=== PATIENT | male | born 1955 | race Caucasian/White ===

== ENCOUNTER → 2023-11-23 15:43 | Outpatient (REF) | payer BC, SELFPAY | LOC: RAD 15:43 | PROVIDERS: ATTENDING PHYSICIAN Nurse Practitioner Family | DX: M79.89 Other specified soft tissue disorders (principal) | CPT/HCPCS: 93971 ==

== ENCOUNTER → 2024-02-14 07:07 | Outpatient (REF) | payer BC, SELFPAY ==
[2024-02-14 07:49] LABS: % Basophils 0.7 % (0-2); % Immature Granulocytes 0.4 % (0-0.5); % Lymphocytes 14.4 % (20.5-51.1); % Monocytes 9.2 % (1.7-9.3); % Neutrophils 73.3 % (42.2-75.2); Absolute Basophils 0.1 10^3/uL (0-0.2); Absolute Eosinophils 0.2 10^3/uL (0-0.7); Absolute Lymphocytes 1.2 10^3/uL (1.2-3.4); Absolute Monocytes 0.7 10^3/uL (0.1-0.6); Absolute Neutrophils 5.9 10^3/uL (1.4-6.5); Hematocrit 52.8 % (39.0-52.0); Hemoglobin 17.3 g/dL (13.0-18.0); Mean Corp Hgb Conc. 32.8 g/dL (33.0-37.0); Mean Corpuscular Hgb 31.5 pg (27.0-31.0); Mean Platelet Volume 10.5 fL (7.4-10.4); Nucleated Red Blood Cells % 0 % (-); Platelet Count 187 10^3/uL (130-400); Red Cell Dist. Width 12.7 % (11.5-14.5); White Blood Cell Count 8.1 10^3/uL (4.8-10.8)
[2024-02-14 08:23] LABS: ALT (SGPT) 31 U/L (0-50); AST (SGOT) 32 U/L (17-59); Albumin 4.8 g/dl (3.5-5.0); Alkaline Phosphatase 69 U/L (38-126); Blood Urea Nitrogen 23 mg/dl (9-20); Calcium 9.9 mg/dl (8.4-10.2); Carbon Dioxide 25 mmol/L (22-30); Chloride 103 mmol/L (98-107); Glucose 106 mg/dl (70-99); HDL Cholesterol 46 mg/dl; LDL Cholesterol, Calculated 60 mg/dl; Potassium 4.1 mmol/L (3.5-5.1); Sodium 139 mmol/L (135-145); Total Bilirubin 0.9 mg/dl (0.2-1.3); Total Cholesterol 151 mg/dl (50-199); Total Protein 7.2 g/dl (6.3-8.2); Triglyceride 226 mg/dl (10-149); Very Low Density Lipoprotein 45 mg/dl (0-30); eGFR > 60.00
[2024-02-14 11:05] LABS: Glycohemoglobin (HgbA1c) 6.8 % (4.0-5.6)
[2024-02-14 15:28] LABS: Protein/creatinine Ratio 0.2; Urine Protein 12 mg/dl
[2024-02-14 15:34] LABS: Microalbumin, Random Urine 5.2 mg/dl (0.6-1.7); Microalbumin/creatinine Ratio 70.6 mg/g
== END ==
LOC: REG 07:07
PROVIDERS: ATTENDING PHYSICIAN Physician Assistant; FAMILY PHYSICIAN Family Medicine
DX: E11.9 Type 2 diabetes mellitus without complications (principal); R80.9 Proteinuria, unspecified
CPT/HCPCS: 36415; 80053; 80061; 82043; 82570; 83036; 84156; 85025

== ENCOUNTER 2024-03-02 04:29 | Emergency (ER) | payer BC, SELFPAY ==
[2024-03-02 04:31] VITALS: BP 143/80
[2024-03-02 05:00] VITALS: BP 127/81
[2024-03-02 05:04] VITALS: BMI 27.1
--- NOTE | 2024-03-02 05:08 | EDRN ---
Pt thinks he has kidney stones and noticed he has blood in his urine because he straight caths himself. Pt has pain LLQ that started around midnight, non radiating. No n/v, fever/chills/cough, cp, sob. Pt says this feels like usual kidney stone
which he has not had in about 10 years. Pt took meloxicam and 2 tylenol at him for pain. Pain improved from triage to ED room.
[2024-03-02 05:26] LABS: % Basophils 0.7 % (0-2); % Eosinophils 2.3 % (0-6); % Immature Granulocytes 0.3 % (0-0.5); % Monocytes 9.4 % (1.7-9.3); % Neutrophils 79.3 % (42.2-75.2); Absolute Basophils 0.1 10^3/uL (0-0.2); Absolute Eosinophils 0.3 10^3/uL (0-0.7); Absolute Monocytes 1.2 10^3/uL (0.1-0.6); Absolute Neutrophils 9.8 10^3/uL (1.4-6.5); Hematocrit 46.9 % (39.0-52.0); Hemoglobin 15.4 g/dL (13.0-18.0); Mean Corp Hgb Conc. 32.8 g/dL (33.0-37.0); Mean Corpuscular Hgb 31.5 pg (27.0-31.0); Mean Corpuscular Volume 95.9 fL (80.0-94.0); Mean Platelet Volume 10.8 fL (7.4-10.4); Nucleated Red Blood Cells % 0 % (-); Platelet Count 178 10^3/uL (130-400); Red Blood Cell Count 4.89 10^6/uL (4.70-6.10); Red Cell Dist. Width 12.8 % (11.5-14.5); White Blood Cell Count 12.4 10^3/uL (4.8-10.8)
[2024-03-02 05:45] LABS: ALT (SGPT) 26 U/L (0-50); AST (SGOT) 24 U/L (17-59); Albumin 4.1 g/dl (3.5-5.0); Alkaline Phosphatase 74 U/L (38-126); Blood Urea Nitrogen 29 mg/dl (9-20); Calcium 9.4 mg/dl (8.4-10.2); Carbon Dioxide 23 mmol/L (22-30); Chloride 103 mmol/L (98-107); Estimated Creatinine Clearance 84 ml/min; Glucose 158 mg/dl (70-99); Lipase 90 U/L (23-300); Sodium 137 mmol/L (135-145); Total Bilirubin 0.8 mg/dl (0.2-1.3); Total Protein 6.3 g/dl (6.3-8.2); eGFR > 60.00
[2024-03-02 06:00] VITALS: BP 111/83
[2024-03-02] MEDS: NSS 500 IV (06:19)
[2024-03-02 06:29] LABS: Urine Albumin Trace (Neg - Trace); Urine Bilirubin Negative (Negative); Urine Character Very Cloudy (Clear); Urine Color Yellow; Urine Glucose 3+ (Negative); Urine Ketone 1+ (Negative); Urine Leukocyte 2+ (Negative); Urine Nitrite Negative (Negative); Urine Occult Blood 4+ (Negative); Urine Urobilinogen Negative (Neg - 1+)
[2024-03-02 06:36] LABS: Urine White Cell >100 /HPF (0-5)
[2024-03-02 06:37] LABS: Urine Yeast Few (Negative)
--- NOTE | 2024-03-02 07:25 | ED.GENMED ---
History of Present Illness
General
Chief Complaint: Urinary Symptoms
Source: patient and spouse
Exam Limitations: none
Time Seen by Provider: 03/02/24 06:03
Nursing documentation reviewed up to this point in time: agreed with
Travel History
Have you had any contact with someone who has COVID-19?: No
Do you have any symptoms of coronavirus? Fever > 100 degrees, chills, cough, shortness of breath, sore throat, loss of taste or smell, muscle aches, or headache?: No
History of Present Illness
History of Present Illness:
Patient with history of kidney stones, presents to ED secondary to sudden onset of left lower abdominal pain, which woke the patient from sleep, similar to what he has experienced in the past secondary to kidney stones. Last kidney stone episode
was approxi-10 years ago. Denies fever or chills. Denies nausea or vomiting. Denies trauma. Patient states that he self caths twice daily, after receiving Botox injection by his urologist. Denies previous history of UTI. Patient has taken
Tylenol and meloxicam prior to arrival, and states that he currently has no pain.
Past History
Past History
ED Past Medical History: None
ED Past Surgical History: None
Social History
Tobacco: Non-smoker
Review of Systems
Review of Systems
Allergies reviewed?: Yes
All Other Systems: ROS reviewed and negative except as documented in HPI and ROS
Constitutional: Reports no symptoms
ABD/GI: Reports abdominal pain; Denies nausea or vomiting
: Reports flank pain; Denies dysuria or difficulty voiding
Musculoskeletal: Reports no symptoms
Skin: Reports no symptoms
Neurological: Reports no symptoms
Phy Exam
Physical Exam
Physical Exam:
Physical Exam
General: no apparent distress, not acutely ill.
Neck: supple. no meningeal signs.
Heart: s1/s2 regular rate and rhythm, no murmur. equal radial pulses.
Lungs: no acute respiratory distress. clear bilaterally
Abdomen: normal bowel sounds. not tender.
Neuro: alert and oriented. no focal neurological deficits
Skin: no rash
Psychiatric: well kept. interactive and cooperative
Extremities: no edema. no calf tenderness.
Course
Orders/Labs/Results
Orders:
Orders
03/02/24 05:11
IV Insert/Care/Rem.- Treatment PRN
03/02/24 05:17
Complete Blood Count/With Diff Urgent
Comprehensive Metabolic Panel Urgent
Lipase Urgent
03/02/24 06:15
0.9% Sodium Chloride 500 ml [Nss] 500 ml IV BOLUS
03/02/24 06:16
CT Abd/pel Without Iv Or Oral Urgent
Comment:
Reason For Exam: left flank pain
03/02/24 06:20
Urinalysis Reflex To Culture Urgent
Date Specimen was Collected: 03/02/24
Time Specimen was Collected: 06:19
Urine Microscopic Reflex Cult Urgent
Urine Culture Urgent
ISA Source: U
Specimen Description:
Date Specimen was Collected: 03/02/24
Time Specimen was Collected: 06:19
Abnormal Lab Results
03/02/24 03/02/24
05:17 06:20
WBC 12.4 H 10^3/uL
(4.8-10.8)
MCV 95.9 H fL
(80.0-94.0)
MCH 31.5 H pg
(27.0-31.0)
MCHC 32.8 L g/dL
(33.0-37.0)
MPV 10.8 H fL
(7.4-10.4)
Absolute Neuts (auto) 9.8 H 10^3/uL
(1.4-6.5)
Absolute Lymphs (auto) 1.0 L 10^3/uL
(1.2-3.4)
Absolute Monos (auto) 1.2 H 10^3/uL
(0.1-0.6)
Neutrophils % 79.3 H %
(42.2-75.2)
Lymphocytes % 8.0 L %
(20.5-51.1)
Monocytes % 9.4 H %
(1.7-9.3)
BUN 29 H mg/dl
(9-20)
Glucose 158 H mg/dl
(70-99)
Urine Ketones 1+ A
(Negative)
Ur Occult Blood Reflex 4+ A
(Negative)
Leukocyte Esterase Rfl 2+ A
(Negative)
Urine WBC (Reflex) >100 A /HPF
(0-5)
Urine Yeast Few A
(Negative)
Urine Glucose 3+ A
(Negative)
03/02/24 05:17
03/02/24 05:17
Vital Signs
Initial and Last Documented VS:
Initial Vital Signs
Temp Pulse Resp BP Pulse Ox
98.1 F 67 14 143/80 95
03/02/24 04:31 03/02/24 04:31 03/02/24 04:31 03/02/24 04:31 03/02/24 04:31
Last Documented Vital Signs
Temp Pulse Resp BP Pulse Ox
98.1 F 73 16 124/76 97
03/02/24 04:31 03/02/24 07:58 03/02/24 07:58 03/02/24 07:58 03/02/24 07:58
MDM/Problems Addressed
MDM/Problems Addressed:
Patient remains pain-free during observation ED and remains hemodynamically stable. CT report reviewed and discussed with patient, consistent with likely recently passed kidney stone, as patient has no pain currently. However, there is 14 mm large
kidney stone in renal pelvis, which will be discussed with his urology as an outpatient.
WBC noted on urinalysis as well as leuk esterase. However, there is no bacteria involved. As such, antibiotics will be withheld, pending urine culture result.
*Critical Care Note
Total Time (30-74mins, 75-104mins- exclusive of procedures): Not Applicable
ED Attending Note
-
Portions of this chart may have been created with voice recognition software.� Occasional wrong word or��sound alike� substitutions may have occurred due to the inherent limitations of voice recognition software.
Discharge Plan
Departure
Patient Disposition: Home (Routine Discharge)
Date of Disposition: 03/02/24
Time of Disposition: 07:25
Patient with high blood pressure during this ER visit?: Yes
Condition: Good
Discharge Problem:
Kidney stone
Instructions: Kidney Stone, Adult ED
Prescriptions:
No Action
multivitamin 1 EACH tablet
1 tab PO QPM
atorvastatin 80 mg Tablet
80 mg PO DAILY
propranolol 80 mg Capsule,Extended Release 24 Hr
80 mg PO DAILY
zolpidem [Ambien] 5 mg Tablet
5 mg PO HSPRN PRN (Reason: sleep)
aspirin 81 mg Tablet,Chewable
81 mg PO DAILY
metformin 500 MG tablet
500 mg PO BID Qty: 60 0RF
venlafaxine 150 mg Capsule,Extended Release 24hr
150 mg PO DAILY Qty: 30 0RF
tamsulosin [Flomax] 0.4 mg Capsule
0.4 mg PO DAILY Qty: 30 0RF
finasteride 5 MG tablet
5 mg PO QPM Qty: 30 0RF
glipizide 5 mg Tablet
5 mg PO DAILY Qty: 30 0RF
dapagliflozin propanediol 10 mg Tablet
10 mg PO DAILY Qty: 30 0RF
Referrals:
Marie Mejia DO [Active] -
Shaun Almonte DO [Family Provider] -
Activity Restrictions/Additional Instructions:
As discussed, please follow-up with your urologist for further evaluation and treatment. In ED, CT scan revealed likely already passed kidney stone. Please return to ED with worsening symptoms, fever/recurrent pain/inability to urinate.
Interventions
Interventions:
*Risk Screen - Suicide Last Done: 03/02/24 04:31
*General Assessment Last Done: 03/02/24 04:31
*Neglect/Abuse Screening Last Done: 03/02/24 04:31
ED- Fall Risk Assessment Last Done: 03/02/24 08:15
*ED COVID-19 Vaccine History Last Done: 03/02/24 04:50
*Nursing Disposition Last Done: 03/02/24 08:15
ED-Male Genitourinary Assessment Last Done: 03/02/24 05:22
Discharge Date and Time
Discharge Date/Time: 03/02/24 08:15
Print Language: THAI
[2024-03-02 07:58] VITALS: BP 124/76
== END 2024-03-02 08:15 | disposition home or self-care (01) ==
LOC: EMR 04:29
PROVIDERS: Emergency Medicine; EMERGENCY PHYSICIAN Emergency Medicine; FAMILY PHYSICIAN Family Medicine
DX: N20.0 Calculus of kidney (principal); Z87.442 Personal history of urinary calculi
CPT/HCPCS: 99284; 74176; 80053; 81003; 81015; 83690; 85025; 87086

== ENCOUNTER 2024-04-23 06:23 | Day surgery (SDC) | payer BC, SELFPAY ==
[2024-04-11 14:04] VITALS: BMI 27.2
[2024-04-11 14:36] LABS: INR 1.09; PT 14.1 Sec (11.4-14.6)
[2024-04-11 14:37] LABS: APTT 27.8 Sec (23.4-35.0)
--- NOTE | 2024-04-12 12:12 | PTCARENOTE ---
Patients 04/[address] Ar[address]o [address] Castellanos request, no additional interventions required- office ([facility]) notified of same
[2024-04-23] VITALS (11 sets, daily range): BP systolic 139–180; BP diastolic 80–107; BMI 27.2
[2024-04-23 11:55] LABS: Glucose - Point of Care 119 mg/dl (70-99)
[2024-04-23] MEDS: Pyridium 200 MG PO (12:29)
[2024-04-23] MEDS: NORMOSOL-R 1000 IV (12:29)
[2024-04-23 13:50] LABS: Glucose - Point of Care 111 mg/dl (70-99)
[2024-04-23 15:42] LABS: Glucose - Point of Care 102 mg/dl (70-99)
== END 2024-04-23 17:30 | disposition home or self-care (01) ==
LOC: SDS 06:23
PROVIDERS: ATTENDING PHYSICIAN Specialist; FAMILY PHYSICIAN Nurse Practitioner Adult Health
DX: N20.0 Calculus of kidney (principal); N31.9 Neuromuscular dysfunction of bladder, unspecified; N30.20 Other chronic cystitis without hematuria
CPT/HCPCS: 52356; 36415; 74018; 76000; 82365; 82962; 85610; 85730; 93005; A4300; C1894; C2617

== ENCOUNTER 2024-04-24 18:27 | Inpatient (IN) | payer BC, SELFPAY ==
[2024-04-24] VITALS (8 sets, daily range): BP systolic 114–165; BP diastolic 68–98; BMI 27.4; BMI 26.6
--- NOTE | 2024-04-24 14:44 | ED.CVA ---
History of Present Illness
General
Chief Complaint: CVA/TIA Symptoms
Source: patient and spouse
Time Seen by Provider: 04/24/24 14:27
Onset of Stroke Symptoms
Onset of symptoms known: No
Time pt last seen normal is known: Yes
Date last time pt seen normal: 04/23/24
Time last time pt seen normal: 21:00
History of Present Illness
History of Present Illness:
68-year-old male brought to the emergency room for evaluation of confusion, acting strangely. Patient was in his usual state of health yesterday morning when he went to the hospital to have a procedure for kidney stones. The procedure went well.
He was discharged and seem to be at his baseline. When he got home the patient began drinking fluids to 'rehydrate'. Patient's noted he was drinking quite a lot of fluid particularly water. This morning she noted he was having trouble having
a normal conversation. He was having some word finding problems but also seems somewhat off balance or ataxic. This morning the patient has consumed 4 to 516 ounce bottles of water as well as milk and ice tea. She believes he consumed a similar
amount at least if not more last night.
Past History
Past History
ED Past Medical History: None
ED Past Surgical History: None
Social History
Tobacco: Non-smoker
Phy Exam
Physical Exam
Physical Exam:
General: Awake, Alert, Oriented X3. No acute distress.
Vitals: unremarkable
Head: Atraumatic
Eyes: Pupils equal, EOMI
Throat: Airway intact, no exudates
Neck: Trachea midline
Lungs: Clear and equal b/l
Heart: Regular rate, no murmurs
Abd: Soft, Nontender, No pulsatile mass
Neuro: Cranial nerves intact, muscle strength 5 out of 5 bilaterally, sensation intact
Skin: Warm, dry, no rash
Extremities: pulses equal b/l, no edema
Course
Orders/Labs/Results
Orders:
Orders
04/24/24 15:19
Basic Metabolic Panel Urgent
Complete Blood Count/With Diff Urgent
04/24/24 15:21
Acetaminophen [Tylenol] 650 mg PO NOW STA
04/24/24 15:22
CR Chest - 2 Views Urgent
Comment:
Reason For Exam: fever
04/24/24 16:04
CT Head W/o Iv Contrast Urgent
Comment:
Reason For Exam: acute confusion
04/24/24 16:16
Osmolality, Random Urine Urgent
Date Specimen was Collected: 04/24/24
Time Specimen was Collected: 16:15
Urinalysis Reflex To Culture Urgent
Date Specimen was Collected: 04/24/24
Time Specimen was Collected: 16:15
Urine Microscopic Reflex Cult Urgent
Urine Sodium Urgent
Date Specimen was Collected: 04/24/24
Time Specimen was Collected: 16:15
Urine Culture Urgent
ISA Source: U
Specimen Description:
Date Specimen was Collected: 04/24/24
Time Specimen was Collected: 16:15
04/24/24 16:52
CefTRIAXone [Rocephin] 1,000 mg IV NOW STA
04/24/24 17:08
Sterile Water [Sterile Water For Injection] 10 ml .ROUTE .[facility]
04/24/24 17:10
Gentamicin Sulfate [Gentamicin] 435 mg 0.9% Sodium Chloride [Nss] 50 ml IV NOW
04/24/24 17:18
COVID-19 Antigen Urgent
Source: Nasal Swab
Blood Culture Urgent
ISA Source: Blood/Venous
Specimen Description:
04/24/24 17:27
UROLOGY CONSULT Routine
Consulting Provider: Patricio Castellanos
Was physician already notified: Yes
Comment: recent ureteral stent
04/24/24 18:00
Bladder Scan As Directed
Follow Bladder Retention/Intermittent Cath Algorithm?: Yes
PRN if no void in __ hours: 6
Frequency: Per Retention Algorithm
If Bladder Scan Result >: 400
then:: Straight cath
Straight Cath As Directed
Frequency: Per Retention Algorithm
Additional Instructions: straight cath as needed per acute urinary retention algorithm for 24 hrs
Additional Instructions: for bladder scan greater than 400 mL
04/24/24 18:06
Admit/Transfer Patient As Directed
Co-Sign Provider:
Level of Care: Inpatient admission
Assign to:: Medical/Surgical
Physician / Group: Leonardo
Diagnosis: sepsis due to UTI
Reason for Hospitalization: sepsis due to UTI
Expected length of stay greater than two midnights?: Yes
ELOS- Estimated Length of Stay in days: 4
I certify the patient meets the requirements for IP care: Yes
04/24/24 18:09
Code Status As Directed
Resuscitation Status: Full Code
04/24/24 20:00
METFORMIN HCl [Glucophage] 500 mg PO BID
04/24/24 22:00
Atorvastatin [Lipitor] 80 mg PO HS
Tamsulosin [Flomax] 0.4 mg PO HS
Venlafaxine Extended Release [Effexor Xr] 150 mg PO HS
04/25/24 08:00
Aspirin Chewable [Low Strength Aspirin] 81 mg PO DAILY
Dapagliflozin [Farxiga] 10 mg PO DAILY
GlipiZIDE [Glucotrol] 5 mg PO DAILY
Propranolol Extended Release [Inderal LA] 80 mg PO DAILY
04/25/24 18:00
Finasteride [Proscar] 5 mg PO QPM
Abnormal Lab Results
04/24/24 04/24/24
15:19 16:16
WBC 18.0 H 10^3/uL
(4.8-10.8)
MCV 94.5 H fL
(80.0-94.0)
MCH 31.2 H pg
(27.0-31.0)
Abs Immat Gran (auto) 0.1 H 10^3/uL
(0-0.05)
Absolute Neuts (auto) 15.5 H 10^3/uL
(1.4-6.5)
Absolute Lymphs (auto) 0.7 L 10^3/uL
(1.2-3.4)
Absolute Monos (auto) 1.6 H 10^3/uL
(0.1-0.6)
Immature Gran % 0.6 H %
(0-0.5)
Neutrophils % 86.2 H %
(42.2-75.2)
Lymphocytes % 3.8 L %
(20.5-51.1)
Glucose 169 H mg/dl
(70-99)
Urine Ketones Trace A
(Negative)
Ur Occult Blood Reflex 4+ A
(Negative)
Leukocyte Esterase Rfl 2+ A
(Negative)
Urine RBC 90-100 A /HPF
(0-2)
Urine WBC (Reflex) 70-80 A /HPF
(0-5)
Urine Bacteria (Reflex) Few A
(Negative)
Urine Glucose 3+ A
(Negative)
Urine Albumin (Reflex) 2+ A
(Neg - Trace)
04/24/24 15:19
04/24/24 15:19
Vital Signs
Initial and Last Documented VS:
Initial Vital Signs
Temp Pulse Resp BP Pulse Ox
99.4 F 123 20 165/98 99
04/24/24 14:16 04/24/24 14:16 04/24/24 14:16 04/24/24 14:16 04/24/24 14:16
Last Documented Vital Signs
Temp Pulse Resp BP Pulse Ox
99.0 F 99 30 142/68 94
04/24/24 18:30 04/24/24 18:30 04/24/24 18:30 04/24/24 18:00 04/24/24 18:15
MDM/Problems Addressed
Differential Diagnosis Includes:
Hyponatremia, urinary tract infection, pneumonia, postop atelectasis
MDM/Problems Addressed:
Patient presents more confused and with difficulty speaking. He was ultimately found to be febrile here. I suspect part of the issue is that he has recrudescence of his some of his stroke symptoms with the fever. Despite his significant water
intake he is not hyponatremic. Discussed presentation with Dr. Castellanos who performed his procedure yesterday. He of course recommends coverage for urosepsis. No other source of infection is identified. Urinalysis does show significant number of
red blood cells and white blood cells however with the stent in place hard to know if this reflects true infection or just an inflammatory reaction to the stent.
*Radiology
Radiology exam reviewed: radiology read reviewed
*Pulse Oximetry
Patient hypoxic: no
*Critical Care Note
Total Time (30-74mins, 75-104mins- exclusive of procedures): Not Applicable
Patient Management
Social determinants of health affecting care: Living situation
ED Attending Note
-
Portions of this chart may have been created with voice recognition software.� Occasional wrong word or��sound alike� substitutions may have occurred due to the inherent limitations of voice recognition software.
Discharge Plan
Departure
Patient Disposition: Admit
Date of Disposition: 04/24/24
Time of Disposition: 17:16
Admit to: Med/Surg
Presentation/result/management discussed w/ accepting MD/DO: Hospitalist
Condition: Fair
Discharge Problem:
Altered mental status, Fever
Interventions
Interventions:
*Risk Screen - Suicide Last Done: 04/24/24 15:23
*General Assessment Last Done: 04/24/24 15:23
*Neglect/Abuse Screening Last Done: 04/24/24 15:23
ED- Fall Risk Assessment Last Done: 04/24/24 15:23
ED- Pulmonary Assessment Last Done: 04/24/24 15:23
ED- Neurological Assessment Last Done: 04/24/24 15:23
ED- Cardiac Assessment Last Done: 04/24/24 15:23
ED Swallowing Screen Last Done: 04/24/24 15:27
[2024-04-24] MEDS: TYLENOL 650 MG PO (15:29)
[2024-04-24 15:30] LABS: % Basophils 0.4 % (0-2); % Eosinophils 0.3 % (0-6); % Immature Granulocytes 0.6 % (0-0.5); % Lymphocytes 3.8 % (20.5-51.1); % Monocytes 8.7 % (1.7-9.3); % Neutrophils 86.2 % (42.2-75.2); Absolute Basophils 0.1 10^3/uL (0-0.2); Absolute Eosinophils 0.1 10^3/uL (0-0.7); Absolute Immature Granulocytes 0.1 10^3/uL (0-0.05); Absolute Lymphocytes 0.7 10^3/uL (1.2-3.4); Absolute Monocytes 1.6 10^3/uL (0.1-0.6); Absolute Neutrophils 15.5 10^3/uL (1.4-6.5); Hematocrit 44.8 % (39.0-52.0); Hemoglobin 14.8 g/dL (13.0-18.0); Mean Corpuscular Hgb 31.2 pg (27.0-31.0); Mean Corpuscular Volume 94.5 fL (80.0-94.0); Mean Platelet Volume 9.8 fL (7.4-10.4); Nucleated Red Blood Cells % 0 % (-); Platelet Count 242 10^3/uL (130-400); Red Blood Cell Count 4.74 10^6/uL (4.70-6.10); Red Cell Dist. Width 12.6 % (11.5-14.5)
[2024-04-24 16:02] LABS: Blood Urea Nitrogen 20 mg/dl (9-20); Calcium 9.2 mg/dl (8.4-10.2); Carbon Dioxide 27 mmol/L (22-30); Chloride 99 mmol/L (98-107); Glucose 169 mg/dl (70-99); Potassium 4.3 mmol/L (3.5-5.1); Sodium 137 mmol/L (135-145); eGFR > 60.00
[2024-04-24 16:33] LABS: Urine Albumin 2+ (Neg - Trace); Urine Bilirubin Negative (Negative); Urine Character Slightly Cloudy (Clear); Urine Color Yellow; Urine Glucose 3+ (Negative); Urine Ketone Trace (Negative); Urine Leukocyte 2+ (Negative); Urine Nitrite Negative (Negative); Urine Occult Blood 4+ (Negative); Urine Urobilinogen Negative (Neg - 1+)
[2024-04-24 16:45] LABS: Osmolality Urine 350 mOsm/kg (300-900)
[2024-04-24 16:52] LABS: Urine Squamous Cell 0-2 /LPF (Few)
[2024-04-24 16:53] LABS: Urine Red Blood Cell 90-100 /HPF (0-2); Urine White Cell 70-80 /HPF (0-5)
[2024-04-24 16:54] LABS: Urine Bacteria Few (Negative); Urine Sodium 35 mmol/L (30-90)
[2024-04-24] MEDS: ROCEPHIN 1000 MG IV (17:16)
--- NOTE | 2024-04-24 17:27 | HPS.HSE ---
Family Physician
-
Family Physician: Shaun Almonte
Chief Complaint
-
confusion
History of Present Illness
68 y/o M with PMHx:
CVA s/p tPA 11/22/22, L ICA stent placement 11/25/22
DM2
Essential HTN
HLD
Diverticulosis
OA
Renal calculi
Anxiety
JANA
Hemorrhoids
Fatty liver disease
BPH with urinary frequency
Plantar fasciitis
Scoliosis
Restless legs
Insomnia
Chronic low back pain
who presents with confusion. Yesterday the patient underwent left ureteroscopic laser lithotripsy with stone extraction with placement of left double-J ureteral stent (4.7-Nepalese 26 cm). He was in his usual state of health prior to the procedure
and immediately afterwards. Upon arriving home the patient felt the need to rehydrate and was drinking large amounts of fluids. This morning he was having difficulty with usual conversation and was noted to have word finding difficulties.
Patient's reports that he has not been himself for the past few weeks. He has been straight catheterizing at home and reports pain with self-catheterization. Currently denies chest pain, shortness of breath, nausea, vomiting, diarrhea,
abdominal pain, headache, neck stiffness.
Medical History
Past Medical History
Past Medical History: Reports Other (as per HPI)
Past Surgical History: Reports Other (as per HPI)
Social History
Unable to obtain full social history at this time due to: Dementia
Tobacco: Non-smoker
Alcohol: None
Family History
Family History: Not pertinent
Allergies / Home Medications
Allergies reflects when Allergies were last updated in [facility].
Home Medications with original date entered in [facility]
Allergy/Medication List:
Allergies
Allergy/AdvReac Type Severity Reaction Status Date / Time
No Known Drug Allergies Allergy Unknown Verified 04/24/24 14:21
Home Medications
aspirin 81 mg chewable tablet 81 mg PO DAILY 11/28/22
zolpidem 5 mg tablet (Ambien) 5 mg PO HSPRN PRN sleep 11/28/22
finasteride 5 mg tablet 5 mg PO QPM #30 tabs 12/07/22
glipizide 5 mg tablet 5 mg PO DAILY #30 tabs 12/07/22
metformin 500 mg tablet 500 mg PO BID #60 tabs 12/07/22
atorvastatin 80 mg tablet 80 mg PO HS 03/02/24
propranolol 80 mg capsule,24 hr,extended release 80 mg PO DAILY 03/02/24
dapagliflozin propanediol 10 mg tablet (Farxiga) 10 mg PO DAILY 04/17/24
tamsulosin 0.4 mg capsule (Flomax) 0.4 mg PO HS 04/17/24
venlafaxine 150 mg capsule,extended release 24 hr 150 mg PO HS 04/17/24
Review of Systems
-
History Source: Patient
A 12 point ROS was completed and negative except as noted: Yes
Physical Exam
Vital Signs
Vital Signs
Temp Pulse Resp BP Pulse Ox
99.8 F 98 21 121/77 93
04/24/24 16:00 04/24/24 16:54 04/24/24 16:54 04/24/24 16:54 04/24/24 16:54
Physical Exam
General: Other (.)
Laboratory Results
-
04/24/24 15:19
04/24/24 15:19
Impression/Plan
-
Gen: NAD, Awake and alert, NCAT
Eyes: EOMI, PERRLA, no scleral icterus.
Neck: supple.
CV: RRR, +S1/S2, no m/r/g.
Resp: CTAB, no rales, wheezes, or rhonchi.
Abd: +BS, soft, NT, ND
Skin: No rashes.
Neuro: CN 2-12 intact, non-focal.
Psych: Normal mood and affect.
CT brain: No acute intracranial abnormality noted. Mild atrophy. New. Small old left frontal lobe infarct. Stable.
CXR: No acute disease of the chest considering the limited inspiration.
Sepsis:
-with acute metabolic encephalopathy
-likely due to UTI due to 04/23/24 Left ureteroscopic laser lithotripsy with stone extraction with placement of left double-J ureteral stent (4.7-Nepalese 26 cm) and U/A findings
-Gent/Rocephin given in ER
-cont with Rocephin
-follow UCx/BCxs
-IVFs
-trend fever/leukocytosis
BPH with urinary frequency:
-Has been straight catheterizing at home
-Bladder scans with urinary retention protocol
Other problems:
CVA s/p tPA 11/22/22, L ICA stent placement 11/25/22: cont ASA/statin
DM2: cont Metformin/Farxiga/Glipizide
Essential HTN: Cont Propranolol
HLD: cont statin
Diverticulosis
OA
Renal calculi
Anxiety
JANA
Hemorrhoids
Fatty liver disease
Plantar fasciitis
Scoliosis
Restless legs
Insomnia
Chronic low back pain
FULL/Lovenox
[2024-04-24] MEDS: GENTAMICIN 60.875 MG IV (17:37)
[2024-04-24 17:53] LABS: COVID-19 Antigen Negative (Negative)
--- NOTE | 2024-04-24 19:24 | W.PN.URO.CBU ---
Today's Communication / Plan
-
Continue IV antibiotics
IV fluids
Await blood and urine culture results
Assessment / Plan
-
Probable urosepsis 24 hours after left ureteroscopic stone surgery
Diagnosis
-
Date of Service: April 24, 2024
-
Patient Diagnosis:
Probable urosepsis 1 day s/p left ureteroscopic laser lithotripsy with stone extraction and stent placement
Longstanding overactive bladder
Subjective
-
Fatigued
Feels poorly with chills/rigors
Objective
-
Vital Signs
Temp Pulse Resp BP Pulse Ox
99.0 F 89 22 133/78 94
04/24/24 18:30 04/24/24 19:00 04/24/24 19:00 04/24/24 19:00 04/24/24 18:15
Laboratory Results
04/24/24 15:19
04/24/24 15:19
Review of Systems
-
Constitutional: Fatigue
Respiratory: No Symptoms
Cardiac: No Symptoms
Abdomen/GI: No Symptoms
: Frequency and Urgency
Physical Exam
-
General - chills/rigors, alert and oriented
Abdomen - soft, non-tender
Genitalia - normal
Counseling
-
Continue medical interventions
No intervention indicated at this time
Will follow
[2024-04-24] MEDS: TYLENOL/FEVERALL 650 MG RECTAL (19:42)
[2024-04-24] MEDS: GLUCOPHAGE 500 MG PO (20:29)
[2024-04-24] MEDS: NSS 1000 IV (20:29)
--- NOTE | 2024-04-24 20:36 | PTCARENOTE ---
Patient admitted from ED. Patient AAO x2, disoriented to time, bed alarm is on. Patient on RA, in no acute distress. Patient oriented to room and call wiseman is within reach.
[2024-04-24 20:55] LABS: Lactic Acid 1.3 mmol/L (0.7-2.0)
[2024-04-24 21:18] LABS: Glucose - Point of Care 156 mg/dl (70-99)
[2024-04-24] MEDS: LIPITOR 80 MG PO (21:30)
[2024-04-24] MEDS: FLOMAX 0.4 MG PO (21:30)
[2024-04-24] MEDS: EFFEXOR XR 150 MG PO (22:15)
[2024-04-25] MEDS: NSS 1000 IV ×2 (06:10→17:27)
[2024-04-25 08:24] LABS: Hematocrit 42.6 % (39.0-52.0); Mean Corp Hgb Conc. 32.9 g/dL (33.0-37.0); Mean Corpuscular Hgb 31.3 pg (27.0-31.0); Mean Corpuscular Volume 95.1 fL (80.0-94.0); Mean Platelet Volume 10.2 fL (7.4-10.4); Platelet Count 223 10^3/uL (130-400); Red Blood Cell Count 4.48 10^6/uL (4.70-6.10); Red Cell Dist. Width 12.8 % (11.5-14.5); White Blood Cell Count 21.5 10^3/uL (4.8-10.8)
[2024-04-25] MEDS: LOW STRENGTH ASPIRIN 81 MG PO (08:48)
[2024-04-25] MEDS: GLUCOTROL 5 MG PO (08:48)
[2024-04-25] MEDS: FARXIGA 10 MG PO (08:48)
[2024-04-25] MEDS: GLUCOPHAGE 500 MG PO ×2 (08:48→16:18)
[2024-04-25 08:56] LABS: Glucose - Point of Care 137 mg/dl (70-99)
[2024-04-25] MEDS: NOVOLOG FLEXPEN-MODERATE RESISTANCE SC ×2 (09:00→13:15)
[2024-04-25] MEDS: TYLENOL 650 MG PO ×2 (09:03→16:17)
[2024-04-25 10:00] VITALS: BP 122/75
[2024-04-25] MEDS: INDERAL LA 80 MG PO (10:16)
[2024-04-25 10:50] LABS: Glycohemoglobin (HgbA1c) 6.7 % (4.0-5.6)
--- NOTE | 2024-04-25 11:09 | W.PN.HOSP.TC ---
Today's Communication/Plan
-
see bold
Assessment / Plan
Assessment / Plan
Gen: NAD, Awake and alert, NCAT
Eyes: EOMI, PERRLA, no scleral icterus.
Neck: supple.
CV: remains RRR, +S1/S2, no m/r/g.
Resp: remains CTAB, no rales, wheezes, or rhonchi.
Abd: +BS, soft, NT, ND
Skin: No rashes.
Neuro: remains CN 2-12 intact, non-focal.
Psych: Normal mood and affect.
CT brain: No acute intracranial abnormality noted. Mild atrophy. New. Small old left frontal lobe infarct. Stable.
CXR: No acute disease of the chest considering the limited inspiration.
Sepsis:
-with acute metabolic encephalopathy
-likely due to UTI due to 04/23/24 Left ureteroscopic laser lithotripsy with stone extraction with placement of left double-J ureteral stent (4.7-Amharic 26 cm) and U/A findings
-Gent/Rocephin given in ER
-cont with Rocephin
-follow UCx/BCxs
-cont IVFs
-trend fever/leukocytosis
BPH with urinary frequency:
-Has been straight catheterizing at home
-[place] placed for acute urinary retention
Other problems:
CVA s/p tPA 11/22/22, L ICA stent placement 11/25/22: cont ASA/statin
DM2: cont Metformin/Farxiga/Glipizide
Essential HTN: Cont Propranolol
HLD: cont statin
Diverticulosis
OA
Renal calculi
Anxiety
JANA
Hemorrhoids
Fatty liver disease
Plantar fasciitis
Scoliosis
Restless legs
Insomnia
Chronic low back pain
FULL/Lovenox
Anticipated Discharge: > 48 hours
Subjective/Interval History
-
Date of Service: April 25, 2024
No new complaints.
Objective Data
-
Labs:
Laboratory Results
04/25/24
07:55
WBC 21.5 H
Hgb 14.0
Hct 42.6
Plt Count 223
Vital Signs:
Vital Signs
Temp Pulse Resp BP Pulse Ox
99.2 F 109 22 122/75 93
04/25/24 10:00 04/25/24 10:16 04/25/24 10:00 04/25/24 10:16 04/25/24 10:00
I&O
04/24/24 04/25/24 04/26/24
06:59 06:59 06:59
Intake Total 1860 / 1860 600 / 600
Output Total 800 / 800
Balance 1060 / 1060 600 / 600
--- NOTE | 2024-04-25 12:39 | W.PN.URO.CBU ---
Today's Communication / Plan
-
Continue IV fluids and antibiotics
Cultures pending
Assessment / Plan
-
Probable urosepsis 24 hours after left ureteroscopic stone surgery 04/23/24
Diagnosis
-
Date of Service: April 25, 2024
-
Patient Diagnosis:
Probable urosepsis s/p left ureteroscopic laser lithotripsy with stone extraction and stent placement 04/23/24
Longstanding overactive bladder
Subjective
-
Fatigued
No further chills
Objective
-
Vital Signs
Temp Pulse Resp BP Pulse Ox
99.2 F 109 22 122/75 93
04/25/24 10:00 04/25/24 10:16 04/25/24 10:00 04/25/24 10:16 04/25/24 10:00
Intake and Output
04/24/24 04/25/24 04/26/24
06:59 06:59 06:59
Intake Total 1860 / 1860 600 / 600
Output Total 800 / 800
Balance 1060 / 1060 600 / 600
Intake:
Oral fluids 960 / 960 600 / 600
IV fluids (Total) 900 / 900
Output:
Urine, Voided 800 / 800
Other:
How many times incontinent 1
SATURATED amount urine
Laboratory Results
04/25/24 07:55
04/24/24 15:19
Review of Systems
-
Constitutional: Fever and Fatigue
Respiratory: No Symptoms
Cardiac: No Symptoms
Abdomen/GI: No Symptoms
: Frequency
Physical Exam
-
General - ill-appearing
Abdomen - soft, non-tender
Genitalia - normal with ricky urine draining from condom catheter
Skin - warm & dry with no rash
[2024-04-25 13:04] LABS: Glucose - Point of Care 131 mg/dl (70-99)
--- NOTE | 2024-04-25 14:47 | CON.ID ---
Consultation
-
Date/Time Consultation Requested: 04/24/20241955
Date/Time Consultation Performed: 1400
Requesting Provider: Dr. Patterson
Performing Provider: Dr. Yanez
Reason for Consultation: Leukocytosis
Chief Complaint / Past History
History of Present Illness
Timmy East is a 68-year-old man being evaluated at request of Dr. Patterson in regards to suspected clinical sepsis. History is obtained from chart review, along with patient interview. Additional history was obtained from the patient's daughter who
was at the bedside and via telephone.
The patient has a history of nephrolithiasis and underwent laser lithotripsy on 04/[address] Castellanos. At that time stents were placed. The patient was discharged that day to home in stable condition. He reportedly did well overnight, but the next
day in the morning he seemed to have increasing confusion, with some word finding and inability and reported balance issues. Because of these symptoms he was brought back to the hospital for further evaluation. Workup in the ER revealed a
significant leukocytosis, and the patient was placed on empiric antibiotics (Rocephin/gentamicin) and admitted to the [facility]. Cultures have been obtained, but are negative to date. Infectious Diseases asked to comment upon further antimicrobial
management.
Further history from the patient's indicates that he has had some overall price changer the past 2 to 4 weeks with some speech issues, although she could not pinpoint exactly what they were. He additionally has been dealing with episodes of
incontinence during the same. He has been self cathing for the past month, and his reports that she has had concerns over his aseptic technique.
At present, the patient denies any specific pain. He notes ongoing generalized tremors, which the and daughter report have been worse today. He denies any abdominal pain or flank pain. A Moise catheter is in place with bloody urine.
Past History
Additional Past Medical History:
CVA s/p tPA 11/22/22, L ICA stent placement 11/25/22
DM type II
HTN
Dyslipidemia
Diverticulosis
Osteoarthritis
Nephrolithiasis
Anxiety
JANA
BPH
Plantar fasciitis
Scoliosis
Restless leg syndrome
Insomnia
Chronic low back pain
Additional Past Surgical History:
(L) ICA stent (11/25/22)
Laser lithotripsy
Allergy History:
shellfish derived Allergy (Verified 04/24/24 19:59)
Unknown
Medications Reviewed: Yes
Current Antibiotics:
Ceftriaxone
Social History
Tobacco: Non-Smoker
Alcohol: Occasional
Drug: None
Personal:
Living: With Family
Employment: Employed
Family History
Family History: Not Pertinent
Review of Systems
Vital Signs
Temp Pulse Resp BP Pulse Ox
99.2 F 109 22 122/75 93
04/25/24 10:00 04/25/24 10:16 04/25/24 10:00 04/25/24 10:16 04/25/24 10:00
Physical Exam
Physical Exam
Constitutional: No Acute Distress, Well Developed, Comfortable, Acutely Ill and Non-toxic
Head: Normocephalic
Eyes: Pupils Equal, Pupils Round, No Conjunctival Hemorrhage and Sclera Anicteric
Oral: No Thrush and No Ulcers
Cardiovascular: Regular Rate and S1/S2; Negative S3/S4 or Murmur
Pulmonary: Clear; Negative Wheezes, Rales or Rhonchi
Gastrointestinal: Soft, Non Tender, Non Distended, Normal Bowel Sounds, No Rebound and No Guarding
Genito-Urinary: Moise and Hematuria; Negative CVA Tenderness
Extremities: Negative Edema, Cyanosis or Erythema
Skin: Warm and Dry; Negative Rash or Jaundice
Neurological: Awake, Alert and Tremors
Psychological: Calm
.
Lab / Diagnostic Study Results
04/25/24 07:55
04/24/24 15:19
Abs Immat Gran (auto) 0.1 10^3/uL (0-0.05) H 04/24/24 15:19
Absolute Neuts (auto) 15.5 10^3/uL (1.4-6.5) H 04/24/24 15:19
Absolute Lymphs (auto) 0.7 10^3/uL (1.2-3.4) L 04/24/24 15:19
Absolute Monos (auto) 1.6 10^3/uL (0.1-0.6) H 04/24/24 15:19
Absolute Basos (auto) 0.1 10^3/uL (0-0.2) 04/24/24 15:19
Immature Gran % 0.6 % (0-0.5) H 04/24/24 15:19
Neutrophils % 86.2 % (42.2-75.2) H 04/24/24 15:19
Lymphocytes % 3.8 % (20.5-51.1) L 04/24/24 15:19
Monocytes % 8.7 % (1.7-9.3) 04/24/24 15:19
Eosinophils % 0.3 % (0-6) 04/24/24 15:19
Basophils % 0.4 % (0-2) 04/24/24 15:19
Lactic Acid Cancelled 04/24/24 23:56
Ur Squamous Epith Cells 0-2 /LPF (Few) 04/24/24 16:16
Microbiology Results
Micro:
04/24/24 16:16 Urine Culture - Final
Urine NO GROWTH
04/24/24 17:18 Blood Culture - Pending
Blood/Venous
Imaging:
03/02/2024 CT abdomen/pelvis without contrast: A 2 mm calcification is present within the posterior central bladder lumen. An ovoid calculus within the posterior aspect of the left renal pelvis is noted. A 6 mm nephrolith in the lower pole of the
left kidney is noted.
04/24/2024 CXR (2 view): Lungs are clear but with limited inspiration. No pleural effusion or pneumothorax seen. Please see full dictation for additional detail. Film personally viewed.
04/24/2024 CT head without contrast: No acute intracranial abnormality noted. Please see full dictation for additional detail.
Assessment / Plan
Leukocytosis
Nephrolithiasis s/p laser lithotripsy (04/23/2024)
Suspected clinical sepsis
CVA s/p tPA 11/22/22, L ICA stent placement 11/25/22
DM type II
HTN
Dyslipidemia
Diverticulosis
Osteoarthritis
Nephrolithiasis
Anxiety
JANA
BPH
Plantar fasciitis
Scoliosis
Restless leg syndrome
Insomnia
Chronic low back pain
Recommendations:
Etiology of marked leukocytosis not immediately clear, may be secondary to recent surgery, or concomitant infection.
Continue empiric antibiotics, but will broaden ceftriaxone to cefepime 2 g IV every [address] of the abdomen and pelvis to assess for any pathology.
Follow white count and temperature curve.
Monitor pending cultures. Repeat blood cultures for temperature greater than 101 degrees Fahrenheit.
Care Review
Plan reviewed with: Physician (Hospitalist, Urology)
[2024-04-25 15:04] VITALS: BMI 26.6
[2024-04-25 16:15] VITALS: BP 124/70
[2024-04-25] MEDS: STERILE WATER FOR INJECTION 10 ML IV (16:18)
[2024-04-25] MEDS: MAXIPIME 2000 MG IV (16:18)
--- NOTE | 2024-04-25 16:38 | PTCARENOTE ---
Patient with WBC count this morning of 21.5. Patient has had tremulous arms most of day. Temperature spike of 102.8 this afternoon. Tylenol given; ice packs provided. CT of abdomen and pelvis completed and awaiting results. ID consult competed.
Placed condom cath on patient as he has urgency and frequency and is grossly incontinent. Urine is brown in color with maroon blood noted/clear. Denies complaints of pain. IVF maintained at 100 mls/hour. Patient bladder scanned for post void
residual of 139 mls. Denies pain.
[2024-04-25 17:17] LABS: Glucose - Point of Care 165 mg/dl (70-99)
[2024-04-25] MEDS: NOVOLOG FLEXPEN-MODERATE RESISTANCE 1 UNITS SC (17:26)
[2024-04-25] MEDS: LOVENOX 40 MG SC (17:28)
[2024-04-25] MEDS: PROSCAR 5 MG PO (17:49)
[2024-04-25] MEDS: FLOMAX 0.4 MG PO (21:06)
[2024-04-25] MEDS: EFFEXOR XR 150 MG PO (21:06)
[2024-04-25] MEDS: LIPITOR 80 MG PO (21:06)
[2024-04-25 21:36] LABS: Glucose - Point of Care 180 mg/dl (70-99)
[2024-04-26 00:02] VITALS: BP 141/84
[2024-04-26] MEDS: STERILE WATER FOR INJECTION 10 ML IV ×2 (04:04→17:17)
[2024-04-26] MEDS: MAXIPIME 2000 MG IV ×2 (04:04→17:17)
[2024-04-26] MEDS: NSS 1000 IV ×2 (05:07→13:08)
[2024-04-26 07:48] VITALS: BP 127/73
[2024-04-26 08:00] LABS: Hemoglobin 12.6 g/dL (13.0-18.0); Mean Corp Hgb Conc. 32.3 g/dL (33.0-37.0); Mean Corpuscular Hgb 31.1 pg (27.0-31.0); Mean Corpuscular Volume 96.3 fL (80.0-94.0); Mean Platelet Volume 10.2 fL (7.4-10.4); Platelet Count 217 10^3/uL (130-400); Red Blood Cell Count 4.05 10^6/uL (4.70-6.10); Red Cell Dist. Width 12.9 % (11.5-14.5); White Blood Cell Count 17.8 10^3/uL (4.8-10.8)
[2024-04-26 08:26] LABS: Glucose - Point of Care 117 mg/dl (70-99)
[2024-04-26] MEDS: NOVOLOG FLEXPEN-MODERATE RESISTANCE SC ×3 (08:38→16:33)
--- NOTE | 2024-04-26 09:09 | W.PN.URO.CBU ---
Today's Communication / Plan
-
Continue current care
Cultures are unrevealing to date
Assessment / Plan
-
Probable urosepsis 24 hours after left ureteroscopic stone surgery 04/23/24
Blood cultures are unrevealing
Diagnosis
-
Date of Service: April 26, 2024
-
Patient Diagnosis:
Probable urosepsis s/p left ureteroscopic laser lithotripsy with stone extraction and stent placement 04/23/24
Longstanding overactive bladder
---
CT scan yesterday confirmed good stent position and inflammatory chaanges to the left kidney and bladder
Subjective
-
Feeling better today
No flank or abdominal pain
Objective
-
Vital Signs
Temp Pulse Resp BP Pulse Ox
99.0 F 82 18 141/84 97
04/26/24 00:02 04/26/24 00:02 04/26/24 00:02 04/26/24 00:02 04/26/24 00:02
Intake and Output
04/25/24 04/26/24 04/27/24
06:59 06:59 06:59
Intake Total 1860 / 1860 3820 / 3820
Output Total 800 / 800 850 / 850
Balance 1060 / 1060 2970 / 2970
Intake:
Oral fluids 960 / 960 1920 / 1920
IV fluids (Total) 900 / 900 1900 / 1900
Output:
Urine, Voided 800 / 800 850 / 850
Other:
How many times incontinent 2
SATURATED amount urine
Laboratory Results
04/26/24 07:12
04/24/24 15:19
Review of Systems
-
Constitutional: Fatigue
Respiratory: No Symptoms
Cardiac: No Symptoms
Abdomen/GI: No Symptoms
: Frequency and Incontinence
Physical Exam
-
General - well developed, well nourished, no acute distress
Abdomen - soft, non-tender
Genitalia - normal
[2024-04-26] MEDS: INDERAL LA 80 MG PO (09:28)
[2024-04-26] MEDS: LOW STRENGTH ASPIRIN 81 MG PO (09:29)
[2024-04-26] MEDS: FARXIGA 10 MG PO (09:29)
[2024-04-26] MEDS: GLUCOTROL 5 MG PO (09:29)
[2024-04-26] MEDS: GLUCOPHAGE 500 MG PO ×2 (09:29→17:17)
--- NOTE | 2024-04-26 11:11 | PN.CDI ---
CDI
- -
CDI:
Physician Documentation Request
Admit Date: 04/24/24 18:27
Dear Doctor Jasmin,
Please review the following and provide your response in the progress notes.
Clinical Indicators:
PN, 04/26
#Probable urosepsis 24 hours after left ureteroscopic stone surgery 04/23/24
#...Blood cultures are unrevealing
#Probable urosepsis s/p left ureteroscopic laser lithotripsy with stone extraction
#...and stent placement 04/23/24
#CT scan yesterday confirmed good stent position and
#...inflammatory chaanges to the left kidney and bladder
Based on the above and your clinical assessment, please clarify the following:
Sepsis is a complication of the surgery
Sepsis is unexpected but is NOT a complication of the surgery
Sepsis is an expected occurrence and is not a complication of surgery
Other(please specify)
Use of terms such as suspected, likely, concern for, or probable (associated with a specific diagnosis that is being evaluated, monitored, or treated as if it exists) are acceptable and can be coded in the inpatient setting, when documented at the
time of discharge.
Thank you,
Bel Horne RN BSN CCDS
CDI Specialist
please contact via tiger text
Please use your independent medical judgment in providing your response.
--- NOTE | 2024-04-26 11:47 | CM ---
Patient seen with spouse, initial assessment completed. Patient resides in a multiple story home, three steps to enter. Patient denies the use of DME. Report VN 15-20 years ago, [facility] last year after a stroke. Patient confirms PCP Shaun
Gage, pharmacy [facility] in [place]. Patient confirms prescription coverage, denies food, housing/utility, transportation insecurities. CM will continue to follow for all discharge planning needs.
Plan; home no needs anticipated.
--- NOTE | 2024-04-26 12:34 | W.PN.HOSP.TC ---
Today's Communication/Plan
-
see bold
Assessment / Plan
Assessment / Plan
Gen: NAD, Awake and alert, NCAT
Eyes: EOMI, PERRLA, no scleral icterus.
Neck: supple.
CV: Continues to remain RRR, +S1/S2, no m/r/g.
Resp: Continues to CTAB, no rales, wheezes, or rhonchi.
Abd: +BS, soft, NT, ND
Skin: No rashes.
Neuro: Continues to remain CN 2-12 intact, non-focal.
Psych: Normal mood and affect.
CT brain: No acute intracranial abnormality noted. Mild atrophy. New. Small old left frontal lobe infarct. Stable.
CXR: No acute disease of the chest considering the limited inspiration.
Sepsis:
-with acute metabolic encephalopathy
-initially was thought to be due to UTI due to 04/23/24 Left ureteroscopic laser lithotripsy with stone extraction with placement of left double-J ureteral stent (4.7-Filipino 26 cm) and U/A findings. UCx NEG. Question whether false NEG?
-Gent/Rocephin given in ER
-cont with Cefepime
-cont IVFs (decrease rate to 60cc/hr)
-Febrile yesterday evening
-Leukocytosis is improving
BPH with urinary frequency:
-Has been straight catheterizing at home
-washington placed for acute urinary retention
Other problems:
CVA s/p tPA 11/22/22, L ICA stent placement 11/25/22: cont ASA/statin
DM2: cont Metformin/Farxiga/Glipizide
Essential HTN: Cont Propranolol
HLD: cont statin
Diverticulosis
OA
Renal calculi
Anxiety
JANA
Hemorrhoids
Fatty liver disease
Plantar fasciitis
Scoliosis
Restless legs
Insomnia
Chronic low back pain
FULL/Lovenox
Anticipated Discharge: > 48 hours
Subjective/Interval History
-
Date of Service: April 26, 2024
No new complaints.
Objective Data
-
Labs:
Laboratory Results
04/26/24
07:12
WBC 17.8 H
Hgb 12.6 L
Hct 39.0
Plt Count 217
Vital Signs:
Vital Signs
Temp Pulse Resp BP Pulse Ox
98.2 F 70 20 127/73 98
04/26/24 07:48 04/26/24 09:28 04/26/24 07:48 04/26/24 09:28 04/26/24 09:15
I&O
04/25/24 04/26/24 04/27/24
06:59 06:59 06:59
Intake Total 1860 / 1860 3820 / 3820
Output Total 800 / 800 850 / 850
Balance 1060 / 1060 2970 / 2970
[2024-04-26 12:48] LABS: Glucose - Point of Care 94 mg/dl (70-99)
--- NOTE | 2024-04-26 13:37 | W.PN.ID1 ---
Date of Service
Date of Service: April 26, 2024
Today's Communication
Continue antibiotics.
Assessment / Plan
Leukocytosis
Nephrolithiasis s/p laser lithotripsy (04/23/2024)
Suspected clinical sepsis
Suspected complicated UTI following laser lithotripsy
CVA s/p tPA 11/22/22, L ICA stent placement 11/25/22
DM type II
HTN
Dyslipidemia
Diverticulosis
Osteoarthritis
Nephrolithiasis
Anxiety
JANA
BPH
Plantar fasciitis
Scoliosis
Restless leg syndrome
Insomnia
Chronic low back pain
Recommendations:
Continue cefepime 2 g IV every [address] of the abdomen reviewed and suggestive of left proximal collecting system infection.
Follow white count and temperature curve.
Monitor pending cultures. Repeat blood cultures for temperature greater than 101 degrees Fahrenheit.
Further antibiotic recommendations as additional data is returned.
����������������������������������������������������������
Chief Complaint
-: Fever, Leukocytosis and Clinical Sepsis
Subjective / Review of Systems
Patient seen and examined. Overall and feels improved today. No fevers or chills.
Vital Signs / Physical Exam
Vital Signs
Vital Signs
Temp Pulse Resp BP Pulse Ox
98.2 F 70 20 127/73 98
04/26/24 07:48 04/26/24 09:28 04/26/24 07:48 04/26/24 09:28 04/26/24 09:15
Physical Exam
Constitutional: No Acute Distress, Comfortable and Non-toxic
Eyes: Sclera Anicteric
Pulmonary: Non Labored
Gastrointestinal: Non Distended
Genito-Urinary: Moise and Clear Urine
Extremities: Negative Edema, Cyanosis or Erythema
Neurological: Negative Tremors
Psychological: Calm
Objective Data
Lab Data
Lab Results
04/26/24 07:12
04/24/24 15:19
Lactic Acid Cancelled 04/24/24 23:56
Most recent labs reviewed.
Micro Results:
04/24/24 17:18 Blood Culture - Preliminary
Blood/Venous No Growth in 24 hours- Final report to follow
04/24/24 16:16 Urine Culture - Final
Urine NO GROWTH
Imaging:
03/02/2024 CT abdomen/pelvis without contrast: A 2 mm calcification is present within the posterior central bladder lumen. An ovoid calculus within the posterior aspect of the left renal pelvis is noted. A 6 mm nephrolith in the lower pole of the
left kidney is noted.
04/24/2024 CXR (2 view): Lungs are clear but with limited inspiration. No pleural effusion or pneumothorax seen. Please see full dictation for additional detail. Film personally viewed.
04/24/2024 CT head without contrast: No acute intracranial abnormality noted. Please see full dictation for additional detail.
Care Review
Plan reviewed with: Physician (Hospitalist)
[2024-04-26 15:51] VITALS: BP 142/80
[2024-04-26 16:29] LABS: Glucose - Point of Care 103 mg/dl (70-99)
[2024-04-26] MEDS: LOVENOX 40 MG SC (17:17)
[2024-04-26] MEDS: PROSCAR 5 MG PO (17:18)
[2024-04-26] MEDS: FLOMAX 0.4 MG PO (20:33)
[2024-04-26] MEDS: LIPITOR 80 MG PO (20:33)
[2024-04-26] MEDS: EFFEXOR XR 150 MG PO (20:34)
[2024-04-26] MEDS: TYLENOL 650 MG PO (20:36)
[2024-04-26 21:33] LABS: Glucose - Point of Care 134 mg/dl (70-99)
[2024-04-26] MEDS: SENOKOT 8.6 MG PO (22:37)
[2024-04-26 23:19] VITALS: BP 120/69
[2024-04-27] MEDS: NSS 1000 IV (05:15)
[2024-04-27] MEDS: MAXIPIME 2000 MG IV ×2 (05:20→17:41)
[2024-04-27] MEDS: STERILE WATER FOR INJECTION 10 ML IV ×2 (05:20→17:42)
--- NOTE | 2024-04-27 06:13 | W.PN.URO.CBU ---
Today's Communication / Plan
-
no new input
Assessment / Plan
-
Probable urosepsis 24 hours after left ureteroscopic stone surgery 04/23/24
Blood cultures are unrevealing
Diagnosis
-
Date of Service: April 27, 2024
-
Patient Diagnosis:
Probable urosepsis s/p left ureteroscopic laser lithotripsy with stone extraction and stent placement 04/23/24
Longstanding overactive bladder
---
CT scan confirmed good stent position and inflammatory chaanges to the left kidney and bladder
Objective
-
Vital Signs
Temp Pulse Resp BP Pulse Ox
97.4 F 66 16 120/69 97
04/26/24 23:19 04/26/24 23:19 04/26/24 23:19 04/26/24 23:19 04/26/24 23:19
Intake and Output
04/25/24 04/26/24 04/27/24
06:59 06:59 06:59
Intake Total 1860 / 1860 3820 / 3820
Output Total 800 / 800 850 / 850
Balance 1060 / 1060 2970 / 2970
Intake:
Oral fluids 960 / 960 1920 / 1920
IV fluids (Total) 900 / 900 1900 / 1900
Output:
Urine, Voided 800 / 800 850 / 850
Other:
How many times incontinent 2
SATURATED amount urine
Laboratory Results
04/24/24 15:19
Physical Exam
-
General - well developed, well nourished, no acute distress
Chest - clear bilaterally
Abdomen - soft, non-tender, positive bowel sounds, no CVAT, no incisional pain or distention
Genitalia - normal
Rectal - normal
Skin - warm & dry with no rash
Neuro - AOx3, no motor deficits
Extremities - no clubbing, no cyanosis, no edema
Incision - clean, dry
Dressing - clean, dry, intact
[2024-04-27 07:48] VITALS: BP 138/79
[2024-04-27 08:09] LABS: Glucose - Point of Care 124 mg/dl (70-99)
[2024-04-27 08:20] LABS: Hematocrit 35.3 % (39.0-52.0); Mean Corpuscular Hgb 31.7 pg (27.0-31.0); Mean Corpuscular Volume 93.1 fL (80.0-94.0); Mean Platelet Volume 10.5 fL (7.4-10.4); Platelet Count 197 10^3/uL (130-400); Red Blood Cell Count 3.79 10^6/uL (4.70-6.10); Red Cell Dist. Width 12.8 % (11.5-14.5); White Blood Cell Count 11.1 10^3/uL (4.8-10.8)
[2024-04-27] MEDS: NOVOLOG FLEXPEN-MODERATE RESISTANCE SC ×3 (08:26→17:26)
[2024-04-27] MEDS: LOW STRENGTH ASPIRIN 81 MG PO (09:35)
[2024-04-27] MEDS: INDERAL LA 80 MG PO (09:35)
[2024-04-27] MEDS: GLUCOTROL 5 MG PO (09:36)
[2024-04-27] MEDS: GLUCOPHAGE 500 MG PO ×2 (09:36→17:42)
[2024-04-27] MEDS: FARXIGA 10 MG PO (09:36)
--- NOTE | 2024-04-27 10:07 | W.PN.HOSP.TC ---
Today's Communication/Plan
-
see bold
Assessment / Plan
Assessment / Plan
Gen: remains NAD, Awake and alert, NCAT
Eyes: EOMI, PERRLA, no scleral icterus.
Neck: supple.
CV: Continues to remain RRR, +S1/S2, no m/r/g.
Resp: Continues to CTAB, no rales, wheezes, or rhonchi.
Abd: +BS, soft, NT, ND
Skin: No rashes.
Neuro: Continues to remain CN 2-12 intact, non-focal.
Psych: Normal mood and affect.
04/24/24 17:18 Blood/Venous Blood Culture - Preliminary
No Growth in 48 hours- Final report to follow
04/24/24 16:16 Urine Urine Culture - Final
NO GROWTH
CT brain: No acute intracranial abnormality noted. Mild atrophy. New. Small old left frontal lobe infarct. Stable.
CXR: No acute disease of the chest considering the limited inspiration.
Sepsis:
-with acute metabolic encephalopathy
-initially was thought to be due to UTI due to 04/23/24 Left ureteroscopic laser lithotripsy with stone extraction with placement of left double-J ureteral stent (4.7-Nepali 26 cm) and U/A findings. UCx NEG. Question whether false NEG?
-Gent/Rocephin given in ER
-cont with Cefepime
-cont IVFs (decrease rate to 60cc/hr)
-Fever now resolved
-Leukocytosis has significantly improved
BPH with urinary frequency:
-Has been straight catheterizing at home
-washington placed for acute urinary retention
-start Flomax
-now with hematuria (acute blood loss anemia due to hematuria). Stop Lovenox, switch to SCDs. Trend Hb.
-urology following ([employer] message sent to Dr. Alvares at [id number] regarding hematuria)
Confusion:
-As per the patient's this appears to occur in the evening
-Could be sundowning or hospital-acquired delirium.
-Will initiate workup with an MRI of the brain
Other problems:
CVA s/p tPA 11/22/22, L ICA stent placement 11/25/22: cont ASA/statin
DM2: cont Metformin/Farxiga/Glipizide
Essential HTN: Cont Propranolol
HLD: cont statin
Diverticulosis
OA
Renal calculi
Anxiety
JANA
Hemorrhoids
Fatty liver disease
Plantar fasciitis
Scoliosis
Restless legs
Insomnia
Chronic low back pain
Pt's updated at bedside.
FULL/SCDs
Total time spent on today's encounter was 50 minutes which included time spent in counseling the patient/family regarding diagnosis and treatment plan as listed above, goals of care, and symptom management. Case was discussed with nursing staff,
specialists, and care coordinators/case management. All labs and imaging personally reviewed by me. Remainder the time spent in detailed review of previous records, lab data, imaging, and other medical provider documentation.
Anticipated Discharge: > 48 hours
Subjective/Interval History
-
Date of Service: April 27, 2024
No new complaints.
Objective Data
-
Labs:
Laboratory Results
04/27/24
07:20
WBC 11.1 H
Hgb 12.0 L
Hct 35.3 L
Plt Count 197
Vital Signs:
Vital Signs
Temp Pulse Resp BP Pulse Ox
97.8 F 70 18 138/79 97
04/27/24 07:48 04/27/24 07:48 04/27/24 07:48 04/27/24 07:48 04/27/24 07:48
I&O
04/26/24 04/27/24 04/28/24
06:59 06:59 06:59
Intake Total 3820 / 3820
Output Total 850 / 850 1700 / 1700
Balance 2970 / 2970 -1700 / -1700
[2024-04-27] MEDS: FLOMAX 0.4 MG PO ×2 (11:24→20:46)
[2024-04-27 12:12] LABS: Glucose - Point of Care 141 mg/dl (70-99)
--- NOTE | 2024-04-27 13:15 | W.PN.ID1 ---
Date of Service
Date of Service: April 27, 2024
Today's Communication
Continue cefepime for now.
Assessment / Plan
Leukocytosis - improving
Nephrolithiasis s/p laser lithotripsy (04/23/2024)
Suspected clinical sepsis
Suspected complicated UTI following laser lithotripsy
CVA s/p tPA 11/22/22, L ICA stent placement 11/25/22
DM type II
HTN
Dyslipidemia
Diverticulosis
Osteoarthritis
Nephrolithiasis
Anxiety
JANA
BPH
Plantar fasciitis
Scoliosis
Restless leg syndrome
Insomnia
Chronic low back pain
Recommendations:
Ucx negative.
Continue cefepime 2 g IV every [address] of the abdomen reviewed and suggestive of left proximal collecting system infection.
Follow white count and temperature curve.
Updated his over the phone.
����������������������������������������������������������
Chief Complaint
-: Fever, Leukocytosis and Clinical Sepsis
Subjective / Review of Systems
He reports urine was dark and red this am.
Vital Signs / Physical Exam
Vital Signs
Vital Signs
Temp Pulse Resp BP Pulse Ox
97.8 F 70 18 138/79 97
04/27/24 07:48 04/27/24 07:48 04/27/24 07:48 04/27/24 07:48 04/27/24 07:48
Physical Exam
Constitutional: No Acute Distress and Comfortable
Genito-Urinary: [place] (bag without urine; tech just emptied washing[place] bag); Negative CVA Tenderness
Extremities: Negative Edema
Neurological: AO x 3
Objective Data
Lab Data
Lab Results
04/27/24 07:20
04/24/24 15:19
Lactic Acid Cancelled 04/24/24 23:56
Most recent labs reviewed.
Micro Results:
04/24/24 17:18 Blood Culture - Preliminary
Blood/Venous No Growth in 48 hours- Final report to follow
04/24/24 16:16 Urine Culture - Final
Urine NO GROWTH
Imaging:
03/02/2024 CT abdomen/pelvis without contrast: A 2 mm calcification is present within the posterior central bladder lumen. An ovoid calculus within the posterior aspect of the left renal pelvis is noted. A 6 mm nephrolith in the lower pole of the
left kidney is noted.
04/24/2024 CXR (2 view): Lungs are clear but with limited inspiration. No pleural effusion or pneumothorax seen. Please see full dictation for additional detail. Film personally viewed.
04/24/2024 CT head without contrast: No acute intracranial abnormality noted. Please see full dictation for additional detail.
[2024-04-27 15:10] VITALS: BP 129/75
[2024-04-27 17:22] LABS: Glucose - Point of Care 144 mg/dl (70-99)
[2024-04-27] MEDS: PROSCAR 5 MG PO (17:42)
[2024-04-27] MEDS: SENOKOT 8.6 MG PO (20:46)
[2024-04-27] MEDS: LIPITOR 80 MG PO (20:46)
[2024-04-27] MEDS: EFFEXOR XR 150 MG PO (20:46)
[2024-04-27 21:15] LABS: Glucose - Point of Care 135 mg/dl (70-99)
[2024-04-27 23:12] VITALS: BP 141/74
[2024-04-28] MEDS: MAXIPIME 2000 MG IV ×2 (05:28→15:19)
[2024-04-28] MEDS: STERILE WATER FOR INJECTION 10 ML IV ×2 (05:28→15:19)
--- NOTE | 2024-04-28 05:55 | W.PN.URO.CBU ---
Today's Communication / Plan
-
d/c Moise
Assessment / Plan
-
Probable urosepsis 24 hours after left ureteroscopic stone surgery 04/23/24
Blood cultures are unrevealing
improved hematuria
Diagnosis
-
Date of Service: April 28, 2024
-
Patient Diagnosis:
Probable urosepsis s/p left ureteroscopic laser lithotripsy with stone extraction and stent placement 04/23/24
Longstanding overactive bladder
---
CT scan confirmed good stent position and inflammatory changes to the left kidney and bladder
Subjective
-
comfortable
Objective
-
Vital Signs
Temp Pulse Resp BP Pulse Ox
99.0 F 73 20 141/74 97
04/27/24 23:12 04/27/24 23:12 04/27/24 23:12 04/27/24 23:12 04/27/24 23:12
Intake and Output
04/26/24 04/27/24 04/28/24
06:59 06:59 06:59
Intake Total 3820 / 3820 900 / 900
Output Total 850 / 850 1700 / 1700 2625 / 2625
Balance 2970 / 2970 -1700 / -1700 -1725 / -1725
Intake:
Oral fluids 1920 / 1920 900 / 900
IV fluids (Total) 1900 / 1900
Output:
Urine, Voided 850 / 850 1700 / 1700 2625 / 2625
Other:
How many times incontinent 2
SATURATED amount urine
Laboratory Results
04/24/24 15:19
Physical Exam
-
General - no acute distress
: urine via Moise is peach-colored today
[2024-04-28 07:25] VITALS: BP 148/76
[2024-04-28 08:01] LABS: Hematocrit 37.6 % (39.0-52.0); Hemoglobin 12.5 g/dL (13.0-18.0); Mean Corp Hgb Conc. 33.2 g/dL (33.0-37.0); Mean Corpuscular Hgb 31.1 pg (27.0-31.0); Mean Corpuscular Volume 93.5 fL (80.0-94.0); Mean Platelet Volume 10.6 fL (7.4-10.4); Platelet Count 228 10^3/uL (130-400); Red Blood Cell Count 4.02 10^6/uL (4.70-6.10); Red Cell Dist. Width 12.7 % (11.5-14.5); White Blood Cell Count 9.1 10^3/uL (4.8-10.8)
[2024-04-28 08:17] LABS: Glucose - Point of Care 135 mg/dl (70-99)
[2024-04-28] MEDS: INDERAL LA 80 MG PO (08:51)
[2024-04-28] MEDS: LOW STRENGTH ASPIRIN 81 MG PO (08:51)
[2024-04-28] MEDS: GLUCOPHAGE 500 MG PO ×2 (08:51→16:59)
[2024-04-28] MEDS: FARXIGA 10 MG PO (08:51)
[2024-04-28] MEDS: NOVOLOG FLEXPEN-MODERATE RESISTANCE SC ×3 (08:51→16:58)
[2024-04-28] MEDS: GLUCOTROL 5 MG PO (08:52)
[2024-04-28] MEDS: FLOMAX 0.4 MG PO ×2 (08:52→21:36)
--- NOTE | 2024-04-28 11:06 | W.PN.HOSP.TC ---
Today's Communication/Plan
-
see bold
Assessment / Plan
Assessment / Plan
Gen: continues to remain NAD, Awake and alert, NCAT
Eyes: EOMI, PERRLA, no scleral icterus.
Neck: supple.
CV: RRR, +S1/S2, no m/r/g.
Resp: CTAB, no rales, wheezes, or rhonchi.
Abd: +BS, soft, NT, ND
Skin: No rashes.
Neuro: CN 2-12 intact, non-focal.
Psych: Normal mood and affect.
04/24/24 17:18 Blood/Venous Blood Culture - Preliminary
No Growth in 48 hours- Final report to follow
04/24/24 16:16 Urine Urine Culture - Final
NO GROWTH
CT brain: No acute intracranial abnormality noted. Mild atrophy. New. Small old left frontal lobe infarct. Stable.
CXR: No acute disease of the chest considering the limited inspiration.
Sepsis:
-with acute metabolic encephalopathy
-initially was thought to be due to UTI due to 04/23/24 Left ureteroscopic laser lithotripsy with stone extraction with placement of left double-J ureteral stent (4.7-Turkmen 26 cm) and U/A findings. UCx NEG. Question whether false NEG?
-Gent/Rocephin given in ER
-cont with Cefepime
-stop IVFs
-Fever and leukocytosis have resolved
BPH with urinary frequency:
-Has been straight catheterizing at home
-washington placed for acute urinary retention
-cont Flomax/Proscar
-hematuria (acute blood loss anemia due to hematuria) improving, Hb stable
-urology following
Confusion:
-As per the patient's this appears to occur in the evening
-Could be sundowning or hospital-acquired delirium.
-Will initiate workup with an MRI of the brain
Other problems:
CVA s/p tPA 11/22/22, L ICA stent placement 11/25/22: cont ASA/statin
DM2: cont Metformin/Farxiga/Glipizide
Essential HTN: Cont Propranolol
HLD: cont statin
Diverticulosis
OA
Renal calculi
Anxiety
JANA
Hemorrhoids
Fatty liver disease
Plantar fasciitis
Scoliosis
Restless legs
Insomnia
Chronic low back pain
Pt's updated at bedside.
FULL/SCDs
Anticipated Discharge: Within 24 hours
Subjective/Interval History
-
Date of Service: April 28, 2024
No new complaints.
Objective Data
-
Labs:
Laboratory Results
04/28/24
07:06
WBC 9.1
Hgb 12.5 L
Hct 37.6 L
Plt Count 228
Vital Signs:
Vital Signs
Temp Pulse Resp BP Pulse Ox
97.2 F 68 16 148/76 94
04/28/24 07:25 04/28/24 07:25 04/28/24 07:25 04/28/24 07:25 04/28/24 07:25
I&O
04/27/24 04/28/24 04/29/24
06:59 06:59 06:59
Intake Total 1380 / 1380 180 / 180
Output Total 1700 / 1700 4425 / 4425 975 / 975
Balance -1700 / -1700 -3045 / -3045 -795 / -795
[2024-04-28 12:08] LABS: Glucose - Point of Care 134 mg/dl (70-99)
--- NOTE | 2024-04-28 13:26 | W.PN.ID1 ---
Date of Service
Date of Service: April 28, 2024
Today's Communication
Anticipate transition to po abx tomorrow.
Assessment / Plan
Leukocytosis - resolved
Nephrolithiasis s/p laser lithotripsy (04/23/2024)
Suspected clinical sepsis
Suspected complicated UTI following laser lithotripsy
CVA s/p tPA 11/22/22, L ICA stent placement 11/25/22
DM type II
HTN
Dyslipidemia
Diverticulosis
Osteoarthritis
Nephrolithiasis
Anxiety
JANA
BPH
Plantar fasciitis
Scoliosis
Restless leg syndrome
Insomnia
Chronic low back pain
Recommendations:
CT of the abdomen reviewed and suggestive of left proximal collecting system infection.
Ucx negative.
Continue cefepime 2 g IV every 12 hours for now.
Anticipate transition to po abx tomorrow.
MRI brain result pending.
����������������������������������������������������������
Chief Complaint
-: Fever, Leukocytosis and Clinical Sepsis
Subjective / Review of Systems
Feels well. Will like to go home soon. Moise removed.
Vital Signs / Physical Exam
Vital Signs
Vital Signs
Temp Pulse Resp BP Pulse Ox
97.2 F 68 16 148/76 99
04/28/24 07:25 04/28/24 07:25 04/28/24 07:25 04/28/24 07:25 04/28/24 08:50
Physical Exam
Constitutional: No Acute Distress and Comfortable
Pulmonary: Clear
Gastrointestinal: Soft, Non Tender and Non Distended
Genito-Urinary: Negative CVA Tenderness
Objective Data
Lab Data
Lab Results
04/28/24 07:06
04/24/24 15:19
Lactic Acid Cancelled 04/24/24 23:56
Most recent labs reviewed.
Micro Results:
04/24/24 17:18 Blood Culture - Preliminary
Blood/Venous No Growth in 72 hours- Final report to follow
04/24/24 16:16 Urine Culture - Final
Urine NO GROWTH
Imaging:
03/02/2024 CT abdomen/pelvis without contrast: A 2 mm calcification is present within the posterior central bladder lumen. An ovoid calculus within the posterior aspect of the left renal pelvis is noted. A 6 mm nephrolith in the lower pole of the
left kidney is noted.
04/24/2024 CXR (2 view): Lungs are clear but with limited inspiration. No pleural effusion or pneumothorax seen. Please see full dictation for additional detail. Film personally viewed.
04/24/2024 CT head without contrast: No acute intracranial abnormality noted. Please see full dictation for additional detail.
[2024-04-28 14:36] VITALS: BP 136/76; PULSE 69; O2SAT 98
[2024-04-28 15:10] VITALS: BP 139/78
[2024-04-28 16:52] LABS: Glucose - Point of Care 129 mg/dl (70-99)
[2024-04-28] MEDS: PROSCAR 5 MG PO (16:59)
[2024-04-28 21:09] LABS: Glucose - Point of Care 211 mg/dl (70-99)
[2024-04-28] MEDS: EFFEXOR XR 150 MG PO (21:35)
[2024-04-28] MEDS: LIPITOR 80 MG PO (21:36)
[2024-04-28] MEDS: SENOKOT PO (21:37)
[2024-04-28 23:37] VITALS: BP 132/77
[2024-04-29] MEDS: STERILE WATER FOR INJECTION 10 ML IV ×2 (04:13→15:52)
[2024-04-29] MEDS: MAXIPIME 2000 MG IV ×2 (04:13→15:52)
[2024-04-29 07:50] VITALS: BP 121/69
[2024-04-29 07:58] LABS: Glucose - Point of Care 126 mg/dl (70-99)
[2024-04-29] MEDS: NOVOLOG FLEXPEN-MODERATE RESISTANCE SC ×2 (08:13→12:12)
[2024-04-29] MEDS: GLUCOPHAGE 500 MG PO (08:14)
[2024-04-29] MEDS: FARXIGA 10 MG PO (08:14)
[2024-04-29] MEDS: LOW STRENGTH ASPIRIN 81 MG PO (08:14)
[2024-04-29] MEDS: GLUCOTROL 5 MG PO (08:14)
[2024-04-29] MEDS: INDERAL LA 80 MG PO (08:14)
[2024-04-29] MEDS: FLOMAX 0.4 MG PO (08:14)
[2024-04-29 08:37] LABS: Hematocrit 37.3 % (39.0-52.0); Hemoglobin 12.4 g/dL (13.0-18.0); Mean Corp Hgb Conc. 33.2 g/dL (33.0-37.0); Mean Corpuscular Hgb 30.5 pg (27.0-31.0); Mean Corpuscular Volume 91.9 fL (80.0-94.0); Mean Platelet Volume 10.1 fL (7.4-10.4); Platelet Count 236 10^3/uL (130-400); Red Blood Cell Count 4.06 10^6/uL (4.70-6.10); Red Cell Dist. Width 12.8 % (11.5-14.5); White Blood Cell Count 9.7 10^3/uL (4.8-10.8)
[2024-04-29 09:22] VITALS: BP 128/70; PULSE 67; O2SAT 99
[2024-04-29 09:22] LABS: Blood Urea Nitrogen 19 mg/dl (9-20); Calcium 8.8 mg/dl (8.4-10.2); Carbon Dioxide 25 mmol/L (22-30); Chloride 106 mmol/L (98-107); Estimated Creatinine Clearance 79 ml/min; Glucose 125 mg/dl (70-99); Potassium 3.7 mmol/L (3.5-5.1); Sodium 139 mmol/L (135-145); eGFR > 60.00
--- NOTE | 2024-04-29 09:50 | W.PN.HOSP.TC ---
Addendum entered and electronically signed by Mervin Patterson MD 04/29/24 11:58:
Total time spent on d/c = 34 min. This included today's physical exam, progress note, review of laboratory and diagnostic data, preparation of discharge documents and prescriptions, and discussions about the pt's hospital course and discharge plan
with the patient and other medical esthetician involved in the patient's care.
Original Note:
Today's Communication/Plan
-
see bold
Assessment / Plan
Assessment / Plan
Gen: NAD, Awake and alert, NCAT
Eyes: EOMI, PERRLA, no scleral icterus.
Neck: supple.
CV: Remains RRR, +S1/S2, no m/r/g.
Resp: Remains CTAB, no rales, wheezes, or rhonchi.
Abd: +BS, soft, NT, ND
Skin: No rashes.
Neuro: Remains CN 2-12 intact, non-focal.
Psych: Normal mood and affect.
04/24/24 17:18 Blood/Venous Blood Culture - Preliminary
No Growth in 4 days- Final report to follow
04/24/24 16:16 Urine Urine Culture - Final
NO GROWTH
CT brain: No acute intracranial abnormality noted. Mild atrophy. New. Small old left frontal lobe infarct. Stable.
CXR: No acute disease of the chest considering the limited inspiration.
Sepsis:
-with acute metabolic encephalopathy
-initially was thought to be due to UTI due to 04/23/24 Left ureteroscopic laser lithotripsy with stone extraction with placement of left double-J ureteral stent (4.7-Syri[place] 26 cm) and U/A findings. UCx NEG. Question whether false NEG?
-Gent/Rocephin given in ER
-s/p IVFs
-cont with Cefepime
-Fever and leukocytosis have resolved
BPH with urinary frequency:
-Has been straight catheterizing at home
-washington placed for acute urinary retention, now removed and currently with condom catheter
-cont Flomax/Proscar
-hematuria (acute blood loss anemia due to hematuria) improved, Hb stable
-urology following
Confusion:
-As per the patient's this appears to occur in the evening
-Could be sundowning or hospital-acquired delirium.
-MRI brain: No acute intracranial abnormality noted.
Other problems:
CVA s/p tPA 11/22/22, L ICA stent placement 11/25/22: cont ASA/statin
DM2: cont Metformin/Farxiga/Glipizide
Essential HTN: Cont Propranolol
HLD: cont statin
Diverticulosis
OA
Renal calculi
Anxiety
JANA
Hemorrhoids
Fatty liver disease
Plantar fasciitis
Scoliosis
Restless legs
Insomnia
Chronic low back pain
Pt's updated at bedside.
FULL/SCDs
Medically cleared for discharge as long as patient can be converted to oral antibiotics today.
Anticipated Discharge: Today
Subjective/Interval History
-
Date of Service: April 29, 2024
No new complaints.
Objective Data
-
Labs:
Laboratory Results
04/29/24
08:10
WBC 9.7
Hgb 12.4 L
Hct 37.3 L
Plt Count 236
Sodium 139
Potassium 3.7
Chloride 106
Carbon Dioxide 25
BUN 19
Creatinine 0.9
Glucose 125 H
Calcium 8.8
Vital Signs:
Vital Signs
Temp Pulse Resp BP Pulse Ox
97.4 F 66 19 121/69 96
04/29/24 07:50 04/29/24 07:50 04/29/24 07:50 04/29/24 07:50 04/29/24 07:50
I&O
04/28/24 04/29/24 04/30/24
06:59 06:59 06:59
Intake Total 1380 / 1380 180 / 180
Output Total 4425 / 4425 1175 / 1175
Balance -3045 / -3045 -995 / -995
--- NOTE | 2024-04-29 11:48 | W.PN.ID1 ---
Date of Service
Date of Service: April 29, 2024
Today's Communication
Transition to cefdinir
Assessment / Plan
Leukocytosis - resolved
Nephrolithiasis s/p laser lithotripsy (04/23/2024)
Suspected clinical sepsis
Suspected complicated UTI following laser lithotripsy
CVA s/p tPA 11/22/22, L ICA stent placement 11/25/22
DM type II
HTN
Dyslipidemia
Diverticulosis
Osteoarthritis
Nephrolithiasis
Anxiety
JANA
BPH
Plantar fasciitis
Scoliosis
Restless leg syndrome
Insomnia
Chronic low back pain
Recommendations:
CT of the abdomen reviewed and suggestive of left proximal collecting system infection.
Ucx negative.
Transition to oral cefdinir 300 mg BID for an additional 9 days (Tx of suspected pylo)
MRI brain with no acute intracranial abnormality noted.
����������������������������������������������������������
Chief Complaint
-: Fever, Leukocytosis and Clinical Sepsis
Subjective / Review of Systems
Review of Systems: No Fever, No Chills and No Dysuria
Vital Signs / Physical Exam
Vital Signs
Vital Signs
Temp Pulse Resp BP Pulse Ox
97.4 F 66 19 121/69 99
04/29/24 07:50 04/29/24 07:50 04/29/24 07:50 04/29/24 07:50 04/29/24 08:15
Physical Exam
Constitutional: No Acute Distress, Comfortable and Non-toxic
Eyes: Sclera Anicteric
Pulmonary: Clear and Non Labored
Gastrointestinal: Soft, Non Tender and Non Distended
Genito-Urinary: Negative CVA Tenderness
Neurological: Awake and Alert
Psychological: Calm
Objective Data
Lab Data
Lab Results
04/29/24 08:10
04/29/24 08:10
Estimated Creat Clear 79 ml/min 04/29/24 08:10
Lactic Acid Cancelled 04/24/24 23:56
Most recent labs reviewed.
Micro Results:
04/24/24 17:18 Blood Culture - Preliminary
Blood/Venous No Growth in 4 days- Final report to follow
04/24/24 16:16 Urine Culture - Final
Urine NO GROWTH
Care Review
Plan reviewed with: Physician (Hospitalist)
[2024-04-29 12:07] LABS: Glucose - Point of Care 132 mg/dl (70-99)
--- NOTE | 2024-04-29 12:35 | CM ---
supply chain manager reviewed patient's chart and met with patient and patient is for discharge to home today, no needs. Per patient his spouse is coming in to transport patient to home. Patient has declined the need for visiting nurses at discharge.
Plan; Home no needs.
--- NOTE | 2024-04-29 13:42 | W.DCSUMMARY ---
Discharge Summary
Discharge Data
Date of Admission: 04/24/24
Date of Discharge: 04/29/24
-
Pending Results: No
Hospital Course
Primary diagnoses:
Sepsis due to complicated urinary tract infection s/p left laser lithotripsy with stone extraction and placement of double-J ureteral stent on 04/23/24
Acute metabolic encephalopathy
Secondary diagnoses:
Acute blood loss anemia due to hematuria
Cerebrovascular accident s/p tPA 11/22/22, L ICA stent placement 11/25/22
Type 2 diabetes mellitus
Essential hypertension
Hyperlipidemia
Diverticulosis
Osteoarthritis
Renal calculi
Anxiety
Obstructive sleep
Hemorrhoids
Fatty liver disease
Plantar fasciitis
Scoliosis
Restless legs
Insomnia
Chronic low back pain
Consultants:
Infectious disease
Urology
Imaging:
CT brain: No acute intracranial abnormality noted. Mild atrophy. New. Small old left frontal lobe infarct. Stable.
CXR: No acute disease of the chest considering the limited inspiration.
68-year-old male presented with a chief complaint of confusion as outlined in the H&P done on admission. Hospital course per problem list:
Sepsis: Patient had acute metabolic encephalopathy on admission. Despite his cultures being negative the patient was clearly septic due to UTI due to 04/23/24 Left ureteroscopic laser lithotripsy with stone extraction with placement of left double-J
ureteral stent (4.7-Bengali 26 cm). Patient was given gentamicin and Rocephin in the ER. He was hydrated with IV fluids. He was then transitioned to cefepime. His fever and leukocytosis resolved. At the time of discharge she will have 9 further
days of cefdinir as per infectious disease.
BPH with urinary frequency: The patient had been straight catheterizing at home. A Moise was placed for acute urinary retention and was then removed. Flomax and Proscar were continued. Patient was followed by urology. His hematuria improved.
Confusion:As per the patient's this was occurring in the evening. This could have been sundowning or hospital-acquired delirium. The patient had an MRI of the brain showing no acute intracranial abnormality.
Discharge Plan
-
Patient Disposition: Home (Routine Discharge)
Discharge Diagnosis/Procedures: Sepsis and acute metabolic encephalopathy likely due to urinary tract infection
Condition: Good
Diet: Diabetic, Carb Controlled
Activity: With assistance
Driving Restrictions: No driving
Blood Work: BMP and CBC in 1 week, prescription from PCP
Referrals:
Shaun Almonte DO [Family Provider] - in less than 1 week
Patricio Castellanos MD [Active] -
Prescriptions:
New
cefdinir 300 mg capsule
300 mg PO BID Qty: 19 0RF
Continued
atorvastatin 80 mg Tablet
80 mg PO HS
propranolol 80 mg Capsule,Extended Release 24 Hr
80 mg PO DAILY
dapagliflozin propanediol [Farxiga] 10 mg Tablet
10 mg PO DAILY
venlafaxine 150 mg capsule,extended release 24hr
150 mg PO HS
tamsulosin [Flomax] 0.4 mg capsule
0.4 mg PO HS
aspirin 81 mg Tablet,Chewable
81 mg PO DAILY
Rx Instructions:
on hold until 04/30/2024
metformin 500 MG tablet
500 mg PO BID Qty: 60 0RF
finasteride 5 MG tablet
5 mg PO QPM Qty: 30 0RF
glipizide 5 mg Tablet
5 mg PO DAILY Qty: 30 0RF
Discontinued
zolpidem [Ambien] 5 mg Tablet
5 mg PO HSPRN PRN (Reason: sleep)
Discharge Date and Time
Print Language: HEBREW
[2024-04-29 14:55] VITALS: BP 126/67
== END 2024-04-29 16:45 | disposition home or self-care (01) | DRG 862 ==
LOC: 4 WEST ACU 18:27
PROVIDERS: ADMITTING PHYSICIAN Internal Medicine; CONSULT PHYSICIAN Specialist; CONSULT PHYSICIAN Student in an Organized Health Care Education/Training Program; EMERGENCY PHYSICIAN Emergency Medicine; FAMILY PHYSICIAN Family Medicine
DX: T81.44XA Sepsis following a procedure, initial encounter (principal); A41.9 Sepsis, unspecified organism; G93.41 Metabolic encephalopathy; N39.0 Urinary tract infection, site not specified; D62 Acute posthemorrhagic anemia; Y83.8 Other surgical procedures as the cause of abnormal reaction of the patient, or of later complication, without mention of misadventure at the time of the procedure; R31.9 Hematuria, unspecified; E11.9 Type 2 diabetes mellitus without complications; I10 Essential (primary) hypertension; E78.5 Hyperlipidemia, unspecified; G47.33 Obstructive sleep apnea (adult) (pediatric); D72.829 Elevated white blood cell count, unspecified; Z86.73 Personal history of transient ischemic attack (TIA), and cerebral infarction without residual deficits
CPT/HCPCS: 51701; 70450; 70551; 71046; 74177; 80048; 81003; 81015; 82962; 83036; 83605; 83935; 84300; 85025; 85027; 87040; 87086; 87811; 96365; 96375; 97116; 97162; 97166; 99285; Q9967

== ENCOUNTER 2024-05-05 22:41 | Inpatient (IN) | payer BC, MEDICARE, SELFPAY ==
[2024-05-05] VITALS (8 sets, daily range): BP systolic 110–126; BP diastolic 67–75; BMI 24.9
[2024-05-05 18:04] LABS: Glucose - Point of Care 145 mg/dl (70-99)
[2024-05-05 18:29] LABS: % Basophils 0.5 % (0-2); % Eosinophils 0.3 % (0-6); % Immature Granulocytes 0.5 % (0-0.5); % Lymphocytes 3.8 % (20.5-51.1); % Monocytes 9.2 % (1.7-9.3); % Neutrophils 85.7 % (42.2-75.2); Absolute Basophils 0.1 10^3/uL (0-0.2); Absolute Eosinophils 0.1 10^3/uL (0-0.7); Absolute Immature Granulocytes 0.1 10^3/uL (0-0.05); Absolute Lymphocytes 0.8 10^3/uL (1.2-3.4); Absolute Monocytes 1.9 10^3/uL (0.1-0.6); Absolute Neutrophils 17.6 10^3/uL (1.4-6.5); Hematocrit 39.8 % (39.0-52.0); Hemoglobin 13.6 g/dL (13.0-18.0); Mean Corp Hgb Conc. 34.2 g/dL (33.0-37.0); Mean Corpuscular Hgb 30.6 pg (27.0-31.0); Mean Corpuscular Volume 89.6 fL (80.0-94.0); Mean Platelet Volume 10.1 fL (7.4-10.4); Nucleated Red Blood Cells % 0 % (-); Platelet Count 337 10^3/uL (130-400); Red Blood Cell Count 4.44 10^6/uL (4.70-6.10); White Blood Cell Count 20.5 10^3/uL (4.8-10.8)
--- NOTE | 2024-05-05 18:32 | ED.GENMED ---
History of Present Illness
General
Chief Complaint: Weakness
Source: patient, records and spouse
Exam Limitations: none
Time Seen by Provider: 05/05/24 18:11
Nursing documentation reviewed up to this point in time: agreed with
History of Present Illness
History of Present Illness:
68-year-old male with a past medical history as documented who presents to the emergency department with his for evaluation of increasing weakness and confusion. Patient was notably recently admitted to this hospital 04/24/2024 until 04/29/2024;
discharged home. He was admitted for complicated UTI status post lithotripsy and ureteral stent placement on 04/23/2024�he had metabolic encephalopathy and sepsis at the time and was treated with IV antibiotics and transitioned to cefdinir which he
is still taking. Presents today with progressive weakness over the past few days�his says that today it was at the point where he could not stand up from his recliner without significant assistance and was barely able to walk a few steps to
the kitchen before having to sit down again. She also has noted increased confusion over the past few days as well although she notes that this is an acute on chronic issue with general cognitive decline over the past few months. also notes
increasing tremor�she has essential tremor at baseline but she says it is markedly increased recently. On review of systems patient denies headache or neck pain although his notes that he took Tylenol for headache over the past few days. He
denies any chest pain or shortness of breath and denies any coughing. He denies any abdominal pain or flank pain, denies back pain. He is chronically incontinent of urine and occasionally will self catheterize�has not noticed any hematuria or dark
urine and has not had dysuria. He denies any vomiting or diarrhea. Denies any other specific complaints on review of systems.
Past History
Past History
ED Past Medical History: None
ED Past Surgical History: None
Social History
Tobacco: Non-smoker
Review of Systems
Review of Systems
All Other Systems: ROS reviewed and negative except as documented in HPI and ROS
Constitutional: Reports fatigue; Denies fever
EENT: Denies sore throat
Respiratory: Denies cough or trouble breathing
Cardiac: Denies chest pain
ABD/GI: Denies abdominal pain, nausea, vomiting or diarrhea
: Denies dysuria, frequency, flank pain or bleeding
Musculoskeletal: Denies neck pain or back pain
Neurological: Reports weakness (Generalized); Denies dizzy or headache
Phy Exam
Physical Exam
Physical Exam:
General: Awake, alert; no acute distress
Head: Normocephalic, atraumatic
Eyes: Conjunctiva normal, EOMI, pupils equal round reactive to light bilaterally, sclera anicteric
Throat: Airway intact, handling secretions
Neck: Trachea midline, supple without meningismus, full range of motion cervical spine
Lungs: Clear to auscultation bilaterally, no wheezing, rales, rhonchi
Heart: Regular rate and rhythm, no murmurs, gallops, or rubs
Abd: Soft, non distended, mildly tender left upper quadrant with no peritoneal signs or masses appreciated
Back: No CVA tenderness
Neuro: Cranial nerves intact, speech fluid, no gross motor or sensory deficits; somewhat poor short-term recall
Skin: Question of jaundice in triage note but does not appear jaundiced on my assessment
Extremities: No edema in extremities, equal pulses in all extremities
Scores
Heart Failure Risk
Heart Failure Risk Score: Not Applicable
Heart Score for Chest Pain Patients
STEMI patient?: Not applicable
Withdrawal Assessment of Alcohol
Withdrawal Assessment Completed?: Not applicable
Course
Orders/Labs/Results
Orders:
Orders
05/05/24 18:13
Electrocardiogram (*1) Urgent
Reason for Study: Fatigue / Weakness
EKG- Treatment ONCE
05/05/24 18:19
Complete Blood Count/With Diff Urgent
Comprehensive Metabolic Panel Urgent
Direct Bilirubin Urgent
Lipase Urgent
Magnesium Urgent
Phos [Phosphorus] Urgent
05/05/24 18:30
CT Head W/o Iv Contrast Urgent
Comment:
Reason For Exam: increasing confusion
05/05/24 18:31
CT Abd/pelvis W Iv Cont Urgent
Comment:
Reason For Exam: confusion, rigors, recent urosepsis and ureteral s
05/05/24 18:35
COVID-19 Antigen Urgent
Source: Nasal Swab
05/05/24 19:08
0.9% Sodium Chloride 500 ml [Nss] 500 ml IV BOLUS
05/05/24 19:23
Lactate Level [Lactic Acid] Urgent
Urinalysis Reflex To Culture Urgent
Date Specimen was Collected: 05/05/24
Time Specimen was Collected: 18:17
Urine Microscopic Reflex Cult Urgent
Blood Culture Routine
ISA Source: Blood/Venous
Specimen Description:
Blood Culture Urgent
ISA Source: Blood/Venous
Specimen Description:
Urine Culture Urgent
ISA Source: U
Specimen Description:
Date Specimen was Collected: 05/05/24
Time Specimen was Collected: 18:17
05/05/24 19:38
CR Chest Portable - 1 View Urgent
Comment:
Reason For Exam: weakness
Reason Study Needs to be Portable: Unable to Transport
05/05/24 20:52
Piperacillin/Tazo 3.375 Gram [Zosyn] 3.375 gram in 50 ml IV NOW
Vancomycin [Vancocin] 1,500 mg 0.9% Sodium Chloride [Nss] 20 ml 0.9% Sodium Chloride 250 ml [Nss] 250 ml IV NOW
05/05/24 21:15
0.9% Sodium Chloride 1000 ml [Nss] 1,000 ml IV 125 mls/hr
Abnormal Lab Results
05/05/24 05/05/24 05/05/24
18:00 18:19 19:23
WBC 20.5 H 10^3/uL
(4.8-10.8)
RBC 4.44 L 10^6/uL
(4.70-6.10)
Abs Immat Gran (auto) 0.1 H 10^3/uL
(0-0.05)
Absolute Neuts (auto) 17.6 H 10^3/uL
(1.4-6.5)
Absolute Lymphs (auto) 0.8 L 10^3/uL
(1.2-3.4)
Absolute Monos (auto) 1.9 H 10^3/uL
(0.1-0.6)
Neutrophils % 85.7 H %
(42.2-75.2)
Lymphocytes % 3.8 L %
(20.5-51.1)
BUN 35 H mg/dl
(9-20)
Creatinine 1.4 H mg/dL
(0.7-1.3)
Glucose 154 H mg/dl
(70-99)
Ur Occult Blood Reflex 4+ A
(Negative)
Leukocyte Esterase Rfl 2+ A
(Negative)
Urine WBC (Reflex) 26-30 A /HPF
(0-5)
Urine Bacteria (Reflex) Few A
(Negative)
Urine Glucose 3+ A
(Negative)
POC Glucose 145 H mg/dl
(70-99)
05/05/24 18:19
05/05/24 18:19
Vital Signs
Initial and Last Documented VS:
Initial Vital Signs
Temp Pulse Resp BP Pulse Ox
36.7 C 87 16 121/75 98
05/05/24 17:54 05/05/24 17:54 05/05/24 17:54 05/05/24 17:54 05/05/24 17:54
Last Documented Vital Signs
Temp Pulse Resp BP Pulse Ox
36.7 C 73 19 119/68 90
05/05/24 17:54 05/05/24 20:00 05/05/24 20:00 05/05/24 19:00 05/05/24 19:45
MDM/Problems Addressed
Differential Diagnosis Includes:
Infection including UTI or pneumonia, polypharmacy, delirium, hemorrhage or stroke, deconditioning
MDM/Problems Addressed:
68-year-old male with recent admission for urosepsis and current ureteral stent still in place presents to the emergency room with his for increasing weakness, tremulousness and confusion over the past few days. Vital signs are normal. Exam
as above. Will place an IV send labs including CBC and a CMP lipase. Will check urinalysis. Will check chest x-ray and EKG. Will send for CT head as well as a CT abdomen pelvis. Provide some fluids. Monitor closely reassess after the above.
Labs reviewed: CBC shows a leukocytosis to 20.5; he did have some mild tachypnea as well added on lactate and blood cultures. CMP shows mild MONICA with a creatinine of 1.4. LFTs normal. His urinalysis is positive for infection. Chest x-ray shows
no acute disease. Awaiting results of imaging.
CT head negative for any acute pathology. CT abdomen pelvis shows findings concerning for ascending UTI and pyelonephritis. Will broaden antibiotics with vancomycin and Zosyn, culture sent off. Will admit for continued management. Case discussed
with hospitalist for admission.
Chronic conditions affecting care:
BPH
*Radiology
Radiology exam reviewed: radiology read reviewed
*Pulse Oximetry
Patient hypoxic: no
*EKG
Interpreted by ED Provider?: Yes
Comparison EKG: no changes
Heart Rate: 83
Rate: normal
Rhythm: sinus
[place]: normal axis
Interval: normal interval
QRS Pattern: right bundle branch block
Ischemia: no ischemia
*Critical Care Note
Total Time (30-74mins, 75-104mins- exclusive of procedures): Not Applicable
Data Reviewed
Review of Other/Old Records Reveals: Labs, Records, Radiology Studies, Operative Reports and Discharge Summary
Source: patient, records and spouse
Patient Management
Discussion with other providers: Hospitalist (Discussed with hospitalist)
Escalation/DeEscalation of care consider admission/obs:
Admission indicated
ED Attending Note
-
Portions of this chart may have been created with voice recognition software.� Occasional wrong word or��sound alike� substitutions may have occurred due to the inherent limitations of voice recognition software.
Discharge Plan
Departure
Patient Disposition: Admit
Date of Disposition: 05/05/24
Time of Disposition: 21:09
Admit to doctor: Maryjaney
Presentation/result/management discussed w/ accepting MD/DO: Hospitalist
Discharge Problem:
Acute UTI, Sepsis
Prescriptions:
No Action
atorvastatin 80 mg Tablet
80 mg PO HS
propranolol 80 mg Capsule,Extended Release 24 Hr
80 mg PO DAILY
dapagliflozin propanediol [Farxiga] 10 mg Tablet
10 mg PO DAILY
venlafaxine 150 mg capsule,extended release 24hr
150 mg PO HS
tamsulosin [Flomax] 0.4 mg capsule
0.4 mg PO HS
aspirin 81 mg Tablet,Chewable
81 mg PO HS
Rx Instructions:
on hold until 04/30/2024
metformin 500 MG tablet
500 mg PO BID Qty: 60 0RF
finasteride 5 MG tablet
5 mg PO QPM Qty: 30 0RF
glipizide 5 mg Tablet
5 mg PO DAILY Qty: 30 0RF
Referrals:
Shaun Almonte DO [Family Provider] -
Interventions
Interventions:
*Risk Screen - Suicide Last Done: 05/05/24 18:27
*General Assessment Last Done: 05/05/24 18:27
*Neglect/Abuse Screening Last Done: 05/05/24 18:27
ED- Fall Risk Assessment Last Done: 05/05/24 18:27
ED- Cardiac Assessment Last Done: 05/05/24 18:27
ED- Neurological Assessment Last Done: 05/05/24 18:27
ED- Pulmonary Assessment Last Done: 05/05/24 18:27
Discharge Date and Time
Print Language: CENTRAL AFRICAN
[2024-05-05 18:55] LABS: ALT (SGPT) 31 U/L (0-50); AST (SGOT) 22 U/L (17-59); Albumin 3.8 g/dl (3.5-5.0); Alkaline Phosphatase 94 U/L (38-126); Blood Urea Nitrogen 35 mg/dl (9-20); Carbon Dioxide 26 mmol/L (22-30); Chloride 100 mmol/L (98-107); Direct Bilirubin 0.3 mg/dl (0.0-0.4); Estimated Creatinine Clearance 54 ml/min; Glucose 154 mg/dl (70-99); Lipase 155 U/L (23-300); Magnesium 2.1 mg/dl (1.6-2.3); Phosphorus 3.4 mg/dl (2.5-4.5); Potassium 4.2 mmol/L (3.5-5.1); Sodium 136 mmol/L (135-145); Total Protein 6.5 g/dl (6.3-8.2); eGFR 54.07
[2024-05-05 18:55] LABS: COVID-19 Antigen Negative (Negative)
[2024-05-05] MEDS: NSS 500 IV (19:27)
[2024-05-05 19:36] LABS: Urine Albumin Trace (Neg - Trace); Urine Bilirubin Negative (Negative); Urine Character Slightly Cloudy (Clear); Urine Color Yellow; Urine Glucose 3+ (Negative); Urine Ketone Negative (Negative); Urine Leukocyte 2+ (Negative); Urine Nitrite Negative (Negative); Urine Occult Blood 4+ (Negative); Urine Specific Gravity 1.005 (<1.030); Urine Urobilinogen Negative (Neg - 1+)
[2024-05-05 19:45] LABS: Urine Bacteria Few (Negative); Urine Red Blood Cell 0-2 /HPF (0-2); Urine Squamous Cell 0-2 /LPF (Few); Urine White Cell 26-30 /HPF (0-5)
[2024-05-05] MEDS: ZOSYN 50 IV (20:59)
[2024-05-05] MEDS: VANCOCIN 300 ML IV (22:09)
[2024-05-05] MEDS: VANCOCIN 300 MG IV (22:09)
--- NOTE | 2024-05-05 22:25 | HPS.HSE ---
Family Physician
-
Family Physician: Shaun Almonte
Chief Complaint
-
weakness and confusion.
History of Present Illness
68M HX chr urinary incontinence, occasionally will self catheterize , HX benign essentila tremor seeen at ER for evaluation of increasing weakness and confusion. Recent admission as of 04/24/2024 until 04/29/2024 ed for complicated UTI status post
lithotripsy and ureteral stent placement on 04/23/2024 complicated with AMS due to metabolic encephalopathy
He was then treated with IV ABx followed by cefdinir which he still on it.
Progressive weakness over the past few day with increasing tremor�she has essential tremor at baseline
- Per he could not stand up from the recliner without significant assistance
- barely able to walk a few steps to the kitchen before having to sit down again.
- associated confusion
ROS
no hematuria
no abdominal pain or flank pain, denies back nolan
Medical History
Past Medical History
Past Medical History: Reports Other
Additional Past Medical History:
blood loss anemia due to hematuria
Cerebrovascular accident s/p tPA 11/22/22, L ICA stent placement 11/25/22
Type 2 diabetes mellitus
Essential hypertension
Hyperlipidemia
Diverticulosis
Osteoarthritis
Renal calculi
Anxiety
Obstructive sleep
Hemorrhoids
Fatty liver disease
Plantar fasciitis
Scoliosis
Restless legs
Insomnia
Chronic low back pain
Past Surgical History: Reports Urological (lithotripsy and ureteral stent placement on 04/23/2024 ) and Other (L ICA stent placement 11/25/22)
Social History
Tobacco: Non-smoker
Alcohol: None
Family History
Family History: Not pertinent
Allergies / Home Medications
Allergies reflects when Allergies were last updated in [facility].
Home Medications with original date entered in [facility]
Allergy/Medication List:
Allergies
Allergy/AdvReac Type Severity Reaction Status Date / Time
shellfish derived Allergy Unknown Verified 05/05/24 17:58
Home Medications
aspirin 81 mg chewable tablet 81 mg PO HS 11/28/22
finasteride 5 mg tablet 5 mg PO QPM #30 tabs 12/07/22
glipizide 5 mg tablet 5 mg PO DAILY #30 tabs 12/07/22
metformin 500 mg tablet 500 mg PO BID #60 tabs 12/07/22
atorvastatin 80 mg tablet 80 mg PO HS 03/02/24
propranolol 80 mg capsule,24 hr,extended release 80 mg PO DAILY 03/02/24
dapagliflozin propanediol 10 mg tablet (Farxiga) 10 mg PO DAILY 04/17/24
tamsulosin 0.4 mg capsule (Flomax) 0.4 mg PO HS 04/17/24
venlafaxine 150 mg capsule,extended release 24 hr 150 mg PO HS 04/17/24
Review of Systems
-
History Source: Patient
A 12 point ROS was completed and negative except as noted: Yes
Constitutional: Denies Fever
EENT: Reports No Symptoms
Respiratory: Reports No Symptoms
Cardiac: Reports No Symptoms
Abdomen/GI: Reports No Symptoms
: Reports No Symptoms
Musculoskeletal: Reports No Symptoms
Skin: Reports No Symptoms
Neurological: Reports Weakness
Endocrine: Reports No Symptoms
Hematologic/Lymphatic: Reports No Symptoms
Psych: Reports Other (AMS )
Physical Exam
Vital Signs
Vital Signs
Temp Pulse Resp BP Pulse Ox
98.1 F 73 19 119/68 90
05/05/24 17:54 05/05/24 20:00 05/05/24 20:00 05/05/24 19:00 05/05/24 19:45
Physical Exam
General: Well Developed, Well Nourished, No Apparent Distress and Conversant (seems confused)
HEENT: NormoCephalic, Anicteric and Moist mucous membranes
Respiratory: Clear; No Wheezes, Rales or Rhonchi
Cardiac: S1/S2 and Regular Rhythm
Breast: Deferred by me
GI: Soft, Non Tender, Non Distended and Normal Bowel Sounds
Genito-urinary: No costovertebral tender
Musculoskeletal: No Edema
Skin: Warm and Dry
Psych: Confused
Laboratory Results
-
05/05/24 18:19
05/05/24 18:19
Laboratory Results
Lactic Acid 1.0 mmol/L (0.7-2.0) 05/05/24 19:23
Total Bilirubin 1.0 mg/dl (0.2-1.3) 05/05/24 18:19
AST 22 U/L (17-59) 05/05/24 18:19
ALT 31 U/L (0-50) 05/05/24 18:19
Alkaline Phosphatase 94 U/L (38-126) 05/05/24 18:19
Lipase 155 U/L (23-300) 05/05/24 18:19
Data Reviewed
-
CT Scan: Report Reviewed by me
Medical Tests (Nuc Med, Echo, EKG etc): Report Reviewed by me
Lab Data: Labs Reviewed by me
Old Records: Reviewed
Impression/Plan
-
Reviewed VS: Afebrile RR 20- 25 POx mid 90s on RA BP 120/68
Data
WCC 20.5
BUN 35
Cr 1.4 - baseline 0.9
eGFR 54 - baseline > 60
nl LFts
UA: WCC 26- 30
NEG Covid
CXR: No acute cardiopulmonary process
05/05/24 CT Abd/pelvis W Iv Cont
- most compatible with cystitis and an ascending left urinary tract infection/ureteritis and probable pyelonephritis.
- Stable position of the left ureteral stent.
- Stable minor prominence of the left renal collecting system without overt hydronephrosis.
- Cluster of left lower pole renal calculi.
HCT: No acute intracranial abnormality.
Prior Micro data
04/24/24 17:18 BCX: No Growth in 4 days-
04/24/24 16:16 UCx; NO GROWTH
Last hospitalist admission: 04/24/24 - 04/29/24 PDX:
- Sepsis due to complicated UTI s/p left laser lithotripsy with stone extraction + placement of double-J ureteral stent on 04/23/24
- Acute metabolic encephalopathy
ASSESSMENT & PLAN
Complicated UTI with left proximal collecting system infection probable pyelonephritis
Occult sepsis ( RR >20, WCC > 10) Afebrile . Stable VSS
04/23/24 : Lt ureteroscopic laser lithotripsy with stone extraction with placement of left double-J ureteral stent (4.7-Greenlandic 26 cm)
- No prior POS UCx except yeat
- Stable position of the left ureteral stent
- No overt hydronephrosis
- IV LR
- Held Farxiga
- Switch to IV CFP 2gm q12h in place of Vanco and Zosyn & FIRST LEVELER Cefdinir
- ID consult
AMS due to acute TME
- Observe MS with above Rx
MONICA due to complicated UTI and sepsis
- Held Metformin and Farxiga
- LR IVF
- Trend Cr
HX BPH with urinary frequency:
- Has been straight catheterizing at home
- HX chr urine incontinence
- cont Flomax/Proscar
DM2:
- Held Metformin
- held Farxiga due to increased risks of UTI and yeast infection
- cont Glipizide
- add ISS low
Other problems:
CVA s/p tPA 11/22/22, L ICA stent placement 11/25/22: cont ASA/statin
Essential HTN: Cont Propranolol
HLD: cont statin
Diverticulosis
OA
Renal calculi
Anxiety
JANA
Hemorrhoids
Fatty liver disease
Plantar fasciitis
Scoliosis
Restless legs
Insomnia
Chronic low back pain
DVT Px: SCD
Code: Full code
IP TLM
[2024-05-05] MEDS: LR 1000 IV (23:55)
[2024-05-05] MEDS: MAXIPIME 2000 MG IV (23:57)
[2024-05-05] MEDS: STERILE WATER FOR INJECTION 10 ML IV (23:57)
[2024-05-06] VITALS (7 sets, daily range): BP systolic 107–141; BP diastolic 64–75; BMI 24.4
--- NOTE | 2024-05-06 00:02 | PTCARENOTE ---
admitted to room 422- sinus 60's afebrile bp wnl ax3- 25 condom cath placed per pt request- fluids abx hung- oriented to room call wiesman in reach-
[2024-05-06 07:36] LABS: Blood Urea Nitrogen 33 mg/dl (9-20); Carbon Dioxide 28 mmol/L (22-30); Chloride 104 mmol/L (98-107); Estimated Creatinine Clearance 58 ml/min; Glucose 116 mg/dl (70-99); Potassium 4.1 mmol/L (3.5-5.1); Sodium 139 mmol/L (135-145)
[2024-05-06 07:52] LABS: Glucose - Point of Care 197 mg/dl (70-99)
[2024-05-06 07:56] LABS: Hematocrit 35.2 % (39.0-52.0); Hemoglobin 11.6 g/dL (13.0-18.0); Mean Corpuscular Hgb 31.4 pg (27.0-31.0); Mean Corpuscular Volume 95.1 fL (80.0-94.0); Mean Platelet Volume 10.4 fL (7.4-10.4); Platelet Count 253 10^3/uL (130-400); Red Cell Dist. Width 13.1 % (11.5-14.5); White Blood Cell Count 14.6 10^3/uL (4.8-10.8)
[2024-05-06] MEDS: FARXIGA 10 MG PO (08:34)
[2024-05-06] MEDS: HEPARIN 5000 UNITS SC ×2 (08:34→21:00)
[2024-05-06] MEDS: GLUCOTROL 5 MG PO (08:34)
[2024-05-06] MEDS: INDERAL LA 80 MG PO (08:36)
[2024-05-06] MEDS: NOVOLOG FLEXPEN-LOW RESISTANCE 300 UNITS SC (08:47)
--- NOTE | 2024-05-06 11:32 | CM ---
Patient seen at bedside. Patient lives with , Brandie and his mother is in the room across the hallway. Patient states that he is still working and that he is independent of ADL's prior to admission. Patient PCP is Dr. Almonte, and [facility] in
[place]. Patient states that he is normally working from home but does go in several hours a day. Patient plan is home with no needs vs home with VN. CM will continue to follow for discharge planning needs.
Plan; home with no needs vs home with VN; pending PT/OT assessment
[2024-05-06 11:43] LABS: Glucose - Point of Care 181 mg/dl (70-99)
[2024-05-06] MEDS: NOVOLOG FLEXPEN-LOW RESISTANCE 1 UNITS SC (11:45)
[2024-05-06] MEDS: STERILE WATER FOR INJECTION 10 ML IV (11:46)
[2024-05-06] MEDS: MAXIPIME 2000 MG IV (11:46)
[2024-05-06] MEDS: LR 1000 IV (11:47)
[2024-05-06 12:11] LABS: Glucose - Point of Care 280 mg/dl (70-99)
--- NOTE | 2024-05-06 15:15 | CON.ID ---
Consultation
-
Date/Time Consultation Requested: 05/05/2024 2337
Date/Time Consultation Performed: 05/06/2024 1500
Requesting Provider: Radha Lopez
Performing Provider: Dr. Yanez
Reason for Consultation: Complicated urinary tract infection
Chief Complaint / Past History
History of Present Illness
Timmy East is a 68-year-old man being evaluated at the request of Radha Lopez in regards to complicated urinary tract infection. History is obtained from chart review, along with patient interview.
The patient has a history of nephrolithiasis, and underwent laser lithotripsy on 04/[address] Castellanos. At that point, stents were placed and the patient was discharged to home in stable condition. He did well overnight, but the next day he seemed to
have increasing confusion in the morning, with word finding and inability and reported balance issues. He was brought back to the hospital for further evaluation and workup revealed a leukocytosis. During that hospitalization, urine cultures were
negative and ultimately the patient was transitioned to oral cefdinir 300 mg twice a day, to complete an additional 9 days of therapy. He was discharged to home on 04/29.
He presents back to the emergency room on 05/05 for evaluation of increasing weakness and confusion. According to the , the patient was unable to stand up from his recliner without significant assistance and was barely able to walk a few steps
at home. She has noticed increased confusion, along with increasing tremor.
Additional history indicates that the patient was well for approximately 1 to 2 days following discharge, but thereafter grew increasingly weak. She notes that he has been dealing with urinary retention for several months and previously was
straight cathing.
Past History
Additional Past Medical History:
CVA s/p tPA 11/22/22, L ICA stent placement 11/25/22
DM type II
HTN
Dyslipidemia
Diverticulosis
Osteoarthritis
Nephrolithiasis
Anxiety
JANA
BPH
Plantar fasciitis
Scoliosis
Restless leg syndrome
Insomnia
Chronic low back pain
Additional Past Surgical History:
(L) ICA stent (11/25/22)
Laser lithotripsy
Allergy History:
shellfish derived Allergy (Verified 05/05/24 17:58)
Unknown
Medications Reviewed: Yes
Current Antibiotics:
Cefepime 2gm IV q12h
Social History
Tobacco: Non-Smoker
Alcohol: Occasional
Drug: None
Personal:
Living: With Family
Employment: Employed
Family History
Family History: Not Pertinent
Review of Systems
Vital Signs
Temp Pulse Resp BP Pulse Ox
98.8 F 70 16 122/69 99
05/06/24 11:01 05/06/24 11:01 05/06/24 11:01 05/06/24 11:01 05/06/24 11:01
Physical Exam
Physical Exam
Constitutional: No Acute Distress, Comfortable and Non-toxic
Head: Normocephalic
Eyes: Pupils Equal, Pupils Round, No Conjunctival Hemorrhage and Sclera Anicteric
Oral: No Thrush and No Ulcers
Cardiovascular: Regular Rate and S1/S2; Negative S3/S4 or Murmur
Pulmonary: Clear and Non Labored; Negative Wheezes, Rales or Rhonchi
Gastrointestinal: Soft, Non Tender, Non Distended and Normal Bowel Sounds
Genito-Urinary: Moise and Clear Urine; Negative Turbid Urine or Hematuria
Extremities: Negative Edema, Cyanosis or Erythema
Neurological: Awake and Alert
Psychological: Calm
.
Lab / Diagnostic Study Results
05/06/24 06:54
05/06/24 06:54
Abs Immat Gran (auto) 0.1 10^3/uL (0-0.05) H 05/05/24 18:19
Absolute Neuts (auto) 17.6 10^3/uL (1.4-6.5) H 05/05/24 18:19
Absolute Lymphs (auto) 0.8 10^3/uL (1.2-3.4) L 05/05/24 18:19
Absolute Monos (auto) 1.9 10^3/uL (0.1-0.6) H 05/05/24 18:19
Absolute Basos (auto) 0.1 10^3/uL (0-0.2) 05/05/24 18:19
Immature Gran % 0.5 % (0-0.5) 05/05/24 18:19
Neutrophils % 85.7 % (42.2-75.2) H 05/05/24 18:19
Lymphocytes % 3.8 % (20.5-51.1) L 05/05/24 18:19
Monocytes % 9.2 % (1.7-9.3) 05/05/24 18:19
Eosinophils % 0.3 % (0-6) 05/05/24 18:19
Basophils % 0.5 % (0-2) 05/05/24 18:19
Lactic Acid 1.0 mmol/L (0.7-2.0) 05/05/24 19:23
Ur Squamous Epith Cells 0-2 /LPF (Few) 05/05/24 19:23
Microbiology Results
Micro:
05/05/24 19:23 Urine Culture - Pending
Urine
05/05/24 19:23 Blood Culture - Pending
Blood/Venous
05/05/24 19:23 Blood Culture - Pending
Blood/Venous
Imaging:
05/05/2024 CT abdomen/pelvis with IV contrast: Stable position of left ureteral stent. The proximal portion is located at the left upper pole renal calyx. Distal portion is located in the urinary bladder lumen. Urothelial thickening and
enhancement of the left renal collecting system is noted. Perinephric fat stranding about the left kidney is seen. A cluster of nonobstructing calculi in the left lower pole is noted. There is urothelial thickening along the course of the left
ureter. The liver, gallbladder, bile ducts and spleen are unremarkable. Please see full dictation for additional detail. Film personally viewed.
Assessment / Plan
Acute encephalopathy
Suspected complicated urinary tract infection
Leukocytosis
MONICA; improved
CVA s/p tPA 11/22/22, L ICA stent placement 11/25/22
DM type II
HTN
Dyslipidemia
Diverticulosis
Osteoarthritis
Nephrolithiasis
Anxiety
JANA
BPH
Plantar fasciitis
Scoliosis
Restless leg syndrome
Insomnia
Chronic low back pain
Recommendations:
Continue with empiric cefepime for the present.
Urine culture and blood cultures are pending; will continue to follow.
Monitor white count and temperature curve.
Further recommendations as additional data is returned.
--- NOTE | 2024-05-06 15:49 | W.PN.HOSP.TC ---
Today's Communication/Plan
-
Moise catheter.
Monitor creatinine
IV antibiotics pending cultures.
Hold oral DM meds monitoring for hypoglycemia
Assessment / Plan
Assessment / Plan
Impression:
Recurrent UTI.
Acute on chronic urinary retention.
Acute kidney injury
TME, multifactorial and secondary to UTI/MONICA.
Recent hospitalization with sepsis secondary to UTI, status post left laser lithotripsy with stone extraction and placement of a double-J stent on 04/23/2024
This admission also complicated with toxic metabolic encephalopathy.
Conditions prior to admission:
Cerebrovascular accident s/p tPA 11/22/22, L ICA stent placement 11/25/22
Type 2 diabetes mellitus
Essential hypertension
Hyperlipidemia
Diverticulosis
Osteoarthritis
Renal calculi
Anxiety
Obstructive sleep
Hemorrhoids
Fatty liver disease
Plantar fasciitis
Scoliosis
Restless legs
Insomnia
Chronic low back pain
Plan:
Recurrent UTI.
Complicated secondary to retention suspect BPH possibly neurogenic bladder after CVA.
CT findings compatible with cystitis and ascending left urinary tract infection/ureteritis and probable pyelonephritis. Stable position of the left ureteral stent. Stable mild prominence of the left renal collecting system without overt
hydronephrosis. Cluster of left lower pole renal calculi
Moise catheter placed with ongoing retention and PVR over 300 mL on 05/06.
Broad-spectrum antibiotics cefepime pending final cultures (recent culture with yeast).
Hold Farxiga while acute UTI.
Urology/ID consultation
MONICA
Likely multifactorial in the settings of UTI as well as retention.
Moise catheter in place since 05/06.
IV fluids.
Monitor BMP creatinine improving 1.4�1.3
Acute on chronic urinary retention
Moise catheter placed on 05/06.
Continue Proscar, Flomax
Toxic metabolic encephalopathy multifactorial secondary to UTI and MONICA.
Improving with antibiotics and IV hydration.
Type 2 diabetes.
Hemoglobin A1c 6.7.
Hold Farxiga, metformin, glipizide in the settings of MONICA. Monitor for hypoglycemia.
Continue basal bolus protocol with serial Accu-Cheks.
Carbohydrate controlled diet
Status post CVA
No focal neurologic abnormalities since admission
TME with now improved neurologic status back to baseline
Continue aspirin and statin
Goal normotension on propranolol.
Anticipated Discharge: 24 - 48 hours
Subjective/Interval History
-
Date of Service: May 06, 2024
Objective Data
-
Labs:
Laboratory Results
05/06/24
06:54
WBC 14.6 H
Hgb 11.6 L
Hct 35.2 L
Plt Count 253 D
Sodium 139
Potassium 4.1
Chloride 104
Carbon Dioxide 28
BUN 33 H
Creatinine 1.3
Glucose 116 H
Calcium 9.0
Vital Signs:
Vital Signs
Temp Pulse Resp BP Pulse Ox
97.3 F 69 16 141/73 97
05/06/24 15:00 05/06/24 15:00 05/06/24 15:00 05/06/24 15:00 05/06/24 15:00
Physical Exam
-
General: Well Developed and No Apparent Distress
HEENT: Normocephalic, Atraumatic and Moist Mucous Membranes
Respiratory: Clear to Auscultation
Cardiac: Regular Rhythm and S1/S2; Negative Murmur, Rub or Gallop
GI: Soft, Nontender, Nondistended and Normal Bowel Sounds; Negative Organomegaly
Rectal: Deferred by Provider
Musculoskeletal: No Clubbing, No Cyanosis and No Edema
Skin: Negative Rash
Neuro: Nonfocal/Grossly Intact
[2024-05-06 16:39] LABS: Glucose - Point of Care 284 mg/dl (70-99)
--- NOTE | 2024-05-06 16:56 | W.PN.URO.CBU ---
Today's Communication / Plan
-
leave [place] will reasess in am
Assessment / Plan
-
pt had 600 cc in bladder and was symptomatic has jj stent and ct scan suggests possible cystitis with ascending infection but this may chronic in nature due to stent and not clinically relevant The challenge will be to see if pt can void and if
needs stent out Will monitor vitals and cbc and cultures [ prev cxs neg ] with similar urinary sxs , Will reasses in AM about voiding trial and stent removal
Diagnosis
-
Date of Service: May 06, 2024
-
Patient Diagnosis:
urinary retention possble uti
Post Op Day:
Subjective
-
could not void feels better
Objective
-
Vital Signs
Temp Pulse Resp BP Pulse Ox
97.3 F 69 16 141/73 97
05/06/24 15:00 05/06/24 15:00 05/06/24 15:00 05/06/24 15:00 05/06/24 15:00
Laboratory Results
05/06/24 06:54
05/06/24 06:54
Review of Systems
-
: Difficulty Voiding
Physical Exam
-
General - well developed, well nourished, no acute distress
Chest - clear bilaterally
Abdomen - soft, non-tender, positive bowel sounds, no CVAT, no incisional pain or distention
Genitalia - normal
Rectal - normal
Skin - warm & dry with no rash
Neuro - AOx3, no motor deficits
Extremities - no clubbing, no cyanosis, no edema
Incision - clean, dry
Dressing - clean, dry, intact
Care Review
Data Reviewed
Discussed with: Hospitalist, Nursing, Family and Other (attending urologist)
CT Scan: Image Pers Reviewed
[2024-05-06] MEDS: NOVOLOG FLEXPEN-LOW RESISTANCE 3 UNITS SC (17:03)
[2024-05-06] MEDS: PROSCAR 5 MG PO (17:04)
--- NOTE | 2024-05-06 17:07 | PTCARENOTE ---
Pt noted to be pulling on [place] catheter tubing on and off throughout shift and some pink tinged urine with clots noted in bag and tubing. Pt instructed to not be pulling on the catheter.
[2024-05-06 20:58] LABS: Glucose - Point of Care 170 mg/dl (70-99)
[2024-05-06] MEDS: LOW STRENGTH ASPIRIN 81 MG PO (21:04)
[2024-05-06] MEDS: MELATONIN 5 MG PO (21:05)
[2024-05-06] MEDS: EFFEXOR XR 150 MG PO (21:05)
[2024-05-06] MEDS: FLOMAX 0.4 MG PO (21:05)
[2024-05-06] MEDS: LIPITOR 80 MG PO (21:05)
[2024-05-07] VITALS (7 sets, daily range): BP systolic 102–136; BP diastolic 57–80; PULSE 67; O2SAT 99
[2024-05-07] MEDS: LR 1000 IV (01:09)
[2024-05-07] MEDS: MAXIPIME 2000 MG IV ×2 (01:09→11:51)
[2024-05-07] MEDS: STERILE WATER FOR INJECTION 10 ML IV ×2 (01:09→11:50)
[2024-05-07 07:44] LABS: Glucose - Point of Care 152 mg/dl (70-99)
[2024-05-07 07:56] LABS: Hematocrit 34.5 % (39.0-52.0); Hemoglobin 11.4 g/dL (13.0-18.0); Mean Corpuscular Hgb 30.2 pg (27.0-31.0); Mean Corpuscular Volume 91.3 fL (80.0-94.0); Mean Platelet Volume 10.2 fL (7.4-10.4); Platelet Count 262 10^3/uL (130-400); Red Blood Cell Count 3.78 10^6/uL (4.70-6.10); Red Cell Dist. Width 13.1 % (11.5-14.5); White Blood Cell Count 9.6 10^3/uL (4.8-10.8)
[2024-05-07] MEDS: NOVOLOG FLEXPEN-LOW RESISTANCE 1 UNITS SC ×2 (07:59→12:20)
[2024-05-07] MEDS: HEPARIN 5000 UNITS SC ×2 (07:59→21:00)
[2024-05-07] MEDS: INDERAL LA 80 MG PO (08:00)
[2024-05-07 08:13] LABS: Blood Urea Nitrogen 30 mg/dl (9-20); Calcium 8.9 mg/dl (8.4-10.2); Carbon Dioxide 30 mmol/L (22-30); Chloride 107 mmol/L (98-107); Estimated Creatinine Clearance 63 ml/min; Glucose 144 mg/dl (70-99); Potassium 4.2 mmol/L (3.5-5.1); Sodium 142 mmol/L (135-145); eGFR > 60.00
[2024-05-07 12:01] LABS: Glucose - Point of Care 193 mg/dl (70-99)
--- NOTE | 2024-05-07 14:13 | W.PN.URO.CBU ---
Today's Communication / Plan
-
Consider voiding trial in next 24 - 48 hours
Keep JJ stent
Cultures unrevealing
Assessment / Plan
-
Chronic cystitis
Possible encephalopathy as sequelae of complicated UTI
Urine retention
Diagnosis
-
Date of Service: May 07, 2024
-
Patient Diagnosis:
Possible complicated UTI with metabolic encephalopathy
Chronic cystitis
History of large left renal pelvic stone s/p ureteroscopic laser lithotripsy and JJ stent placement
Urine retention
Leukocytosis: resolved
Subjective
-
No significant catheter bother
No left flank or SP pain
Objective
-
Vital Signs
Temp Pulse Resp BP Pulse Ox
97.7 F 65 16 119/63 96
05/07/24 12:00 05/07/24 12:00 05/07/24 12:00 05/07/24 12:00 05/07/24 12:00
Intake and Output
05/06/24 05/07/24 05/08/24
06:59 06:59 06:59
Intake Total 3280 / 3280
Output Total 4675 / 4675
Balance -1395 / -1395
Intake:
Oral fluids 1080 / 1080
IV fluids (Total) 2200 / 2200
Output:
Urine, Moise 3800 / 3800
Urine, Voided 875 / 875
Laboratory Results
05/07/24 07:38
05/07/24 07:38
Review of Systems
-
Constitutional: No Symptoms
Respiratory: No Symptoms
Cardiac: No Symptoms
Abdomen/GI: No Symptoms
: No Symptoms
Physical Exam
-
General - well developed, well nourished, no acute distress
Abdomen - soft, non-tender
Genitalia - normal with Moise draining ricky urine with some sediment
Counseling
-
Voiding trial in 1-2 days
Discussed clinical scenario with varinder's vicki
--- NOTE | 2024-05-07 16:12 | W.PN.ID1 ---
Date of Service
Date of Service: May 07, 2024
Today's Communication
Continue abx.
Assessment / Plan
Acute encephalopathy
Suspected complicated urinary tract infection
Leukocytosis
MONICA; improved
CVA s/p tPA 11/22/22, L ICA stent placement 11/25/22
DM type II
HTN
Dyslipidemia
Diverticulosis
Osteoarthritis
Nephrolithiasis
Anxiety
JANA
BPH
Plantar fasciitis
Scoliosis
Restless leg syndrome
Insomnia
Chronic low back pain
Recommendations:
Continue with empiric cefepime for the present.
Urine culture and blood cultures are pending; will continue to follow.
Monitor white count and temperature curve.
Further recommendations as additional data is returned.
����������������������������������������������������������
Chief Complaint
-: Clinical Sepsis
Subjective / Review of Systems
Review of Systems: No Fever and No Chills
Vital Signs / Physical Exam
Vital Signs
Vital Signs
Temp Pulse Resp BP Pulse Ox
97.4 F 61 16 102/80 96
05/07/24 15:49 05/07/24 15:49 05/07/24 15:49 05/07/24 15:49 05/07/24 15:49
Physical Exam
Constitutional: No Acute Distress, Comfortable and Non-toxic
Eyes: Sclera Anicteric
Cardiovascular: S1/S2; Negative S3/S4
Pulmonary: Non Labored
Genito-Urinary: Moise and Hematuria
Extremities: Negative Edema or Cyanosis
Neurological: Awake and Alert
Objective Data
Lab Data
Lab Results
05/07/24 07:38
05/07/24 07:38
Estimated Creat Clear 63 ml/min 05/07/24 07:38
Lactic Acid 1.0 mmol/L (0.7-2.0) 05/05/24 19:23
Total Bilirubin 1.0 mg/dl (0.2-1.3) 05/05/24 18:19
AST 22 U/L (17-59) 05/05/24 18:19
ALT 31 U/L (0-50) 05/05/24 18:19
Alkaline Phosphatase 94 U/L (38-126) 05/05/24 18:19
Most recent labs reviewed.
Micro Results:
05/05/24 19:23 Urine Culture - Preliminary
Urine
05/05/24 19:23 Blood Culture - Preliminary
Blood/Venous No Growth in 24 hours- Final report to follow
05/05/24 19:23 Blood Culture - Preliminary
Blood/Venous No Growth in 24 hours- Final report to follow
Imaging:
05/05/2024 CT abdomen/pelvis with IV contrast: Stable position of left ureteral stent. The proximal portion is located at the left upper pole renal calyx. Distal portion is located in the urinary bladder lumen. Urothelial thickening and
enhancement of the left renal collecting system is noted. Perinephric fat stranding about the left kidney is seen. A cluster of nonobstructing calculi in the left lower pole is noted. There is urothelial thickening along the course of the left
ureter. The liver, gallbladder, bile ducts and spleen are unremarkable. Please see full dictation for additional detail. Film personally viewed.
--- NOTE | 2024-05-07 16:16 | PTCARENOTE ---
Pt has some blood tinged urine and a few blood clots in the tubing noted this afternoon. Pt states it happened after straining to have a BM.
--- NOTE | 2024-05-07 16:28 | CM ---
Spoke with patient bedside.
patient agreeable to home IV anbx if needed.
Options reviewed with patient, Option care chosen.
Plan: home with possible IV anbx.
--- NOTE | 2024-05-07 16:30 | W.PN.HOSP.TC ---
Today's Communication/Plan
-
Continue antibiotics pending final urine and blood cultures
Maintain Moise catheter for another 24 hours with plan for trial of voiding in AM.
Maintain JJ stent.
Resume glyburide, continue basal bolus protocol holding Farxiga and metformin.
Physical therapy assessment
Assessment / Plan
Assessment / Plan
Impression:
Recurrent UTI.
Acute on chronic urinary retention.
Acute kidney injury
TME, multifactorial and secondary to UTI/MONICA.
Recent hospitalization with sepsis secondary to UTI, status post left laser lithotripsy with stone extraction and placement of a double-J stent on 04/23/2024
This admission also complicated with toxic metabolic encephalopathy.
Conditions prior to admission:
Cerebrovascular accident s/p tPA 11/22/22, L ICA stent placement 11/25/22
Type 2 diabetes mellitus
Essential hypertension
Hyperlipidemia
Diverticulosis
Osteoarthritis
Renal calculi
Anxiety
Obstructive sleep
Hemorrhoids
Fatty liver disease
Plantar fasciitis
Scoliosis
Restless legs
Insomnia
Chronic low back pain
Plan:
Recurrent UTI.
Complicated secondary to retention suspect BPH possibly neurogenic bladder after CVA.
CT findings compatible with cystitis and ascending left urinary tract infection/ureteritis and probable pyelonephritis. Stable position of the left ureteral stent. Stable mild prominence of the left renal collecting system without overt
hydronephrosis. Cluster of left lower pole renal calculi
Moise catheter placed with ongoing retention and PVR over 300 mL on 05/06.
Broad-spectrum antibiotics cefepime pending final cultures (recent culture with yeast).
Hold Farxiga while acute UTI.
Urology/ID consultation
MONICA
Likely multifactorial in the settings of UTI as well as retention.
Moise catheter in place since 05/06.
IV fluids.
Monitor BMP creatinine improving 1.4�1.3-1.2
Acute on chronic urinary retention
Moise catheter placed on 05/06.
Continue Proscar, Flomax
Toxic metabolic encephalopathy multifactorial secondary to UTI and MONICA.
Improving with antibiotics and IV hydration.
Type 2 diabetes.
Hemoglobin A1c 6.7.
Hold Farxiga, metformin.
Resume glipizide
Continue basal bolus protocol with serial Accu-Cheks.
Carbohydrate controlled diet
Status post CVA
No focal neurologic abnormalities since admission
TME with now improved neurologic status back to baseline
Continue aspirin and statin
Goal normotension on propranolol.
Anticipated Discharge: 24 - 48 hours
Subjective/Interval History
-
Date of Service: May 07, 2024
Objective Data
-
Labs:
Laboratory Results
05/07/24
07:38
WBC 9.6
Hgb 11.4 L
Hct 34.5 L
Plt Count 262
Sodium 142
Potassium 4.2
Chloride 107
Carbon Dioxide 30
BUN 30 H
Creatinine 1.2
Glucose 144 H
Calcium 8.9
Vital Signs:
Vital Signs
Temp Pulse Resp BP Pulse Ox
97.4 F 61 16 102/80 96
05/07/24 15:49 05/07/24 15:49 05/07/24 15:49 05/07/24 15:49 05/07/24 15:49
I&O
05/06/24 05/07/24 05/08/24
06:59 06:59 06:59
Intake Total 3280 / 3280
Output Total 4675 / 4675
Balance -1395 / -1395
Physical Exam
-
General: Well Developed and No Apparent Distress
HEENT: Normocephalic, Atraumatic and Moist Mucous Membranes
Respiratory: Clear to Auscultation
Cardiac: Regular Rhythm and S1/S2; Negative Murmur, Rub or Gallop
GI: Soft, Nontender, Nondistended and Normal Bowel Sounds; Negative Organomegaly
Rectal: Deferred by Provider
Genito-urinary: Moise
Musculoskeletal: No Clubbing, No Cyanosis and No Edema
Skin: Negative Rash
Neuro: Nonfocal/Grossly Intact
[2024-05-07 16:36] LABS: Glucose - Point of Care 200 mg/dl (70-99)
[2024-05-07] MEDS: PROSCAR 5 MG PO (17:09)
[2024-05-07] MEDS: NOVOLOG FLEXPEN-LOW RESISTANCE 2 UNITS SC (17:10)
[2024-05-07 21:01] LABS: Glucose - Point of Care 172 mg/dl (70-99)
[2024-05-07] MEDS: LIPITOR 80 MG PO (21:16)
[2024-05-07] MEDS: LOW STRENGTH ASPIRIN 81 MG PO (21:16)
[2024-05-07] MEDS: FLOMAX 0.4 MG PO (21:16)
[2024-05-07] MEDS: EFFEXOR XR 150 MG PO (21:16)
[2024-05-07] MEDS: MELATONIN 5 MG PO (22:11)
[2024-05-07 23:31] LABS: Glucose - Point of Care 175 mg/dl (70-99)
[2024-05-08] MEDS: MAXIPIME 2000 MG IV ×2 (00:30→12:13)
[2024-05-08] MEDS: STERILE WATER FOR INJECTION 10 ML IV ×2 (00:30→12:12)
[2024-05-08 07:54] VITALS: BP 130/82
[2024-05-08 08:04] LABS: Glucose - Point of Care 150 mg/dl (70-99)
[2024-05-08] MEDS: NOVOLOG FLEXPEN-LOW RESISTANCE 1 UNITS SC (09:08)
[2024-05-08] MEDS: INDERAL LA 80 MG PO (09:09)
[2024-05-08] MEDS: HEPARIN 5000 UNITS SC ×2 (09:09→20:53)
[2024-05-08] MEDS: GLUCOTROL 5 MG PO (09:09)
[2024-05-08 10:10] LABS: % Basophils 0.7 % (0-2); % Immature Granulocytes 0.7 % (0-0.5); % Lymphocytes 8.9 % (20.5-51.1); % Monocytes 10.7 % (1.7-9.3); Absolute Basophils 0.1 10^3/uL (0-0.2); Absolute Eosinophils 0.3 10^3/uL (0-0.7); Absolute Immature Granulocytes 0.1 10^3/uL (0-0.05); Absolute Lymphocytes 0.9 10^3/uL (1.2-3.4); Absolute Monocytes 1.1 10^3/uL (0.1-0.6); Absolute Neutrophils 7.7 10^3/uL (1.4-6.5); Hemoglobin 12.1 g/dL (13.0-18.0); Mean Corp Hgb Conc. 32.7 g/dL (33.0-37.0); Mean Corpuscular Hgb 30.3 pg (27.0-31.0); Mean Corpuscular Volume 92.5 fL (80.0-94.0); Mean Platelet Volume 10.7 fL (7.4-10.4); Nucleated Red Blood Cells % 0 % (-); Platelet Count 289 10^3/uL (130-400); Red Cell Dist. Width 12.9 % (11.5-14.5); White Blood Cell Count 10.1 10^3/uL (4.8-10.8)
--- NOTE | 2024-05-08 10:54 | PN.CDI ---
CDI
- -
CDI:
Physician Documentation Request
Admit Date: 05/05/24 22:41
Dear Doctor Mike,
The diagnosis of sepsis was documented on 05/05, but is not consistently noted in subsequent documentation.
ED includes sepsis as a discharge problem
H&P states 'Occult sepsis ( RR >20, WCC > 10) Afebrile .'
Please clarify the following:
____ - Sepsis was present on admission
____ - Sepsis was ruled out
____ - Other
Use of terms such as suspected, likely, concern for, or probable (associated with a specific diagnosis that is being evaluated, monitored, or treated as if it exists) are acceptable and can be coded in the inpatient setting, when documented at the
time of discharge.
Thank you,
Marie Vaughn RN, BSN
CDI Specialist
tiger text
Please use your independent medical judgment in providing your response.
[2024-05-08 11:16] LABS: Blood Urea Nitrogen 24 mg/dl (9-20); Calcium 9.1 mg/dl (8.4-10.2); Carbon Dioxide 26 mmol/L (22-30); Chloride 107 mmol/L (98-107); Estimated Creatinine Clearance 63 ml/min; Glucose 143 mg/dl (70-99); Sodium 142 mmol/L (135-145); eGFR > 60.00
--- NOTE | 2024-05-08 11:20 | W.PN.URO.CBU ---
Today's Communication / Plan
-
Await final urine culture results
Voiding trial tomorrow if clinical condition allows
Assessment / Plan
-
Chronic cystitis
Possible encephalopathy as sequelae of complicated UTI
Urine retention
Diagnosis
-
Date of Service: May 08, 2024
-
Patient Diagnosis:
Possible complicated UTI with metabolic encephalopathy
Chronic cystitis
History of large left renal pelvic stone s/p ureteroscopic laser lithotripsy and JJ stent placement
Urine retention
Leukocytosis: resolved
Subjective
-
Comfortable at present
No SP or flank pain
Objective
-
Vital Signs
Temp Pulse Resp BP Pulse Ox
97.3 F 66 12 130/82 96
05/08/24 07:54 05/08/24 07:54 05/08/24 07:54 05/08/24 07:54 05/08/24 07:54
Intake and Output
05/07/24 05/08/24 05/09/24
06:59 06:59 06:59
Intake Total 3280 / 3280 1380 / 1380
Output Total 4675 / 4675 5150 / 5150
Balance -1395 / -1395 -3770 / -3770
Intake:
Oral fluids 1080 / 1080 1180 / 1180
IV fluids (Total) 2200 / 2200 200 / 200
Output:
Urine, Moise 3800 / 3800 5150 / 5150
Urine, Voided 875 / 875
Laboratory Results
05/08/24 09:06
05/08/24 09:06
Review of Systems
-
Constitutional: Fatigue
Respiratory: No Symptoms
Cardiac: No Symptoms
Abdomen/GI: No Symptoms
: Difficulty Voiding
Physical Exam
-
General - well nourished, no acute distress
Abdomen - soft, non-tender
Genitalia - normal with Moise draining ricky urine
Counseling
-
Discussed case with Dr. Yanez
[2024-05-08 12:11] LABS: Glucose - Point of Care 228 mg/dl (70-99)
[2024-05-08] MEDS: NOVOLOG FLEXPEN-LOW RESISTANCE 2 UNITS SC (12:13)
[2024-05-08 14:54] VITALS: BP 122/69
--- NOTE | 2024-05-08 15:09 | W.PN.ID1 ---
Date of Service
Date of Service: May 08, 2024
Today's Communication
Continue cefepime for today.
Assessment / Plan
Acute encephalopathy
Suspected complicated urinary tract infection
Leukocytosis
MONICA; improved
CVA s/p tPA 11/22/22, L ICA stent placement 11/25/22
DM type II
HTN
Dyslipidemia
Diverticulosis
Osteoarthritis
Nephrolithiasis
Anxiety
JANA
BPH
Plantar fasciitis
Scoliosis
Restless leg syndrome
Insomnia
Chronic low back pain
Recommendations:
Continue with empiric cefepime for the present.
Urine culture only with Hemalatha species, and not at a significant level (only 3,000 CFU/mL), and not likely the etiology of his initial presentation.
Monitor white count and temperature curve.
updated at the bedside.
����������������������������������������������������������
Chief Complaint
-: Clinical Sepsis
Subjective / Review of Systems
Patient seen and examined. No specific complaints other than issues regarding clots in his Moise catheter.
Review of Systems: No Fever and No Chills
Vital Signs / Physical Exam
Vital Signs
Vital Signs
Temp Pulse Resp BP Pulse Ox
97.3 F 66 18 122/69 97
05/08/24 14:54 05/08/24 14:54 05/08/24 14:54 05/08/24 14:54 05/08/24 14:54
Physical Exam
Constitutional: No Acute Distress, Comfortable and Non-toxic
Eyes: Sclera Anicteric
Cardiovascular: S1/S2; Negative S3/S4
Pulmonary: Non Labored; Negative Wheezes
Gastrointestinal: Soft, Non Tender and Non Distended
Genito-Urinary: Moise and Hematuria (Less than yesterday, but some clots noted.)
Extremities: Negative Edema or Cyanosis
Neurological: Awake and Alert
Objective Data
Lab Data
Lab Results
05/08/24 09:06
05/08/24 09:06
Estimated Creat Clear 63 ml/min 05/08/24 09:06
Lactic Acid 1.0 mmol/L (0.7-2.0) 05/05/24 19:23
Total Bilirubin 1.0 mg/dl (0.2-1.3) 05/05/24 18:19
AST 22 U/L (17-59) 05/05/24 18:19
ALT 31 U/L (0-50) 05/05/24 18:19
Alkaline Phosphatase 94 U/L (38-126) 05/05/24 18:19
Most recent labs reviewed.
Micro Results:
05/05/24 19:23 Urine Culture - Preliminary
Urine Yeast (3k cfu/mL)
05/05/24 19:23 Blood Culture - Preliminary
Blood/Venous No Growth in 48 hours- Final report to follow
05/05/24 19:23 Blood Culture - Preliminary
Blood/Venous No Growth in 48 hours- Final report to follow
Imaging:
05/05/2024 CT abdomen/pelvis with IV contrast: Stable position of left ureteral stent. The proximal portion is located at the left upper pole renal calyx. Distal portion is located in the urinary bladder lumen. Urothelial thickening and
enhancement of the left renal collecting system is noted. Perinephric fat stranding about the left kidney is seen. A cluster of nonobstructing calculi in the left lower pole is noted. There is urothelial thickening along the course of the left
ureter. The liver, gallbladder, bile ducts and spleen are unremarkable. Please see full dictation for additional detail. Film personally viewed.
Care Review
Plan reviewed with: Physician (Urology)
--- NOTE | 2024-05-08 15:24 | CM ---
CM visited patient & today.
Discussed options for infusion companies. Agreeable to home IVABX if needed.
Plan: Discharge to home when stable.
--- NOTE | 2024-05-08 15:56 | W.PN.HOSP.TC ---
Today's Communication/Plan
-
Continue IV antibiotics/cefepime for another 24 hours.
Plan for trial of voiding in AM.
Assessment / Plan
Assessment / Plan
Impression:
Recurrent UTI.
Acute on chronic urinary retention.
Acute kidney injury
TME, multifactorial and secondary to UTI/MONICA.
Recent hospitalization with sepsis secondary to UTI, status post left laser lithotripsy with stone extraction and placement of a double-J stent on 04/23/2024
This admission also complicated with toxic metabolic encephalopathy.
Conditions prior to admission:
Cerebrovascular accident s/p tPA 11/22/22, L ICA stent placement 11/25/22
Type 2 diabetes mellitus
Essential hypertension
Hyperlipidemia
Diverticulosis
Osteoarthritis
Renal calculi
Anxiety
Obstructive sleep
Hemorrhoids
Fatty liver disease
Plantar fasciitis
Scoliosis
Restless legs
Insomnia
Chronic low back pain
Plan:
Recurrent UTI.
Complicated secondary to retention suspect BPH possibly neurogenic bladder after CVA.
CT findings compatible with cystitis and ascending left urinary tract infection/ureteritis and probable pyelonephritis. Stable position of the left ureteral stent. Stable mild prominence of the left renal collecting system without overt
hydronephrosis. Cluster of left lower pole renal calculi
Moise catheter placed with ongoing retention and PVR over 300 mL on 05/06.
Broad-spectrum antibiotics cefepime pending final cultures (recent culture with yeast).
Hold Farxiga while acute UTI.
Urology/ID consultation
MONICA
Likely multifactorial in the settings of UTI as well as retention.
Moise catheter in place since 05/06.
IV fluids.
Monitor BMP creatinine improving 1.4�1.3-1.2
Acute on chronic urinary retention
Moise catheter placed on 05/06.
Continue Proscar, Flomax
Toxic metabolic encephalopathy multifactorial secondary to UTI and MONICA.
Improving with antibiotics and IV hydration.
Type 2 diabetes.
Hemoglobin A1c 6.7.
Hold Farxiga, metformin.
Resume glipizide
Continue basal bolus protocol with serial Accu-Cheks.
Carbohydrate controlled diet
Status post CVA
No focal neurologic abnormalities since admission
TME with now improved neurologic status back to baseline
Continue aspirin and statin
Goal normotension on propranolol.
Anticipated Discharge: 24 - 48 hours
Subjective/Interval History
-
Date of Service: May 08, 2024
Objective Data
-
Labs:
Laboratory Results
05/08/24
09:06
WBC 10.1
Hgb 12.1 L
Hct 37.0 L
Plt Count 289
Sodium 142
Potassium 4.0
Chloride 107
Carbon Dioxide 26
BUN 24 H
Creatinine 1.2
Glucose 143 H
Calcium 9.1
Vital Signs:
Vital Signs
Temp Pulse Resp BP Pulse Ox
97.3 F 66 18 122/69 97
05/08/24 14:54 05/08/24 14:54 05/08/24 14:54 05/08/24 14:54 05/08/24 14:54
I&O
05/07/24 05/08/24 05/09/24
06:59 06:59 06:59
Intake Total 3280 / 3280 1380 / 1380
Output Total 4675 / 4675 5150 / 5150
Balance -1395 / -1395 -3770 / -3770
Physical Exam
-
General: Well Developed and No Apparent Distress
HEENT: Normocephalic, Atraumatic and Moist Mucous Membranes
Respiratory: Clear to Auscultation
Cardiac: Regular Rhythm and S1/S2; Negative Murmur, Rub or Gallop
GI: Soft, Nontender, Nondistended and Normal Bowel Sounds; Negative Organomegaly
Rectal: Deferred by Provider
Genito-urinary: Moise
Musculoskeletal: No Clubbing, No Cyanosis and No Edema
Skin: Negative Rash
Neuro: Awake, Alert, Oriented, AO x 3 and Nonfocal/Grossly Intact
[2024-05-08 16:54] LABS: Glucose - Point of Care 146 mg/dl (70-99)
[2024-05-08] MEDS: NOVOLOG FLEXPEN-LOW RESISTANCE SC (16:56)
[2024-05-08] MEDS: PROSCAR 5 MG PO (17:09)
[2024-05-08] MEDS: MELATONIN 5 MG PO (20:54)
[2024-05-08] MEDS: LIPITOR 80 MG PO (20:54)
[2024-05-08] MEDS: EFFEXOR XR 150 MG PO (20:54)
[2024-05-08] MEDS: FLOMAX 0.4 MG PO (20:54)
[2024-05-08] MEDS: LOW STRENGTH ASPIRIN 81 MG PO (20:54)
[2024-05-08 20:59] LABS: Glucose - Point of Care 183 mg/dl (70-99)
[2024-05-08 23:00] VITALS: BP 124/78
[2024-05-09] MEDS: MAXIPIME 2000 MG IV ×2 (00:11→12:15)
[2024-05-09] MEDS: STERILE WATER FOR INJECTION 10 ML IV ×2 (00:12→12:15)
[2024-05-09 07:30] VITALS: BP 128/79
[2024-05-09 07:54] LABS: Glucose - Point of Care 138 mg/dl (70-99)
[2024-05-09] MEDS: NOVOLOG FLEXPEN-LOW RESISTANCE SC (08:07)
[2024-05-09] MEDS: HEPARIN 5000 UNITS SC ×2 (08:14→20:55)
[2024-05-09] MEDS: GLUCOTROL 5 MG PO (08:14)
[2024-05-09] MEDS: INDERAL LA 80 MG PO (08:14)
[2024-05-09 08:40] LABS: % Basophils 0.8 % (0-2); % Eosinophils 3.1 % (0-6); % Immature Granulocytes 0.5 % (0-0.5); % Monocytes 10.3 % (1.7-9.3); % Neutrophils 75.3 % (42.2-75.2); Absolute Basophils 0.1 10^3/uL (0-0.2); Absolute Eosinophils 0.3 10^3/uL (0-0.7); Absolute Lymphocytes 0.9 10^3/uL (1.2-3.4); Absolute Monocytes 0.9 10^3/uL (0.1-0.6); Absolute Neutrophils 6.5 10^3/uL (1.4-6.5); Hematocrit 38.6 % (39.0-52.0); Hemoglobin 12.7 g/dL (13.0-18.0); Mean Corp Hgb Conc. 32.9 g/dL (33.0-37.0); Mean Corpuscular Hgb 30.9 pg (27.0-31.0); Mean Corpuscular Volume 93.9 fL (80.0-94.0); Mean Platelet Volume 10.5 fL (7.4-10.4); Nucleated Red Blood Cells % 0 % (-); Platelet Count 281 10^3/uL (130-400); Red Blood Cell Count 4.11 10^6/uL (4.70-6.10); Red Cell Dist. Width 12.6 % (11.5-14.5); White Blood Cell Count 8.6 10^3/uL (4.8-10.8)
[2024-05-09 09:51] LABS: Blood Urea Nitrogen 22 mg/dl (9-20); Calcium 9.4 mg/dl (8.4-10.2); Carbon Dioxide 25 mmol/L (22-30); Chloride 106 mmol/L (98-107); Estimated Creatinine Clearance 63 ml/min; Glucose 144 mg/dl (70-99); Potassium 4.3 mmol/L (3.5-5.1); Sodium 141 mmol/L (135-145); eGFR > 60.00
--- NOTE | 2024-05-09 10:34 | W.PN.URO.CBU ---
Today's Communication / Plan
-
Continue current medical management
Voiding trial
Assessment / Plan
-
Chronic cystitis
Possible encephalopathy as sequelae of complicated UTI
Urine retention
Diagnosis
-
Date of Service: May 09, 2024
-
Patient Diagnosis:
Possible complicated UTI with metabolic encephalopathy
Chronic cystitis
History of large left renal pelvic stone s/p ureteroscopic laser lithotripsy and JJ stent placement
Urine retention
Leukocytosis: resolved
Subjective
-
Comfortable
NO flank or SP pain
Objective
-
Vital Signs
Temp Pulse Resp BP Pulse Ox
97.4 F 63 19 128/79 98
05/09/24 07:30 05/09/24 07:30 05/09/24 07:30 05/09/24 07:30 05/09/24 07:30
Intake and Output
05/08/24 05/09/24 05/10/24
06:59 06:59 06:59
Intake Total 1380 / 1380 1380 / 1380
Output Total 5150 / 5150 3715 / 3715
Balance -3770 / -3770 -2335 / -2335
Intake:
Oral fluids 1180 / 1180 1320 / 1320
IV fluids (Total) 200 / 200
Moise intermittent irrigation 60 / 60
Output:
Urine, Moise 5150 / 5150 3715 / 3715
Laboratory Results
05/09/24 07:46
05/09/24 07:46
Review of Systems
-
Constitutional: Fatigue
Respiratory: No Symptoms
Cardiac: No Symptoms
Abdomen/GI: No Symptoms
: Difficulty Voiding
Physical Exam
-
General - well developed, well nourished, no acute distress
Abdomen - soft, non-tender
Genitalia - normal with Moise draining clear urine
Counseling
-
Remove Moise for voiding trial today
[2024-05-09 11:24] VITALS: BP 128/78; PULSE 63; O2SAT 96
[2024-05-09 12:11] LABS: Glucose - Point of Care 166 mg/dl (70-99)
[2024-05-09] MEDS: NOVOLOG FLEXPEN-LOW RESISTANCE 1 UNITS SC ×2 (12:16→17:07)
[2024-05-09 12:28] LABS: Glucose - Point of Care 168 mg/dl (70-99)
[2024-05-09 14:14] VITALS: BP 129/72
--- NOTE | 2024-05-09 15:48 | W.PN.ID1 ---
Date of Service
Date of Service: May 09, 2024
Today's Communication
Transition to cefdinir x 5d
Assessment / Plan
Acute encephalopathy
Suspected complicated urinary tract infection
Leukocytosis
MONICA; improved
CVA s/p tPA 11/22/22, L ICA stent placement 11/25/22
DM type II
HTN
Dyslipidemia
Diverticulosis
Osteoarthritis
Nephrolithiasis
Anxiety
JANA
BPH
Plantar fasciitis
Scoliosis
Restless leg syndrome
Insomnia
Chronic low back pain
Recommendations:
Urine culture only with Hemalatha species, and not at a significant level (only 3,000 CFU/mL), and not likely the etiology of his initial presentation.
Transition to oral cefdinir for an additional 5 days.
Now on voiding trial; follow urine output and color (currently appears neurologic)
Monitor white count and temperature curve.
����������������������������������������������������������
Chief Complaint
-: Clinical Sepsis
Subjective / Review of Systems
Review of Systems: No Fever and No Chills
Vital Signs / Physical Exam
Vital Signs
Vital Signs
Temp Pulse Resp BP Pulse Ox
97.5 F 65 18 129/72 98
05/09/24 14:14 05/09/24 14:14 05/09/24 14:14 05/09/24 14:14 05/09/24 14:14
Physical Exam
Constitutional: No Acute Distress, Comfortable and Non-toxic
Eyes: Sclera Anicteric
Cardiovascular: S1/S2; Negative S3/S4
Pulmonary: Non Labored; Negative Wheezes
Gastrointestinal: Soft, Non Tender and Non Distended
Genito-Urinary: Other (Moise now removed. Bloody urine noted in urinal)
Extremities: Negative Edema or Cyanosis
Neurological: Awake and Alert
Objective Data
Lab Data
Lab Results
05/09/24 07:46
05/09/24 07:46
Estimated Creat Clear 63 ml/min 05/09/24 07:46
Lactic Acid 1.0 mmol/L (0.7-2.0) 05/05/24 19:23
Total Bilirubin 1.0 mg/dl (0.2-1.3) 05/05/24 18:19
AST 22 U/L (17-59) 05/05/24 18:19
ALT 31 U/L (0-50) 05/05/24 18:19
Alkaline Phosphatase 94 U/L (38-126) 05/05/24 18:19
Most recent labs reviewed.
Micro Results:
05/05/24 19:23 Urine Culture - Final
Urine Hemalatha tropicalis
05/05/24 19:23 Blood Culture - Preliminary
Blood/Venous No Growth in 72 hours- Final report to follow
05/05/24 19:23 Blood Culture - Preliminary
Blood/Venous No Growth in 72 hours- Final report to follow
Imaging:
05/05/2024 CT abdomen/pelvis with IV contrast: Stable position of left ureteral stent. The proximal portion is located at the left upper pole renal calyx. Distal portion is located in the urinary bladder lumen. Urothelial thickening and
enhancement of the left renal collecting system is noted. Perinephric fat stranding about the left kidney is seen. A cluster of nonobstructing calculi in the left lower pole is noted. There is urothelial thickening along the course of the left
ureter. The liver, gallbladder, bile ducts and spleen are unremarkable. Please see full dictation for additional detail. Film personally viewed.
--- NOTE | 2024-05-09 16:19 | W.PN.HOSP.TC ---
Today's Communication/Plan
-
Trial of voiding pain
Transition to oral antibiotics
Assessment / Plan
Assessment / Plan
Impression:
Recurrent UTI.
Acute on chronic urinary retention.
Acute kidney injury
TME, multifactorial and secondary to UTI/MONICA.
Recent hospitalization with sepsis secondary to UTI, status post left laser lithotripsy with stone extraction and placement of a double-J stent on 04/23/2024
This admission also complicated with toxic metabolic encephalopathy.
Conditions prior to admission:
Cerebrovascular accident s/p tPA 11/22/22, L ICA stent placement 11/25/22
Type 2 diabetes mellitus
Essential hypertension
Hyperlipidemia
Diverticulosis
Osteoarthritis
Renal calculi
Anxiety
Obstructive sleep
Hemorrhoids
Fatty liver disease
Plantar fasciitis
Scoliosis
Restless legs
Insomnia
Chronic low back pain
Plan:
Recurrent UTI.
Complicated secondary to retention suspect BPH possibly neurogenic bladder after CVA.
CT findings compatible with cystitis and ascending left urinary tract infection/ureteritis and probable pyelonephritis. Stable position of the left ureteral stent. Stable mild prominence of the left renal collecting system without overt
hydronephrosis. Cluster of left lower pole renal calculi
Moise catheter placed with ongoing retention and PVR over 300 mL on 05/06.
Broad-spectrum antibiotics cefepime.
Cultures negative to date
Antibiotics transition to cefdinir on 05/09
Hold Farxiga while acute UTI.
MONICA
Likely multifactorial in the settings of UTI as well as retention.
Moise catheter in place since 05/06.
IV fluids.
Monitor BMP creatinine improving 1.4�1.3-1.2
Acute on chronic urinary retention
Moise catheter placed on 05/06.
Trial of voiding initiated on 05/09
Continue Proscar, Flomax
Toxic metabolic encephalopathy multifactorial secondary to UTI and MONICA.
Improving with antibiotics and IV hydration.
Type 2 diabetes.
Hemoglobin A1c 6.7.
Hold Farxiga, metformin.
Resume glipizide
Continue basal bolus protocol with serial Accu-Cheks.
Carbohydrate controlled diet
Status post CVA
No focal neurologic abnormalities since admission
TME with now improved neurologic status back to baseline
Continue aspirin and statin
Goal normotension on propranolol.
Anticipated Discharge: 24 - 48 hours
Subjective/Interval History
-
Date of Service: May 09, 2024
Objective Data
-
Labs:
Laboratory Results
05/09/24
07:46
WBC 8.6
Hgb 12.7 L
Hct 38.6 L
Plt Count 281
Sodium 141
Potassium 4.3
Chloride 106
Carbon Dioxide 25
BUN 22 H
Creatinine 1.2
Glucose 144 H
Calcium 9.4
Vital Signs:
Vital Signs
Temp Pulse Resp BP Pulse Ox
97.5 F 65 18 129/72 98
05/09/24 14:14 05/09/24 14:14 05/09/24 14:14 05/09/24 14:14 05/09/24 14:14
I&O
05/08/24 05/09/24 05/10/24
06:59 06:59 06:59
Intake Total 1380 / 1380 1380 / 1380
Output Total 5150 / 5150 3715 / 3715
Balance -3770 / -3770 -2335 / -2335
Physical Exam
-
General: Well Developed and No Apparent Distress
HEENT: Normocephalic, Atraumatic and Moist Mucous Membranes
Respiratory: Clear to Auscultation
Cardiac: Regular Rhythm and S1/S2; Negative Murmur, Rub or Gallop
GI: Soft, Nontender, Nondistended and Normal Bowel Sounds; Negative Organomegaly
Rectal: Deferred by Provider
Genito-urinary: Moise
Musculoskeletal: No Clubbing, No Cyanosis and No Edema
Skin: Negative Rash
Neuro: Awake, Alert, Oriented, AO x 3 and Nonfocal/Grossly Intact
[2024-05-09 17:06] LABS: Glucose - Point of Care 198 mg/dl (70-99)
[2024-05-09] MEDS: PROSCAR 5 MG PO (17:07)
[2024-05-09] MEDS: LIPITOR 80 MG PO (20:54)
[2024-05-09] MEDS: FLOMAX 0.4 MG PO (20:54)
[2024-05-09] MEDS: MELATONIN 5 MG PO (20:54)
[2024-05-09] MEDS: LOW STRENGTH ASPIRIN 81 MG PO (20:54)
[2024-05-09] MEDS: OMNICEF 300 MG PO (20:55)
[2024-05-09] MEDS: EFFEXOR XR 150 MG PO (20:55)
[2024-05-09] MEDS: TYLENOL 650 MG PO (21:06)
[2024-05-09 21:14] LABS: Glucose - Point of Care 131 mg/dl (70-99)
[2024-05-09 23:02] VITALS: BP 111/69
[2024-05-10 07:25] LABS: Glucose - Point of Care 190 mg/dl (70-99)
[2024-05-10 07:30] VITALS: BP 138/84
[2024-05-10 07:58] LABS: Hematocrit 38.7 % (39.0-52.0); Hemoglobin 12.9 g/dL (13.0-18.0); Mean Corp Hgb Conc. 33.3 g/dL (33.0-37.0); Mean Corpuscular Hgb 30.5 pg (27.0-31.0); Mean Corpuscular Volume 91.5 fL (80.0-94.0); Mean Platelet Volume 10.2 fL (7.4-10.4); Platelet Count 298 10^3/uL (130-400); Red Blood Cell Count 4.23 10^6/uL (4.70-6.10); Red Cell Dist. Width 12.9 % (11.5-14.5); White Blood Cell Count 10.5 10^3/uL (4.8-10.8)
[2024-05-10 08:13] LABS: Blood Urea Nitrogen 23 mg/dl (9-20); Calcium 9.5 mg/dl (8.4-10.2); Carbon Dioxide 27 mmol/L (22-30); Chloride 104 mmol/L (98-107); Estimated Creatinine Clearance 63 ml/min; Glucose 152 mg/dl (70-99); Potassium 3.9 mmol/L (3.5-5.1); Sodium 140 mmol/L (135-145); eGFR > 60.00
[2024-05-10] MEDS: NOVOLOG FLEXPEN-LOW RESISTANCE 1 UNITS SC (08:31)
[2024-05-10] MEDS: HEPARIN 5000 UNITS SC (08:32)
[2024-05-10] MEDS: GLUCOTROL 5 MG PO (08:32)
[2024-05-10] MEDS: INDERAL LA 80 MG PO (08:33)
[2024-05-10] MEDS: OMNICEF 300 MG PO (11:08)
--- NOTE | 2024-05-10 11:24 | W.DS.TRANS ---
DC Summary - [employer]
-
Discharge Instructions:
Discharge Diagnosis/Procedures Impression:
Recurrent UTI.
Acute on chronic urinary retention.
Acute kidney injury
TME, multifactorial and secondary to UTI/MONICA.
Recent hospitalization with sepsis secondary to
UTI, status post left laser lithotripsy with
stone extraction and placement of a double-J
stent on 04/23/2024
This admission also complicated with toxic
metabolic encephalopathy.
Conditions prior to admission:
Cerebrovascular accident s/p tPA 11/22/22, L ICA
stent placement 11/25/22
Type 2 diabetes mellitus
Essential hypertension
Hyperlipidemia
Diverticulosis
Osteoarthritis
Renal calculi
Anxiety
Obstructive sleep
Hemorrhoids
Fatty liver disease
Plantar fasciitis
Scoliosis
Restless legs
Insomnia
Chronic low back pain
Diet Diabetic, Carb Controlled
Instructions:
Stand-Alone Forms:
Changes to Home Medications: Yes
Discharge Medications:
DC Medications w/original date entered in [employer]
aspirin 81 mg chewable tablet 81 mg PO HS Blood Clot Prevention/Tx 11/28/22
finasteride 5 mg tablet 5 mg PO QPM #30 tabs 12/07/22
glipizide 5 mg tablet 5 mg PO DAILY #30 tabs 12/07/22
metformin 500 mg tablet 500 mg PO BID #60 tabs 12/07/22
atorvastatin 80 mg tablet 80 mg PO HS High Cholesterol 03/02/24
propranolol 80 mg capsule,24 hr,extended release 80 mg PO DAILY Blood Pressure 03/02/24
dapagliflozin propanediol 10 mg tablet (Farxiga) 10 mg PO DAILY Diabetes 04/17/24
tamsulosin 0.4 mg capsule (Flomax) 0.4 mg PO HS Urinary Issue 04/17/24
venlafaxine 150 mg capsule,extended release 24 hr 150 mg PO HS Depression 04/17/24
cefdinir 300 mg capsule 300 mg PO Q12 #10 caps 05/10/24
polyethylene glycol 3350 17 gram oral powder packet (HealthyLax) 17 g PO DAILYPRN PRN constipation #30 ea 05/10/24
Home Medication Changes
Antibiotics through 05/14/24.
Hold Farxiga for 4 weeks or until infection treated.
Pending Results: No
[2024-05-10 11:46] LABS: Glucose - Point of Care 201 mg/dl (70-99)
--- NOTE | 2024-05-10 12:16 | PN.CDI ---
CDI
- -
CDI:
Physician Documentation Request
Admit Date: 05/05/24 22:41
Dear Doctor Mike,
Hospitalist progress notes state 'TME, multifactorial and secondary to UTI/MONICA'
Creatinine results:
Laboratory Tests
05/05/24 05/06/24 05/07/24
18:19 06:54 07:38
Creatinine 1.4 H 1.3 1.2
05/08/24 05/09/24 05/10/24
09:06 07:46 07:31
Creatinine 1.2 1.2 1.2
Criteria for MONICA*
1 Increase in serum creatinine by > or = to 0.3 mg/dL (> or = to 26.5 micromol/L) within 48 hours, OR
2 Increase in serum creatinine to > or = to 1.5 times baseline, which is known or presumed to have occurred within 7 days, OR
3 Urine volume < 0.5 nL/kg/hour for six hours
Based on the above information and the recognized standard for MONICA could you please verify this diagnoses is still accurate and reflective of the patient�s condition to ensure quality of the medical record.
Please clarify in the Progress Notes:
�MONICA is/was present and is a clinical diagnosis based on (please include this additional support in the medical record)
�After study MONICA has been ruled out
�Other
Use of terms such as suspected, likely, concern for, or probable (associated with a specific diagnosis that is being evaluated, monitored, or treated as if it exists) are acceptable and can be coded in the inpatient setting, when documented at the
time of discharge.
Thank you,
Marie Vaughn RN, BSN
CDI Specialist
tiger text
Please use your independent medical judgment in providing your response.
[2024-05-10] MEDS: NOVOLOG FLEXPEN-LOW RESISTANCE 2 UNITS SC (12:20)
--- NOTE | 2024-05-10 12:20 | PN.CDI ---
CDI
- -
CDI:
Physician Documentation Request
Admit Date: 05/05/24 22:41
Dear Doctor Mike,
Patient admitted with recurrent UTI
05/05 CT abd/pelvis shows 'stable position of left ureteral stent'
Please clarify if a relationship exist between these conditions:
Yes, UTI is related to/associated with/due to ureteral stent .
No, UTI is not related to/associated with/due to ureteral stent
Unable to determine
Use of terms such as suspected, likely, concern for, or probable (associated with a specific diagnosis that is being evaluated, monitored, or treated as if it exists) are acceptable and can be coded in the inpatient setting, when documented at the
time of discharge.
Thank you,
Marie Vaughn RN, BSN
CDI Specialist
tiger text
Please use your independent medical judgment in providing your response.
--- NOTE | 2024-05-10 12:21 | W.DS.TRANS ---
DC Summary - Single Stayer Operator
-
Discharge Instructions:
Discharge Diagnosis/Procedures Impression:
Recurrent UTI.
Acute on chronic urinary retention.
Acute kidney injury
TME, multifactorial and secondary to UTI/MONICA.
Recent hospitalization with sepsis secondary to
UTI, status post left laser lithotripsy with
stone extraction and placement of a double-J
stent on 04/23/2024
This admission also complicated with toxic
metabolic encephalopathy.
Conditions prior to admission:
Cerebrovascular accident s/p tPA 11/22/22, L ICA
stent placement 11/25/22
Type 2 diabetes mellitus
Essential hypertension
Hyperlipidemia
Diverticulosis
Osteoarthritis
Renal calculi
Anxiety
Obstructive sleep
Hemorrhoids
Fatty liver disease
Plantar fasciitis
Scoliosis
Restless legs
Insomnia
Chronic low back pain
Diet Diabetic, Carb Controlled
Instructions:
Stand-Alone Forms:
Changes to Home Medications: Yes
Discharge Medications:
DC Medications w/original date entered in [facility]
aspirin 81 mg chewable tablet 81 mg PO HS Blood Clot Prevention/Tx 11/28/22
finasteride 5 mg tablet 5 mg PO QPM #30 tabs 12/07/22
glipizide 5 mg tablet 5 mg PO DAILY #30 tabs 12/07/22
metformin 500 mg tablet 500 mg PO BID #60 tabs 12/07/22
atorvastatin 80 mg tablet 80 mg PO HS High Cholesterol 03/02/24
propranolol 80 mg capsule,24 hr,extended release 80 mg PO DAILY Blood Pressure 03/02/24
dapagliflozin propanediol 10 mg tablet (Farxiga) 10 mg PO DAILY Diabetes 04/17/24
tamsulosin 0.4 mg capsule (Flomax) 0.4 mg PO HS Urinary Issue 04/17/24
venlafaxine 150 mg capsule,extended release 24 hr 150 mg PO HS Depression 04/17/24
cefdinir 300 mg capsule 300 mg PO Q12 #10 caps 05/10/24
fluconazole 200 mg tablet 200 mg PO DAILY #10 tabs 05/10/24
polyethylene glycol 3350 17 gram oral powder packet (HealthyLax) 17 g PO DAILYPRN PRN constipation #30 ea 05/10/24
Home Medication Changes
Cefdinir for additional 5 days
Diflucan for additional 10 days
Pending Results: No
[2024-05-10] MEDS: DIFLUCAN 200 MG PO (12:25)
--- NOTE | 2024-05-10 12:31 | W.PN.ID1 ---
Date of Service
Date of Service: May 10, 2024
Today's Communication
Can add fluconazole to cefdinir. See below.
Assessment / Plan
Acute encephalopathy
Suspected complicated urinary tract infection
Leukocytosis
MONICA; improved
CVA s/p tPA 11/22/22, L ICA stent placement 11/25/22
DM type II
HTN
Dyslipidemia
Diverticulosis
Osteoarthritis
Nephrolithiasis
Anxiety
JANA
BPH
Plantar fasciitis
Scoliosis
Restless leg syndrome
Insomnia
Chronic low back pain
Recommendations:
Urine culture only with Hemalatha tropicalis, and not at a significant level (only 3,000 CFU/mL), suspect colonization
Urology requesting tx of Hemalatha. Previous Ucx with 100k yeast.
QTc 481. Can use fluconazole 200mg po qd x 10d.
Continue oral cefdinir for an additional 4 days.
����������������������������������������������������������
Chief Complaint
-: Clinical Sepsis
Subjective / Review of Systems
Going home today.
Vital Signs / Physical Exam
Vital Signs
Vital Signs
Temp Pulse Resp BP Pulse Ox
97.5 F 61 18 138/84 99
05/10/24 07:30 05/10/24 08:33 05/10/24 07:30 05/10/24 08:33 05/10/24 08:16
Physical Exam
Constitutional: No Acute Distress
Gastrointestinal: Soft, Non Tender and Non Distended
Genito-Urinary: Negative CVA Tenderness
Neurological: AO x 3
Objective Data
Lab Data
Lab Results
05/10/24 07:31
05/10/24 07:31
Estimated Creat Clear 63 ml/min 05/10/24 07:31
Lactic Acid 1.0 mmol/L (0.7-2.0) 05/05/24 19:23
Total Bilirubin 1.0 mg/dl (0.2-1.3) 05/05/24 18:19
AST 22 U/L (17-59) 05/05/24 18:19
ALT 31 U/L (0-50) 05/05/24 18:19
Alkaline Phosphatase 94 U/L (38-126) 05/05/24 18:19
Most recent labs reviewed.
Micro Results:
05/05/24 19:23 Blood Culture - Preliminary
Blood/Venous No Growth in 4 days- Final report to follow
05/05/24 19:23 Blood Culture - Preliminary
Blood/Venous No Growth in 4 days- Final report to follow
05/05/24 19:23 Urine Culture - Final
Urine Hemalatha tropicalis
Imaging:
05/05/2024 CT abdomen/pelvis with IV contrast: Stable position of left ureteral stent. The proximal portion is located at the left upper pole renal calyx. Distal portion is located in the urinary bladder lumen. Urothelial thickening and
enhancement of the left renal collecting system is noted. Perinephric fat stranding about the left kidney is seen. A cluster of nonobstructing calculi in the left lower pole is noted. There is urothelial thickening along the course of the left
ureter. The liver, gallbladder, bile ducts and spleen are unremarkable. Please see full dictation for additional detail. Film personally viewed.
Care Review
Plan reviewed with: Physician (Dr. Mckeon)
[2024-05-10 13:15] VITALS: BP 123/75
--- NOTE | 2024-05-10 14:15 | CM ---
Patient discharge today to home.
IMM explained and signed - placed in chart.
PLAN: Discharge to home. to transport. No needs.
== END 2024-05-10 13:55 | disposition home or self-care (01) | DRG 698 ==
LOC: 4 WEST ACU 22:41
PROVIDERS: Registered Nurse; ADMITTING PHYSICIAN Internal Medicine; ATTENDING PHYSICIAN Internal Medicine; CONSULT PHYSICIAN Internal Medicine Infectious Disease; CONSULT PHYSICIAN Specialist; EMERGENCY PHYSICIAN Emergency Medicine; FAMILY PHYSICIAN Family Medicine
DX: T83.592A Infection and inflammatory reaction due to indwelling ureteral stent, initial encounter (principal); G92.8 Other toxic encephalopathy; B37.41 Candidal cystitis and urethritis; N17.9 Acute kidney failure, unspecified; K57.92 Diverticulitis of intestine, part unspecified, without perforation or abscess without bleeding; N12 Tubulo-interstitial nephritis, not specified as acute or chronic; E11.9 Type 2 diabetes mellitus without complications; I10 Essential (primary) hypertension; E78.5 Hyperlipidemia, unspecified; F41.9 Anxiety disorder, unspecified; G47.33 Obstructive sleep apnea (adult) (pediatric); K76.0 Fatty (change of) liver, not elsewhere classified; R33.8 Other retention of urine; Y84.6 Urinary catheterization as the cause of abnormal reaction of the patient, or of later complication, without mention of misadventure at the time of the procedure; N40.1 Benign prostatic hyperplasia with lower urinary tract symptoms; N31.9 Neuromuscular dysfunction of bladder, unspecified; Z87.440 Personal history of urinary (tract) infections; Z86.73 Personal history of transient ischemic attack (TIA), and cerebral infarction without residual deficits; Z79.82 Long term (current) use of aspirin
CPT/HCPCS: 70450; 71045; 74177; 80048; 80053; 81003; 81015; 82248; 82962; 83605; 83690; 83735; 84100; 85025; 85027; 87040; 87086; 87106; 87811; 93005; 96361; 96365; 96367; 97116; 97162; 99285; Q9967

== ENCOUNTER → 2024-05-29 07:58 | Outpatient (REF) | payer BC, MEDICARE, SELFPAY ==
[2024-05-29 08:49] LABS: % Eosinophils 3.6 % (0-6); % Immature Granulocytes 0.5 % (0-0.5); % Lymphocytes 15.2 % (20.5-51.1); % Monocytes 9.6 % (1.7-9.3); % Neutrophils 70.1 % (42.2-75.2); Absolute Basophils 0.1 10^3/uL (0-0.2); Absolute Eosinophils 0.3 10^3/uL (0-0.7); Absolute Lymphocytes 1.2 10^3/uL (1.2-3.4); Absolute Monocytes 0.7 10^3/uL (0.1-0.6); Absolute Neutrophils 5.4 10^3/uL (1.4-6.5); Hematocrit 39.3 % (39.0-52.0); Hemoglobin 12.8 g/dL (13.0-18.0); Mean Corp Hgb Conc. 32.6 g/dL (33.0-37.0); Mean Corpuscular Hgb 30.6 pg (27.0-31.0); Mean Platelet Volume 10.9 fL (7.4-10.4); Nucleated Red Blood Cells % 0 % (-); Platelet Count 208 10^3/uL (130-400); Red Blood Cell Count 4.18 10^6/uL (4.70-6.10); Red Cell Dist. Width 13.5 % (11.5-14.5); White Blood Cell Count 7.7 10^3/uL (4.8-10.8)
[2024-05-29 10:47] LABS: ALT (SGPT) 26 U/L (0-50); AST (SGOT) 26 U/L (17-59); Albumin 4.3 g/dl (3.5-5.0); Alkaline Phosphatase 69 U/L (38-126); Blood Urea Nitrogen 19 mg/dl (9-20); Calcium 9.9 mg/dl (8.4-10.2); Carbon Dioxide 26 mmol/L (22-30); Chloride 102 mmol/L (98-107); Glucose 121 mg/dl (70-99); HDL Cholesterol 41 mg/dl; LDL Cholesterol, Calculated 47 mg/dl; Potassium 4.1 mmol/L (3.5-5.1); Sodium 138 mmol/L (135-145); Total Bilirubin 0.5 mg/dl (0.2-1.3); Total Cholesterol 158 mg/dl (50-199); Total Protein 6.8 g/dl (6.3-8.2); Triglyceride 354 mg/dl (10-149); Very Low Density Lipoprotein 70 mg/dl (0-30); eGFR > 60.00
[2024-05-29 10:53] LABS: Glycohemoglobin (HgbA1c) 6.9 % (4.0-5.6)
== END ==
LOC: REG 07:58
PROVIDERS: ATTENDING PHYSICIAN Physician Assistant; FAMILY PHYSICIAN Family Medicine
DX: E11.65 Type 2 diabetes mellitus with hyperglycemia (principal)
CPT/HCPCS: 36415; 80053; 80061; 83036; 85025

== ENCOUNTER 2024-08-19 06:39 | Day surgery (SDC) | payer BC, MEDICARE, SELFPAY ==
[2024-08-19] VITALS (10 sets, daily range): BP systolic 99–128; BP diastolic 66–82; BMI 26.3
[2024-08-19 09:30] LABS: Glucose - Point of Care 143 mg/dl (70-99)
[2024-08-19 09:45] LABS: Urine Albumin 1+ (Neg - Trace); Urine Bilirubin Negative (Negative); Urine Character Very Cloudy (Clear); Urine Color Yellow; Urine Glucose 3+ (Negative); Urine Ketone Negative (Negative); Urine Leukocyte 2+ (Negative); Urine Nitrite Negative (Negative); Urine Occult Blood 4+ (Negative); Urine Urobilinogen Negative (Neg - 1+)
[2024-08-19 11:05] LABS: Urine Bacteria Few (Negative); Urine Red Blood Cell >100 /HPF (0-2); Urine Squamous Cell 0-2 /LPF (Few); Urine White Cell >100 /HPF (0-5)
[2024-08-19 11:44] LABS: Glucose - Point of Care 155 mg/dl (70-99)
== END 2024-08-19 14:21 | disposition home or self-care (01) ==
LOC: SDS 06:39
PROVIDERS: ATTENDING PHYSICIAN Urology
DX: N39.41 Urge incontinence (principal)
CPT/HCPCS: 64590; 64561; 72170; 76000; 81003; 81015; 82962; 87086; C1767; C1778; C1787

== ENCOUNTER 2024-08-21 18:34 | Outpatient (RCR) | payer BC, MEDICARE, SELFPAY | END 2024-08-21 23:59 | disposition home or self-care (01) | LOC: RPT 18:34 | PROVIDERS: ATTENDING PHYSICIAN Family Medicine | DX: R26.9 Unspecified abnormalities of gait and mobility (principal); Z73.6 Limitation of activities due to disability | CPT/HCPCS: 97162 ==

== ENCOUNTER → 2024-09-03 07:49 | Outpatient (REF) | payer BC, SELFPAY ==
[2024-09-03 09:42] LABS: HDL Cholesterol 39 mg/dl; LDL Cholesterol, Calculated 58 mg/dl; Total Cholesterol 138 mg/dl (50-199); Triglyceride 207 mg/dl (10-149); Very Low Density Lipoprotein 41 mg/dl (0-30)
== END ==
LOC: HWRCS 07:49
PROVIDERS: ATTENDING PHYSICIAN Internal Medicine Cardiovascular Disease; FAMILY PHYSICIAN Family Medicine
DX: R94.39 Abnormal result of other cardiovascular function study (principal); I63.9 Cerebral infarction, unspecified
CPT/HCPCS: 36415; 80061; 93306

== ENCOUNTER 2024-09-22 12:29 | Inpatient (IN) | payer BC, MEDICARE, SELFPAY ==
[2024-09-22 09:26] VITALS: BP 152/94
--- NOTE | 2024-09-22 10:33 | ED.GENMED ---
History of Present Illness
General
Chief Complaint: Male Genito-Urinary Symptoms
Source: patient and spouse
Exam Limitations: none
Time Seen by Provider: 09/22/24 10:16
Nursing documentation reviewed up to this point in time: agreed with
History of Present Illness
History of Present Illness:
The patient is a 69-year-old man with a past medical history of kidney stones, frequent UTIs, and chronic urinary incontinence who complains of increased bleeding in his urine that he noticed at 4 AM this morning. His reports that he has had
blood in his urine for 2 to 3 weeks and occasional pain. Patient reports that things intensified this morning when he noticed that his urine looked much more bloody. Additionally, patient states that he is now having difficulty fully emptying his
bladder and has noticed blood clots. He denies being on aspirin, Plavix or any blood thinners. His reports that he is followed by Dr. Castellanos and is due to have a cystoscopy this Monday but due to the increased bleeding and discomfort, they
decided to come to the ED today. Patient denies nausea, vomiting, fevers and chills. He denies back pain. He complains of bladder discomfort. reports that patient has been on fluconazole for at least 1 week
Past History
Past History
ED Past Medical History: Hypercholesterolemia and NIDDM
ED Past Surgical History: Urological and Other
Social History
Tobacco: Non-smoker
Alcohol: None
Drug: None
Personal:
Living: with family
Employment: Other
Family History
Family History: Other
Review of Systems
Review of Systems
Allergies reviewed?: Yes
All Other Systems: ROS reviewed and negative except as documented in HPI and ROS
Constitutional: Reports no symptoms
EENT: Reports no symptoms
Respiratory: Reports no symptoms
Cardiac: Reports no symptoms
ABD/GI: Reports no symptoms
: Reports dysuria, difficulty voiding, urgency and bleeding
Musculoskeletal: Reports no symptoms
Skin: Reports no symptoms
Neurological: Reports no symptoms
Endocrine: Reports no symptoms
Hematologic/Lymphatic: Reports no symptoms
Psychiatric: Reports no symptoms
Phy Exam
Physical Exam
Physical Exam:
Physical Exam
General: no apparent distress, not acutely ill. Nontoxic, conversational
Neck: supple. no meningeal signs. normal psoterior pharynx
Heart: s1/s2 regular rate and rhythm, no murmur. equal radial pulses.
Lungs: no acute respiratory distress. clear bilaterally
Abdomen: normal bowel sounds. not tender. no CVAT
Neuro: alert and oriented. no focal neurological deficits
Skin: no rash
Psychiatric: well kept. interactive and cooperative
Extremities: no edema. no calf tenderness. negative homans. good distal pulses
Course
Orders/Labs/Results
Orders:
Orders
09/22/24 10:32
Bladder Scan- Treatment ONCE
09/22/24 10:50
Complete Blood Count/With Diff Urgent
Comprehensive Metabolic Panel Urgent
Urinalysis Reflex To Culture Urgent
Date Specimen was Collected: 09/22/24
Time Specimen was Collected: 10:49
Urine Microscopic Reflex Cult Urgent
Urine Culture Urgent
ISA Source: U
Specimen Description:
Date Specimen was Collected: 09/22/24
Time Specimen was Collected: 10:49
09/22/24 11:34
Lidocaine 2% [Lidocaine Uro-Jet 2%] 1 syringe .ROUTE .STK-MED ONE
09/22/24 11:39
Lidocaine 2% [Lidocaine Uro-Jet 2%] 1 syringe .ROUTE .STK-MED ONE
09/22/24 12:07
Admit/Transfer Patient As Directed
Co-Sign Provider:
Level of Care: Inpatient admission
Assign to:: Medical/Surgical
Physician / Group: elyssa
Diagnosis: hematuria
Patient Condition: Fair
Reason for Hospitalization: gross hematuria
Expected length of stay greater than two midnights?: Yes
ELOS- Estimated Length of Stay in days: 3
I certify the patient meets the requirements for IP care: Yes
PRN Pain Medication Management As Directed
May give lesser potent ordered pain med per pt: Yes
preference::
Protocol:: Medication orders for pain may be administered in a
manner that supports deferring to patient preference
when the pt is:
-Requesting an ordered lesser potent pain medication.
Least to most potent pain medications are defined as:
acetaminophen < NSAID < tramadol < opioids (morphine,
oxycodone, hydromorphone).
- Requesting a lesser dose of the same medication IF
ORDERED.
- Requesting a less intrusive route of administration
if both routes are prescribed by the provider (PO <
IV).
Abnormal Lab Results
09/22/24
10:50
WBC 11.3 H 10^3/uL
(4.8-10.8)
MCV 94.7 H fL
(80.0-94.0)
MCHC 32.6 L g/dL
(33.0-37.0)
Absolute Neuts (auto) 8.5 H 10^3/uL
(1.4-6.5)
Absolute Monos (auto) 1.0 H 10^3/uL
(0.1-0.6)
Neutrophils % 75.3 H %
(42.2-75.2)
Lymphocytes % 12.9 L %
(20.5-51.1)
BUN 37 H mg/dl
(9-20)
Creatinine 1.4 H mg/dL
(0.7-1.3)
Glucose 188 H mg/dl
(70-99)
Ur Occult Blood Reflex 4+ A
(Negative)
Leukocyte Esterase Rfl 2+ A
(Negative)
Urine RBC >100 A /HPF
(0-2)
Urine Glucose 3+ A
(Negative)
Urine Albumin (Reflex) 3+ A
(Neg - Trace)
09/22/24 10:50
09/22/24 10:50
Vital Signs
Initial and Last Documented VS:
Initial Vital Signs
Temp Pulse Resp BP Pulse Ox
97.3 F 92 16 152/94 98
09/22/24 09:26 09/22/24 09:26 09/22/24 09:26 09/22/24 09:26 09/22/24 09:26
Last Documented Vital Signs
Temp Pulse Resp BP Pulse Ox
97.3 F 92 16 152/94 98
09/22/24 09:26 09/22/24 09:26 09/22/24 09:26 09/22/24 09:26 09/22/24 09:26
MDM/Problems Addressed
Differential Diagnosis Includes:
Hematuria causing retention, UTI, kidney stones
MDM/Problems Addressed:
Patient presents with subacute hematuria that is now acutely gotten worse and acute retention
Chronic conditions affecting care:
Urinary incontinence, kidney stones
Acute Exacerbation and/or Progression of Chronic Illness:
Patient may have acute exacerbation of renal colic
*Pulse Oximetry
Patient hypoxic: no
*EKG
Interpreted by ED Provider?: NA
*Junior Financial Analyst Interpretation
Rate: Junior Financial Analyst- N/A
*Critical Care Note
Total Time (30-74mins, 75-104mins- exclusive of procedures): Not Applicable
Data Reviewed
Review of Other/Old Records Reveals: Discharge Summary (Discharge summary reviewed from hospitalist from 04/2024 when patient was admitted to the hospital for complicated UTI due to stent placement)
Source: patient and spouse
Patient Management
Social determinants of health affecting care: Living situation and Strong social support
Discussion with other providers: Other (Dr. Elyssa came to evaluate the patient at the bedside and agreed to admit the patient)
Update Note
Update Note:
Patient felt bladder pressure on arrival and reported that he had difficulty emptying his bladder. Initially his bladder scan showed 275 cc of urine. He then tried to use the bathroom again. His postvoid residual bladder scan showed 200 cc of
urine. Decision made to place a catheter and irrigate. Upon irrigation, urine is still bloody and pinkish. Decision made to admit the patient for hematuria
ED Attending Note
-
Portions of this chart may have been created with voice recognition software.� Occasional wrong word or��sound alike� substitutions may have occurred due to the inherent limitations of voice recognition software.
Discharge Plan
Departure
Patient Disposition: Admit
Date of Disposition: 09/22/24
Time of Disposition: 12:13
Admit to: Med/Surg
Admit to doctor: Dr. Canela
Presentation/result/management discussed w/ accepting MD/DO: Elyssa
Patient with high blood pressure during this ER visit?: Yes
Condition: Good
Covid-19: Not Applicable
Discharge Problem:
Acute on chronic hematuria
Prescriptions:
No Action
atorvastatin 80 mg Tablet
80 mg PO HS
propranolol 80 mg Capsule,Extended Release 24 Hr
80 mg PO DAILY
dapagliflozin propanediol [Farxiga] 10 mg Tablet
10 mg PO DAILY
venlafaxine 150 mg capsule,extended release 24hr
150 mg PO HS
Patient Comments:
last taken weeks ago
tamsulosin [Flomax] 0.4 mg capsule
0.4 mg PO HS
Gemtesa 75 mg Tablet
75 mg PO HS
finasteride 5 MG tablet
5 mg PO HS
aspirin 81 mg Tablet,Chewable
81 mg PO HS
Rx Instructions:
on hold until 04/30/2024
metformin 500 MG tablet
500 mg PO BID Qty: 60 0RF
glipizide 5 mg Tablet
5 mg PO DAILY Qty: 30 0RF
Referrals:
Shaun Almonte DO [Family Provider] -
Interventions
Interventions:
*Risk Screen - Suicide Last Done: 09/22/24 09:26
*General Assessment Last Done: 09/22/24 09:26
*Neglect/Abuse Screening Last Done: 09/22/24 09:26
Discharge Date and Time
Print Language: MOZAMBICAN
[2024-09-22 11:00] LABS: Urine Albumin 3+ (Neg - Trace); Urine Bilirubin Negative (Negative); Urine Character Bloody (Clear); Urine Color Red; Urine Glucose 3+ (Negative); Urine Ketone Negative (Negative); Urine Leukocyte 2+ (Negative); Urine Nitrite Negative (Negative); Urine Occult Blood 4+ (Negative); Urine Specific Gravity 1.015 (<1.030); Urine Urobilinogen Negative (Neg - 1+)
[2024-09-22 11:12] LABS: Urine Red Blood Cell >100 /HPF (0-2)
[2024-09-22 11:13] LABS: % Basophils 0.6 % (0-2); % Eosinophils 1.8 % (0-6); % Immature Granulocytes 0.4 % (0-0.5); % Lymphocytes 12.9 % (20.5-51.1); % Neutrophils 75.3 % (42.2-75.2); Absolute Basophils 0.1 10^3/uL (0-0.2); Absolute Eosinophils 0.2 10^3/uL (0-0.7); Absolute Lymphocytes 1.5 10^3/uL (1.2-3.4); Absolute Neutrophils 8.5 10^3/uL (1.4-6.5); Hematocrit 51.8 % (39.0-52.0); Hemoglobin 16.9 g/dL (13.0-18.0); Mean Corp Hgb Conc. 32.6 g/dL (33.0-37.0); Mean Corpuscular Hgb 30.9 pg (27.0-31.0); Mean Corpuscular Volume 94.7 fL (80.0-94.0); Mean Platelet Volume 10.1 fL (7.4-10.4); Nucleated Red Blood Cells % 0 % (-); Platelet Count 244 10^3/uL (130-400); Red Blood Cell Count 5.47 10^6/uL (4.70-6.10); Red Cell Dist. Width 12.5 % (11.5-14.5); White Blood Cell Count 11.3 10^3/uL (4.8-10.8)
[2024-09-22 11:14] LABS: ALT (SGPT) 26 U/L (0-50); AST (SGOT) 25 U/L (17-59); Albumin 4.8 g/dl (3.5-5.0); Alkaline Phosphatase 79 U/L (38-126); Blood Urea Nitrogen 37 mg/dl (9-20); Calcium 10.2 mg/dl (8.4-10.2); Carbon Dioxide 27 mmol/L (22-30); Chloride 101 mmol/L (98-107); Glucose 188 mg/dl (70-99); Potassium 4.7 mmol/L (3.5-5.1); Sodium 139 mmol/L (135-145); Total Bilirubin 0.7 mg/dl (0.2-1.3); Total Protein 7.4 g/dl (6.3-8.2); eGFR 53.74
--- NOTE | 2024-09-22 12:15 | W.PN.ADMIT ---
Progress Note - Admit
Progress Note - Admit
see dictated note
pt with long hx of refractory neurogenic bladder/UTI/stones
presents to ER with worsening hematuria
[address] way [place] placed- cbi initiated
ucx sent
will begin rocephin and continue diflucan that was ordered as outpt due to hx of funguria
check ct due to hematuria and hx of stones
med consult
--- NOTE | 2024-09-22 13:25 | CON.HOSP ---
Addendum entered and electronically signed by Sandra Billings MD 09/22/24 16:51:
I personally performed a history and physical exam of the patient and discussed management with the resident. I reviewed the resident's note and agree with the documented findings and plan of care consultation. Plan formulated together
CVS: S1-S2 normal
Chest: CTA B/L
Abdomen: Soft, NT / Bowel sounds present
Extremities: No edema, normal pulses
LIBRARY MEDIA SPECIALIST: Non focal exam
Admitted by urology
Continue glipizide and metformin I would hold SGLT2 inhibitors and advised the patient to talk to his PCP with recurrent fungal and bacterial infection to see if this needs to be continued. He takes it for diabetes only.
IV fluids for acute kidney injury
Continue aspirin with stroke in 2022
Continue atorvastatin
Continue Effexor
Continue propranolol for essential tremors
Patient has sleep apnea and does not use CPAP. He uses a mouthguard. I advised him to get sleep study done as outpatient
SCDs for DVT prophylaxis
Discussed with at bedside
Discussed with urology.
Original Note:
Consultation
-
Date/Time Consultation Requested: 09/22/2024; 12:21
Date/Time Consultation Performed: 09/22/2024; 12:28
Requesting Provider: William Canela MD
Performing Provider: Sandra Billings MD
Reason for Consultation: Hematuria
Family Physician
-
Family Physician: Shaun Almonte
Chief Complaint
-
Hematuria
History of Present Illness
Timmy is a 69-year-old male with PMH of nephrolithiasis, recurrent UTIs, refractory neurogenic bladder, chronic urinary incontinence, type 2 diabetes mellitus, hypertension, sleep apnea, CVA s/p tPA 11/22/2022, left ICA placement 11/25/2022 who
presented to ED with hematuria, dysuria and bladder discomfort. Patient was seen with Brandie at bedside. Patient reported that his hematuria has been going on for a while, worsened in April and was treated with left ureteroscopy with laser
lithotripsy and 2 large stones removed from bilateral kidneys after which a left double-J ureteral stent was placed. He was doing well until 2 to 3 weeks ago when he started having another episodes of hematuria which acutely worsened this morning
at [address] Castellanos and is scheduled for cystoscopy in 3 days, however, due to increased bleeding and bladder discomfort, dysuria with passage of urinary blood clots, they decided to come to the ED. Patient's also reports
severe urge incontinence with inability to control bladder. Patient had a InterStim X trial on 08/19/2024 with Botox injection which did not work per patient's . While in the ED, patient was started on CBI, Rocephin and his outpatient
fluconazole was continued. A CT scan w/o IV or oral contrast was also ordered by urology and hospitalist team was consulted for further evaluation and management. Patient denies chest pain, flank pain, nausea, vomiting, fever, chills, back pain,
dizziness or headaches.
Medical History
Past Medical History
Past Medical History: Reports CVA, HTN and NIDDM
Past Surgical History: Reports Cardiac, Orthopedic and Urological
Social History
Tobacco: Non-smoker
Alcohol: Occasional
Drug: None
Personal:
Living: With Family
Family History
Family History: Reviewed & Not Pertinent
Allergies / Home Medications
Allergies reflects when Allergies were last updated in [facility].
Home Medications with original date entered in [facility]
Allergy/Medication List:
Allergies
Allergy/AdvReac Type Severity Reaction Status Date / Time
shellfish derived Allergy congestion Verified 09/22/24 09:26
Review of Systems
-
History Source: Patient and Family
Constitutional: Reports No Symptoms; Denies Fever or Chills
EENT: Reports No Symptoms
Respiratory: Reports No Symptoms
Cardiac: Reports No Symptoms
Abdomen/GI: Reports No Symptoms; Denies Vomiting, Diarrhea or Bloody Stools
: Reports Dysuria, Frequency, Incontinence, Urgency, Bleeding and Moise; Denies Flank Pain
Musculoskeletal: Reports No Symptoms
Skin: Reports No Symptoms
Neurological: Reports No Symptoms
Physical Exam
Vital Signs
Vital Signs
Temp Pulse Resp BP Pulse Ox
97.3 F 92 16 152/94 98
09/22/24 09:26 09/22/24 09:26 09/22/24 09:26 09/22/24 09:26 09/22/24 09:26
Physical Exam
General: Well Developed, No Apparent Distress and Comfortable; Negative Fever or Chills
HEENT: Negative Thrush
Respiratory: Clear
Cardiac: S1/S2 and Regular Rhythm; Negative Murmur or Rub
GI: Soft, Non Tender, Non Distended and Normal Bowel Sounds
Genito-urinary: No Costovertebral Tend, Bloody Urine and Moise Catheter
Skin: Warm and Dry
Neuro: Awake and AO x 3
Psych: Calm
Laboratory Results
-
Laboratory Results
09/22/24 10:50
09/22/24 10:50
Total Bilirubin 0.7 mg/dl (0.2-1.3) 09/22/24 10:50
AST 25 U/L (17-59) 09/22/24 10:50
ALT 26 U/L (0-50) 09/22/24 10:50
Alkaline Phosphatase 79 U/L (38-126) 09/22/24 10:50
Data Reviewed
-
Lab Data: Labs Reviewed, Discussed with Physician, Discussed with Patient and Discussed with Family
Old Records: Reviewed
Impression / Plan
-
IMPRESSION: 69-year-old male with PMH of nephrolithiasis, recurrent UTIs, refractory neurogenic bladder with chronic urinary incontinence who presented to ED on 09/22/2024 with worsening hematuria, dysuria and bladder discomfort with passage of
urinary blood clots.
Conditions ERP ANALYST:
Cerebrovascular accident s/p tPA 11/22/22, L ICA stent placement 11/25/22
Type 2 diabetes mellitus
Essential hypertension
Hyperlipidemia
Diverticulosis
Osteoarthritis
Renal calculi
Anxiety
Obstructive sleep
Hemorrhoids
Fatty liver disease
Plantar fasciitis
Scoliosis
Restless leg syndrome
Insomnia
Chronic low back pain
IMPRESSION/PLAN:
#Recurrent UTI-due to neurogenic bladder with BPH
-Continue Rocephin and Diflucan (through 09/24).
-Follow urine culture.
-Hold Farxiga with acute UTI.
-Bladder scan.
-Follow fever curve.
-Follow CBC.
#Mild leukocytosis
-Patient remains afebrile.
-Most likely from inflammation.
-Continue antibiotics.
#Recurrent hematuria with blood clots
-Maintain three-way Moise with CBI.
-CT Abd/pelvis to evaluate for stones and hydronephrosis per urology.
#MONICA
-Creatinine 1.4 (baseline 0.9)
-Start IV fluid.
-Encourage oral intake and follow creatinine.
#Type 2 diabetes mellitus
-Recent HbA1c 6.8 (06/08).
-Urinalysis with glucosuria, and albuminuria.
-Recheck A1c.
-Carb controlled diet.
-Hold Farxiga with UTI, continue metformin, glipizide.
-Basal bolus protocol with serial Accu-Cheks
#Urinary incontinence
-S/p Botox injection.
-Urology following.
#History of CVA
-Nonfocal neurologic exam on admission.
-Continue aspirin and atorvastatin
#History of essential tremors
-Continue propranolol.
-Monitor BP and hold with SBP <100
DVT PPx-teds
CODE STATUS-full code
--- NOTE | 2024-09-22 14:45 | PHANOTE ---
ed rec note- patient spouse stated he is on eye he got samples of and will bring them in for us to put on file and to use here in the hospital
--- NOTE | 2024-09-22 14:47 | EDRN ---
This RN was unable to pass [address] Esquivel informed, Dr. Canela came to insert catheter. Pt has been on 3 way cath since.
[2024-09-22 15:01] VITALS: BMI 26.5
[2024-09-22] MEDS: TYLENOL 650 MG PO (15:31)
[2024-09-22] MEDS: VALIUM INJECTION 5 MG IV (15:31)
[2024-09-22] MEDS: DILAUDID 0.5 MG IV ×2 (15:32→20:31)
[2024-09-22] MEDS: STERILE WATER FOR INJECTION 10 ML IV (16:57)
[2024-09-22] MEDS: ROCEPHIN 1000 MG IV (16:57)
[2024-09-22] MEDS: GLUCOPHAGE 500 MG PO (17:56)
[2024-09-22] MEDS: NSS IV (17:57)
[2024-09-22 18:27] LABS: Hematocrit 50.2 % (39.0-52.0); Hemoglobin 16.6 g/dL (13.0-18.0); Mean Corp Hgb Conc. 33.1 g/dL (33.0-37.0); Mean Corpuscular Hgb 31.9 pg (27.0-31.0); Mean Corpuscular Volume 96.5 fL (80.0-94.0); Mean Platelet Volume 10.3 fL (7.4-10.4); Platelet Count 237 10^3/uL (130-400); Red Cell Dist. Width 12.6 % (11.5-14.5); White Blood Cell Count 15.8 10^3/uL (4.8-10.8)
[2024-09-22 18:50] LABS: Blood Urea Nitrogen 36 mg/dl (9-20); Calcium 9.8 mg/dl (8.4-10.2); Carbon Dioxide 27 mmol/L (22-30); Chloride 100 mmol/L (98-107); Estimated Creatinine Clearance 62 ml/min; Glucose 240 mg/dl (70-99); Potassium 4.7 mmol/L (3.5-5.1); Sodium 137 mmol/L (135-145); eGFR > 60.00
[2024-09-22] MEDS: NSS 1000 IV (20:31)
[2024-09-22] MEDS: COLACE 100 MG PO (20:32)
[2024-09-22 21:00] VITALS: BP 151/87
[2024-09-23] VITALS: BP 141/83
[2024-09-23] MEDS: DILAUDID 0.5 MG IV ×3 (02:12→23:04)
[2024-09-23] MEDS: PROSCAR PO (03:29)
[2024-09-23] MEDS: EFFEXOR XR PO (03:29)
[2024-09-23] MEDS: LOW STRENGTH ASPIRIN PO (03:29)
[2024-09-23] MEDS: FLOMAX PO (03:29)
[2024-09-23] MEDS: LIPITOR PO (03:29)
[2024-09-23 05:50] VITALS: BP 135/86
[2024-09-23 06:03] LABS: Hematocrit 49.6 % (39.0-52.0); Hemoglobin 16.4 g/dL (13.0-18.0); Mean Corp Hgb Conc. 33.1 g/dL (33.0-37.0); Mean Corpuscular Hgb 31.8 pg (27.0-31.0); Mean Corpuscular Volume 96.3 fL (80.0-94.0); Mean Platelet Volume 10.7 fL (7.4-10.4); Platelet Count 190 10^3/uL (130-400); Red Blood Cell Count 5.15 10^6/uL (4.70-6.10); Red Cell Dist. Width 12.6 % (11.5-14.5); White Blood Cell Count 12.9 10^3/uL (4.8-10.8)
[2024-09-23 06:32] LABS: Blood Urea Nitrogen 27 mg/dl (9-20); Calcium 8.9 mg/dl (8.4-10.2); Carbon Dioxide 24 mmol/L (22-30); Chloride 106 mmol/L (98-107); Estimated Creatinine Clearance 83 ml/min; Glucose 134 mg/dl (70-99); Potassium 4.1 mmol/L (3.5-5.1); Sodium 140 mmol/L (135-145); eGFR > 60.00
[2024-09-23 07:19] VITALS: BP 158/92
--- NOTE | 2024-09-23 07:21 | W.PN.URO.CBU ---
Today's Communication / Plan
-
continue cbi
Assessment / Plan
-
neurogenic bladder
hx of UTI
gross hematuria
continue cbi- wean if tolerated
await ucx
tract labs
Diagnosis
-
Date of Service: September 23, 2024
-
Patient Diagnosis:
neurogenic bladder
recurrent UTI
hematuria
Subjective
-
pt comfortable- remained in ER overnight due to lack of beds
cbi on moderate rate- urine still pink
hgb stable
wbc still mildly elevated- no fevers
CT scan showed some ? left perinephric inflammation- no obstruction
Objective
-
Vital Signs
Temp Pulse Resp BP Pulse Ox
97.3 F 64 16 158/92 94
09/22/24 09:26 09/23/24 07:19 09/23/24 07:19 09/23/24 07:19 09/23/24 07:19
Laboratory Results
09/23/24 05:39
09/23/24 05:39
Review of Systems
-
Constitutional: Fatigue
Respiratory: No Symptoms
Cardiac: No Symptoms
Abdomen/GI: No Symptoms
: Other ([place])
Physical Exam
-
General -no acute distress
Abdomen - soft, non-tender
Genitalia - normal- [address] [place] [address]
[2024-09-23] MEDS: GLUCOPHAGE 500 MG PO ×2 (08:12→16:54)
[2024-09-23] MEDS: COLACE 100 MG PO ×2 (08:12→19:57)
[2024-09-23] MEDS: GLUCOTROL 5 MG PO (08:12)
[2024-09-23] MEDS: DIFLUCAN 200 MG PO (08:30)
[2024-09-23] MEDS: INDERAL LA 80 MG PO (08:31)
[2024-09-23 08:35] LABS: Glucose - Point of Care 155 mg/dl (70-99)
[2024-09-23] MEDS: NOVOLOG FLEXPEN-LOW RESISTANCE SC ×3 (08:43→17:39)
[2024-09-23] MEDS: NSS 1000 IV ×2 (09:27→23:29)
--- NOTE | 2024-09-23 09:57 | W.PN.HOSP.TC ---
Addendum entered and electronically signed by Aba Marcus MD 09/23/24 16:16:
Seen and examined by me independently in collaboration with the director of medical education.
Lab data and imaging data reviewed.
Addendum as below :
Hematuria clearing on CBI.
Recent complicated sepsis from UTI noted. He has a white count and CT abdomen pelvis raising concern about left pyelo and cystitis. He is covered for antifungal because of prior Hemalatha isolation in the urine. His urine analysis shows significant
hematuria but the culture showing mixed joel with nonsignificant bacteriuria. With the abnormal CT pathology rule out pyelonephritis. Clinically he has no flank pain. No fevers. Consult ID. In meantime continue with ceftriaxone.
Family raises concern about change in his physical ability and sometimes his mental acuity since discharge in April. There was seen neurology who was planning on outpatient EEG and an MRI of the brain. Last MR imaging of the brain in April 2024 was
negative for an acute stroke and his confusion then was felt to be secondary to toxic metabolic encephalopathy.
Will rule out acute infection component this time and if negative and remains with above deficits, will get repeat MRI brain .
DW at bedside.
Original Note:
Today's Communication/Plan
-
Continue antibiotics
Follow fever curve
Continue CBI
ID consulted
Assessment / Plan
Assessment / Plan
Impression: 69-year-old male with PMH of nephrolithiasis, recurrent UTIs, refractory neurogenic bladder, chronic urinary incontinence, type 2 diabetes mellitus, hypertension, sleep apnea, CVA s/p tPA 11/22/2022, left ICA placement 11/25/2022 who
presented to ED on 09/22/2024 with hematuria, dysuria and bladder discomfort. Patient follows Dr. Castellanos and is scheduled for cystoscopy in 3 days, however, due to increased bleeding and bladder discomfort, dysuria with passage of urinary blood
clots, they decided to come to the ED.A CT scan w/o IV or oral contrast was also ordered by urology and hospitalist team was consulted for further evaluation and management.
Assessment/plan:
#Recurrent UTI-due to neurogenic bladder with BPH
-Continue Rocephin and Diflucan (through 09/24).
-Urine culture with 30,000 CFU per mL mixed joel, likely contaminated.-Repeat urine culture when able.
-Will discontinue Farxiga due to acute UTI.
-Bladder scan.
-Follow fever curve.
-Follow CBC.
#Mild leukocytosis-from UTI
-Improving on antibiotics,Patient remains afebrile.
-Continue antibiotics.
-ID consult.
#Recurrent hematuria with blood clots
-Maintain three-way Moise with CBI.
-CT Abd/pelvis 09/22 with suspected superimposed infection and soft tissues stranding in the left kidney to proximal mid ureter.
-Continue antibiotics.
#MONICA
-Creatinine back to baseline 0.9
-Continue IV resuscitation.
#Sleep apnea
-Patient does not use CPAP at home, uses mouthguard
-Discussed the need for CPAP and encouraged to get sleep study outpatient.
#Type 2 diabetes mellitus
-HbA1c 7.6, was 6.8 (06/08).
-Urinalysis with glucosuria, and albuminuria.
-Will discontinue Farxiga at discharge and maximize metformin.
-Encourage carb-controlled diet.
-Basal bolus protocol with serial Accu-Cheks.
#Urinary incontinence
-S/p Botox injection.
-Urology following.
#History of CVA
-Nonfocal neurologic exam on admission.
-Continue aspirin and atorvastatin
#History of essential tremors
-Continue propranolol.
-Monitor BP and hold with SBP <100
DVT PPx-teds
CODE STATUS-full code

----
Data
CT abdomen/pelvis 09/22/2024:
No obstructing ureteral calculus, bilaterally. 2 mm nonobstructing left renal calculus.
On the left, there is mild soft tissue stranding surrounding left kidney and in the left renal sinus as well as associated with the proximal to mid ureter. It could reflect superimposed infection. There is a catheter within the urinary bladder which
is collapsed, though suggested wall thickening and perivesical mild soft tissue stranding. This could indicate cystitis. Clinical correlation recommended.
Diverticulosis without acute diverticulitis.
Anticipated Discharge: 24 - 48 hours
Subjective/Interval History
-
Date of Service: September 23, 2024
Patient seen and examined with by bedside. reported that patient is feeling weak, however patient reported that he has been feeling weak for a long time. He also reported mild pain at the catheter site and received Valium last night and
Dilaudid this morning with minimal improvement in pain. Patient does not report any chest pain, shortness of breath, palpitations, fever or chills. His CBI is showing clearing mildly blood-tinged fluid. His urinary culture showing 30,000 CFU/mL
with mixed joel. Will repeat another blood culture and urinalysis today and consult infectious disease.
Objective Data
-
Labs:
Laboratory Results
09/23/24
05:39
WBC 12.9 H
Hgb 16.4
Hct 49.6
Plt Count 190
Sodium 140
Potassium 4.1
Chloride 106
Carbon Dioxide 24
BUN 27 H
Creatinine 0.9
Glucose 134 H
Calcium 8.9
Vital Signs:
Vital Signs
Temp Pulse Resp BP Pulse Ox
97.3 F 64 16 158/92 94
09/22/24 09:26 09/23/24 08:31 09/23/24 07:19 09/23/24 08:31 09/23/24 07:19
Review of Systems
-
History Source: Patient and Family
All other systems: Not reviewed unless documented
Constitutional: Reports No Symptoms; Denies Fever
Respiratory: Reports No Symptoms
Cardiac: Reports No Symptoms
Abdomen/GI: Reports No Symptoms
Genitourinary: Reports Dysuria, Frequency, Incontinence, UTI and Other (Bloody urine)
Skin: Reports No Symptoms
Physical Exam
-
General: Well Developed and No Apparent Distress
HEENT: Normocephalic, Atraumatic and Moist Mucous Membranes
Respiratory: Clear to Auscultation
Cardiac: Regular Rhythm and S1/S2; Negative Murmur, Rub or Gallop
GI: Soft, Nontender, Nondistended and Normal Bowel Sounds; Negative Organomegaly
Rectal: Deferred by Provider
Genito-urinary: Moise
Musculoskeletal: No Clubbing, No Cyanosis and No Edema
Skin: Negative Rash
Neuro: Awake, Alert, Oriented, AO x 3 and Nonfocal/Grossly Intact
Psych: Calm
Data Reviewed
-
CT Scan: Image personally visualized and interpreted, Report Reviewed by me and Discussed with Physician
Labs: Labs Reviewed by me and Discussed with Physician
Old Records: Reviewed
[2024-09-23 09:58] LABS: Glycohemoglobin (HgbA1c) 7.6 % (4.0-5.6)
--- NOTE | 2024-09-23 11:10 | EDRN ---
CBI: I initiated bag 5 - 3000 ml. The [place] bag was full at 0700 so I emptied it for 2900 ml. Since then I've emptied an additional 2600 with instilling 1250 of the CBI bag #5
[2024-09-23 11:52] LABS: Glucose - Point of Care 128 mg/dl (70-99)
[2024-09-23 12:49] VITALS: BP 140/78
[2024-09-23 15:15] VITALS: BP 126/79
[2024-09-23 16:43] LABS: Glucose - Point of Care 143 mg/dl (70-99)
[2024-09-23] MEDS: ROCEPHIN 1000 MG IV (16:51)
[2024-09-23] MEDS: STERILE WATER FOR INJECTION 10 ML IV (16:51)
--- NOTE | 2024-09-23 17:51 | CON.ID ---
Consultation
-
Date/Time Consultation Requested: September 23, 2024
Date/Time Consultation Performed: September 23, 2024
Requesting Provider: Dr. Aba Marcus
Performing Provider: Dr. Emeli Cmaara
Reason for Consultation: Recurrent gross hematuria, on fluconazole for a history of yeast in urine
Chief Complaint / Past History
Chief Complaint
Blood in urine
History of Present Illness
History obtained from review of medical records, from his over the phone and from the patient who is a poor historian. 69 year old male with history of neurogenic bladder, nephrolithiasis s/p laser lithotripsy and stent placement on 04/23,
stent subsequently removed. On August 19, he underwent InterStim placement for neurogenic bladder. Since then, c/o intermittent gross hematuria. Several outpatient UA showed more than 30 red blood cells, more than 30 white blood cells, with
urine culture either no growth or insignificant number of organisms less than 10,000 colonies forming units. He continued to have gross hematuria. Per before Thanksgiving patient was complaining of painful urination. September 09 UA 2+
leukocyte esterase, more than 30 white blood cells, more than 30 red blood cells, urine culture less than 10,000 bacteria. On September 11, urology started empiric fluconazole 200 mg daily x 14 days. Gross hematuria persisted. Yesterday he then
developed copious bright red blood with clot retention. Positive suprapubic pain. He therefore came to the hospital. No fever. White count 11.3. Urine culture less than 30,000K organisms. Three-way Moise placed for irrigation. Hematuria
appears to have improved. Patient denies fevers or chills. No current suprapubic pain. Never had flank pain.
Past History
Additional Past Medical History:
CVA s/p tPA 11/22/22, L ICA stent placement 11/25/22
DM type II
HTN
Dyslipidemia
Diverticulosis
Osteoarthritis
Nephrolithiasis s/p Laser lithotripsy
Anxiety
JANA
BPH
Plantar fasciitis
Scoliosis
Restless leg syndrome
Insomnia
Chronic low back pain
InterStim placement for neurogenic bladder in 08/2024, refractory
(L) ICA stent (11/25/22)
Allergy History:
shellfish derived Allergy (Verified 09/22/24 09:26)
congestion
Medications Reviewed: Yes
Current Antibiotics:
Ceftriaxone
Fluconazole.
Social History
Tobacco: Non-Smoker
Alcohol: Occasional
Drug: None
Personal:
Living: With Family
Employment: Employed
Family History
Family History: Not Pertinent
Review of Systems
Review of Systems
General: Negative Fever, Chills or Change in Appetite
HEENT: Negative Sinus Problems, Headache or Pharyngitis
Cardiovascular: Negative Chest Pain or Dyspnea
Respiratory: Negative Dyspnea or Cough
Gasteroenterology: Negative Nausea, Vomiting or Diarrhea
Genital / Urological: Hematuria and Stones; Negative Flank Pain
Endocrine: Negative Weakness
Neurological: Negative Headache or Dizziness
All systems: All other systems were reviewed and were negative
Vital Signs
Temp Pulse Resp BP Pulse Ox
98.5 F 72 16 126/79 96
09/23/24 15:15 09/23/24 15:15 09/23/24 15:15 09/23/24 15:15 09/23/24 15:15
Physical Exam
Physical Exam
Constitutional: No Acute Distress and Comfortable
Eyes: No Conjunctival Hemorrhage and Sclera Anicteric
Cardiovascular: Regular Rate and S1/S2
Pulmonary: Clear
Gastrointestinal: Soft, Non Tender, Non Distended and Normal Bowel Sounds
Genito-Urinary: Moise (bag empty); Negative Suprapubic Tenderness or CVA Tenderness
Extremities: Negative Edema
Neurological: AO x 3
Lab / Diagnostic Study Results
09/23/24 05:39
09/23/24 05:39
Abs Immat Gran (auto) 0.0 10^3/uL (0-0.05) 09/22/24 10:50
Absolute Neuts (auto) 8.5 10^3/uL (1.4-6.5) H 09/22/24 10:50
Absolute Lymphs (auto) 1.5 10^3/uL (1.2-3.4) 09/22/24 10:50
Absolute Monos (auto) 1.0 10^3/uL (0.1-0.6) H 09/22/24 10:50
Absolute Basos (auto) 0.1 10^3/uL (0-0.2) 09/22/24 10:50
Immature Gran % 0.4 % (0-0.5) 09/22/24 10:50
Neutrophils % 75.3 % (42.2-75.2) H 09/22/24 10:50
Lymphocytes % 12.9 % (20.5-51.1) L 09/22/24 10:50
Monocytes % 9.0 % (1.7-9.3) 09/22/24 10:50
Eosinophils % 1.8 % (0-6) 09/22/24 10:50
Basophils % 0.6 % (0-2) 09/22/24 10:50
Microbiology Results
Micro:
09/22/24 10:50 Urine Culture - Final
Urine
09/22/24 CT a/p: No obstructing ureteral calculus, bilaterally. 2 mm nonobstructing left renal calculus. On the left, there is mild soft tissue stranding surrounding left kidney and in the left renal sinus as well as associated with the proximal to
mid ureter. It could reflect superimposed infection. There is a catheter within the urinary bladder which is collapsed, though suggested wall thickening and perivesical mild soft tissue stranding. This could indicate cystitis. Clinical correlation
recommended.
Assessment / Plan
# Gross hematuria
- No UTI identified
08/02/24 UA 2+LE, >30 RBC, >30WBC, Ucx no growth
08/19/24 UA 2+ LE, >100 RBC, >100wbc, Ucx no growth
09/02/24 UA 2+LE, >30 RBC, >30WBC, Ucx <10K organisms , non significant
09/09/24 UA 2+LE, >30 RBC, >30WBC, Ucx <10K organisms , non significant
09/22/24 UA 2+LE, >100 RBC, , Ucx <30K mixed joel
- Hematuria is not due to UTI
- CT a/p left perinephric stranding seen in prior CT scans. ? due to passing stones
-DC fluconazole and ceftriaxone.
Call if any further questions.
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
CVA s/p tPA 11/22/22, L ICA stent placement 11/25/22
DM type II
HTN
Dyslipidemia
Diverticulosis
Osteoarthritis
Nephrolithiasis s/p Laser lithotripsy
Anxiety
JANA
BPH
Plantar fasciitis
Scoliosis
Restless leg syndrome
Insomnia
Chronic low back pain
InterStim placement for neurogenic bladder in 08/2024, refractory
(L) ICA stent (11/25/22)
--- NOTE | 2024-09-23 18:06 | W.PN.SURGUPD ---
Surgical Update
Surgical Update
Stopped to see patient at day's end to review his progress and address family concerns
Despite thorough evaluation by neurology (including imaging), infectious disease, the Hospitalist service and urology the patient continues to decline clinically, both in terms of his bladder function and neurologic status
He likely suffered a bout of ATE in April, but despite recognition and management of his complicated fungal UTI he has not recovered clinically all these months later.
---
He needs repeat cystoscopy...ideally a week after removal of his catheter
He might benefit from pelvic MRI to exclude an occult prostate abscess...although pelvic imaging is compromised by artifact from prior hip arthroplasty
I will defer to the medical consultants as to whether repeat neurologic evaluation with repeat imaging and/or sampling of spinal fluid would prove valuable
Ultimately, the patient might benefit from a second opinion as there are no clear answers as to the nature of his current condition
---
Will reassess in the morning with the hopes the Moise can be removed
--- NOTE | 2024-09-23 20:59 | PTCARENOTE ---
Pt sent over to 1 acute at aprox 1200 from ED. Admission and assessment done. Pt with CBI running with light pink output. Vitals stable.Family in room. Pt oriented to room and instructed to ring for assistance.
--- NOTE | 2024-09-23 21:01 | PTCARENOTE ---
Pt taken over to 2 north by another RN and PCT. All belongings room taken. Pt still with CBI infusing. Medications sent with patient.
--- NOTE | 2024-09-23 21:13 | PTCARENOTE ---
Pt taken over to 2 north by another RN and PCT. All belongings from room taken. Pt still with CBI infusing. Medications sent with patient.
[2024-09-23 22:25] LABS: Glucose - Point of Care 136 mg/dl (70-99)
[2024-09-23] MEDS: FLOMAX 0.4 MG PO (23:05)
[2024-09-23] MEDS: EFFEXOR XR 150 MG PO (23:05)
[2024-09-23] MEDS: PROSCAR 5 MG PO (23:05)
[2024-09-23] MEDS: LOW STRENGTH ASPIRIN 81 MG PO (23:05)
[2024-09-23] MEDS: LIPITOR 80 MG PO (23:05)
[2024-09-23 23:22] VITALS: BP 134/87
[2024-09-24] MEDS: DILAUDID 0.5 MG IV ×2 (04:17→08:31)
[2024-09-24 06:00] VITALS: BMI 24.7
[2024-09-24 07:23] LABS: Glucose - Point of Care 120 mg/dl (70-99)
--- NOTE | 2024-09-24 07:26 | W.PN.HOSP.TC ---
Addendum entered and electronically signed by Aba Marcus MD 09/24/24 13:17:
Seen and examined by me independently in collaboration with the medical sales specialist.
Lab data and imaging data reviewed.
Addendum as below :
Patient is alert and oriented to place and person and day.
He is off CBI. Moise catheter came out. He is passing urine which is bloody but no clots. Plan from urology as outpatient cystoscopy next week.
Appreciate ID input. No clinical evidence of UTI and off of antibiotics currently.
Other main issue as notified by the at bedside is change in personality and cognitive impairment which has been noted since December but progressively getting worse and there is concern there is dementia onset.
she also noted coincidence after intravesical Botox injection.
Patient without headache or any motor deficit. Apparently has been having issues with balance as well. Did not check the gait. No spontaneous nystagmus or past-pointing.
Will request and MRI with and without contrast to evaluate further and also consult neurologist.
DW and Urologist
total time spent on today's encounter was 52 minutes which included time spent in counseling the patient/family regarding diagnosis and treatment plan as listed above, goals of care, and symptom management. Case was discussed with nursing staff,
specialists, and care coordinators/case management. All labs and imaging personally reviewed by me. Remainder the time spent in detailed review of previous records, lab data, imaging, and other medical provider documentation.
Original Note:
Today's Communication/Plan
-
Stop antibiotics
Voiding trial today
Brain MRI
Neurology consult
Assessment / Plan
Assessment / Plan
Impression: 69-year-old male with PMH of nephrolithiasis, recurrent UTIs, refractory neurogenic bladder, chronic urinary incontinence, type 2 diabetes mellitus, hypertension, sleep apnea, CVA s/p tPA 11/22/2022, left ICA placement 11/25/2022 who
presented to ED on 09/22/2024 with hematuria, dysuria and bladder discomfort. Patient follows Dr. Castellanos and is scheduled for cystoscopy in 3 days, however, due to increased bleeding and bladder discomfort, dysuria with passage of urinary blood
clots, they decided to come to the ED.A CT scan w/o IV or oral contrast was also ordered by urology and hospitalist team was consulted for further evaluation and management.
Assessment/plan:
#Recurrent UTI-due to neurogenic bladder with BPH
-History of acute toxic encephalopathy suspected from fungal UTI.
-Leukocytosis resolved, patient remains afebrile.
-Stop antibiotics per ID.
-Repeat urine culture negative.
-Will discontinue Farxiga due to acute UTI.
-Voiding trial today.
-Follow fever curve.
-Follow CBC.
#Recurrent hematuria with blood clots-suspect from passing stones
-Clearing with CBI.
-No signs of CVA tenderness.
-CT Abd/pelvis 09/22 with suspected superimposed infection and soft tissues stranding in the left kidney to proximal mid ureter.
#Family concerns for change in mental acuity and physical ability
-MRI 04/2024 negative for acute stroke during episode of TME.
-Repeat MRI brain today.
-Neurology consulted.
#MONICA
-Creatinine stable
-Continue IV resuscitation.
#Sleep apnea
-Patient does not use CPAP at home, uses mouthguard
-Discussed the need for CPAP and encouraged to get sleep study outpatient.
#Type 2 diabetes mellitus
-HbA1c 7.6, was 6.8 (06/08).
-Urinalysis with glucosuria, and albuminuria.
-Will discontinue Farxiga at discharge and maximize metformin.
-Encourage carb-controlled diet.
-Basal bolus protocol with serial Accu-Cheks.
#Urinary incontinence
-S/p Botox injection.
-Urology following.
#History of CVA
-Nonfocal neurologic exam on admission.
-Continue aspirin and atorvastatin
#History of essential tremors
-Continue propranolol.
-Monitor BP and hold with SBP <100
DVT PPx-teds
CODE STATUS-full code

----
Data
CT abdomen/pelvis 09/22/2024:
No obstructing ureteral calculus, bilaterally. 2 mm nonobstructing left renal calculus.
On the left, there is mild soft tissue stranding surrounding left kidney and in the left renal sinus as well as associated with the proximal to mid ureter. It could reflect superimposed infection. There is a catheter within the urinary bladder which
is collapsed, though suggested wall thickening and perivesical mild soft tissue stranding. This could indicate cystitis. Clinical correlation recommended.
Diverticulosis without acute diverticulitis.
Anticipated Discharge: 24 - 48 hours
Subjective/Interval History
-
Date of Service: September 24, 2024
Patient seen and examined with daughter at bedside. Daughter voiced concerns about patient's mental acuity and also wants to know the cause of his hematuria. Patient does not have any chest pain, shortness of breath, abdominal pain, fever or
chills. He reports mild pain at the catheter site but otherwise feels comfortable. The CBI has light pink fluid draining. No blood clots.
Objective Data
-
Vital Signs:
Vital Signs
Temp Pulse Resp BP Pulse Ox
98.8 F 78 16 134/87 96
09/23/24 23:22 09/23/24 23:22 09/23/24 23:22 09/23/24 23:22 09/23/24 23:22
I&O
09/23/24 09/24/24 09/25/24
06:59 06:59 06:59
Intake Total 800 / 800
Output Total -500 / -500
Balance 1300 / 1300
Review of Systems
-
History Source: Patient and Family
All other systems: Not reviewed unless documented
Constitutional: Reports No Symptoms; Denies Fever
Respiratory: Reports No Symptoms
Cardiac: Reports No Symptoms
Abdomen/GI: Reports No Symptoms
Genitourinary: Reports Dysuria, Frequency, Incontinence, UTI and Other (Pain at the catheter site)
Skin: Reports No Symptoms
Physical Exam
-
General: Well Developed and No Apparent Distress
HEENT: Normocephalic, Atraumatic and Moist Mucous Membranes
Respiratory: Clear to Auscultation
Cardiac: Regular Rhythm and S1/S2; Negative Murmur, Rub or Gallop
GI: Soft, Nontender, Nondistended and Normal Bowel Sounds; Negative Organomegaly
Rectal: Deferred by Provider
Genito-urinary: Moise
Musculoskeletal: No Clubbing, No Cyanosis and No Edema
Skin: Negative Rash
Neuro: Awake, Alert, Oriented, AO x 3 and Nonfocal/Grossly Intact
Psych: Calm
Data Reviewed
-
Labs: Labs Reviewed by me and Discussed with Physician
Old Records: Reviewed
[2024-09-24 08:11] LABS: Hematocrit 47.2 % (39.0-52.0); Hemoglobin 15.2 g/dL (13.0-18.0); Mean Corp Hgb Conc. 32.2 g/dL (33.0-37.0); Mean Corpuscular Hgb 31.2 pg (27.0-31.0); Mean Corpuscular Volume 96.9 fL (80.0-94.0); Mean Platelet Volume 10.3 fL (7.4-10.4); Platelet Count 184 10^3/uL (130-400); Red Blood Cell Count 4.87 10^6/uL (4.70-6.10); Red Cell Dist. Width 12.6 % (11.5-14.5)
[2024-09-24] MEDS: COLACE 100 MG PO ×2 (08:17→21:38)
[2024-09-24] MEDS: GLUCOPHAGE 500 MG PO ×2 (08:17→17:12)
[2024-09-24] MEDS: NOVOLOG FLEXPEN-LOW RESISTANCE SC (08:17)
[2024-09-24] MEDS: GLUCOTROL 5 MG PO (08:17)
[2024-09-24] MEDS: INDERAL LA 80 MG PO (08:18)
[2024-09-24 08:23] LABS: Blood Urea Nitrogen 21 mg/dl (9-20); Carbon Dioxide 25 mmol/L (22-30); Chloride 104 mmol/L (98-107); Estimated Creatinine Clearance 68 ml/min; Glucose 120 mg/dl (70-99); Potassium 4.1 mmol/L (3.5-5.1); Sodium 139 mmol/L (135-145); eGFR > 60.00
--- NOTE | 2024-09-24 08:54 | W.PN.UPDATE ---
Update Note
Progress Note Update
Patient remained stable overnight
No gross hematuria this morning on slow drip CBI
Afebrile
Comfortable appearing
No SP pain or fullness
No CVAT
---
Will remove Suma with intention of discharge home later today or tomorrow
[2024-09-24 11:33] LABS: Glucose - Point of Care 218 mg/dl (70-99)
[2024-09-24] MEDS: NOVOLOG FLEXPEN-LOW RESISTANCE 2 UNITS SC (12:16)
[2024-09-24 12:22] LABS: Urine Albumin 3+ (Neg - Trace); Urine Bilirubin Negative (Negative); Urine Character Bloody (Clear); Urine Color Red; Urine Glucose 3+ (Negative); Urine Ketone Negative (Negative); Urine Leukocyte Negative (Negative); Urine Nitrite Negative (Negative); Urine Occult Blood 2+ (Negative); Urine Specific Gravity 1.015 (<1.030); Urine Urobilinogen Negative (Neg - 1+)
--- NOTE | 2024-09-24 12:24 | CM ---
Reviewed the chart notes and spoke with the patient at the beside. Patient's history includes: neurogenic bladder, recurrent UTIs, diabetes, htn, hyperlipidemia, divertic, arthritis, and sleep apnea. Patient admitted for hematuria. The patient
resides with his spouse in a two story home with two steps to enter. The patient reports no DME/VN/SNF in the past. The patient has been to [facility]. The patient's pcp is Dr. Almonte and pharmacy of choice is the [address]
continues to be available to patient/family and is monitoring medical plan for needs at discharge.
Plan: Discharge to home when medically stable. No anticipated needs being identified at this time.
--- NOTE | 2024-09-24 12:28 | CON.NEURO ---
Consultation
Order
Date of Consultation: 09/24/24
Requesting Provider: Juan Francisco Haynes MD
Reason for Consult: encephalopathy
Neurology Consultation Note.
HPI: This is a 69-year-old RH man who presented to [facility] on 09/22/[facility]24 with worsening of hematuria.
Neurology consultation was requested for the evaluation management of encephalopathy.
Mr. East recalls experiencing emotional lability, crying, and difficulty controlling emotions for a 2-week period while hospitalized with sepsis in April,. CT head at that time was notable for moderate generalized atrophy for the age. The
patient reports ' always' have inattention and misplacing objects, such as keys, but does not believe this is a new issue.
Ms. East states that the patient has had progressive lack of interest and motivation since spring 2023. He was noted to lose interest in recently purchased [employer] car that he used to enjoy but sometimes he regains enthusiasm once he is engaged in
the activity. The patient was reportedly treated for anxiety over the last 20 years with venlafaxine. He reportedly continues to perform well at work. His is in charge of medication administration as well as to go over family financial
affairs (reportedly due to limitations of patient's hand tremor).
Mr. East has a history of left ICA stenosis/left MCA stroke presented with right hemiparesis and expressive aphasia that he was treated with thrombolysis and left ICA stenting 2023. According to his spouse following speech therapy the patient had
recovered majority of his dysphasia.
The patient was seen by Dr.Roy Malia Hawkins several weeks ago.
ER VS: 152/94, 92, afebrile.
EKG: Not available
PDMP:tramadol Hcl 50 Mg 10 tabs filled in on 08/19/2024, 07/08/2024.
Labs: Glucose�188, creatinine�1.4, WBCs�11.3, normal sodium, urine culture�pending.
CT head(04/2024) moderate generalized atrophy, chronic left frontal infarct.
MAR: Ceftriaxone 1 g, hydromorphone 0.5 mg once a day.
PMH: left frontal stroke, s/p TPA( s/p tPA 11/22/2022), ET, HTN, DLP, BPH, DM, DENTON, obstructive uropathy, nephrolithiasis, diverticulosis, JANA, neurogenic bladder
PSH: L ICA stent, L3-L4 laminectomy, ureteral stent, R [place], R reverse shoulder arthroplasty, R knee arthroscopy, L shoulder arthroscopy, lower eyelid blepharoplasty
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
FH: mother is alive in her late 90s, brother-stroke
All:Iodine
ROS:Constitutional: Negative. Negative for chills, fever and unexpected weight change.
HENT: Negative for ear pain, hearing loss, tinnitus and trouble swallowing.
Eyes: Negative. Negative for photophobia, pain and visual disturbance.
Respiratory: Negative for cough, choking and shortness of breath.
Cardiovascular: Negative for chest pain, palpitations and leg swelling.
Gastrointestinal: Negative for abdominal pain and vomiting.
Endocrine: Negative. Negative for cold intolerance.
Genitourinary: Positive for urinary incontinence, nocturia, urgency.
Musculoskeletal: Negative for back pain, gait problem, neck pain and neck stiffness.
Skin: Negative for rash.
Allergic/Immunologic: Negative. Negative for immunocompromised state.
Neurological: Positive for chronic inattention, word finding difficulties, forgetfulness, tingling and numbness in his feet chronic hand tremor.
Psychiatric/Behavioral: Negative for behavioral problems, confusion and hallucinations.
General: Well developed. In no acute distress.
Cardio: Regular rate and rhythm without murmur. Extremities are without cyanosis or edema.
Neuro:
Mental Status: Alert, oriented to person, place, and date. Normal attention and recall. Mild expressive aphasia. Good fund of knowledge. Follows complex requests across the midline. Comprehension, naming, and repetition intact. Immediate recall
3/3.
Cranial Nerves: Pupils are equally round and reactive to light. EOMs full. Visual mohr full to confrontation. No ptosis. No nystagmus. V1-V3 intact to light touch and pinprick bilaterally, symmetric. Face symmetric. Normal hearing AU. The
palate elevated well. SCMs and traps 5/5. Tongue midline. No dysarthria.
Motor: Normal bulk and tone. No pronator or arm drift. Strength 5/5 throughout. No clonus.
Reflexes: 2+ throughout the upper extremities and knees. Plantar responses flexor bilaterally. Positive grasp bilaterally
Sensory: Normal vibration at the toes.
Coordination: Bilateral action hand tremor. No dysmetria.
Gait: Wide stance, bilateral foot external rotation. Mild retropulsion.
Assessment and Plan:
I. Encephalopathy
II. Chronic L MCA territory infarct, h/o L ICA stent
III. Brain atrophy. Differential diagnosis includes toxic versus neurodegenerative.
IV. JANA
-telemetry monitoring
-Please check TFTs, vitamin B12, thiamine
-Avoid PRODUCT MANAGEMENT ANALYST suppressants
-Routine EEG
-Outpatient neuro psychological evaluation
-Please obtain medical records from [facility] and Dean Hawkins MD.
-The case was discussed with Ms. Roberson in details. All questions were answered
I personally reviewed all radiology and labs along with past medical records pertinent to current medical problems. Total time spent in patient care is 60 minutes.
Thank you for allowing us to participate in the care of this patient. We will continue to follow. Please do not hesitate to contact us with any questions or concerns.
Subjective/Objective
Subjective Data
Date of Service: September 24, 2024
Objective Data
Vital Signs
Temp Pulse Resp BP Pulse Ox
36.5 C 73 16 132/78 96
09/24/24 08:21 09/24/24 08:18 09/24/24 08:21 09/24/24 08:18 09/24/24 08:21
Lab Results
09/24/24 07:47
09/24/24 07:47
Sodium 139 mmol/L (135-145) 09/24/24 07:47
Potassium 4.1 mmol/L (3.5-5.1) 09/24/24 07:47
BUN 21 mg/dl (9-20) H 09/24/24 07:47
Glucose 120 mg/dl (70-99) H 09/24/24 07:47
Calcium 9.0 mg/dl (8.4-10.2) 09/24/24 07:47
Patient Allergies
shellfish derived Allergy (Verified 09/22/24 09:26)
congestion
Medications
-
Active Medications
Generic Name Dose Route Start Last Admin
Trade Name Freq PRN Reason Stop Dose Admin
Acetaminophen 650 mg 09/22/24 14:43 09/22/24 15:31
Acetaminophen 325 Mg Tablet PO 10/20/24 14:42 650 mg
Q4HPRN PRN Administration
mild pain/temp
Aspirin 81 mg 09/22/24 22:00 09/23/24 23:05
Aspirin 81 Mg Chewable Tablet PO 10/20/24 21:59 81 mg
HS PETER Administration
Atorvastatin Calcium 80 mg 09/22/24 22:00 09/23/24 23:05
Atorvastatin (Lipitor) 80 Mg Tablet PO 10/20/24 21:59 80 mg
HS PETER Administration
Dextrose 12.5 grams 09/22/24 16:45
Dextrose 50% (0.5 Grams/Ml) 50 Ml Syringe IV 10/20/24 16:44
[id number] PRN
hypoglycemia
Protocol
Diazepam 5 mg 09/22/24 14:43 09/22/24 15:31
Diazepam 10 Mg/2 Ml Inj IV 10/20/24 14:42 5 mg
Q4HPRN PRN Administration
refractory bladder spasms
Docusate Sodium 100 mg 09/22/24 20:00 09/24/24 08:17
Docusate Sodium 100 Mg Capsule PO 10/20/24 19:59 100 mg
BID PETER Administration
Finasteride 5 mg 09/22/24 22:00 09/23/24 23:05
Finasteride 5 Mg Tablet PO 10/20/24 21:59 5 mg
HS PETER Administration
Glipizide 5 mg 09/23/24 08:00 09/24/24 08:17
Glipizide 5 Mg Regular Release Tablet PO 10/21/24 07:59 5 mg
DAILY PETER Administration
Glucagon 1 mg 09/22/24 16:45
Glucagon 1 Mg Vial IM 10/20/24 16:44
PRN PRN
hypoglycemia
Protocol
Hydromorphone HCl 0.5 mg 09/22/24 14:43 09/24/24 08:31
Hydromorphone 0.5 Mg/0.5 Ml Syringe IV 10/06/24 14:42 0.5 mg
Q3HPRN PRN Administration
severe pain
Sodium Chloride 1,000 mls @ 80 mls/hr 09/23/24 23:00 09/23/24 23:29
Nss IV 1,000 mls
.[id number] PETER Administration
Insulin Aspart 0 units 09/23/24 07:30 09/24/24 12:16
Insulin Aspart Low Resistance 300 Units/3 Ml Pen.Injctr SC 10/21/24 07:29 2 units
AC PETER Administration
Protocol
Metformin HCl 500 mg 09/22/24 17:00 09/24/24 08:17
Metformin 500 Mg Regular Release Tablet PO 10/20/24 16:59 500 mg
BID@0800,1700 PETER Administration
Propranolol HCl 80 mg 09/23/24 08:00 09/24/24 08:18
Propranolol Extended Release 80 Mg Capsule (24hr) PO 10/21/24 07:59 80 mg
DAILY PETER Administration
Sodium Chloride 0 flush 09/22/24 17:00
Sodium Chloride 0.9% (Flush) Syringe IV 10/20/24 16:59
PER PROTOCOL PETER
Tamsulosin HCl 0.4 mg 09/22/24 22:00 09/23/24 23:05
Tamsulosin 0.4 Mg Capsule PO 10/20/24 21:59 0.4 mg
HS PETER Administration
Venlafaxine HCl 150 mg 09/22/24 22:00 09/23/24 23:05
Venlafaxine 150 Mg Extended Release Capsule PO 10/20/24 21:59 150 mg
HS PETER Administration
Home Medications
�Medication �Instructions �Recorded
aspirin 81 mg chewable tablet 81 mg PO HS Blood Clot 11/28/22
Prevention/Tx
metformin 500 mg tablet 500 mg PO BID #60 tabs 12/07/22
atorvastatin 80 mg tablet 80 mg PO HS High Cholesterol 03/02/24
propranolol 80 mg capsule,24 80 mg PO DAILY tremors 03/02/24
hr,extended release
tamsulosin 0.4 mg capsule (Flomax) 0.4 mg PO HS Urinary Issue 04/17/24
venlafaxine 150 mg 150 mg PO HS anxiety 04/17/24
capsule,extended release 24 hr
finasteride 5 mg tablet 5 mg PO HS 08/15/24
dapagliflozin propanediol 10 mg 10 mg PO DAILY 09/22/24
tablet (Farxiga)
fluconazole 200 mg tablet 200 mg PO DAILY 09/22/24
glipizide 5 mg tablet 2.5 mg PO DAILY 09/22/24
omega-3 fatty acids 1,000 mg PO BID 09/22/24
Vital Signs and Labs
-
Vital Signs and Labs:
Vital Signs
Temp Pulse Resp BP Pulse Ox
36.5 C 73 16 132/78 96
09/24/24 08:21 09/24/24 08:18 09/24/24 08:21 09/24/24 08:18 09/24/24 08:21
Lab Results
09/24/24 07:47
09/24/24 07:47
Sodium 139 mmol/L (135-145) 09/24/24 07:47
Potassium 4.1 mmol/L (3.5-5.1) 09/24/24 07:47
BUN 21 mg/dl (9-20) H 09/24/24 07:47
Glucose 120 mg/dl (70-99) H 09/24/24 07:47
Calcium 9.0 mg/dl (8.4-10.2) 09/24/24 07:47
Medications
-
Medications:
Generic Name Dose Route Start Last Admin
Trade Name Freq PRN Reason Stop Dose Admin
Acetaminophen 650 mg 09/22/24 14:43 09/22/24 15:31
Acetaminophen 325 Mg Tablet PO 10/20/24 14:42 650 mg
Q4HPRN PRN Administration
mild pain/temp
Aspirin 81 mg 09/22/24 22:00 09/23/24 23:05
Aspirin 81 Mg Chewable Tablet PO 10/20/24 21:59 81 mg
HS PETER Administration
Atorvastatin Calcium 80 mg 09/22/24 22:00 09/23/24 23:05
Atorvastatin (Lipitor) 80 Mg Tablet PO 10/20/24 21:59 80 mg
HS PETER Administration
Dextrose 12.5 grams 09/22/24 16:45
Dextrose 50% (0.5 Grams/Ml) 50 Ml Syringe IV 10/20/24 16:44
[id number] PRN
hypoglycemia
Protocol
Diazepam 5 mg 09/22/24 14:43 09/22/24 15:31
Diazepam 10 Mg/2 Ml Inj IV 10/20/24 14:42 5 mg
Q4HPRN PRN Administration
refractory bladder spasms
Docusate Sodium 100 mg 09/22/24 20:00 09/24/24 08:17
Docusate Sodium 100 Mg Capsule PO 10/20/24 19:59 100 mg
BID PETER Administration
Finasteride 5 mg 09/22/24 22:00 09/23/24 23:05
Finasteride 5 Mg Tablet PO 10/20/24 21:59 5 mg
HS PETER Administration
Glipizide 5 mg 09/23/24 08:00 09/24/24 08:17
Glipizide 5 Mg Regular Release Tablet PO 10/21/24 07:59 5 mg
DAILY PETER Administration
Glucagon 1 mg 09/22/24 16:45
Glucagon 1 Mg Vial IM 10/20/24 16:44
PRN PRN
hypoglycemia
Protocol
Hydromorphone HCl 0.5 mg 09/22/24 14:43 09/24/24 08:31
Hydromorphone 0.5 Mg/0.5 Ml Syringe IV 10/06/24 14:42 0.5 mg
Q3HPRN PRN Administration
severe pain
Sodium Chloride 1,000 mls @ 80 mls/hr 09/23/24 23:00 09/23/24 23:29
Nss IV 1,000 mls
.[id number] PETER Administration
Insulin Aspart 0 units 09/23/24 07:30 09/24/24 12:16
Insulin Aspart Low Resistance 300 Units/3 Ml Pen.Injctr SC 10/21/24 07:29 2 units
AC PETER Administration
Protocol
Metformin HCl 500 mg 09/22/24 17:00 09/24/24 08:17
Metformin 500 Mg Regular Release Tablet PO 10/20/24 16:59 500 mg
BID@0800,1700 PETER Administration
Propranolol HCl 80 mg 09/23/24 08:00 09/24/24 08:18
Propranolol Extended Release 80 Mg Capsule (24hr) PO 10/21/24 07:59 80 mg
DAILY PETER Administration
Sodium Chloride 0 flush 09/22/24 17:00
Sodium Chloride 0.9% (Flush) Syringe IV 10/20/24 16:59
PER PROTOCOL PETER
Tamsulosin HCl 0.4 mg 09/22/24 22:00 09/23/24 23:05
Tamsulosin 0.4 Mg Capsule PO 10/20/24 21:59 0.4 mg
HS PETER Administration
Venlafaxine HCl 150 mg 09/22/24 22:00 09/23/24 23:05
Venlafaxine 150 Mg Extended Release Capsule PO 10/20/24 21:59 150 mg
HS PETER Administration
Home Medications
-
Home Medications
aspirin 81 mg chewable tablet 81 mg PO HS Blood Clot Prevention/Tx 11/28/22
metformin 500 mg tablet 500 mg PO BID #60 tabs 12/07/22
atorvastatin 80 mg tablet 80 mg PO HS High Cholesterol 03/02/24
propranolol 80 mg capsule,24 hr,extended release 80 mg PO DAILY tremors 03/02/24
tamsulosin 0.4 mg capsule (Flomax) 0.4 mg PO HS Urinary Issue 04/17/24
venlafaxine 150 mg capsule,extended release 24 hr 150 mg PO HS anxiety 04/17/24
finasteride 5 mg tablet 5 mg PO HS 08/15/24
dapagliflozin propanediol 10 mg tablet (Farxiga) 10 mg PO DAILY 09/22/24
fluconazole 200 mg tablet 200 mg PO DAILY 09/22/24
glipizide 5 mg tablet 2.5 mg PO DAILY 09/22/24
omega-3 fatty acids 1,000 mg PO BID 09/22/24
[2024-09-24] MEDS: NSS 1000 IV (13:14)
[2024-09-24 14:57] LABS: Urine Squamous Cell 0-2 /LPF (Few)
[2024-09-24 14:58] LABS: Urine Red Blood Cell >100 /HPF (0-2)
[2024-09-24 15:01] LABS: Urine Bacteria Few (Negative)
[2024-09-24 15:36] LABS: TSH Reflex To Free T4 1.82 uIU/ml (0.47-4.68)
[2024-09-24 15:55] LABS: Vitamin B12 522 pg/ml (239-931)
--- NOTE | 2024-09-24 16:26 | PTCARENOTE ---
Patient having bloody urine since removing catheter and CBI. Patient just voided and there were clots. Dr Castellanos made aware. No new orders at this time.
[2024-09-24 16:58] LABS: Glucose - Point of Care 184 mg/dl (70-99)
[2024-09-24] MEDS: NOVOLOG FLEXPEN-LOW RESISTANCE 1 UNITS SC (17:12)
[2024-09-24] MEDS: LOW STRENGTH ASPIRIN 81 MG PO (21:37)
[2024-09-24] MEDS: FLOMAX 0.4 MG PO (21:38)
[2024-09-24] MEDS: EFFEXOR XR 150 MG PO (21:38)
[2024-09-24] MEDS: PROSCAR 5 MG PO (21:38)
[2024-09-24] MEDS: LIPITOR 80 MG PO (21:38)
[2024-09-24 23:25] VITALS: BP 139/77
[2024-09-24 23:33] LABS: Glucose - Point of Care 170 mg/dl (70-99)
[2024-09-25 04:44] VITALS: BMI 24.9
[2024-09-25 06:00] VITALS: BMI 24.9
[2024-09-25] MEDS: NSS 1000 IV (06:35)
[2024-09-25 06:54] LABS: Erythrocyte Sed Rate 16 mm/hour (0-20)
[2024-09-25 07:30] VITALS: BP 139/79
[2024-09-25 08:33] LABS: Glucose - Point of Care 110 mg/dl (70-99)
[2024-09-25] MEDS: NOVOLOG FLEXPEN-LOW RESISTANCE SC ×2 (08:36→11:53)
[2024-09-25] MEDS: INDERAL LA 80 MG PO (08:37)
[2024-09-25] MEDS: GLUCOTROL 5 MG PO (08:37)
[2024-09-25] MEDS: GLUCOPHAGE 500 MG PO ×2 (08:37→16:55)
[2024-09-25] MEDS: COLACE 100 MG PO ×2 (08:37→21:23)
--- NOTE | 2024-09-25 08:57 | EEGC.RPT ---
Continuous EEG Report
Recording
Start Date of Data Reviewed: 09/25/24
Done with Video Recording: Yes
Electrocardiogram: Unremarkable
Report
Date of Service: September 25, 2024
TECHNICAL REMARKS:��This is a technically satisfactory eighteen channel record employing 21 disc electrodes applied according to a measured international 10-20 electrode placement system.��There were no significant technical difficulties.��The study
was done on a [employer] System.
STUDY DURATION: 31 min 20 sec
�
CLINICAL HISTORY: This is a 69-year-old man with chronic left MCA territory infarct with change in personality and behavior. This study was requested to look for epileptiform abnormalities.
�
MEDICATIONS: no AED
REPORT: �At the onset of the EEG, the patient is awake. The background activity consists of 9.5-10 Hz, persistent, posteriorly dominant, moderate amplitude, symmetric and rhythmic activity that is reactive to eye-opening. Anteriorly, it consists of
a mixture of low voltage indeterminate activity and 20-25 Hz, persistent, low amplitude, symmetric and rhythmic activity.� Intermittent left frontal slowing was seen. Stepwise intermittent photic stimulation (1-31 Hz) does not induce any
abnormalities. Hyperventilation was not performed. Drowsiness is characterized by low amplitude mixed frequency activity, decreased eye blinking, and muscle artifact. N2 sleep was reached
�
�IMPRESSION: �This is an abnormal awake and asleep EEG due to intermittent left frontal slowing indicative of focal cerebral dysfunction. There is no evidence of epileptiform activity.�
�
--- NOTE | 2024-09-25 09:17 | W.PN.URO.CBU ---
Today's Communication / Plan
-
Continue to manage w/o Moise catheter
Will be planning cystoscopy as outpatient should hematuria resolve, or as inpatient if it contiues
Assessment / Plan
-
neurogenic bladder/OAB
hx of UTI
gross hematuria/chronic hemorrhagic cystitis
await ucx
tract labs
Diagnosis
-
Date of Service: September 25, 2024
-
Patient Diagnosis:
neurogenic bladder
recurrent UTI
hematuria
Subjective
-
No SP pain
No dysuria
Continued urine incontinence with gross hematuria
Objective
-
Vital Signs
Temp Pulse Resp BP Pulse Ox
97.4 F 66 18 139/79 98
09/25/24 07:30 09/25/24 07:30 09/25/24 07:30 09/25/24 07:30 09/25/24 07:30
Intake and Output
09/24/24 09/25/24 09/26/24
06:59 06:59 06:59
Intake Total 800 / 800 1840 / 1840
Output Total -500 / -500 1400 / 1400
Balance 1300 / 1300 440 / 440
Intake:
Oral fluids 240 / 240 880 / 880
IV fluids (Total) 560 / 560 960 / 960
Output:
Urine, Voided 1050 / 1050
True Urine Output from CBI -500 / -500 350 / 350
Other:
How many times incontinent 3
MODERATE amount urine
Laboratory Results
09/24/24 07:47
09/24/24 07:47
Review of Systems
-
Constitutional: No Symptoms
Respiratory: No Symptoms
Cardiac: No Symptoms
Abdomen/GI: No Symptoms
: Frequency, Incontinence and Bleeding
Physical Exam
-
General - well developed, well nourished, no acute distress
Abdomen - soft, non-tender, no SP pain, no CVAT
Genitalia - normal with no urine in adult diaper
[2024-09-25 11:28] LABS: Glucose - Point of Care 134 mg/dl (70-99)
--- NOTE | 2024-09-25 13:03 | W.PN.HOSP.TC ---
Today's Communication/Plan
-
Psychiatry eval
Follow hematuria
Assessment / Plan
Assessment / Plan
Impression: 69-year-old male with PMH of nephrolithiasis, recurrent UTIs, refractory neurogenic bladder, chronic urinary incontinence, type 2 diabetes mellitus, hypertension, sleep apnea, CVA s/p tPA 11/22/2022, left ICA placement 11/25/2022 who
presented to ED on 09/22/2024 with hematuria, dysuria and bladder discomfort. Patient follows Dr. Castellanos and is scheduled for cystoscopy in 3 days, however, due to increased bleeding and bladder discomfort, dysuria with passage of urinary blood
clots, they decided to come to the ED.A CT scan w/o IV or oral contrast was also ordered by urology and hospitalist team was consulted for further evaluation and management.
Assessment/plan:
#Recurrent hematuria with blood clots
-Cleared with CBI.
-CT Abd/pelvis 09/22 with suspected superimposed infection and soft tissues stranding in the left kidney to proximal mid ureter. Patient without clinical signs of infection-no fever. No leukocytosis. Urine cultures have been persistently negative.
Appreciate ID input. [place] less likely UTI. Off of antibiotics. Remains stable off of antibiotics.
-Patient catheter is removed now and has some bloody urine without any clot retention. Urology following regarding timing of cystoscopy examination.
#Change in mental acuity and physical ability
-MRI 04/2024 negative for acute stroke during episode of TME.
-Repeat MRI brain with and without contrast shows no evidence of acute stroke but shows sequela of mild small vessel ischemic disease with a foci of encephalomalacia in the superior left frontal lobe overall similar in appearance to prior. EEG
shows abnormal awake and asleep EEG due to intermittent left frontal slowing indicative of focal cerebral dysfunction. There is no evidence of epileptiform activity
-Neurology input noted.
-With a frontal lobe encephalomalacia and focal cerebral dysfunction but the mother neuropsychiatric symptoms from his previous stroke or psychiatric symptoms alone. He does admit to being depressed. Patient is agreeable for psychiatry eval.
Continue with his venlafaxine for now.
#MONICA
-Resolved after CBI and catheter. No evidence of urinary retention. Continue to follow.
#Sleep apnea
-Patient does not use CPAP at home, uses mouthguard
-Discussed the need for CPAP and encouraged to get sleep study outpatient.
#Type 2 diabetes mellitus
-HbA1c 7.6, was 6.8 (06/08).
-Urinalysis with glucosuria, and albuminuria.
-Will discontinue Farxiga at discharge and maximize metformin.
-Encourage carb-controlled diet.
-Basal bolus protocol with serial Accu-Cheks.
#Urinary incontinence
-S/p Botox injection.Interstim in place
-Urology following.
#History of CVA
-Nonfocal neurologic exam on admission.
-Continue aspirin and atorvastatin
#History of essential tremors
-Continue propranolol.
-Monitor BP and hold with SBP <100
DVT PPx-teds
CODE STATUS-full code
After psych eval and if ok from urology will have a dc plan.
DW on phone and updated clinicals and plan.
Total time spent on today's encounter was 52 minutes which included time spent in counseling the patient/family regarding diagnosis and treatment plan as listed above, goals of care, and symptom management. Case was discussed with nursing staff,
specialists, and care coordinators/case management. All labs and imaging personally reviewed by me. Remainder the time spent in detailed review of previous records, lab data, imaging, and other medical provider documentation.
Anticipated Discharge: 24 - 48 hours
Subjective/Interval History
-
Date of Service: September 25, 2024
Patient still had some blood in the urine with small clots but no retention of urine or clot retention. No bladder discomfort. No fever chills.
No nausea or vomiting.
Denies any headache. No focal motor weakness.
He had bought an [email or web address] car recently but he did not have much pleasure driving it. He does tell me that his lately been depressed.
Objective Data
-
Vital Signs:
Vital Signs
Temp Pulse Resp BP Pulse Ox
97.4 F 66 18 139/79 98
09/25/24 07:30 09/25/24 07:30 09/25/24 07:30 09/25/24 07:30 09/25/24 07:30
I&O
09/24/24 09/25/24 09/26/24
06:59 06:59 06:59
Intake Total 800 / 800 1840 / 1840
Output Total -500 / -500 1400 / 1400
Balance 1300 / 1300 440 / 440
Review of Systems
-
Constitutional: Denies Fever
Respiratory: Denies Trouble Breathing
Cardiac: Denies Chest Pain
Abdomen/GI: Denies Abdominal Pain, Nausea or Vomiting
Physical Exam
-
General: No Apparent Distress
Respiratory: Non Labored Respirations; Negative Accessory Resp Muscle Use
Cardiac: Regular Rhythm and S1/S2
GI: Soft and Nondistended
Neuro: AO x 3 and No Motor Deficits; Negative Tremors
Psych: Calm
Data Reviewed
-
MRI: Report Reviewed by me (MRI brain)
Labs: Labs Reviewed by me
--- NOTE | 2024-09-25 13:40 | W.PN.NEURO.1 ---
Today's Communication / Plan
-
.
Subjective/Objective
Subjective Data
Date of Service: September 25, 2024
Neurology Follow Up Note.
Mr. East reports no complaints except for chronic urinary urgency and nocturia.
Brain MRI showed no acute infarcts, chronic microhemorrhages and known volume loss.
Routine EEG-intermittent left frontal slowing and no epileptiform abnormalities.
TSH, vit B12-WNL.
PMH: left frontal stroke, s/p TPA( s/p tPA 11/22/2022), ET, HTN, DLP, BPH, DM, DENTON, obstructive uropathy, nephrolithiasis, diverticulosis, JANA, neurogenic bladder
PSH: L ICA stent, L3-L4 laminectomy, ureteral stent, R FRANCE, R reverse shoulder arthroplasty, R knee arthroscopy, L shoulder arthroscopy, lower eyelid blepharoplasty
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
FH: mother is alive in her late 90s, brother-stroke
All:Iodine
ROS:Constitutional: Negative. Negative for chills, fever and unexpected weight change.
HENT: Negative for ear pain, hearing loss, tinnitus and trouble swallowing.
Eyes: Negative. Negative for photophobia, pain and visual disturbance.
Respiratory: Negative for cough, choking and shortness of breath.
Cardiovascular: Negative for chest pain, palpitations and leg swelling.
Gastrointestinal: Negative for abdominal pain and vomiting.
Endocrine: Negative. Negative for cold intolerance.
Genitourinary: Positive for urinary incontinence, nocturia, urgency.
Musculoskeletal: Negative for back pain, gait problem, neck pain and neck stiffness.
Skin: Negative for rash.
Allergic/Immunologic: Negative. Negative for immunocompromised state.
Neurological: Positive for chronic inattention, word finding difficulties, forgetfulness, tingling and numbness in his feet chronic hand tremor.
Psychiatric/Behavioral: Negative for behavioral problems, confusion and hallucinations.
General: Well developed. In no acute distress.
Cardio: Regular rate and rhythm without murmur. Extremities are without cyanosis or edema.
Neuro:
Mental Status: Alert, oriented to person, place, Good fund of knowledge. Follows complex requests. Comprehension, naming intact
Cranial Nerves: Pupils are equally round and reactive to light. EOMs full. Visual mohr full to confrontation. No ptosis. No nystagmus. V1-V3 intact to light touch and pinprick bilaterally, symmetric. Face symmetric. Normal hearing AU. The
palate elevated well. SCMs and traps 5/5. Tongue midline. No dysarthria.
Motor: Normal bulk and tone. No pronator or arm drift. Strength 5/5 throughout. No clonus.
Reflexes: 2+ throughout the upper extremities and knees. Plantar responses flexor bilaterally.
Coordination: Bilateral action hand tremor. No dysmetria.
Gait: sammi base, stride, reduced R arm swing.
Assessment and Plan:
I. Encephalopathy
II. Chronic L MCA territory infarct, h/o L ICA stent
III. Brain atrophy. Differential diagnosis includes toxic versus neurodegenerative.
IV. JANA
-telemetry monitoring
-Outpatient neuro psychological evaluation
-C/T spine MRI wo denton to rule out structural myelopathy given spastic bladder
-The case was discussed with Ms. Roberson in details. All questions were answered
I personally reviewed all radiology and labs along with past medical records pertinent to current medical problems. Total time spent in patient care is 35 minutes.
Thank you for allowing us to participate in the care of this patient. We will continue to follow. Please do not hesitate to contact us with any questions or concerns.
Objective Data
Vital Signs
Temp Pulse Resp BP Pulse Ox
36.3 C 66 18 139/79 98
09/25/24 07:30 09/25/24 07:30 09/25/24 07:30 09/25/24 07:30 09/25/24 07:30
Lab Results
09/24/24 07:47
12/10/24 07:47
Sodium 139 mmol/L (135-145) 09/24/24 07:47
Potassium 4.1 mmol/L (3.5-5.1) 09/24/24 07:47
BUN 21 mg/dl (9-20) H 09/24/24 07:47
Glucose 120 mg/dl (70-99) H 09/24/24 07:47
Calcium 9.0 mg/dl (8.4-10.2) 09/24/24 07:47
Vitamin B12 522 pg/ml (920-347) 09/24/24 07:57
Patient Allergies
shellfish derived Allergy (Verified 09/22/24 09:26)
congestion
Vital Signs and Labs
-
Vital Signs and Labs:
Vital Signs
Temp Pulse Resp BP Pulse Ox
36.3 C 66 18 139/79 98
09/25/24 07:30 09/25/24 07:30 09/25/24 07:30 09/25/24 07:30 09/25/24 07:30
Lab Results
09/24/24 07:47
09/24/24 07:47
Sodium 139 mmol/L (135-145) 09/24/24 07:47
Potassium 4.1 mmol/L (3.5-5.1) 09/24/24 07:47
BUN 21 mg/dl (9-20) H 09/24/24 07:47
Glucose 120 mg/dl (70-99) H 09/24/24 07:47
Calcium 9.0 mg/dl (8.4-10.2) 09/24/24 07:47
Vitamin B12 522 pg/ml (374-439) 09/24/24 07:57
Medications
-
Medications:
Generic Name Dose Route Start Last Admin
Trade Name Freq PRN Reason Stop Dose Admin
Acetaminophen 650 mg 09/22/24 14:43 09/22/24 15:31
Acetaminophen 325 Mg Tablet PO 10/20/24 14:42 650 mg
Q4HPRN PRN Administration
mild pain/temp
Aspirin 81 mg 09/22/24 22:00 09/24/24 21:37
Aspirin 81 Mg Chewable Tablet PO 10/20/24 21:59 81 mg
HS PETER Administration
Atorvastatin Calcium 80 mg 09/22/24 22:00 09/24/24 21:38
Atorvastatin (Lipitor) 80 Mg Tablet PO 10/20/24 21:59 80 mg
HS PETER Administration
Dextrose 12.5 grams 09/22/24 16:45
Dextrose 50% (0.5 Grams/Ml) 50 Ml Syringe IV 10/20/24 16:44
[id number] PRN
hypoglycemia
Protocol
Diazepam 5 mg 09/22/24 14:43 09/22/24 15:31
Diazepam 10 Mg/2 Ml Inj IV 10/20/24 14:42 5 mg
Q4HPRN PRN Administration
refractory bladder spasms
Docusate Sodium 100 mg 09/22/24 20:00 09/25/24 08:37
Docusate Sodium 100 Mg Capsule PO 10/20/24 19:59 100 mg
BID PETER Administration
Finasteride 5 mg 09/22/24 22:00 09/24/24 21:38
Finasteride 5 Mg Tablet PO 10/20/24 21:59 5 mg
HS PETER Administration
Glipizide 5 mg 09/23/24 08:00 09/25/24 08:37
Glipizide 5 Mg Regular Release Tablet PO 10/21/24 07:59 5 mg
DAILY PETER Administration
Glucagon 1 mg 09/22/24 16:45
Glucagon 1 Mg Vial IM 10/20/24 16:44
PRN PRN
hypoglycemia
Protocol
Hydromorphone HCl 0.5 mg 09/22/24 14:43 09/24/24 08:31
Hydromorphone 0.5 Mg/0.5 Ml Syringe IV 10/06/24 14:42 0.5 mg
Q3HPRN PRN Administration
severe pain
Insulin Aspart 0 units 09/23/24 07:30 09/25/24 11:53
Insulin Aspart Low Resistance 300 Units/3 Ml Pen.Injctr SC 10/21/24 07:29 Not Given
AC PETER
Protocol
Metformin HCl 500 mg 09/22/24 17:00 09/25/24 08:37
Metformin 500 Mg Regular Release Tablet PO 10/20/24 16:59 500 mg
BID@0800,1700 PETER Administration
Propranolol HCl 80 mg 09/23/24 08:00 09/25/24 08:37
Propranolol Extended Release 80 Mg Capsule (24hr) PO 10/21/24 07:59 80 mg
DAILY PETER Administration
Sodium Chloride 0 flush 09/22/24 17:00
Sodium Chloride 0.9% (Flush) Syringe IV 10/20/24 16:59
PER PROTOCOL PETER
Tamsulosin HCl 0.4 mg 09/22/24 22:00 09/24/24 21:38
Tamsulosin 0.4 Mg Capsule PO 10/20/24 21:59 0.4 mg
HS PETER Administration
Venlafaxine HCl 150 mg 09/22/24 22:00 09/24/24 21:38
Venlafaxine 150 Mg Extended Release Capsule PO 10/20/24 21:59 150 mg
HS PETER Administration
Home Medications
-
Home Medications
aspirin 81 mg chewable tablet 81 mg PO HS Blood Clot Prevention/Tx 11/28/22
metformin 500 mg tablet 500 mg PO BID #60 tabs 12/07/22
atorvastatin 80 mg tablet 80 mg PO HS High Cholesterol 03/02/24
propranolol 80 mg capsule,24 hr,extended release 80 mg PO DAILY tremors 03/02/24
tamsulosin 0.4 mg capsule (Flomax) 0.4 mg PO HS Urinary Issue 04/17/24
venlafaxine 150 mg capsule,extended release 24 hr 150 mg PO HS anxiety 04/17/24
finasteride 5 mg tablet 5 mg PO HS 08/15/24
dapagliflozin propanediol 10 mg tablet ([facility]) 10 mg PO DAILY 09/22/24
fluconazole 200 mg tablet 200 mg PO DAILY 09/22/24
glipizide 5 mg tablet 2.5 mg PO DAILY 09/22/24
omega-3 fatty acids 1,000 mg PO BID 09/22/24
--- NOTE | 2024-09-25 14:07 | CON.MD ---
Addendum entered and electronically signed by Orlando Bhardwaj MD 09/25/24 14:43:
b12 tsh normal check folate
Original Note:
Consultation - Medical
-
patient seen chart reviewed. discussed w nursing. at bedside. patient is a 69 year old male w hx recurrent uti infections. he comes to w complaint of hematuria. raised the ? of change in mental status which had been noted albeit
intermittently since spring. 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
some time whereas normally he'd have been out and about readily. he is a very successful man who admits he has not always despite his success been confident and who in his younger years sought help from a psychiatrist for panic episodes. he said
effexor which he has taken for twenty years at 150 mg dose was a 'life saver ' for him. he has never been profoundly depressed or suicidal. there has never been anything to suggest psychosis. when he was here in the spring of last year changes
noted were attributed to tme from urinary infection. does note that today he is back to his usual self. mr house carried on a very appropriate conversation with me in the hour or so i spent with him and i have to say i did not note cognitive
dysfunction although i did not formally test for this. he denied that at this time he is depressed per se. he is a person of great energy who thinks fast and talks fast ( says he 'goes at 150 mph) and he does admit that in winter months he
slows down. he hates the fact that he can't be outside all the time working in his yard on projects. he can enjoy however other activities including being with his kids and grandkids. appetite is okay. there was a comment made in the chart about
his concentration and he says this is true but it has always been so. he says he is able to work and concentrate effectively despite this (son has adhd). told me he was working even while here. noted patient has taken one valium for anxiety here
and has a prn for dilaudid as his bladder issues are being addressed. patient did tell neuro he felt more emotionally labile and had some difficulty controlling his emotions around when he had stroke.
medical hx patient w hx recurrent uti. was taking fluconazole for a week given horacio in urine. urine c pending ua w leulk est. patient w hx hld niddm oa bilat hip replacements kidney stones dm htn diverticulosis elin back pain eeg shows
slowing in the left frontal lobe seen by neuro and mri tft's b12 thiamine levels ordered. patient is on a number of medications..i checked w pharmacy whether the addition of ketoconazole had impacted blood levels of other meds only flomax was
affected w the possibility of inc levels hypotension being a risk. patient w hx stroke in the past has completely rehab re speech since stroke. sees dr borges. cat shows moderate atrophy for age
past psych hx see above
fh son w adhd otherwise denies psych hx
substance abuse denied has an occasional etoh beverage
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 he is to a supportive spouse. two kids four grands whom he enjoys. hobbies include working outside and collecting antique cars
mse very pleasant man who was entirely appropriate in his interaction. speech nl rate and tone. no psychosis mood was euthymic affect appropriate no si no psychosis memory was intact grossly though not formally tested intelligence above average
insight judgment good
dx unspecified anxiety disorder
recommendations mrs house describes that 's mental status currently is normal. it is unclear what the changes noted might be related to. it does seem that there have been medical issues at play when he was noted int he past to be
encephalopathic including uti and stroke. await result of mri and other tests ordered. neuropsychiatric testing would be useful to investigate for early dementia or to provide a baseline for the future. will give them the names of several who do
this work tomorrow. i do not see patient as depressed. he is on 150 mg which is a reasonable dose of effexor. if he were felt to be depressed of course it could be increased but given his hx he could become manic w increase. he does seem to suffer
increase sx of dysthymia and anxiety in winter which of course is the current season. seasonal affective d.o is thought to be associated w bipolarity. his personality sounds as thought it may have features of mood lability although he has managed to
be quite successful despite or perhaps bc of these features. will check in w him tomorrow would change valium to ativan as it is not as long acting and has fewer active metabolites. would avoid sedating medications as much as possible..
--- NOTE | 2024-09-25 15:09 | CM ---
Reviewed the chart notes and spoke with the patient the bedside. IMM reviewed. Patient anticipating being discharged today. CM continues to be available to patient/family and is monitoring medical plan for needs at discharge.
Plan: Discharge to home when medically stable. No needs anticipated.
[2024-09-25 15:15] VITALS: BP 143/76
[2024-09-25 16:35] LABS: Glucose - Point of Care 200 mg/dl (70-99)
[2024-09-25] MEDS: NOVOLOG FLEXPEN-LOW RESISTANCE 2 UNITS SC (16:56)
--- NOTE | 2024-09-25 17:57 | W.PN.UPDATE ---
Update Note
Progress Note Update
Patient continues to void frequently, but with diminishing hematuria (now pink and w/o clot) and w/o dysuria or sense of retentkion
He remains on his 81mg aspirin daily
---
Will continue to manage patient w/o an indwelling catheter
Will repeat a urine culture and Hgb in the morning
[2024-09-25] MEDS: LIPITOR 80 MG PO (21:23)
[2024-09-25] MEDS: FLOMAX 0.4 MG PO (21:23)
[2024-09-25] MEDS: LOW STRENGTH ASPIRIN 81 MG PO (21:23)
[2024-09-25] MEDS: EFFEXOR XR 150 MG PO (21:24)
[2024-09-25] MEDS: PROSCAR 5 MG PO (21:24)
[2024-09-25 22:24] LABS: Glucose - Point of Care 170 mg/dl (70-99)
[2024-09-25 23:08] VITALS: BP 132/76
[2024-09-26 07:27] LABS: Hematocrit 43.3 % (39.0-52.0); Hemoglobin 14.2 g/dL (13.0-18.0); Mean Corp Hgb Conc. 32.8 g/dL (33.0-37.0); Mean Corpuscular Hgb 31.3 pg (27.0-31.0); Mean Corpuscular Volume 95.4 fL (80.0-94.0); Mean Platelet Volume 10.9 fL (7.4-10.4); Platelet Count 192 10^3/uL (130-400); Red Blood Cell Count 4.54 10^6/uL (4.70-6.10); Red Cell Dist. Width 12.5 % (11.5-14.5)
[2024-09-26 07:30] VITALS: BP 129/77
[2024-09-26 07:41] LABS: Glucose - Point of Care 129 mg/dl (70-99)
[2024-09-26] MEDS: NOVOLOG FLEXPEN-LOW RESISTANCE SC (08:24)
[2024-09-26] MEDS: INDERAL LA 80 MG PO (08:28)
[2024-09-26] MEDS: COLACE 100 MG PO (08:28)
[2024-09-26] MEDS: GLUCOPHAGE 500 MG PO (08:28)
[2024-09-26] MEDS: GLUCOTROL 5 MG PO (08:28)
[2024-09-26 08:50] LABS: Folate 13.9 ng/ml (2.76-20)
--- NOTE | 2024-09-26 11:09 | W.PN.URO.CBU ---
Today's Communication / Plan
-
Advise treatment of MDR UTI in the setting of heightened urine frequency and gross hematuria
Assessment / Plan
-
neurogenic bladder/OAB
hx of UTI: currently with MDR Staph hemolyticus
Hemorrhagic cystitis
Diagnosis
-
Date of Service: September 26, 2024
-
Patient Diagnosis:
neurogenic bladder
recurrent UTI: MDR Staph haemolyticus
hematuria: likely hemorrhagic cystitis
Subjective
-
Comfortable
No SP pain or CVAT
Objective
-
Vital Signs
Temp Pulse Resp BP Pulse Ox
97.6 F 68 17 129/77 95
09/26/24 07:30 09/26/24 07:30 09/26/24 07:30 09/26/24 07:30 09/26/24 07:30
Intake and Output
09/25/24 09/26/24 09/27/24
06:59 06:59 06:59
Intake Total 1840 / 1840 1560 / 1560
Output Total 1400 / 1400 520 / 520
Balance 440 / 440 1040 / 1040
Intake:
Oral fluids 880 / 880 1440 / 1440
IV fluids (Total) 960 / 960 120 / 120
Output:
Urine, Voided 1050 / 1050 520 / 520
True Urine Output from CBI 350 / 350
Other:
Number of approximated MODERATE 2
amounts of urine
How many times incontinent 3
MODERATE amount urine
Laboratory Results
09/26/24 06:40
09/24/24 07:47
Review of Systems
-
Constitutional: Fatigue
Respiratory: No Symptoms
Cardiac: No Symptoms
Abdomen/GI: No Symptoms
: Frequency and Bleeding
Physical Exam
-
General - well developed, well nourished, no acute distress
Abdomen - soft, non-tender, no SP pain, no CVAT
Genitalia - normal
Skin - warm & dry with no rash
Counseling
-
Discussed with Hospitalist
Have plans to proceed with cystoscopy 10/02/24
--- NOTE | 2024-09-26 11:15 | W.PN.UPDATE ---
Update Note
Progress Note Update
chart reviewed. spoke with dr jett. the patient was at mri. the patient will likely be leaving today dr jett was given the names of several neuropsychologists who can do testing including dr jarod pryor who accepts medicare, [facility] who is in [place] and is private pay and ashley benedict whose office is in [facility]. psych will sign off at this point. continue to recommend that he had neuropsych testing to assess and provide a baseline in the event of future
concerns re mental status.
[2024-09-26 13:35] LABS: Glucose - Point of Care 168 mg/dl (70-99)
[2024-09-26] MEDS: NOVOLOG FLEXPEN-LOW RESISTANCE 1 UNITS SC (13:41)
[2024-09-26] MEDS: VIBRAMYCIN 100 MG PO (14:17)
--- NOTE | 2024-09-26 14:24 | CM ---
Reviewed the chart notes. Patient seen ambulating ad treasure in room. CM continues to be available to patient/family and is monitoring medical plan for needs at discharge.
Plan: Discharge to home when medically stable. No needs anticipated.
--- NOTE | 2024-09-26 14:52 | W.PN.ID1 ---
Date of Service
Date of Service: September 26, 2024
Today's Communication
See below.
Assessment / Plan
# Gross hematuria
-Unlikely due to UTI given negative Ucx's and nonsignificant CFU.
08/02/24 UA 2+LE, >30 RBC, >30WBC, Ucx no growth
08/19/24 UA 2+ LE, >100 RBC, >100wbc, Ucx no growth
09/02/24 UA 2+LE, >30 RBC, >30WBC, Ucx <10K organisms , non significant
09/09/24 UA 2+LE, >30 RBC, >30WBC, Ucx <10K organisms , non significant
09/22/24 UA 2+LE, >100 RBC, , Ucx <30K mixed joel,nonsignificant
- Hematuria is not due to UTI
- CT a/p left perinephric stranding seen in prior CT scans. ? due to passing stones
-s/p CBI.
-09/24/24 UA >RBC, NEG NITRITE,NEG LE, SCANT wbc 6-10
Ucx 40,000 CFU Staphylococcus haemolyticus
- 09/26/24 Repeat Ucx pending
- I discussed with pt and family that in my opinion, the Staph haemolyticus bacteruria is more of contaminant/colonization then UTI, given bland UA and <100K bacteria. They should pursue other source of refractory hematuria and not focus on
'UTI's'. Having said that, I do not object to a course of empiric doxycycline 100mg po bid. I went over potential side effects of doxycycline.
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
CVA s/p tPA 11/22/22, L ICA stent placement 11/25/22
DM type II
HTN
Dyslipidemia
Diverticulosis
Osteoarthritis
Nephrolithiasis s/p Laser lithotripsy
Anxiety
JANA
BPH
Plantar fasciitis
Scoliosis
Restless leg syndrome
Insomnia
Chronic low back pain
InterStim placement for neurogenic bladder in 08/2024, refractory
(L) ICA stent (11/25/22)
Chief Complaint
-: Other (Hematuria)
Subjective / Review of Systems
Asked to see pt for + urine culture.
and sister at bedside.
Pt continues to have gross hematuria.
Vital Signs / Physical Exam
Vital Signs
Vital Signs
Temp Pulse Resp BP Pulse Ox
97.6 F 68 17 129/77 95
09/26/24 07:30 09/26/24 07:30 09/26/24 07:30 09/26/24 07:30 09/26/24 07:30
Physical Exam
Constitutional: No Acute Distress and Comfortable
Eyes: Sclera Anicteric
Genito-Urinary: Negative CVA Tenderness
Extremities: Negative Edema
Neurological: AO x 3
Objective Data
Lab Data
Lab Results
09/26/24 06:40
09/24/24 07:47
ESR 16 mm/hour (0-20) 09/25/24 06:09
Estimated Creat Clear 68 ml/min 09/24/24 07:47
Total Bilirubin 0.7 mg/dl (0.2-1.3) 09/22/24 10:50
AST 25 U/L (17-59) 09/22/24 10:50
ALT 26 U/L (0-50) 09/22/24 10:50
Alkaline Phosphatase 79 U/L (38-126) 09/22/24 10:50
C-Reactive Protein 32.60 mg/L (0.0-10.00) H 09/25/24 06:09
Most recent labs reviewed.
Micro Results:
09/24/24 11:18 Urine Culture - Final
Urine Staphylococcus haemolyticus
09/26/24 06:12 Urine Culture - Pending
Urine
09/22/24 10:50 Urine Culture - Final
Urine
Urine Culture Final 09/24/24-0859
CC: 40,000 CFU/ML Staphylococcus haemolyticus
Organism 1 Staphylococcus haemolyticus
1. Staphylococcus haemolyticus
M.I.C. RX
--------- ---
Amoxicillin/Potas. Clavulanate >4/2 R
Ampicillin >8 R
Gentamicin >8 R
Levofloxacin >4 R
Oxacillin >2 R
Nitrofurantoin-Urine Only <=32 S
Tetracycline <=4 S
Trimethoprim/Sulfamethoxazole >2/38 R
Vancomycin 4 S
09/22/24 CT a/p: No obstructing ureteral calculus, bilaterally. 2 mm nonobstructing left renal calculus. On the left, there is mild soft tissue stranding surrounding left kidney and in the left renal sinus as well as associated with the proximal to
mid ureter. It could reflect superimposed infection. There is a catheter within the urinary bladder which is collapsed, though suggested wall thickening and perivesical mild soft tissue stranding. This could indicate cystitis. Clinical correlation
recommended.
Care Review
Plan reviewed with: Physician (Dr. Kalina Marcus)
[2024-09-26 15:13] VITALS: BP 148/87
== END 2024-09-26 16:01 | disposition home or self-care (01) | DRG 683 ==
LOC: 2 NORTH 12:29
PROVIDERS: Internal Medicine; Specialist; Student in an Organized Health Care Education/Training Program; ADMITTING PHYSICIAN Specialist; CONSULT PHYSICIAN Internal Medicine Infectious Disease; CONSULT PHYSICIAN Psychiatry & Neurology Neurology; CONSULT PHYSICIAN Psychiatry & Neurology Psychiatry; EMERGENCY PHYSICIAN Emergency Medicine; FAMILY PHYSICIAN Family Medicine; OTHER PHYSICIAN Hospitalist
DX: N17.9 Acute kidney failure, unspecified (principal); G93.40 Encephalopathy, unspecified; E11.9 Type 2 diabetes mellitus without complications; I10 Essential (primary) hypertension; N31.9 Neuromuscular dysfunction of bladder, unspecified
CPT/HCPCS: 51702; 51798; 70553; 72141; 72146; 74176; 80048; 80053; 81003; 81015; 82607; 82746; 82962; 83036; 84425; 84443; 85025; 85027; 85652; 86140; 87086; 87147; 87186; 95816; 99285; A9575

== ENCOUNTER 2024-09-26 21:58 | Inpatient (IN) | payer BC, MEDICARE, SELFPAY ==
[2024-09-26] VITALS (7 sets, daily range): BP systolic 131–145; BP diastolic 79–102; BMI 25.3
--- NOTE | 2024-09-26 19:02 | ED.GENMED ---
History of Present Illness
General
Chief Complaint: Male Genito-Urinary Symptoms
Source: patient
Exam Limitations: none
Time Seen by Provider: 09/26/24 18:29
History of Present Illness
History of Present Illness:
This is a 69 year old male that comes in with c/o hematuria. States that he was here on Monday and just discharged today. States that he has had blood in his urine for several weeks. States that he has been working with Dr. Castellanos. State that he
left the hospital at 3pm and he was still having Hematuria. States that he came back to the ER at 4pm with blood in the urine and clots. Told that the patient was also started on Doxycyclin before he left for possible infection. However, he was told
by Infectious disease that this is most likely not a UTI but they did not disagree with a course of antibiotics.
Past History
Past History
ED Past Medical History: CVA (Right hemiparesis, ), Hypercholesterolemia, NIDDM, Psychiatric (Anxiety) and Other (Back pain, Essential tremors. Sleep apnea, Diverticulitis, Renal calculus, Nocturia, )
ED Past Surgical History: Cardiac (Carotid stent), Orthopedic (Back fusion X 2, Right and left rotator cuff, Left and right hip replacement, ), Urological (Lithotripsy, stent) and Other (Cataracts, Deviated septum, )
Social History
Tobacco: Non-smoker
Alcohol: Occasional
Drug: None
Personal:
Living: with family
Employment: Other
Family History
Family History: Other
Review of Systems
Review of Systems
All Other Systems: ROS reviewed and negative except as documented in HPI and ROS
Constitutional: Reports no symptoms; Denies fever or chills
EENT: Reports no symptoms
Respiratory: Reports no symptoms; Denies cough or trouble breathing
Cardiac: Reports no symptoms; Denies chest pain
ABD/GI: Reports no symptoms; Denies abdominal pain, nausea, vomiting or diarrhea
: Reports bleeding (Hematuria)
Musculoskeletal: Reports no symptoms
Skin: Reports no symptoms
Neurological: Reports no symptoms; Denies dizzy or headache
Psychiatric: Reports no symptoms
Phy Exam
General Physical Exam
General Presentation: no apparent distress
General age: appears stated age
General Skin: warm and dry
General Habitus: elderly
General Mental: alert
General Hydration: dry mucous membranes
ENT Exam
ENT Exam: TM's normal, pharynx normal and neck supple
Eye Exam
Eye Exam: EOMI
Cardiovascular Exam
Cardiovascular Exam: regular rate/rhythm, no edema, no murmur and normal peripheral pulses
Pulmonary Exam
Pulmonary Exam: lungs clear, no respiratory distress, no rales, chest non tender, no crackles, no rhonchi, no wheezing and no cough
Gastrointestinal Exam
Gastrointestinal Exam: normal bowel sounds, non tender, soft, no organomegaly, no pulsatile mass and non distended
Musculoskeletal Exam
Musculoskeletal Exam: full ROM and no edema
Skin Exam
Skin Exam: normal color, warm/dry, no rash and no petechia
Psychiatric Exam
Psychiatric Exam: normal mood/affect
Course
Orders/Labs/Results
Orders:
Orders
09/26/24 18:36
Complete Blood Count/With Diff Urgent
09/26/24 19:10
Urinalysis Reflex To Culture Urgent
0.9% Sodium Chloride 1000 ml [Nss] 1,000 ml IV BOLUS
09/26/24 19:45
CBI- Treatment PRN
Solution: nss
Irrigate to Clear?: Yes
[place] Placement- Treatment ONCE
Reason for insertion: Urology Determination
09/26/24 19:49
Consult Urology [UROLOGY CONSULT] Urgent
Consulting Provider: William Canela Jr.
Was physician already notified: Yes
09/26/24 19:55
Basic Metabolic Panel Urgent
09/26/24 20:08
diazePAM [Valium Injection] 10 mg .ROUTE .STK-MED ONE
09/26/24 20:43
HYDROmorphone [Dilaudid] 0.5 mg .ROUTE .STK-MED ONE
09/26/24 20:45
HYDROmorphone [Dilaudid] 0.5 mg IV NOW STA
HYDROmorphone [Dilaudid] 0.5 mg IV Q3HPRN PRN
Activity As Directed
Activity Level: Bedrest
Catheter- Indwelling As Directed
Reason for insertion: Urology Determination
09/26/24 20:46
Continous Bladder Irrigation As Directed
Solution: Normal Saline
Keep urine: Clear
09/26/24 21:00
Doxycycline [Vibramycin] 100 mg PO Q12
Abnormal Lab Results
09/26/24 09/26/24
18:36 19:55
MCV 96.0 H fL
(80.0-94.0)
MCH 31.5 H pg
(27.0-31.0)
MCHC 32.8 L g/dL
(33.0-37.0)
MPV 11.0 H fL
(7.4-10.4)
Absolute Neuts (auto) 7.4 H 10^3/uL
(1.4-6.5)
Absolute Monos (auto) 0.9 H 10^3/uL
(0.1-0.6)
Lymphocytes % 11.9 L %
(20.5-51.1)
Monocytes % 9.5 H %
(1.7-9.3)
BUN 28 H mg/dl
(9-20)
Glucose 111 H mg/dl
(70-99)
09/26/24 18:36
09/26/24 19:55
Slight anemia, Dehydration. Hyperglycemia.
Vital Signs
Initial and Last Documented VS:
Initial Vital Signs
Temp Pulse Resp BP Pulse Ox
98.2 F 84 18 145/102 98
09/26/24 17:15 09/26/24 17:15 09/26/24 17:15 09/26/24 17:15 09/26/24 17:15
Last Documented Vital Signs
Temp Pulse Resp BP Pulse Ox
98.2 F 84 18 145/102 98
09/26/24 17:15 09/26/24 17:15 09/26/24 17:15 09/26/24 17:15 09/26/24 17:15
MDM/Problems Addressed
Differential Diagnosis Includes:
Hematuria
MDM/Problems Addressed:
This is a 69 year old male that comes in with c/o hematuria. Patient was just discharged at 3pm with hematuria and came back at 4pm as he had hematuria with clots.
Will check labs and get Urine. Will bladder scan. Message sent to Dr. Canela.
Dr. Canela said to admit to the hospitalist and put a Three way catheter in with Irrigation. Hospitalist notified. Back into see patient and his . Made aware of plan to admit patient and place a [place] with irrigation.
Dr. Canela here and he place the Three way catheter.
Chronic conditions affecting care:
Hematuria
Acute Exacerbation and/or Progression of Chronic Illness:
Hematuria
*Pulse Oximetry
Patient hypoxic: no
*EKG
Interpreted by ED Provider?: NA
Rate: EKG- N/A
*Long Term Acute Care Registered Nurse Interpretation
Rate: normal
Heart Rate: 78
Rhythm: sinus
*Critical Care Note
Total Time (30-74mins, 75-104mins- exclusive of procedures): Not Applicable
ED Attending Note
-
Portions of this chart may have been created with voice recognition software.� Occasional wrong word or��sound alike� substitutions may have occurred due to the inherent limitations of voice recognition software.
Discharge Plan
Departure
Patient Disposition: Admit
Date of Disposition: 09/26/24
Time of Disposition: 19:52
Presentation/result/management discussed w/ accepting MD/DO: Hospitalist
Patient with high blood pressure during this ER visit?: Yes
Condition: Good
Covid-19: Not Applicable
Discharge Problem:
Hematuria
Prescriptions:
No Action
atorvastatin 80 mg Tablet
80 mg PO HS
propranolol 80 mg Capsule,Extended Release 24 Hr
80 mg PO DAILY
venlafaxine 150 mg capsule,extended release 24hr
150 mg PO HS
tamsulosin [Flomax] 0.4 mg capsule
0.4 mg PO HS
finasteride 5 MG tablet
5 mg PO HS
glipizide 5 mg tablet
2.5 mg PO DAILY
doxycycline hyclate 100 mg Capsule
100 mg PO Q12 Qty: 20 0RF
docusate sodium [Colace] 100 mg Capsule
100 mg PO BID
aspirin 81 mg Tablet,Chewable
81 mg PO HS
metformin 500 MG tablet
500 mg PO BID Qty: 60 0RF
Referrals:
UNKNOWN - PT DOES,NOT KNOW [Family Provider] -
Interventions
Interventions:
*Risk Screen - Suicide Last Done: 09/26/24 17:15
*General Assessment Last Done: 09/26/24 17:15
*Neglect/Abuse Screening Last Done: 09/26/24 17:15
*ED COVID-19 Vaccine History Last Done: 09/26/24 17:15
Discharge Date and Time
Print Language: ICELANDIC
[2024-09-26 19:06] LABS: % Basophils 0.7 % (0-2); % Eosinophils 2.9 % (0-6); % Immature Granulocytes 0.4 % (0-0.5); % Lymphocytes 11.9 % (20.5-51.1); % Monocytes 9.5 % (1.7-9.3); % Neutrophils 74.6 % (42.2-75.2); Absolute Basophils 0.1 10^3/uL (0-0.2); Absolute Eosinophils 0.3 10^3/uL (0-0.7); Absolute Lymphocytes 1.2 10^3/uL (1.2-3.4); Absolute Monocytes 0.9 10^3/uL (0.1-0.6); Absolute Neutrophils 7.4 10^3/uL (1.4-6.5); Hematocrit 46.1 % (39.0-52.0); Hemoglobin 15.1 g/dL (13.0-18.0); Mean Corp Hgb Conc. 32.8 g/dL (33.0-37.0); Mean Corpuscular Hgb 31.5 pg (27.0-31.0); Nucleated Red Blood Cells % 0 % (-); Platelet Count 211 10^3/uL (130-400); Red Cell Dist. Width 12.6 % (11.5-14.5); White Blood Cell Count 9.9 10^3/uL (4.8-10.8)
[2024-09-26] MEDS: NSS 1000 IV (19:52)
[2024-09-26 20:24] LABS: Blood Urea Nitrogen 28 mg/dl (9-20); Calcium 9.5 mg/dl (8.4-10.2); Carbon Dioxide 24 mmol/L (22-30); Chloride 103 mmol/L (98-107); Glucose 111 mg/dl (70-99); Sodium 137 mmol/L (135-145); eGFR > 60.00
--- NOTE | 2024-09-26 20:35 | HPS.HSE ---
Family Physician
-
Family Physician: NOT KNOW UNKNOWN - PT DOES
Chief Complaint
-
Gross hematuria
History of Present Illness
69-year-old male Who states he was discharged earlier today after being admitted from 09/23-09/25 secondary to hematuria with clots requiring CBI. His CBI was DC'd on 09/24. He reports he was voiding but still having some clots he is not sure if he
discussed this with the nurse. He had 2 large clots here in the ER 1 round plum size 1 long fingerlike followed by explosive strawberry tinged urine here in the ER. He was seen by Dr. Canela at bedside and a three-way Moise with CBI was placed he
is currently draining strawberry in color with no current clots. He denies current headache, fever, chills, chest pain, palpitations, shortness breath, cough, abdominal pain, nausea, vomiting, diarrhea. His is currently at bedside. They are
both made aware he may have clear liquid diet until midnight and then n.p.o. for possible cystoscopy in a.m. I made both the patient and aware I will have Accu-Cheks every 4 hours to follow his blood sugar due to history of diabetes and
hypoglycemia reported and we will cover with IV dextrose. The patient typically wears a continuous glucose monitor but took off due to current MRIs he received while inpatient. He has past medical history of Blood loss anemia due to hematuria,
Cerebrovascular accident s/p tPA 11/22/22, L ICA stent placement 11/25/22,Type 2 diabetes mellitus
Essential hypertension, Hyperlipidemia, Diverticulosis,Osteoarthritis,Renal calculi,Anxiety,Obstructive sleep apnea, Hemorrhoids, Fatty liver disease,Plantar fasciitis, Scoliosis, Restless legs, Insomnia, Chronic low back pain
Medical History
Past Medical History
Past Medical History: Reports Other
Additional Past Medical History:
Blood loss anemia due to hematuria
Cerebrovascular accident s/p tPA 11/22/22, L ICA stent placement 11/25/22
Type 2 diabetes mellitus
Essential hypertension
Hyperlipidemia
Diverticulosis
Osteoarthritis
Renal calculi
Anxiety
Obstructive sleep
Hemorrhoids
Fatty liver disease
Plantar fasciitis
Scoliosis
Restless legs
Insomnia
Chronic low back pain
Past Surgical History: Reports Urological (lithotripsy and ureteral stent placement on 04/23/2024 ) and Other
Additional Past Surgical History:
L ICA stent
L3-L4 laminectomy
ureteral stent
R [place]
R reverse shoulder arthroplasty
R knee arthroscopy
L shoulder arthroscopy
lower eyelid blepharoplasty
Social History
Tobacco: Non-smoker
Alcohol: None
Personal:
Living: With Family
Employment: Employed ([employer])
Family History
Family History: Not pertinent
Allergies / Home Medications
Allergies reflects when Allergies were last updated in [facility].
Home Medications with original date entered in [facility]
Allergy/Medication List:
Allergies
Allergy/AdvReac Type Severity Reaction Status Date / Time
shellfish derived Allergy congestion Verified 09/22/24 09:26
Home Medications
aspirin 81 mg chewable tablet 81 mg PO HS Blood Clot Prevention/Tx 11/28/22
metformin 500 mg tablet 500 mg PO BID #60 tabs 12/07/22
atorvastatin 80 mg tablet 80 mg PO HS High Cholesterol 03/02/24
propranolol 80 mg capsule,24 hr,extended release 80 mg PO DAILY tremors 03/02/24
tamsulosin 0.4 mg capsule (Flomax) 0.4 mg PO HS Urinary Issue 04/17/24
venlafaxine 150 mg capsule,extended release 24 hr 150 mg PO HS anxiety 04/17/24
finasteride 5 mg tablet 5 mg PO HS 08/15/24
glipizide 5 mg tablet 2.5 mg PO DAILY 09/22/24
docusate sodium 100 mg capsule (Colace) 100 mg PO BID 09/26/24
doxycycline hyclate 100 mg capsule 100 mg PO Q12 #20 caps 09/26/24
Review of Systems
-
History Source: Patient and Family ( and son at bedside)
A 12 point ROS was completed and negative except as noted: Yes
Constitutional: Denies Fever or Fatigue
EENT: Denies Sore Throat or Runny Nose
Respiratory: Denies Cough or Trouble Breathing
Cardiac: Denies Chest Pain, Diaphoresis, Palpitations or Syncope
Abdomen/GI: Reports Abdominal Pain (Lower suprapubic); Denies Nausea, Vomiting, Diarrhea or Constipated
: Reports Bleeding (Hematuria with clots) and Moise (CBI placed in ER)
Musculoskeletal: Denies Joint Pain or Edema
Skin: Denies Itching or Rash
Neurological: Denies Dizzy or Headache
Endocrine: Reports No Symptoms
Hematologic/Lymphatic: Reports No Symptoms
Psych: Reports Calm
Physical Exam
Vital Signs
Vital Signs
Temp Pulse Resp BP Pulse Ox
98.2 F 84 18 145/102 98
09/26/24 17:15 09/26/24 17:15 09/26/24 17:15 09/26/24 17:15 09/26/24 17:15
Physical Exam
General: Conversant; No Pain, Fever or Chills
HEENT: NormoCephalic, Anicteric, Moist mucous membranes, PERRLA, [place] Conjunctivae and No Ptosis
Respiratory: Clear; No Wheezes, Rales or Rhonchi
Cardiac: S1/S2 and Regular Rhythm; No Murmur, Rub, Gallop or Peripheral Edema
Breast: Deferred by me
GI: Soft, Non Tender, Non Distended, Normal Bowel Sounds and No Hepatosplenomegaly
Rectal: Deferred by Provider
Genito-urinary: Moise (Three-way Moise with CBI draining strawberry in color no current clots)
Musculoskeletal: No Clubbing, No Cyanosis and No Edema
Skin: Warm and Dry; No Rash
Neuro: AO x 3, No Motor Deficits and No Sensory Deficits; No Slurred Speech, Facial Droop, Tremors or Sedated
Psych: Calm
Laboratory Results
-
09/26/24 18:36
09/26/24 19:55
Laboratory Results
Total Bilirubin Cancelled 09/26/24 19:55
AST Cancelled 09/26/24 19:55
ALT Cancelled 09/26/24 19:55
Alkaline Phosphatase Cancelled 09/26/24 19:55
Data Reviewed
-
Lab Data: Labs Reviewed by me
Impression/Plan
-
Impression/plan:
Admit to [facility]
# Recurrent Gross hematuria likely hemorrhagic cystitis history neurogenic bladder unlikely UTI/nonsignificant CFU
Cleared with CBI 09/25/2024 but returned today 09/26/2024
Hgb 15.1
-Clear liquid diet, then clear liquid diet until midnight and then n.p.o. for possible cystoscopy in a.m.
-CBI
-Dilaudid for pain, Valium 5 mg IV every 6 hours scheduled for now due to urinary spasm
-Will start Doxycycline 100 mg twice daily-this is okay with Dr. Canela
-Continue Flomax 0.4 mg Hx
-HOLD Aspirin 81 mg at bedtime
-This recent admission 09/23 - 09/25/2024 Dr. Camara infectious disease had discussion with patient and family regarding the Staph haemolyticus bacteruria is more of contaminant/colonization then UTI
-She does not object to a course of empiric Doxycycline 100 mg p.o. twice daily
Patient was evaluated by infectious disease with the below findings
08/02/24 UA 2+LE, >30 RBC, >30WBC, Ucx no growth
08/19/24 UA 2+ LE, >100 RBC, >100wbc, Ucx no growth
09/02/24 UA 2+LE, >30 RBC, >30WBC, Ucx <10K organisms, non significant
09/09/24 UA 2+LE, >30 RBC, >30WBC, Ucx <10K organisms , non significant
09/22/24 UA 2+LE, >100 RBC, , Ucx <30K mixed joel,nonsignificant
-09/24/24 UA >RBC, NEG NITRITE,NEG LE, SCANT wbc 6-10
Ucx 40,000 CFU Staphylococcus haemolyticus
- 09/26/24 Repeat Ucx pending
- CT a/p left perinephric stranding seen in prior CT scans. ? due to passing stones
#Urinary incontinence
Interstim(bladder pacemaker) in place nonfunctional
-S/p Botox injection-reportedly did not work for patient
-Urology following.
#Type 2 diabetes mellitus
-HbA1c 7.6, was 6.8 (06/08).
-Urinalysis with glucosuria, and albuminuria.
-was just recently d/c off Farxiga at discharge 09/26/2024 with goal to maximize metformin.
-HOLD metformin 500 mg twice daily, glipizide 2.5 mg daily
-Encourage carb-controlled diet post cystoscopy
-Since patient currently n.p.o. after midnight will check blood sugars every 4 hours and have IV dextrose as needed for BS<70 and insulin per SSI low
#HTN-benign
145/102
Patient is on propranolol 80 mg daily for tremors will monitor need for additional BP control, although felt to be due to pain from hematuria
#Change in mental acuity and physical ability
-MRI 04/2024 negative for acute stroke during episode of TME.
-Continue with his venlafaxine 150 mg at bedtime
Per psychiatry Dr. Bhardwaj :
Patient may follow-up with neuropsychologists who can do testing including dr jarod pryor who accepts medicare, [facility] who is in [place] and is private pay and ashley benedict whose office
is in [facility].
Repeat MRI brain with and without contrast shows no evidence of acute stroke but shows sequela of mild small vessel ischemic disease with a foci of encephalomalacia in the superior left frontal lobe
overall similar in appearance to prior.
EEG shows abnormal awake and asleep EEG due to intermittent left frontal slowing indicative of focal cerebral dysfunction. There is no evidence of epileptiform activity
#History of CVA
-Nonfocal neurologic exam on admission.
-HOLD aspirin
-Continue atorvastatin
#MONICA recent will monitor
Creat was 1.4 on 09/22/2024 currently 1.0
-Resolved after CBI and catheter On recent admission
-Patient is requiring repeat CBI due to recurrent hematuria
#Sleep apnea
-Patient does not use CPAP at home, uses mouthguard
-Discussed the need for CPAP and encouraged to get sleep study outpatient.
#History of Essential tremors
-Continue propranolol 80 mg daily.
-Monitor BP and hold with SBP <100
DVT PPx-teds
CODE STATUS-full code
--- NOTE | 2024-09-26 20:43 | CON.MD ---
Consultation - Medical
-
see dictated note
pt just left today- now back with recurrent hematuria and clot retention
i was only able to place 20 [place]- hand irrigated- moderate clot- cbi restarted
admit/doxy/cbi/track hgb
[2024-09-26] MEDS: DILAUDID 0.5 MG IV (20:49)
--- NOTE | 2024-09-26 21:31 | W.PN.UPDATE ---
Update Note
Progress Note Update
This is an addendum to the H&P written by Caity Zambrano on 09/26/2024.� Patient seen and examined independently with [facility] [employer].
69-year-old male past medical history of nephrolithiasis, recurrent UTIs, BPH, refractory neurogenic bladder with bladder stimulator, chronic urinary incontinence, type 2 diabetes, hypertension, obstructive sleep apnea, CVA status post tPA in 2022,
left ICA stent placement November 2022, chronic lower back pain, restless leg syndrome, anxiety, presenting with persistent hematuria with clots.
Patient was admitted from 09/23 to today and was discharged earlier for hematuria which was treated with CBI.� Urine culture grew Staphylococcus hemolyticus with 40,000 CFU which infectious disease thought was contaminant/colonization rather than UTI
given bland urinalysis.� Doxycycline was recommended.� Outpatient cystoscopy on 10/02 was recommended.
Patient seen by urology and catheter placed and irrigation with moderate clots.� CBI to be restarted.� Continue doxycycline.� Clear liquids, n.p.o. past midnight for potential cystoscopy tomorrow.
[2024-09-26] MEDS: VIBRAMYCIN 100 MG PO (22:10)
[2024-09-26] MEDS: VALIUM INJECTION 5 MG IV (22:32)
[2024-09-27] VITALS (12 sets, daily range): BP systolic 113–157; BP diastolic 64–92; BMI 24.9
[2024-09-27] MEDS: DILAUDID 0.5 MG IV ×4 (00:29→13:02)
[2024-09-27] MEDS: FLUSH (NSS) 2 FLUSH IV ×2 (00:30→04:37)
[2024-09-27] MEDS: NSS 1000 IV ×2 (00:31→17:19)
[2024-09-27 00:35] LABS: Glucose - Point of Care 107 mg/dl (70-99)
[2024-09-27] MEDS: PROSCAR 5 MG PO ×2 (00:44→20:49)
[2024-09-27] MEDS: LIPITOR 80 MG PO ×2 (00:44→20:49)
[2024-09-27] MEDS: FLOMAX 0.4 MG PO ×2 (00:44→20:50)
[2024-09-27] MEDS: EFFEXOR XR 150 MG PO ×2 (00:47→20:49)
[2024-09-27] MEDS: VALIUM INJECTION 5 MG IV ×3 (04:37→20:50)
[2024-09-27 05:19] LABS: Glucose - Point of Care 123 mg/dl (70-99)
[2024-09-27 07:34] LABS: Glucose - Point of Care 110 mg/dl (70-99)
--- NOTE | 2024-09-27 07:37 | PTCARENOTE ---
Patient received from ED via stretcher and ambulated to bed with Ax2. CBI maintained. Moise draining light punch. He was oriented to room and surroundings. See nursing assessment for physical findings. IVF per order. Throughout shift Moise
leaking around penis x2. Hand irrigated for approx 5 small to medium sized clots. Dilaudia 0.5mg for pain x 2 this shift with adequate relief. Patient sleeping after administration. CHG clothe wipes x 1.
[2024-09-27] MEDS: COLACE 100 MG PO ×2 (08:00→20:49)
[2024-09-27] MEDS: VIBRAMYCIN 100 MG PO (08:00)
[2024-09-27] MEDS: INDERAL LA 80 MG PO (08:00)
[2024-09-27] MEDS: FLUSH (NSS) 1 FLUSH IV ×2 (08:06→10:31)
[2024-09-27 09:18] LABS: % Basophils 0.6 % (0-2); % Eosinophils 3.1 % (0-6); % Immature Granulocytes 0.4 % (0-0.5); % Lymphocytes 11.7 % (20.5-51.1); % Monocytes 12.3 % (1.7-9.3); % Neutrophils 71.9 % (42.2-75.2); Absolute Basophils 0.1 10^3/uL (0-0.2); Absolute Eosinophils 0.2 10^3/uL (0-0.7); Absolute Lymphocytes 0.9 10^3/uL (1.2-3.4); Absolute Neutrophils 5.6 10^3/uL (1.4-6.5); Hematocrit 42.5 % (39.0-52.0); Mean Corp Hgb Conc. 32.9 g/dL (33.0-37.0); Mean Corpuscular Hgb 31.5 pg (27.0-31.0); Mean Corpuscular Volume 95.7 fL (80.0-94.0); Mean Platelet Volume 10.5 fL (7.4-10.4); Nucleated Red Blood Cells % 0 % (-); Platelet Count 180 10^3/uL (130-400); Red Blood Cell Count 4.44 10^6/uL (4.70-6.10); Red Cell Dist. Width 12.5 % (11.5-14.5); White Blood Cell Count 7.8 10^3/uL (4.8-10.8)
[2024-09-27 09:59] LABS: ALT (SGPT) 19 U/L (0-50); AST (SGOT) 19 U/L (17-59); Albumin 3.6 g/dl (3.5-5.0); Alkaline Phosphatase 68 U/L (38-126); Blood Urea Nitrogen 19 mg/dl (9-20); Calcium 8.7 mg/dl (8.4-10.2); Carbon Dioxide 29 mmol/L (22-30); Chloride 104 mmol/L (98-107); Estimated Creatinine Clearance 83 ml/min; Glucose 120 mg/dl (70-99); Sodium 140 mmol/L (135-145); Total Bilirubin 0.5 mg/dl (0.2-1.3); Total Protein 5.8 g/dl (6.3-8.2); eGFR > 60.00
[2024-09-27 10:28] LABS: Glucose - Point of Care 131 mg/dl (70-99)
--- NOTE | 2024-09-27 11:30 | CM ---
Patient seen at bedside.
Dx: Recurrent gross hematuria
PMH: recurrent UTI's, nephrolithiasis, BPH, refractory neurogenic bladder w/bladder stimulator, DMII, HTN, JANA
IA completed.
Recent hospitalization
Patient lives in a 3 story home, 2 steps to enter, flight to the second floor
PLOF: Independent, no assistive device
DME: glucometer
States had [facility] in past for hip replacement, has had rehab but does not recall location
PCP: Daniel Alfaro [facility]
Pharmacy: [address] [facility]
PLAN: home, currently no needs anticipated.
--- NOTE | 2024-09-27 13:18 | W.PN.HOSP.TC ---
Today's Communication/Plan
-
Continue with CBI. Follow H&H.
Continue with antibiotics.
Assessment / Plan
Assessment / Plan
# Recurrent gross hematuria with clot retention.
history neurogenic bladder
Patient was discharged yesterday came back due to clot retention. Currently comfortable after Moise placement and CBI treatments for hematuria.
Urology consult-continue the CBI. Cystoscopy as per urology.
# Nonsignificant bacteriuria with 40,000 colony count of Staphylococcus hemolyticus on last admission.
This was from specimen 09/24 ;on the specimen from 09/26 was negative urine without antibiotics.
Unclear if this truly has a UTI but giving the benefit of doubt , on emprical doxycycline
#Urinary incontinence
Interstim(bladder pacemaker) in place nonfunctional
-S/p Botox injection-reportedly did not work for patient
-Urology following.
#Type 2 diabetes mellitus
-HbA1c 7.6, was 6.8 (06/08).
-Urinalysis with glucosuria, and albuminuria.
-was just recently d/c off xiga at discharge 09/26/2024 with goal to maximize metformin.
-HOLD metformin 500 mg twice daily, glipizide 2.5 mg daily
-Encourage carb-controlled diet post cystoscopy
-Since patient currently n.p.o. after midnight will check blood sugars every 4 hours and have IV dextrose as needed for BS<70 and insulin per SSI low
#HTN-benign
145/102
Patient is on propranolol 80 mg daily for tremors will monitor need for additional BP control, although felt to be due to pain from hematuria
#Change in mental acuity /personality/ physical ability
-Recent neurological workup was nondiagnostic. Was seen by neurology and psychiatry. Plan was to follow-up with the neuropsychologist as an outpatient.
-Continue with his venlafaxine 150 mg at bedtime
#History of CVA
-Nonfocal neurologic exam on admission.
-cw aspirin as bleeding improved now
-Continue atorvastatin
#Sleep apnea
-Patient does not use CPAP at home, uses mouthguard
-Discussed the need for CPAP and encouraged to get sleep study outpatient.
#History of Essential tremors
-Continue propranolol 80 mg daily.
-Monitor BP and hold with SBP <100
DVT PPx-teds
CODE STATUS-full code
Anticipated Discharge: > 48 hours
Subjective/Interval History
-
Date of Service: September 27, 2024
Send this morning. Patient returned back because of hematuria with clot retention. Currently Moise catheter in and getting a CBI with good clearance of hematuria.
Patient is very sleepy due to lack of sleep last night.
Voicing no specific complaints.
Denies any fever. No nausea. No shortness of breath or chest pain.
Objective Data
-
Labs:
Laboratory Results
09/27/24
08:29
WBC 7.8
Hgb 14.0
Hct 42.5
Plt Count 180
Sodium 140
Potassium 4.0
Chloride 104
Carbon Dioxide 29
BUN 19
Creatinine 0.9
Glucose 120 H
Calcium 8.7
Total Bilirubin 0.5
AST 19
ALT 19
Alkaline Phosphatase 68
Vital Signs:
Vital Signs
Temp Pulse Resp BP Pulse Ox
97.5 F 60 16 134/73 98
09/27/24 07:25 09/27/24 08:00 09/27/24 07:25 09/27/24 08:00 09/27/24 12:05
I&O
09/26/24 09/27/24 09/28/24
06:59 06:59 06:59
Intake Total 390 / 390
Output Total 24973 / 98243
Balance -37097 / -02006
Review of Systems
-
Unable to obtain full review of systems at this time due to: Other (sleepy)
Physical Exam
-
General: Comfortable
Respiratory: Non Labored Respirations; Negative Accessory Resp Muscle Use
Cardiac: Regular Rhythm and S1/S2; Negative Tachycardic
GI: Soft and Nontender
Genito-urinary: Continuous Bladder Irrigation
Neuro: Awake (sleepy) and Oriented
Psych: Calm
Data Reviewed
-
Labs: Labs Reviewed by me
[2024-09-27 14:41] LABS: Glucose - Point of Care 116 mg/dl (70-99)
--- NOTE | 2024-09-27 15:57 | W.IMMPOSTOP ---
Surgical Immed Post Op Note
-
Primary Surgeon: Sarahfer
Assisting Surgeon: -
Pre-op Diagnosis: Recurrent hematuria
Post-op Diagnosis: same
Procedure Performed: Cystoscopy, clot evacuation, bladder biopsy, fulguration
Anesthesia Type: general
Specimen / Cultures: posterior wall biopsy
Estimated Blood Loss: 1cc
Complications: none
Operative Findings:
No discrete area of bleeding
Diffuse bleeding from approx 50% of bladder surface along posterior and lateral bladder yap where there is inflamed and erythematous mucosa consistent with prior history of chronic bladder inflammatory process
No tumors or high suspicion lesions
Region of greatest abnormality biopsied
Hematuria controlled at conclusion
20Fr [place]
[2024-09-27] MEDS: VALIUM INJECTION IV (17:13)
--- NOTE | 2024-09-27 17:15 | PTCARENOTE ---
Received patient from PACU via bed. Pox: 97% RA. IVFs infusing without difficulty. Call [facility] within reach. Family at bedside. Plan of care ongoing.
[2024-09-27 17:21] LABS: Glucose - Point of Care 113 mg/dl (70-99)
[2024-09-27 19:18] LABS: Urine Albumin 2+ (Neg - Trace); Urine Bilirubin Negative (Negative); Urine Character Slightly Cloudy (Clear); Urine Glucose 3+ (Negative); Urine Ketone Trace (Negative); Urine Leukocyte 1+ (Negative); Urine Nitrite Negative (Negative); Urine Occult Blood 4+ (Negative); Urine Specific Gravity 1.015 (<1.030); Urine Urobilinogen Negative (Neg - 1+)
[2024-09-27 19:28] LABS: Urine Squamous Cell None seen /LPF (Few)
[2024-09-27 19:29] LABS: Urine Bacteria Few (Negative); Urine Red Blood Cell 60-70 /HPF (0-2)
[2024-09-27] MEDS: LOW STRENGTH ASPIRIN 81 MG PO (20:49)
[2024-09-27 21:29] LABS: Glucose - Point of Care 175 mg/dl (70-99)
[2024-09-28] MEDS: DILAUDID 0.5 MG IV ×2 (00:50→10:03)
[2024-09-28 03:16] VITALS: BP 108/70
[2024-09-28] MEDS: VALIUM INJECTION 5 MG IV ×2 (04:05→15:55)
[2024-09-28 05:13] VITALS: BMI 24.7
[2024-09-28 07:19] VITALS: BP 127/76
[2024-09-28 07:23] LABS: Glucose - Point of Care 127 mg/dl (70-99)
[2024-09-28 07:46] LABS: % Basophils 0.2 % (0-2); % Eosinophils 0.1 % (0-6); % Immature Granulocytes 0.4 % (0-0.5); % Lymphocytes 6.1 % (20.5-51.1); % Neutrophils 87.2 % (42.2-75.2); Absolute Immature Granulocytes 0.1 10^3/uL (0-0.05); Absolute Lymphocytes 0.7 10^3/uL (1.2-3.4); Absolute Monocytes 0.7 10^3/uL (0.1-0.6); Absolute Neutrophils 9.9 10^3/uL (1.4-6.5); Hematocrit 43.2 % (39.0-52.0); Hemoglobin 13.7 g/dL (13.0-18.0); Mean Corp Hgb Conc. 31.7 g/dL (33.0-37.0); Mean Corpuscular Hgb 30.6 pg (27.0-31.0); Mean Corpuscular Volume 96.4 fL (80.0-94.0); Mean Platelet Volume 10.9 fL (7.4-10.4); Nucleated Red Blood Cells % 0 % (-); Platelet Count 202 10^3/uL (130-400); Red Blood Cell Count 4.48 10^6/uL (4.70-6.10); Red Cell Dist. Width 12.1 % (11.5-14.5); White Blood Cell Count 11.4 10^3/uL (4.8-10.8)
[2024-09-28] MEDS: NOVOLOG FLEXPEN-LOW RESISTANCE SC (08:14)
[2024-09-28 08:20] LABS: ALT (SGPT) 19 U/L (0-50); AST (SGOT) 19 U/L (17-59); Albumin 3.5 g/dl (3.5-5.0); Alkaline Phosphatase 71 U/L (38-126); Blood Urea Nitrogen 18 mg/dl (9-20); Calcium 8.6 mg/dl (8.4-10.2); Carbon Dioxide 25 mmol/L (22-30); Chloride 102 mmol/L (98-107); Estimated Creatinine Clearance 83 ml/min; Glucose 121 mg/dl (70-99); Potassium 4.1 mmol/L (3.5-5.1); Sodium 137 mmol/L (135-145); Total Bilirubin 0.5 mg/dl (0.2-1.3); Total Protein 5.6 g/dl (6.3-8.2); eGFR > 60.00
--- NOTE | 2024-09-28 09:37 | W.PN.URO.CBU ---
Today's Communication / Plan
-
Trial of void
likely discharge
Assessment / Plan
-
69M with chronic cystitis
Admitted with recurrent gross hematuria
s/p cystoscopy, clot evacuation, fulguration, bladder biopsy
Urine light pink this morning
[place] out for trial of void
Discharge if bleeding remains well controlled
Outpatient follow up with Dr. Castellanos
Diagnosis
-
Date of Service: September 28, 2024
-
Patient Diagnosis:
chronic cystitis
gross hematuria
Post Op Day:
Subjective
-
tolerating [place]
no bleeding issues overnight
Objective
-
Vital Signs
Temp Pulse Resp BP Pulse Ox
98.1 F 73 17 127/76 98
09/28/24 07:19 09/28/24 07:19 09/28/24 07:19 09/28/24 07:19 09/28/24 07:19
Intake and Output
09/27/24 09/28/24 09/29/24
06:59 06:59 06:59
Intake Total 390 / 390 2190 / 2190
Output Total 20786 / 56143 50130 / 58765
Balance -74110 / -20183 -8465 / -8465
Intake:
Oral fluids 720 / 720
IV fluids (Total) 390 / 390 1420 / 1420
normosol 100 / 100
[place] intermittent irrigation 50 / 50
Output:
Urine, [place] 975 / 975
Urine, Voided 9680 / 9680
True Urine Output from CBI 58708 / 43790
Laboratory Results
09/28/24 06:43
09/28/24 06:43
Physical Exam
-
General - well developed, well nourished, no acute distress
Chest - clear
Abdomen - soft, non-tender
[place] in place light pink urine
[2024-09-28] MEDS: INDERAL LA 80 MG PO (09:56)
[2024-09-28] MEDS: COLACE 100 MG PO ×2 (09:57→20:31)
[2024-09-28] MEDS: FLUSH (NSS) 2 FLUSH IV ×2 (10:03→15:56)
--- NOTE | 2024-09-28 10:24 | W.PN.HOSP.TC ---
Today's Communication/Plan
-
Voiding trial
DC planning
Assessment / Plan
Assessment / Plan
# Recurrent gross hematuria with clot retention.
History neurogenic bladder
Patient was discharged 09/26, came back due to clot retention. s/p Cystoscopy 09/27 clot evacuation, bladder biopsy, fulguration.
Cystoscopy report shows
No discrete area of bleeding
Diffuse bleeding from approx 50% of bladder surface along posterior and lateral bladder yap where there is inflamed and erythematous mucosa consistent with prior history of chronic bladder inflammatory process
No tumors or high suspicion lesions
Region of greatest abnormality biopsied
Hematuria controlled at conclusion
# Nonsignificant bacteriuria with 40,000 colony count of Staphylococcus hemolyticus on last admission.
This was from specimen 09/24 ;on the specimen from 09/26 was negative urine without antibiotics.
Unclear if this truly has a UTI.
After discussion with ID and patient/family we decided to hold on further doxycycline.
#Urinary incontinence
Interstim(bladder pacemaker) in place nonfunctional
-S/p Botox injection-reportedly did not work for patient
-Urology following.
#Type 2 diabetes mellitus
-HbA1c 7.6, was 6.8 (06/08).
-Urinalysis with glucosuria, and albuminuria.
-was just recently d/c off ga at discharge 09/26/2024 with goal to maximize metformin.
-Resume metformin 500 mg twice daily, glipizide 2.5 mg daily
-Encourage carb-controlled diet post cystoscopy
-Since patient currently n.p.o. after midnight will check blood sugars every 4 hours and have IV dextrose as needed for BS<70 and insulin per SSI low
#HTN-benign
Patient is on propranolol 80 mg daily for tremors will monitor need for additional BP control, although felt to be due to pain from hematuria
#Change in mental acuity /personality/ physical ability
-Recent neurological workup was nondiagnostic. Was seen by neurology and psychiatry. Plan was to follow-up with the neuropsychologist as an outpatient.
-Continue with his venlafaxine 150 mg at bedtime
#History of CVA
-Nonfocal neurologic exam on admission.
-cw aspirin as bleeding improved now
-Continue atorvastatin
#Sleep apnea
-Patient does not use CPAP at home, uses mouthguard
-Discussed the need for CPAP and encouraged to get sleep study outpatient.
#History of Essential tremors
-Continue propranolol 80 mg daily.
-Monitor BP and hold with SBP <100
DVT PPx-teds
CODE STATUS-full code
DC home when stable from urology standpoint
Anticipated Discharge: Today
Subjective/Interval History
-
Date of Service: September 28, 2024
Patient with a catheter. Resolving hematuria. Urine looks clear in the tubing.
Voices no specific complaints.
No fever.
No nausea vomiting.
Objective Data
-
Labs:
Laboratory Results
09/28/24
06:43
WBC 11.4 H
Hgb 13.7
Hct 43.2
Plt Count 202
Sodium 137
Potassium 4.1
Chloride 102
Carbon Dioxide 25
BUN 18
Creatinine 0.9
Glucose 121 H
Calcium 8.6
Total Bilirubin 0.5
AST 19
ALT 19
Alkaline Phosphatase 71
Vital Signs:
Vital Signs
Temp Pulse Resp BP Pulse Ox
98.1 F 73 17 127/76 98
09/28/24 07:19 09/28/24 07:19 09/28/24 07:19 09/28/24 07:19 09/28/24 07:19
I&O
09/27/24 09/28/24 09/29/24
06:59 06:59 06:59
Intake Total 390 / 390 2190 / 2190
Output Total 72618 / 96796 14011 / 42415
Balance -93860 / -25150 -8465 / -8498
Review of Systems
-
Respiratory: Denies Trouble Breathing
Cardiac: Denies Chest Pain
Neuro: Denies Dizzy or Headache
Physical Exam
-
General: Comfortable
Respiratory: Non Labored Respirations; Negative Accessory Resp Muscle Use
Cardiac: Regular Rhythm and S1/S2; Negative Tachycardic
GI: Soft and Nontender
Genito-urinary: Clear Urine and Moise
Neuro: AO x 3
Data Reviewed
-
Labs: Labs Reviewed by me
[2024-09-28 11:37] LABS: Glucose - Point of Care 178 mg/dl (70-99)
[2024-09-28] MEDS: VALIUM INJECTION IV ×2 (11:50→21:58)
[2024-09-28] MEDS: NOVOLOG FLEXPEN-LOW RESISTANCE 1 UNITS SC (13:49)
[2024-09-28 15:38] VITALS: BP 129/83
[2024-09-28 16:39] LABS: Glucose - Point of Care 287 mg/dl (70-99)
--- NOTE | 2024-09-28 16:53 | PTCARENOTE ---
Pt is voiding via urinal since [place] removed. Urine is deep red without clots at this point. Will cont to monitor.
[2024-09-28] MEDS: NOVOLOG FLEXPEN-LOW RESISTANCE 3 UNITS SC (17:46)
[2024-09-28] MEDS: LOW STRENGTH ASPIRIN 81 MG PO (20:31)
[2024-09-28] MEDS: PROSCAR 5 MG PO (20:31)
[2024-09-28] MEDS: FLOMAX 0.4 MG PO (20:31)
[2024-09-28] MEDS: EFFEXOR XR 150 MG PO (20:32)
[2024-09-28] MEDS: LIPITOR 80 MG PO (20:32)
[2024-09-28 21:24] LABS: Glucose - Point of Care 261 mg/dl (70-99)
[2024-09-28 23:40] VITALS: BP 103/58
[2024-09-29 05:26] VITALS: BMI 24.9
[2024-09-29] MEDS: VALIUM INJECTION IV ×2 (05:31→08:45)
[2024-09-29 06:03] LABS: % Basophils 0.8 % (0-2); % Immature Granulocytes 0.3 % (0-0.5); % Lymphocytes 16.4 % (20.5-51.1); % Monocytes 11.1 % (1.7-9.3); % Neutrophils 69.4 % (42.2-75.2); Absolute Basophils 0.1 10^3/uL (0-0.2); Absolute Eosinophils 0.2 10^3/uL (0-0.7); Absolute Lymphocytes 1.5 10^3/uL (1.2-3.4); Absolute Neutrophils 6.3 10^3/uL (1.4-6.5); Hematocrit 39.8 % (39.0-52.0); Hemoglobin 12.9 g/dL (13.0-18.0); Mean Corp Hgb Conc. 32.4 g/dL (33.0-37.0); Mean Corpuscular Hgb 31.3 pg (27.0-31.0); Mean Corpuscular Volume 96.6 fL (80.0-94.0); Mean Platelet Volume 10.7 fL (7.4-10.4); Nucleated Red Blood Cells % 0 % (-); Platelet Count 210 10^3/uL (130-400); Red Blood Cell Count 4.12 10^6/uL (4.70-6.10); Red Cell Dist. Width 12.3 % (11.5-14.5); White Blood Cell Count 9.1 10^3/uL (4.8-10.8)
[2024-09-29 06:19] LABS: ALT (SGPT) 20 U/L (0-50); AST (SGOT) 21 U/L (17-59); Albumin 3.3 g/dl (3.5-5.0); Alkaline Phosphatase 61 U/L (38-126); Blood Urea Nitrogen 24 mg/dl (9-20); Calcium 8.5 mg/dl (8.4-10.2); Carbon Dioxide 28 mmol/L (22-30); Chloride 105 mmol/L (98-107); Estimated Creatinine Clearance 74 ml/min; Glucose 138 mg/dl (70-99); Sodium 140 mmol/L (135-145); Total Bilirubin 0.2 mg/dl (0.2-1.3); Total Protein 5.4 g/dl (6.3-8.2); eGFR > 60.00
[2024-09-29 07:13] VITALS: BP 123/76
[2024-09-29 07:20] LABS: Glucose - Point of Care 137 mg/dl (70-99)
[2024-09-29] MEDS: NOVOLOG FLEXPEN-LOW RESISTANCE SC (08:22)
[2024-09-29] MEDS: INDERAL LA 80 MG PO (08:44)
[2024-09-29] MEDS: COLACE 100 MG PO (08:44)
[2024-09-29 08:57] VITALS: BP 132/104; BP 132/76; PULSE 66; O2SAT 99
--- NOTE | 2024-09-29 10:43 | W.PN.URO.CBU ---
Today's Communication / Plan
-
Trend hematuria this afternoon
Stable for discharge if voiding continues without difficulty
Assessment / Plan
-
69M with chronic cystitis
Admitted with recurrent gross hematuria
s/p cystoscopy, clot evacuation, fulguration, bladder biopsy 09/27
Urine pink/light red since [place] removed 24 hours ago
Small clot in depends with light urine around suggests some prostate/urethral bleeding
Encouraged hydration
Patient stable for discharge from standpoint, but reasonable to stay until this afternoon/evening and continue observation to make sure he doesn't worsen
Outpatient follow up with Dr. Castellanos
Diagnosis
-
Date of Service: September 29, 2024
-
Patient Diagnosis:
chronic cystitis
gross hematuria
Post Op Day: s/p cysto clot evac fulguration
Subjective
-
some mild hematuria past 24 hours
small clots in depends this AM
Objective
-
Vital Signs
Temp Pulse Resp BP Pulse Ox
98.7 F 63 17 123/76 97
09/29/24 07:13 09/29/24 07:13 09/29/24 07:13 09/29/24 07:13 09/29/24 07:13
Intake and Output
09/28/24 09/29/24 09/30/24
06:59 06:59 06:59
Intake Total 2190 / 2190 2850 / 2850
Output Total 99454 / 40208 750 / 750
Balance -8465 / -8465 2099
Intake:
Oral fluids 720 / 720 2059 / 2059
IV fluids (Total) 1420 / 1420
normosol 100 / 100
IV piggybacks 315 / 315
Tube feeding 175 / 175
Feeding tube flush amount 300 / 300
[place] intermittent irrigation 50 / 50
Output:
Urine, [place] 975 / 975 400 / 400
Urine, Voided 9680 / 9680 350 / 350
Laboratory Results
09/29/24 05:20
09/29/24 05:20
Physical Exam
-
General - well developed, well nourished, no acute distress
Chest - clear
Abdomen - soft
- small clot in depends with clear/light pink surrounding
[2024-09-29 11:20] VITALS: BP 132/104; BP 132/76; PULSE 66; O2SAT 99
[2024-09-29 11:41] LABS: Glucose - Point of Care 231 mg/dl (70-99)
[2024-09-29] MEDS: NOVOLOG FLEXPEN-LOW RESISTANCE 2 UNITS SC (12:43)
--- NOTE | 2024-09-29 13:32 | W.PN.HOSP.TC ---
Today's Communication/Plan
-
DC planning
Assessment / Plan
Assessment / Plan
# Recurrent gross hematuria with clot retention.
History neurogenic bladder
Patient was discharged 09/26, came back due to clot retention. s/p Cystoscopy 09/27 clot evacuation, bladder biopsy, fulguration.
Cystoscopy report shows
No discrete area of bleeding
Diffuse bleeding from approx 50% of bladder surface along posterior and lateral bladder yap where there is inflamed and erythematous mucosa consistent with prior history of chronic bladder inflammatory process
No tumors or high suspicion lesions
Region of greatest abnormality biopsied
Hematuria controlled at conclusion
Patient with improved hematuria. Passing small clots without any retention.
Urology cleared for discharge this afternoon if no further clots.
# Nonsignificant bacteriuria with 40,000 colony count of Staphylococcus hemolyticus on last admission.
This was from specimen 09/24 ;on the specimen from 09/26 was negative urine without antibiotics.
Unclear if this truly has a UTI.
After discussion with ID and patient/family we decided to hold on further doxycycline.
#Urinary incontinence
Interstim(bladder pacemaker) in place nonfunctional
-S/p Botox injection-reportedly did not work for patient
-Urology following.
#Type 2 diabetes mellitus
-HbA1c 7.6, was 6.8 (06/08).
-Urinalysis with glucosuria, and albuminuria.
-was just recently d/c off Farxiga at discharge 09/26/2024 with goal to maximize metformin.
-Resume metformin 500 mg twice daily, glipizide 2.5 mg daily
-Encourage carb-controlled diet post cystoscopy
-Since patient currently n.p.o. after midnight will check blood sugars every 4 hours and have IV dextrose as needed for BS<70 and insulin per SSI low
#HTN-benign
Patient is on propranolol 80 mg daily for tremors will monitor need for additional BP control, although felt to be due to pain from hematuria
#Change in mental acuity /personality/ physical ability
-Recent neurological workup was nondiagnostic. Was seen by neurology and psychiatry. Plan was to follow-up with the neuropsychologist as an outpatient.
-Continue with his venlafaxine 150 mg at bedtime
#History of CVA
-Nonfocal neurologic exam on admission.
-cw aspirin as bleeding improved now
-Continue atorvastatin
#Sleep apnea
-Patient does not use CPAP at home, uses mouthguard
-Discussed the need for CPAP and encouraged to get sleep study outpatient.
#History of Essential tremors
-Continue propranolol 80 mg daily.
-Monitor BP and hold with SBP <100
DVT PPx-teds
CODE STATUS-full code
DC home when stable from urology standpoint
Anticipated Discharge: Today
Subjective/Interval History
-
Date of Service: September 29, 2024
Patient is passing urine without any retentive symptoms. He had a clot in the urine this morning. He says it is clearing up.
No abdominal pain.
No nausea vomiting.
No fever chills.
Tolerating diet.
Objective Data
-
Labs:
Laboratory Results
09/29/24
05:20
WBC 9.1
Hgb 12.9 L
Hct 39.8
Plt Count 210
Sodium 140
Potassium 4.0
Chloride 105
Carbon Dioxide 28
BUN 24 H
Creatinine 1.0
Glucose 138 H
Calcium 8.5
Total Bilirubin 0.2
AST 21
ALT 20
Alkaline Phosphatase 61
Vital Signs:
Vital Signs
Temp Pulse Resp BP Pulse Ox
98.7 F 63 17 123/76 97
09/29/24 07:13 09/29/24 07:13 09/29/24 07:13 09/29/24 07:13 09/29/24 07:13
I&O
09/28/24 09/29/24 09/30/24
06:59 06:59 06:59
Intake Total 2190 / 2190 2850 / 2850
Output Total 94458 / 63329 750 / 750
Balance -8465 / -8465 2099 / 2099
Review of Systems
-
Respiratory: Denies Trouble Breathing
Cardiac: Denies Chest Pain
Neuro: Denies Dizzy
Physical Exam
-
General: Comfortable
Respiratory: Non Labored Respirations; Negative Accessory Resp Muscle Use
Cardiac: Regular Rhythm and S1/S2; Negative Tachycardic
GI: Soft and Nontender
Neuro: AO x 3
Psych: Calm; Negative Confused
Data Reviewed
-
Labs: Labs Reviewed by me
--- NOTE | 2024-09-29 14:21 | PTCARENOTE ---
Pt wants to go home, however he is passing clots. One so far size of a quarter in basin bathroom. He denies discomfort at present. told him to rest and will recheck urine again later this afternoon. Will cont to monitor.
--- NOTE | 2024-09-29 15:12 | CM ---
CM reviewed chart and anticipate dc later today
Bedside meeting with pt and spouse
VN vs outpt recs
Pt plans to resume work soon on dc- will not maintain homebound status
Plan for home with outpatient PT/OT
TT/Dr Marcus and script requested
[facility] Outpt clinic info in dc folder per pt request
IMM verbally reviewed- copy provided
Discharge Disposition- home with outpt PT/OT, spouse transport
--- NOTE | 2024-09-29 15:26 | W.DCSUMMARY ---
Discharge Summary
Discharge Data
Date of Admission: 09/26/24
Date of Discharge: 09/29/24
-
Pending Results: No
Additional Pending Results:
Hospital Course
Primary diagnosis:
Hematuria
Secondary diagnosis:
Hyperlipidemia
History of urinary incontinence s/p InterStim stimulator placement and Botox injection
Type 2 diabetes mellitus
Primary hypertension
History of stroke
Hospital course:
Patient returned back within 24 hours of discharge with recurrence of hematuria with clot retention. He was earlier admitted for clot retention had a CBI. There was initial concern of UTI but that was subsequently clarified by ID and antibiotics
were discontinued.
This time he went on to have a cystoscopy and had clot evacuation, bladder biopsy, fulguration by urologist. No discrete areas of bleeding were noted but there was a diffuse bleeding from approximately 50% of the bladder surface along the posterior
and lateral bladder yap where there is inflamed and erythematous mucosa consistent with prior history of chronic bladder inflammatory process. No tumors or high suspicious lesions were noted. Hematuria was concluded at the end of cystoscopy.
Post urological treatment his CBI was discontinued and his catheter was removed and he was urinating with clearance of hematuria without further clot retention. There is a slight drop in H&H which could possibly be secondary to all his hematuria
and some hemodilution. There was no indication for any transfusion at this point. His discharge hemoglobin was 12.9.
He would follow with urology as outpatient .
Consultants on board:
Urology Dr. Feng
Discharge Plan
-
Patient Disposition: Home (Routine Discharge)
Discharge Diagnosis/Procedures: Hematuria s/p cystoscopy
Diet: Diabetic, Carb Controlled
Activity: As tolerated
Driving Restrictions: As prior to admission
Bathing Restrictions: None
Other Services: PT and OT
Referrals:
Shaun Almonte DO [Family Provider] - in less than 1 week
Patricio Castellanos MD [Active] - in one week
Prescriptions:
Continued
atorvastatin 80 mg Tablet
80 mg PO HS
propranolol 80 mg Capsule,Extended Release 24 Hr
80 mg PO DAILY
venlafaxine 150 mg capsule,extended release 24hr
150 mg PO HS
tamsulosin [Flomax] 0.4 mg capsule
0.4 mg PO HS
finasteride 5 MG tablet
5 mg PO HS
glipizide 5 mg tablet
2.5 mg PO DAILY
docusate sodium [Colace] 100 mg Capsule
100 mg PO BID
aspirin 81 mg Tablet,Chewable
81 mg PO HS
metformin 500 MG tablet
500 mg PO BID Qty: 60 0RF
Discontinued
doxycycline hyclate 100 mg Capsule
100 mg PO Q12 Qty: 20 0RF
Discharge Orders:
Discharge Patient (As Directed); Ordered 09/29/24
Ordered By: Aba Marcus
Discharge Date and Time
Print Language: CZECH
[2024-09-29 15:34] VITALS: BP 132/62
== END 2024-09-29 16:24 | disposition home or self-care (01) | DRG 664 ==
LOC: 2 NORTH 21:58
PROVIDERS: Clinical Nurse Specialist Family Health; Urology; ADMITTING PHYSICIAN Hospitalist; ATTENDING PHYSICIAN Internal Medicine; CONSULT PHYSICIAN Specialist; EMERGENCY PHYSICIAN Emergency Medicine; FAMILY PHYSICIAN Family Medicine
PROC: 3E1K78Z Irrigation of Genitourinary Tract using Irrigating Substance, Via Natural or Artificial Opening (ICD-10-PCS; 2024-09-26)
PROC: 0TCB8ZZ Extirpation of Matter from Bladder, Via Natural or Artificial Opening Endoscopic (ICD-10-PCS; 2024-09-27)
PROC: 0T9B70Z Drainage of Bladder with Drainage Device, Via Natural or Artificial Opening (ICD-10-PCS; 2024-09-27)
PROC: 0W3R8ZZ Control Bleeding in Genitourinary Tract, Via Natural or Artificial Opening Endoscopic (ICD-10-PCS; 2024-09-27)
PROC: 0TBB8ZX Excision of Bladder, Via Natural or Artificial Opening Endoscopic, Diagnostic (ICD-10-PCS; 2024-09-27)
DX: R31.0 Gross hematuria (principal); R33.9 Retention of urine, unspecified; E78.00 Pure hypercholesterolemia, unspecified; F41.9 Anxiety disorder, unspecified; G25.0 Essential tremor; I10 Essential (primary) hypertension; M19.90 Unspecified osteoarthritis, unspecified site; G47.33 Obstructive sleep apnea (adult) (pediatric); E11.9 Type 2 diabetes mellitus without complications; K76.0 Fatty (change of) liver, not elsewhere classified; G47.00 Insomnia, unspecified; G89.29 Other chronic pain; N31.9 Neuromuscular dysfunction of bladder, unspecified; Z96.611 Presence of right artificial shoulder joint; Z96.641 Presence of right artificial hip joint; Z87.442 Personal history of urinary calculi; Z98.1 Arthrodesis status; Z79.82 Long term (current) use of aspirin; Z79.84 Long term (current) use of oral hypoglycemic drugs; Z91.013 Allergy to seafood; Z86.73 Personal history of transient ischemic attack (TIA), and cerebral infarction without residual deficits
CPT/HCPCS: 88305; 51702; 80048; 80053; 81003; 81015; 82962; 85025; 87086; 96361; 96374; 97162; 97166; 99285

== ENCOUNTER → 2024-11-01 10:50 | Outpatient (REF) | payer BC, SELFPAY | LOC: HWRAD 10:50 | PROVIDERS: ATTENDING PHYSICIAN Physician Assistant; FAMILY PHYSICIAN Family Medicine | DX: E04.1 Nontoxic single thyroid nodule (principal) | CPT/HCPCS: 76536 ==

== ENCOUNTER → 2024-11-27 07:06 | Outpatient (REF) | payer BC, SELFPAY ==
[2024-11-27 07:28] VITALS: BP 156/88; BP_SYST 63
== END ==
LOC: RADI 07:06
PROVIDERS: ATTENDING PHYSICIAN Physician Assistant; FAMILY PHYSICIAN Family Medicine
DX: E04.2 Nontoxic multinodular goiter (principal); Z53.8 Procedure and treatment not carried out for other reasons
CPT/HCPCS: 76536

== ENCOUNTER 2025-02-27 18:46 | Inpatient (IN) | payer BC, SELFPAY ==
[2025-02-27] VITALS (10 sets, daily range): BP systolic 110–151; BP diastolic 60–83; BMI 25.1; BMI 25.5
[2025-02-27 10:26] LABS: % Basophils 0.4 % (0-2); % Eosinophils 0.3 % (0-6); % Immature Granulocytes 0.5 % (0-0.5); % Lymphocytes 1.6 % (20.5-51.1); % Monocytes 5.6 % (1.7-9.3); % Neutrophils 91.6 % (42.2-75.2); Absolute Basophils 0.1 10^3/uL (0-0.2); Absolute Eosinophils 0.1 10^3/uL (0-0.7); Absolute Immature Granulocytes 0.1 10^3/uL (0-0.05); Absolute Lymphocytes 0.3 10^3/uL (1.2-3.4); Absolute Monocytes 1.2 10^3/uL (0.1-0.6); Absolute Neutrophils 19.9 10^3/uL (1.4-6.5); Hematocrit 43.4 % (39.0-52.0); Hemoglobin 13.9 g/dL (13.0-18.0); Mean Corpuscular Hgb 29.1 pg (27.0-31.0); Mean Corpuscular Volume 90.8 fL (80.0-94.0); Mean Platelet Volume 10.1 fL (7.4-10.4); Nucleated Red Blood Cells % 0 % (-); Platelet Count 262 10^3/uL (130-400); Red Blood Cell Count 4.78 10^6/uL (4.70-6.10); Red Cell Dist. Width 13.9 % (11.5-14.5); White Blood Cell Count 21.7 10^3/uL (4.8-10.8)
[2025-02-27 10:41] LABS: ALT (SGPT) 18 U/L (0-50); AST (SGOT) 19 U/L (17-59); Albumin 3.8 g/dl (3.5-5.0); Alkaline Phosphatase 74 U/L (38-126); Blood Urea Nitrogen 32 mg/dl (9-20); Calcium 9.4 mg/dl (8.4-10.2); Carbon Dioxide 29 mmol/L (22-30); Chloride 105 mmol/L (98-107); Estimated Creatinine Clearance 53 ml/min; Glucose 210 mg/dl (70-99); Potassium 4.8 mmol/L (3.5-5.1); Sodium 140 mmol/L (135-145); Total Bilirubin 1.2 mg/dl (0.2-1.3); Total Protein 6.8 g/dl (6.3-8.2); eGFR 53.74
[2025-02-27 10:49] LABS: Troponin I < 0.012 ng/ml
[2025-02-27 10:51] LABS: Creatine Phosphokinase 114 U/L (55-170)
[2025-02-27] MEDS: NSS 1000 IV (11:02)
[2025-02-27 11:09] LABS: TSH Reflex To Free T4 1.13 uIU/ml (0.47-4.68)
--- NOTE | 2025-02-27 11:57 | ED.GENMED ---
History of Present Illness
<ALLA Tucker Jr. Last Filed: 02/28/25 08:28>
General
Chief Complaint: Fainting/Passed Out
Source: patient and ambulance crew
Exam Limitations: none
Time Seen by Provider: 02/27/25 09:33
Nursing documentation reviewed up to this point in time: agreed with
History of Present Illness
History of Present Illness:
69-year-old male with past medical history of diabetes, JANA, stroke presenting to the emergency department today after syncopal episode that occurred few hours prior to arrival. Was walking to the bathroom felt lightheaded was able to lower self to
the ground but did not fully pass out. Denies any chest pain palpitations or shortness of breath associated. Currently denies any significant symptoms.
Past History
<ALLA Tucker Jr. Last Filed: 02/28/25 08:28>
Past History
ED Past Medical History: CVA (Right hemiparesis, ), Hypercholesterolemia, NIDDM, Psychiatric (Anxiety) and Other (Back pain, Essential tremors. Sleep apnea, Diverticulitis, Renal calculus, Nocturia, )
ED Past Surgical History: Cardiac (Carotid stent), Orthopedic (Back fusion X 2, Right and left rotator cuff, Left and right hip replacement, ), Urological (Lithotripsy, stent) and Other (Cataracts, Deviated septum, )
Social History
Tobacco: Non-smoker
Alcohol: Occasional
Drug: None
Personal:
Living: with family
Employment: Other
Family History
Family History: Other
Review of Systems
<ALLA Tucker Jr. Last Filed: 02/28/25 08:28>
Review of Systems
Allergies reviewed?: Yes
All Other Systems: ROS reviewed and negative except as documented in HPI and ROS
Phy Exam
<ALLA Tucker Jr. Last Filed: 02/28/25 08:28>
Physical Exam
Physical Exam:
GENERAL: Alert , in no apparent distress
EYE: pupils equal and reactive
NECK: Supple, no significant adenopathy.
ENT: o/p clr, mmm.
CARDIAC: Regular rate and rhythm .
LUNGS: Clear breath sounds bilaterally, no acute respiratory distress, no wheezes/rales/rhonchi
ABDOMEN: Soft, without focal tenderness, no r/g, no cvat
NEUROLOGICAL: Alert and oriented, no focal neuro deficits
SKIN: Warm and dry, skin intact.
MUSCULOSKELETAL: No edema, well perfused.
PSYCH: Normal and appropriate interaction.
Course
<Scott Chapman Jr., PA-C - Last Filed: 02/28/25 08:28>
Orders/Labs/Results
Orders:
Orders
02/27/25 09:35
Electrocardiogram (*1) Urgent
Reason for Study: Syncope
EKG- Treatment ONCE
02/27/25 10:14
CMP [Comprehensive Metabolic Panel] Urgent
Complete Blood Count/With Diff Urgent
Creatine Phosphokinase Urgent
Comment: \\
TSH Reflex To Free T4 Urgent
Troponin I Urgent
02/27/25 10:33
Add On- LAB Urgent
Tests Added?: creatine kinase
02/27/25 10:56
0.9% Sodium Chloride 1000 ml [Nss] 1,000 ml IV BOLUS
02/27/25 12:44
CT Abd/pel Without Iv Or Oral Urgent
Comment:
Reason For Exam: left flank pain hematuria
02/27/25 Dinner
Cholesterol Lowering
At Your Request: Full Participation
Cholesterol Lowering: Sodium, 2 Gram
02/27/25 15:05
Urinalysis Reflex To Culture Urgent
Date Specimen was Collected: 02/27/25
Time Specimen was Collected: 15:02
Urine Microscopic Reflex Cult Urgent
Urine Culture Urgent
ISA Source: U
Specimen Description:
Date Specimen was Collected: 02/27/25
Time Specimen was Collected: 15:02
02/27/25 16:01
Blood Culture Q30M
ISA Source: Blood/Venous
Specimen Description:
Blood Culture Q30M
ISA Source: Blood/Venous
Specimen Description:
02/27/25 16:56
CefTRIAXone [Rocephin] 2,000 mg IV NOW STA
02/27/25 17:10
Sterile Water [Sterile Water For Injection] 20 ml .ROUTE .STK-MED
02/27/25 17:32
0.9% Sodium Chloride 250 ml [Nss] 250 ml IV BOLUS
02/27/25 17:33
UROLOGY CONSULT Routine
Consulting Provider: Ramon Marlow
Was physician already notified: Yes
02/27/25 17:50
Admit/Transfer Patient As Directed
Co-Sign Provider:
Level of Care: Inpatient admission
Assign to:: Medical/Surgical
Physician / Group: Hao/hospitalist
Diagnosis: presyncope/UTI
Reason for Hospitalization: presyncope/UTI
Expected length of stay greater than two midnights?: Yes
ELOS- Estimated Length of Stay in days: 3
I certify the patient meets the requirements for IP care: Yes
PRN Pain Medication Management As Directed
May give lesser potent ordered pain med per pt: Yes
preference::
Protocol:: Medication orders for pain may be administered in a
manner that supports deferring to patient preference
when the pt is:
- Requesting an ordered lesser potent pain medication.
Least to most potent pain medications are defined
as: acetaminophen < NSAID < tramadol < opioids
(morphine, oxycodone, hydromorphone).
- Requesting a lesser dose of the same medication IF
ORDERED.
- Requesting a less intrusive route of administration
if both routes are prescribed by the provider (PO <
IV).
02/27/25 17:51
Code Status As Directed
Resuscitation Status: Full Code
02/27/25 17:59
[place] Catheter [Catheter- Indwelling] As Directed
Reason for insertion: Acute Retention
Discontinue Date/Time: 03/02/25 0600
02/27/25 18:10
0.9% Sodium Chloride 500 ml [Nss] 500 ml IV BOLUS
02/27/25 21:18
Acetaminophen [Tylenol] 650 mg PO Q4HPRN PRN
Bisacodyl [Dulcolax] 10 mg RECTAL [id number] PRN
Dextrose 50%-Water [Dextrose 50% Syringe] 12.5 grams IV [id number] PRN
Docusate W/Senna [Senokot-S] 1 tablet PO BIDPRN PRN
Glucagon [GlucaGen] 1 mg IM PRN PRN
Heparin 5,000 units SC Q12
Ondansetron Injectable [Zofran] 4 mg IV Q6HPRN PRN
Polyethylene Glycol Powder [Miralax] 17 grams PO DAILYPRN PRN
02/27/25 21:18
Activity As Directed
Activity Level: As Tolerated
Bedside Glucose Monitoring As Directed
Frequency: AC&HS
Additional Instructions:: Change to q6h if pt on TPN, tube feeding or not eating
Vital Signs As Directed
Frequency: Per unit guidelines
Pt Eval And Treat Routine
Activity Level: As Tolerated
DX Deep Vein Thrombosis Video Routine
02/27/25 22:00
Aspirin Chewable [Low Strength Aspirin] 81 mg PO HS
Atorvastatin [Lipitor] 80 mg PO HS
Tamsulosin [Flomax] 0.4 mg PO HS
Venlafaxine Extended Release [Effexor Xr] 150 mg PO HS
02/28/25 05:44
Basic Metabolic Panel IN AM
Complete Blood Count/With Diff IN AM
Glycohemoglobin (HgbA1c) IN AM
Magnesium IN AM
02/28/25 07:30
Insulin Aspart Corrective Low [Novolog Flexpen-Low Resistance] See Protocol SC AC
02/28/25 08:00
Propranolol Extended Release [Inderal LA] 80 mg PO DAILY
Orthostatic Vital Signs As Directed
Orthostatic VS Frequency: Daily
02/28/25 18:00
CefTRIAXone [Rocephin] 1,000 mg IV Q24H
Abnormal Lab Results
02/27/25 02/27/25
10:14 15:05
WBC 21.7 H 10^3/uL
(4.8-10.8)
MCHC 32.0 L g/dL
(33.0-37.0)
Abs Immat Gran (auto) 0.1 H 10^3/uL
(0-0.05)
Absolute Neuts (auto) 19.9 H 10^3/uL
(1.4-6.5)
Absolute Lymphs (auto) 0.3 L 10^3/uL
(1.2-3.4)
Absolute Monos (auto) 1.2 H 10^3/uL
(0.1-0.6)
Neutrophils % 91.6 H %
(42.2-75.2)
Lymphocytes % 1.6 L %
(20.5-51.1)
BUN 32 H mg/dl
(9-20)
Creatinine 1.4 H mg/dL
(0.7-1.3)
Glucose 210 H mg/dl
(70-99)
Urine Ketones 1+ A
(Negative)
Ur Occult Blood Reflex 4+ A
(Negative)
Leukocyte Esterase Rfl 3+ A
(Negative)
Urine RBC 50-60 A /HPF
(0-2)
Urine WBC (Reflex) 16-20 A /HPF
(0-5)
Urine Bacteria (Reflex) Few A
(Negative)
Urine Glucose 4+ A
(Negative)
Urine Albumin (Reflex) 4+ A
(Neg - Trace)
02/27/25 10:14
02/27/25 10:14
Vital Signs
Initial and Last Documented VS:
Initial Vital Signs
Temp Pulse Resp BP Pulse Ox
36.8 C 73 16 151/83 98
02/27/25 09:37 02/27/25 09:37 02/27/25 09:37 02/27/25 09:37 02/27/25 09:37
Last Documented Vital Signs
Temp Pulse Resp BP Pulse Ox
36.9 C 71 16 113/63 97
02/28/25 07:30 02/28/25 07:30 02/28/25 07:30 02/28/25 07:30 02/28/25 07:30
<Natasha Clay PA-C - Last Filed: 02/28/25 09:06>
Orders/Labs/Results
Orders:
Orders
02/27/25 09:35
Electrocardiogram (*1) Urgent
Reason for Study: Syncope
EKG- Treatment ONCE
02/27/25 10:14
CMP [Comprehensive Metabolic Panel] Urgent
Complete Blood Count/With Diff Urgent
Creatine Phosphokinase Urgent
Comment: \\
TSH Reflex To Free T4 Urgent
Troponin I Urgent
02/27/25 10:33
Add On- LAB Urgent
Tests Added?: creatine kinase
02/27/25 10:56
0.9% Sodium Chloride 1000 ml [Nss] 1,000 ml IV BOLUS
02/27/25 12:44
CT Abd/pel Without Iv Or Oral Urgent
Comment:
Reason For Exam: left flank pain hematuria
02/27/25 Dinner
Cholesterol Lowering
At Your Request: Full Participation
Cholesterol Lowering: Sodium, 2 Gram
02/27/25 15:05
Urinalysis Reflex To Culture Urgent
Date Specimen was Collected: 02/27/25
Time Specimen was Collected: 15:02
Urine Microscopic Reflex Cult Urgent
Urine Culture Urgent
ISA Source: U
Specimen Description:
Date Specimen was Collected: 02/27/25
Time Specimen was Collected: 15:02
02/27/25 16:01
Blood Culture Q30M
ISA Source: Blood/Venous
Specimen Description:
Blood Culture Q30M
ISA Source: Blood/Venous
Specimen Description:
02/27/25 16:56
CefTRIAXone [Rocephin] 2,000 mg IV NOW STA
02/27/25 17:10
Sterile Water [Sterile Water For Injection] 20 ml .ROUTE .STK-MED
02/27/25 17:32
0.9% Sodium Chloride 250 ml [Nss] 250 ml IV BOLUS
02/27/25 17:33
UROLOGY CONSULT Routine
Consulting Provider: Ramon Marlow
Was physician already notified: Yes
02/27/25 17:50
Admit/Transfer Patient As Directed
Co-Sign Provider:
Level of Care: Inpatient admission
Assign to:: Medical/Surgical
Physician / Group: Hao/hospitalist
Diagnosis: presyncope/UTI
Reason for Hospitalization: presyncope/UTI
Expected length of stay greater than two midnights?: Yes
ELOS- Estimated Length of Stay in days: 3
I certify the patient meets the requirements for IP care: Yes
PRN Pain Medication Management As Directed
May give lesser potent ordered pain med per pt: Yes
preference::
Protocol:: Medication orders for pain may be administered in a
manner that supports deferring to patient preference
when the pt is:
- Requesting an ordered lesser potent pain medication.
Least to most potent pain medications are defined
as: acetaminophen < NSAID < tramadol < opioids
(morphine, oxycodone, hydromorphone).
- Requesting a lesser dose of the same medication IF
ORDERED.
- Requesting a less intrusive route of administration
if both routes are prescribed by the provider (PO <
IV).
02/27/25 17:51
Code Status As Directed
Resuscitation Status: Full Code
02/27/25 17:59
[place] Catheter [Catheter- Indwelling] As Directed
Reason for insertion: Acute Retention
Discontinue Date/Time: 03/02/25 0600
02/27/25 18:10
0.9% Sodium Chloride 500 ml [Nss] 500 ml IV BOLUS
02/27/25 21:18
Acetaminophen [Tylenol] 650 mg PO Q4HPRN PRN
Bisacodyl [Dulcolax] 10 mg RECTAL [id number] PRN
Dextrose 50%-Water [Dextrose 50% Syringe] 12.5 grams IV [id number] PRN
Docusate W/Senna [Senokot-S] 1 tablet PO BIDPRN PRN
Glucagon [GlucaGen] 1 mg IM PRN PRN
Heparin 5,000 units SC Q12
Ondansetron Injectable [Zofran] 4 mg IV Q6HPRN PRN
Polyethylene Glycol Powder [Miralax] 17 grams PO DAILYPRN PRN
02/27/25 21:18
Activity As Directed
Activity Level: As Tolerated
Bedside Glucose Monitoring As Directed
Frequency: AC&HS
Additional Instructions:: Change to q6h if pt on TPN, tube feeding or not eating
Vital Signs As Directed
Frequency: Per unit guidelines
Pt Eval And Treat Routine
Activity Level: As Tolerated
DX Deep Vein Thrombosis Video Routine
02/27/25 22:00
Aspirin Chewable [Low Strength Aspirin] 81 mg PO HS
Atorvastatin [Lipitor] 80 mg PO HS
Tamsulosin [Flomax] 0.4 mg PO HS
Venlafaxine Extended Release [Effexor Xr] 150 mg PO HS
02/28/25 05:44
Basic Metabolic Panel IN AM
Complete Blood Count/With Diff IN AM
Glycohemoglobin (HgbA1c) IN AM
Magnesium IN AM
02/28/25 07:30
Insulin Aspart Corrective Low [Novolog Flexpen-Low Resistance] See Protocol SC AC
02/28/25 08:00
Propranolol Extended Release [Inderal LA] 80 mg PO DAILY
Orthostatic Vital Signs As Directed
Orthostatic VS Frequency: Daily
02/28/25 18:00
CefTRIAXone [Rocephin] 1,000 mg IV Q24H
Abnormal Lab Results
02/27/25 02/27/25
10:14 15:05
WBC 21.7 H 10^3/uL
(4.8-10.8)
MCHC 32.0 L g/dL
(33.0-37.0)
Abs Immat Gran (auto) 0.1 H 10^3/uL
(0-0.05)
Absolute Neuts (auto) 19.9 H 10^3/uL
(1.4-6.5)
Absolute Lymphs (auto) 0.3 L 10^3/uL
(1.2-3.4)
Absolute Monos (auto) 1.2 H 10^3/uL
(0.1-0.6)
Neutrophils % 91.6 H %
(42.2-75.2)
Lymphocytes % 1.6 L %
(20.5-51.1)
BUN 32 H mg/dl
(9-20)
Creatinine 1.4 H mg/dL
(0.7-1.3)
Glucose 210 H mg/dl
(70-99)
Urine Ketones 1+ A
(Negative)
Ur Occult Blood Reflex 4+ A
(Negative)
Leukocyte Esterase Rfl 3+ A
(Negative)
Urine RBC 50-60 A /HPF
(0-2)
Urine WBC (Reflex) 16-20 A /HPF
(0-5)
Urine Bacteria (Reflex) Few A
(Negative)
Urine Glucose 4+ A
(Negative)
Urine Albumin (Reflex) 4+ A
(Neg - Trace)
02/27/25 10:14
02/27/25 10:14
Vital Signs
Initial and Last Documented VS:
Initial Vital Signs
Temp Pulse Resp BP Pulse Ox
36.8 C 73 16 151/83 98
02/27/25 09:37 02/27/25 09:37 02/27/25 09:37 02/27/25 09:37 02/27/25 09:37
Last Documented Vital Signs
Temp Pulse Resp BP Pulse Ox
36.9 C 71 16 113/63 97
02/28/25 07:30 02/28/25 07:30 02/28/25 07:30 02/28/25 07:30 02/28/25 07:30
<Scott Chapman Jr., PA-C - Last Filed: 02/28/25 08:28>
MDM/Problems Addressed
MDM/Problems Addressed:
69-year-old male presenting to the emergency department after presyncopal episode occurring a few hours prior to arrival. Denies any associated chest pain palpitations shortness of breath. Currently feels generally well. Given via EMS. Vital
signs normal on arrival. White count 21.7 unclear patient's cause of this no infectious symptoms at this time. Elevated creatinine as well as BUN concerning for potential degree of dehydration. Was given a liter of fluids. Otherwise no evidence
of cardiac etiology EKG normal and troponin normal. Otherwise here family then arrived and was concerned that he was having intermittent pain and had history of kidney stones. Concerning the CT scan ordered for further assessment.
<Scott Chapman Jr., PA-C - Last Filed: 02/28/25 08:28>
*Critical Care Note
Total Time (30-74mins, 75-104mins- exclusive of procedures): Not Applicable
<Natasha Clay PA-C - Last Filed: 02/28/25 09:06>
Update Note
Update Note:
69 y/o M chronically ill, cva, chronic UTIs, followed by dr. bowie but more recently seen at [place] ([facility])
neurogenic bladder
near syncope today, weak
chronically has hematuria; chronic horacio colonization, frequent utis
last abx cefuroxime 4/5
has had retention requiring [place] for clot retetnion in the past
afebrile, normotensive but wbc 21
gross hematuria, no clots, (does NOT currently have [place]) but is leaking frequentyl
bladder scan 313
cr 1.4 from 1
UA looks infected
ct shows no obstructive uropathy but bladder stranding suggesting cystitis, bilateral ureteral and pelvicalyceal dilation with obstruction likely from blood products
and finding ssuggestive of ureteritis
previous urine cx have really only been 1 positive staph and others are yeast
d/w dr marlow urology
bladder scan 313; pt dribbling urine
recommends [place] catheter with the ureteritis and his urinary retention
rocpehin
ED Attending Note
<Scott Chapman Jr., PA-C - Last Filed: 02/28/25 08:28>
-
Portions of this chart may have been created with voice recognition software.� Occasional wrong word or��sound alike� substitutions may have occurred due to the inherent limitations of voice recognition software.
Discharge Plan
Departure
Patient Disposition: Admit
Date of Disposition: 02/27/25
Time of Disposition: 16:36
Admit to: Med/Surg
Presentation/result/management discussed w/ accepting MD/DO: Hospitalist
Patient with high blood pressure during this ER visit?: No
Condition: Fair
Covid-19: Not Applicable
Discharge Problem:
Pyelonephritis, Ureteritis, Near syncope
Interventions
Interventions:
*Risk Screen - Suicide Last Done: 02/27/25 09:37
*General Assessment Last Done: 02/27/25 09:37
*Neglect/Abuse Screening Last Done: 02/27/25 09:37
*ED- Fall Risk Assessment Last Done: 02/27/25 09:37
*ED COVID-19 Vaccine History Last Done: 02/27/25 09:44
*Nursing Disposition Last Done: 02/27/25 21:21
ED- Cardiac Assessment Last Done: 02/27/25 09:44
ED- Neurological Assessment Last Done: 02/27/25 09:44
Discharge Date and Time
Discharge Date/Time: 02/27/25 21:21
[2025-02-27 15:15] LABS: Urine Albumin 4+ (Neg - Trace); Urine Bilirubin Negative (Negative); Urine Character Cloudy (Clear); Urine Color Red; Urine Glucose 4+ (Negative); Urine Ketone 1+ (Negative); Urine Leukocyte 3+ (Negative); Urine Nitrite Negative (Negative); Urine Occult Blood 4+ (Negative); Urine Urobilinogen Negative (Neg - 1+)
[2025-02-27 15:22] LABS: Urine Bacteria Few (Negative); Urine Squamous Cell 0-2 /LPF (Few); Urine White Cell 16-20 /HPF (0-5)
[2025-02-27 15:23] LABS: Urine Red Blood Cell 50-60 /HPF (0-2)
[2025-02-27] MEDS: ROCEPHIN 2000 MG IV (17:21)
--- NOTE | 2025-02-27 17:25 | HPS.HSE ---
Family Physician
-
Family Physician: Shaun Almonte
Chief Complaint
-
hematuria
weakness/presyncope
History of Present Illness
HPI: 69-year-old male with past medical history of NIDDM, JANA, stroke, neurogenic bladder with recurrent UTI, chronic hematuria; p/w presyncope that occurred few hours prior to arrival.
He was walking to the bathroom, felt lightheaded, and was able to lower himself to the ground. He was unsure if he passed out or not.
He also endorsed to hematuria now with clot (hematuria is chronic, but clot is new), difficulty with emptying his bladder and possible fever at home. He denies to other symptoms.
In the ED, he was noted to have leukocytosis with WBC at 21 and predominant neutrophilia, gross hematuria, with CT suggestive of cystitis and blood product within the bladder.
Medical History
Past Medical History
Past Medical History: Reports Other
Additional Past Medical History:
Blood loss anemia due to hematuria
Cerebrovascular accident s/p tPA 11/22/22, L ICA stent placement 11/25/22
Type 2 diabetes mellitus
Essential hypertension
Hyperlipidemia
Diverticulosis
Osteoarthritis
Renal calculi
Anxiety
Obstructive sleep
Hemorrhoids
Fatty liver disease
Plantar fasciitis
Scoliosis
Restless legs
Insomnia
Chronic low back pain
Past Surgical History: Reports Urological (lithotripsy and ureteral stent placement on 04/23/2024 ) and Other
Additional Past Surgical History:
L ICA stent
L3-L4 laminectomy
ureteral stent
R [place]
R reverse shoulder arthroplasty
R knee arthroscopy
L shoulder arthroscopy
lower eyelid blepharoplasty
Social History
Tobacco: Non-smoker
Alcohol: None
Personal:
Living: With Family
Family History
Family History: Not pertinent
Allergies / Home Medications
Allergies reflects when Allergies were last updated in [facility] [employer].
Home Medications with original date entered in [facility] [employer] [facility]
Allergy/Medication List:
Allergies
Allergy/AdvReac Type Severity Reaction Status Date / Time
shellfish derived Allergy congestion Verified 11/27/24 07:35
Home Medications
aspirin 81 mg chewable tablet 81 mg PO HS Blood Clot Prevention/Tx 11/28/22
metformin 500 mg tablet 500 mg PO BID #60 tabs 12/07/22
atorvastatin 80 mg tablet 80 mg PO HS High Cholesterol 03/02/24
propranolol 80 mg capsule,24 hr,extended release 80 mg PO DAILY tremors 03/02/24
tamsulosin 0.4 mg capsule (Flomax) 0.4 mg PO HS Urinary Issue 04/17/24
venlafaxine 150 mg capsule,extended release 24 hr 150 mg PO HS anxiety 04/17/24
glipizide 5 mg tablet 5 mg PO DAILY Diabetes 09/22/24
clotrimazole-betamethasone 1 %-0.05 % topical cream 1 applic topical BID penis 02/27/25
coffee extract 100 mg-phosphatidyl serine 100 mg capsule (Neuriva Original) 1 cap PO DAILY 02/27/25
dapagliflozin propanediol 10 mg tablet (Farxiga) 10 mg PO DAILY 02/27/25
omega 1-sgq-jnx-fish oil 1,000 mg (120 mg-180 mg) capsule (Fish Oil) 1 cap PO DAILY 02/27/25
vibegron 75 mg tablet (Gemtesa) 75 mg PO QPM 02/27/25
Review of Systems
-
: Reports See HPI, Difficulty Voiding and Bleeding (with clot which is new)
Physical Exam
Vital Signs
Vital Signs
Temp Pulse Resp BP Pulse Ox
36.9 C 82 26 142/70 94
02/27/25 16:54 02/27/25 16:45 02/27/25 16:45 02/27/25 14:00 02/27/25 16:45
Physical Exam
General: Well Developed, Well Nourished, No Apparent Distress, Comfortable and Conversant
HEENT: NormoCephalic, Moist mucous membranes and Atraumatic
Respiratory: Clear and Non Labored Respirations; No Accessory Resp Muscle Use
Cardiac: S1/S2 and Regular Rhythm; No Murmur or Rub
GI: Soft, Non Tender, Non Distended and Normal Bowel Sounds; No Organomegaly
Rectal: Deferred by Provider
Musculoskeletal: No Edema
Skin: No Rash
Neuro: Awake and Alert
Psych: Calm and Intact Judgment/Insight
Laboratory Results
-
02/27/25 10:14
02/27/25 10:14
Laboratory Results
Total Bilirubin 1.2 mg/dl (0.2-1.3) 02/27/25 10:14
AST 19 U/L (17-59) 02/27/25 10:14
ALT 18 U/L (0-50) 02/27/25 10:14
Alkaline Phosphatase 74 U/L (38-126) 02/27/25 10:14
Troponin I < 0.012 ng/ml 02/27/25 10:14
Data Reviewed
-
CT Scan: Report Reviewed by me
Lab Data: Labs Reviewed by me
Impression/Plan
-
HPI: 69-year-old male with past medical history of NIDDM, JANA, stroke, neurogenic bladder with recurrent UTI, chronic hematuria; p/w presyncope that occurred few hours prior to arrival.
He was walking to the bathroom, felt lightheaded, and was able to lower himself to the ground. He was unsure if he passed out or not.
He also endorsed to hematuria now with clot (hematuria is chronic, but clot is new), difficulty with emptying his bladder and possible fever at home. He denies to other symptoms.
In the ED, he was noted to have leukocytosis with WBC at 21 and predominant neutrophilia, gross hematuria, with CT suggestive of cystitis and blood product within the bladder.
CT AP:
Heterogeneous increased density within the bladder lumen, which is likely blood products. Bladder wall appears thickened with stranding of the surrounding fat, suggesting cystitis.
No evidence for obstructing ureteral calculus. There is bilateral ureteral and pelvicalyceal dilation, left greater than right, with obstruction possibly on the basis of blood products.
There is urothelial thickening involving the left renal pelvis and calyces, and would be suggestive of ureteritis/infection. Moderate left perinephric edema increasing since previous CT examination, which could be on the basis of obstructive
uropathy and/or edema associated with infection.
2 mm nephrolith in the lower pole the left kidney.
Fatty infiltration the liver.
Small cystic lesion within the head of the pancreas, minimally larger comparing to CT examination from 2019. Consider a follow-up MRI or CT with attention to the pancreas in 2 years.
A/P:
# Presyncope/generalized weakness, could be due to sepsis present on admission, likely 2/2 complicated UTI/cystitis.
# h/o Neurogenic bladder with recurrent UTI
# Chronic hematuria, but now with clot
Status post 1 L NSS bolus in ER, give additional 1.5 L for sepsis bundle
Follow blood culture, urine culture
Status post ceftriaxone in the ER, continue ceftriaxone
Would avoid FWS FACULTY ASSISTANT Farxiga and Gemtesa in setting of recurrent UTI
Can check orthostatic vital sign in the morning
Uro consulted for hematuria, recommended Moise placement
PT eval for weakness
# MONICA
Serum creatinine 1.4 from baseline 1.0
Continue to monitor serum creatinine following IVF boluses
# Incidental finding of pancreatic head lesion
Follow-up MRI or CT in 2 years per radiologist suggestion
# NIDDM
Cover with insulin sliding scale
Would avoid FWS FACULTY ASSISTANT Farxiga in setting of recurrent UTI
# JANA
not on CPAP FWS FACULTY ASSISTANT
# h/o stroke without significant neurologic deficit
DVT ppx: HSQ
FC
[2025-02-27] MEDS: NSS 250 IV (17:57)
[2025-02-27] MEDS: NSS 500 IV (17:57)
[2025-02-27 21:33] LABS: Glucose - Point of Care 125 mg/dl (70-99)
[2025-02-27] MEDS: LIPITOR 80 MG PO (22:08)
[2025-02-27] MEDS: LOW STRENGTH ASPIRIN 81 MG PO (22:08)
[2025-02-27] MEDS: HEPARIN 5000 UNITS SC (22:09)
[2025-02-27] MEDS: EFFEXOR XR 150 MG PO (22:09)
[2025-02-27] MEDS: FLOMAX 0.4 MG PO (22:09)
--- NOTE | 2025-02-28 00:32 | PTCARENOTE ---
Pt. arrived to unit from ED. Pt. able to ambulate into room 330 on . Pt. AAOx3 and able to make needs known. [place] orders noted, no [place] upon arrival. Clarified order with NERISSA Prabhakar. [place] placed-immediately drained 300 mL of
hematuria. NERISSA Prabhakar aware. Oriented to unit. Call wiseman within reach. Plan of care ongoing.
--- NOTE | 2025-02-28 05:41 | PTCARENOTE ---
Moise care was offered, but patient preferred to perform care independently later in the morning.
[2025-02-28 06:22] LABS: % Basophils 0.5 % (0-2); % Eosinophils 0.8 % (0-6); % Immature Granulocytes 0.5 % (0-0.5); % Lymphocytes 7.2 % (20.5-51.1); % Monocytes 9.7 % (1.7-9.3); % Neutrophils 81.3 % (42.2-75.2); Absolute Basophils 0.1 10^3/uL (0-0.2); Absolute Eosinophils 0.1 10^3/uL (0-0.7); Absolute Immature Granulocytes 0.1 10^3/uL (0-0.05); Absolute Monocytes 1.3 10^3/uL (0.1-0.6); Absolute Neutrophils 10.8 10^3/uL (1.4-6.5); Hematocrit 37.1 % (39.0-52.0); Hemoglobin 11.8 g/dL (13.0-18.0); Mean Corp Hgb Conc. 31.8 g/dL (33.0-37.0); Mean Corpuscular Hgb 28.7 pg (27.0-31.0); Mean Corpuscular Volume 90.3 fL (80.0-94.0); Mean Platelet Volume 10.4 fL (7.4-10.4); Nucleated Red Blood Cells % 0 % (-); Platelet Count 237 10^3/uL (130-400); Red Blood Cell Count 4.11 10^6/uL (4.70-6.10); Red Cell Dist. Width 14.1 % (11.5-14.5); White Blood Cell Count 13.3 10^3/uL (4.8-10.8)
[2025-02-28 06:36] LABS: Blood Urea Nitrogen 24 mg/dl (9-20); Calcium 8.6 mg/dl (8.4-10.2); Carbon Dioxide 27 mmol/L (22-30); Chloride 107 mmol/L (98-107); Estimated Creatinine Clearance 68 ml/min; Glucose 129 mg/dl (70-99); Magnesium 2.1 mg/dl (1.6-2.3); Potassium 3.7 mmol/L (3.5-5.1); Sodium 140 mmol/L (135-145); eGFR > 60.00
[2025-02-28 07:30] VITALS: BP 113/63
--- NOTE | 2025-02-28 07:45 | CON.MD ---
Consultation - Medical
-
(Full Urology consult to follow)
69M w/ complex prior urologic history presents w/ syncope and passage of clots.
Noted difficulty w/ emptying bladder and fevers at home.
Known h/o chronic hematuria, incomplete emptying, and recurrent UTIs s/p biopsies (all benign).
Currently under care of Dr. Aranda @[facility] for voiding dysfunction, chronic UTIs.
H/o OAB/UUI s/p InterStim as well as chronic refractory hemorrhagic cystitis.
Saw Dr. Mejia in 11/2024 w/ [employer] sales representative door to door - CIC was discussed due to persistently elevated PVRs.
09/2024: s/p cystoscopy, clot evacuation, biopsies, fulguration => pathology benign.
WBC 12 => 13
Cr 1.4 => 1.1 (after catheter placement)
UA +WBC/RBCs
UCx/BCx pending
CTAP w/o IV contrast: heterogeneous density in dependent bladder (likely clots), thickened bladder wall w/ perivesical stranding suggestive of cystitis, bilateral ureteral and pelvicalyceal dilation, urothelial thickening of left renal pelvis and
calyces, moderate left perinephric edema.
exam: Moise catheter tubing w/ clear yellow UOP.
Recommendations:
- Maintain Moise catheter to drainage - urine clearing and Cr downtrending
- Continue IV antibiotics pending UCx S/S
- Trend Cr
- Advise indwelling Moise catheter on discharge and outpatient F/U w/ Dr. Aranda to discuss voiding trial vs. CIC
D/w patient this AM.
[2025-02-28] MEDS: INDERAL LA 80 MG PO (08:38)
[2025-02-28] MEDS: HEPARIN 5000 UNITS SC (08:38)
[2025-02-28 08:43] LABS: Glucose - Point of Care 128 mg/dl (70-99)
[2025-02-28 08:47] LABS: Glycohemoglobin (HgbA1c) 7.1 % (4.0-5.6)
[2025-02-28] MEDS: NOVOLOG FLEXPEN-LOW RESISTANCE SC ×2 (08:48→18:04)
[2025-02-28 10:45] VITALS: BP 104/67; BP 113/65; BP 115/65; PULSE 67; PULSE 71; PULSE 75; O2SAT 96
[2025-02-28 11:50] VITALS: BP 104/67; BP 113/65; BP 115/65; PULSE 67; PULSE 71; PULSE 75; O2SAT 96
--- NOTE | 2025-02-28 11:51 | W.PN.HOSP.TC ---
Today's Communication/Plan
-
stop SC heparin
add NSS x 1L
cont abx
await cultures
Assessment / Plan
Assessment / Plan
pt is a 69 year old male
Presyncope/generalized weakness, could be due to sepsis present on admission, likely due to complicated UTI/cystitis--h/o Neurogenic bladder with recurrent UTI and Chronic hematuria, but now with clot --apprec urology--CT with presumed blood and
thickened bladder --start low rate IVF--continue ceftriaxone--Would avoid DATABASE MANAGER Farxiga and Gemtesa in setting of recurrent UTI--apprec urology
MONICA--Serum creatinine 1.4 from baseline 1.0--NSS x 1L
Incidental finding of pancreatic head lesion--Follow-up MRI or CT in 2 years per radiologist suggestion
NIDDM--Cover with insulin sliding scale--Would avoid DATABASE MANAGER Farxiga in setting of recurrent UTI
JANA--not on CPAP DATABASE MANAGER
h/o stroke without significant neurologic deficit
DVT proph-- ambulate
code status--Full Code
Anticipated Discharge: 24 - 48 hours
Subjective/Interval History
-
Date of Service: February 28, 2025
pt asking about ABX
Objective Data
-
Labs:
Laboratory Results
02/28/25
05:44
WBC 13.3 H
Hgb 11.8 L
Hct 37.1 L
Plt Count 237
Sodium 140
Potassium 3.7
Chloride 107
Carbon Dioxide 27
BUN 24 H
Creatinine 1.1
Glucose 129 H
Calcium 8.6
Vital Signs:
max temp for 24 hours
02/27/25
23:00
Temp 100.2 F
Vital Signs
Temp Pulse Resp BP Pulse Ox
98.4 F 71 16 113/63 97
02/28/25 07:30 02/28/25 08:38 02/28/25 07:30 02/28/25 08:38 02/28/25 07:30
Review of Systems
-
All other systems: Reviewed and negative
Physical Exam
-
General: Well Developed, Well Nourished and No Apparent Distress
HEENT: Normocephalic and Atraumatic
Respiratory: Clear to Auscultation; Negative Wheezes or Rhonchi
Cardiac: Regular Rhythm and S1/S2; Negative Murmur
GI: Soft, Nontender, Nondistended and Normal Bowel Sounds
Genito-urinary: Bloody Urine and Moise
Musculoskeletal: No Clubbing, No Cyanosis and No Edema
Neuro: Awake and Alert
Psych: Calm
[2025-02-28] MEDS: NSS 1000 IV (12:22)
[2025-02-28 12:28] LABS: Glucose - Point of Care 156 mg/dl (70-99)
[2025-02-28] MEDS: NOVOLOG FLEXPEN-LOW RESISTANCE 1 UNITS SC (12:48)
--- NOTE | 2025-02-28 14:57 | CM ---
Met with pt at bedside on . Resides in 2 story home with his , [address] Townsend, Pharmacy [facility] in [place]. Pt has previously received services with [facility]. No O2 supplies in home. Possibly being discharged with IV antibiotics
but no plan yet. Pt agreeable to [facility] for IV Abx if needed. CM will continue to follow for discharge planning needs.
Plan: Home, possibly with IV Antibiotics, Assess for needs
[2025-02-28 16:00] VITALS: BP 122/71
[2025-02-28] MEDS: SENOKOT-S 1 TABLET PO (16:58)
[2025-02-28] MEDS: STERILE WATER FOR INJECTION 10 ML IV (17:05)
[2025-02-28] MEDS: ROCEPHIN 1000 MG IV (17:05)
[2025-02-28 17:54] LABS: Glucose - Point of Care 143 mg/dl (70-99)
[2025-02-28] MEDS: LOW STRENGTH ASPIRIN 81 MG PO (21:37)
[2025-02-28] MEDS: LIPITOR 80 MG PO (21:37)
[2025-02-28] MEDS: FLOMAX 0.4 MG PO (21:37)
[2025-02-28] MEDS: EFFEXOR XR 150 MG PO (21:37)
[2025-02-28 21:50] LABS: Glucose - Point of Care 164 mg/dl (70-99)
[2025-02-28 23:00] VITALS: BP 112/63
[2025-03-01 07:00] VITALS: BP 117/68
[2025-03-01 07:02] LABS: Hematocrit 35.6 % (39.0-52.0); Hemoglobin 11.5 g/dL (13.0-18.0); Mean Corp Hgb Conc. 32.3 g/dL (33.0-37.0); Mean Corpuscular Hgb 29.1 pg (27.0-31.0); Mean Corpuscular Volume 90.1 fL (80.0-94.0); Mean Platelet Volume 10.3 fL (7.4-10.4); Platelet Count 221 10^3/uL (130-400); Red Blood Cell Count 3.95 10^6/uL (4.70-6.10); White Blood Cell Count 9.6 10^3/uL (4.8-10.8)
[2025-03-01 07:30] LABS: Blood Urea Nitrogen 25 mg/dl (9-20); Calcium 8.6 mg/dl (8.4-10.2); Carbon Dioxide 27 mmol/L (22-30); Chloride 108 mmol/L (98-107); Estimated Creatinine Clearance 68 ml/min; Glucose 126 mg/dl (70-99); Sodium 140 mmol/L (135-145); eGFR > 60.00
--- NOTE | 2025-03-01 08:10 | W.PN.URO.CBU ---
Today's Communication / Plan
-
continue washington and await ucx
Assessment / Plan
-
neurogenic/dysfunctional bladder
chronic cystitis
continue washington
expect some mild intermittent hematuria
await ucx
at discharge- home with washington and leg bag and f/u with [facility] urologist
Diagnosis
-
Date of Service: March 01, 2025
-
Patient Diagnosis:
neurogenic bladder
chronic cystitis
Subjective
-
pt feels ok
no fevers
blood cx's negative- ucx pending
some old hematuria- current urine clear in tube
Objective
-
Vital Signs
Temp Pulse Resp BP Pulse Ox
97.6 F 63 18 117/68 96
03/01/25 07:00 03/01/25 07:00 03/01/25 07:00 03/01/25 07:00 03/01/25 07:00
Intake and Output
02/28/25 03/01/25 03/02/25
06:59 06:59 06:59
Intake Total 1040 / 1040
Output Total 3200 / 3200
Balance -2160 / -2160
Intake:
Oral fluids 1040 / 1040
Output:
Urine, [place] 3200 / 3200
Laboratory Results
03/01/25 06:42
03/01/25 06:42
Physical Exam
-
General - no acute distress
Abdomen - soft, non-tender
Genitalia - washington in place
[2025-03-01 08:36] LABS: Glucose - Point of Care 126 mg/dl (70-99)
[2025-03-01] MEDS: NOVOLOG FLEXPEN-LOW RESISTANCE SC ×2 (09:32→17:38)
[2025-03-01] MEDS: INDERAL LA 80 MG PO (09:32)
[2025-03-01 11:00] VITALS: BP 105/74; BP 118/72; BP 135/76; PULSE 64; PULSE 68; PULSE 71
[2025-03-01 12:07] LABS: Glucose - Point of Care 237 mg/dl (70-99)
[2025-03-01] MEDS: VALIUM INJECTION 2.5 MG IV ×2 (12:13→20:35)
[2025-03-01] MEDS: NOVOLOG FLEXPEN-LOW RESISTANCE 2 UNITS SC (12:14)
--- NOTE | 2025-03-01 12:40 | PTCARENOTE ---
pt complaining of urine leaking from around catheter insertion site. noted that she had been here for an hour and did not see anything come through the tube. Urology informed via TT and saw pt @bedside. This RN assisted Dr Canela with
irrigation. Orders for PRN irrigation and Valium obtained. Will continue to monitor.
--- NOTE | 2025-03-01 14:17 | W.PN.HOSP.TC ---
Today's Communication/Plan
-
watch for washington irrigation needs today
stop rocephin
Assessment / Plan
Assessment / Plan
pt is a 69 year old male
Presyncope/generalized weakness, could be due to sepsis present on admission, likely due to complicated cystitis--h/o Neurogenic bladder with recurrent UTI and Chronic hematuria, but now with clot --apprec urology--CT with presumed blood and
thickened bladder, urine cultures negative --stop ceftriaxone--Would avoid VIROLOGY TEACHER Farxiga and Gemtesa in setting of recurrent UTI--apprec urology--will need to go home with washington
MONICA--Serum creatinine 1.4 to 1.1 from baseline 1.0--s/p NSS
Incidental finding of pancreatic head lesion--Follow-up MRI or CT in 2 years per radiologist suggestion
NIDDM--Cover with insulin sliding scale--Would avoid VIROLOGY TEACHER Farxiga in setting of recurrent UTI
JANA--not on CPAP VIROLOGY TEACHER
h/o stroke without significant neurologic deficit
DVT proph-- ambulate
code status--Full Code
Anticipated Discharge: 24 - 48 hours
Subjective/Interval History
-
Date of Service: March 01, 2025
pt is telling me that case management came to him and said he needed IV abx and PICC line to go home--explained that his cultures are negative and that I was stopping the abx
Objective Data
-
Labs:
Laboratory Results
03/01/25
06:42
WBC 9.6
Hgb 11.5 L
Hct 35.6 L
Plt Count 221
Sodium 140
Potassium 4.0
Chloride 108 H
Carbon Dioxide 27
BUN 25 H
Creatinine 1.1
Glucose 126 H
Calcium 8.6
Vital Signs:
max temp for 24 hours
02/27/25
23:00
Temp 100.2 F
Vital Signs
Temp Pulse Resp BP Pulse Ox
97.6 F 63 18 117/68 96
03/01/25 07:00 03/01/25 09:32 03/01/25 07:00 03/01/25 09:32 03/01/25 07:00
I&O
02/28/25 03/01/25 03/02/25
06:59 06:59 06:59
Intake Total 1040 / 1040
Output Total 3200 / 3200
Balance -2160 / -2160
Review of Systems
-
All other systems: Reviewed and negative
Physical Exam
-
General: Well Developed, Well Nourished and No Apparent Distress
HEENT: Normocephalic and Atraumatic
Respiratory: Clear to Auscultation; Negative Wheezes or Rhonchi
Cardiac: Regular Rhythm and S1/S2; Negative Murmur
GI: Soft, Nontender, Nondistended and Normal Bowel Sounds
Genito-urinary: [place] (bloody urine )
Musculoskeletal: No Clubbing, No Cyanosis and No Edema
Neuro: Awake
[2025-03-01 15:00] VITALS: BP 125/72
[2025-03-01 17:19] LABS: Glucose - Point of Care 149 mg/dl (70-99)
[2025-03-01] MEDS: LIPITOR 80 MG PO (20:35)
[2025-03-01] MEDS: FLOMAX 0.4 MG PO (20:36)
[2025-03-01] MEDS: EFFEXOR XR 150 MG PO (20:36)
[2025-03-01] MEDS: LOW STRENGTH ASPIRIN 81 MG PO (20:36)
[2025-03-01 21:11] LABS: Glucose - Point of Care 140 mg/dl (70-99)
[2025-03-01 23:00] VITALS: BP 118/62; BP 135/71; BP 137/71; PULSE 75; PULSE 78; PULSE 80
[2025-03-02 05:26] LABS: Hematocrit 36.5 % (39.0-52.0); Hemoglobin 11.9 g/dL (13.0-18.0); Mean Corp Hgb Conc. 32.6 g/dL (33.0-37.0); Mean Corpuscular Hgb 29.2 pg (27.0-31.0); Mean Corpuscular Volume 89.5 fL (80.0-94.0); Mean Platelet Volume 10.2 fL (7.4-10.4); Platelet Count 255 10^3/uL (130-400); Red Blood Cell Count 4.08 10^6/uL (4.70-6.10); Red Cell Dist. Width 13.9 % (11.5-14.5); White Blood Cell Count 8.6 10^3/uL (4.8-10.8)
[2025-03-02 05:48] LABS: Blood Urea Nitrogen 29 mg/dl (9-20); Carbon Dioxide 25 mmol/L (22-30); Chloride 108 mmol/L (98-107); Estimated Creatinine Clearance 74 ml/min; Glucose 145 mg/dl (70-99); Potassium 3.9 mmol/L (3.5-5.1); Sodium 140 mmol/L (135-145); eGFR > 60.00
[2025-03-02 05:58] LABS: Magnesium 1.9 mg/dl (1.6-2.3)
--- NOTE | 2025-03-02 06:32 | PTCARENOTE ---
Moise flushed at start of shift for a large amount of small clots. Moise draining clear/yellow throughout rest of shift.
--- NOTE | 2025-03-02 06:51 | PTCARENOTE ---
Clarified with urology - do not discontinue washington at this time. [place] left intact, draining clear/yellow at this time.
[2025-03-02 07:20] VITALS: BP 129/74; BP 130/72; BP 139/72; PULSE 67; PULSE 74; PULSE 90
[2025-03-02 07:25] VITALS: BP 130/72
--- NOTE | 2025-03-02 07:57 | W.PN.URO.CBU ---
Today's Communication / Plan
-
continue washington
observe for bleeding
Assessment / Plan
-
neurogenic/dysfunctional bladder
chronic cystitis
continue washington
old clot and hematuria clearing
wathc today- if stable home tomorrow with washington
Diagnosis
-
Date of Service: March 02, 2025
-
Patient Diagnosis:
neurogenic bladder
chronic cystitis
hematuria
Subjective
-
pt required hand irrigation several times yesterday for what appeared to be old clot
urine now clear- hand irrigated- no clot
ucx and blood cx's negative
Objective
-
Vital Signs
Temp Pulse Resp BP Pulse Ox
98.4 F 75 20 118/62 98
03/01/25 23:00 03/01/25 23:00 03/01/25 23:00 03/01/25 23:00 03/01/25 23:00
Intake and Output
03/01/25 03/02/25 03/03/25
06:59 06:59 06:59
Intake Total 1040 / 1040 1100 / 1100
Output Total 3200 / 3200 3850 / 3850
Balance -2160 / -2160 -2750 / -2750
Intake:
Oral fluids 1040 / 1040 1100 / 1100
Output:
Urine, [place] 3200 / 3200 3850 / 3850
Laboratory Results
03/02/25 04:50
03/02/25 04:50
Review of Systems
-
Constitutional: Fatigue
Respiratory: No Symptoms
Cardiac: No Symptoms
Abdomen/GI: No Symptoms
: Other (washington bother)
Physical Exam
-
General - no acute distress
Abdomen - soft, non-tender
Genitalia - normal- washington in place
[2025-03-02 08:24] LABS: Glucose - Point of Care 153 mg/dl (70-99)
[2025-03-02] MEDS: INDERAL LA 80 MG PO (09:22)
[2025-03-02] MEDS: NOVOLOG FLEXPEN-LOW RESISTANCE SC ×2 (09:22→15:01)
--- NOTE | 2025-03-02 11:33 | W.PN.HOSP.TC ---
Today's Communication/Plan
-
anticipate d/c to home tomorrow with washington
Assessment / Plan
Assessment / Plan
pt is a 69 year old male
Presyncope/generalized weakness, could be due to sepsis present on admission, likely due to complicated cystitis--h/o Neurogenic bladder with recurrent UTI and Chronic hematuria, but now with clot --apprec urology--CT with presumed blood and
thickened bladder, urine cultures negative --stop ceftriaxone--Would avoid BEAD PREPARER Farxiga and Gemtesa in setting of recurrent UTI--apprec urology--will need to go home with washington--hopefully tomorrow
MONICA--Serum creatinine 1.4 to 1.0 from baseline 1.0--s/p NSS
Incidental finding of pancreatic head lesion--Follow-up MRI or CT in 2 years per radiologist suggestion
NIDDM--Cover with insulin sliding scale--Would avoid BEAD PREPARER Farxiga in setting of recurrent UTI
JANA--not on CPAP BEAD PREPARER
h/o stroke without significant neurologic deficit
DVT proph-- ambulate
code status--Full Code
Anticipated Discharge: Within 24 hours
Subjective/Interval History
-
Date of Service: March 02, 2025
pt had rough night with clots and pain
Objective Data
-
Labs:
Laboratory Results
03/02/25
04:50
WBC 8.6
Hgb 11.9 L
Hct 36.5 L
Plt Count 255
Sodium 140
Potassium 3.9
Chloride 108 H
Carbon Dioxide 25
BUN 29 H
Creatinine 1.0
Glucose 145 H
Calcium 9.0
Vital Signs:
max temp for 24 hours
03/01/25
23:00
Temp 98.4 F
Vital Signs
Temp Pulse Resp BP Pulse Ox
97.6 F 67 16 130/72 97
03/02/25 07:25 03/02/25 07:25 03/02/25 07:25 03/02/25 07:25 03/02/25 07:25
I&O
03/01/25 03/02/25 03/03/25
06:59 06:59 06:59
Intake Total 1040 / 1040 1100 / 1100
Output Total 3200 / 3200 3850 / 3850
Balance -2160 / -2160 -2750 / -2750
Review of Systems
-
All other systems: Reviewed and negative
Genitourinary: Reports Bleeding (clots)
Physical Exam
-
General: Well Developed, Well Nourished and No Apparent Distress
HEENT: Normocephalic and Atraumatic
Respiratory: Clear to Auscultation; Negative Wheezes or Rhonchi
Cardiac: Regular Rhythm and S1/S2; Negative Murmur
GI: Soft, Nontender, Nondistended and Normal Bowel Sounds
Genito-urinary: [place] (urine clearing)
Musculoskeletal: No Clubbing, No Cyanosis and No Edema
Skin: Warm
Neuro: Awake
[2025-03-02 11:43] LABS: Glucose - Point of Care 159 mg/dl (70-99)
--- NOTE | 2025-03-02 15:09 | PTCARENOTE ---
Patient is without complaints of pain or discomfort. Patient is sitting on side of bed, catheter is draining yellow urine. Small clot noted in tubing. Will continue to monitor.
[2025-03-02 15:15] VITALS: BP 113/64
--- NOTE | 2025-03-02 16:32 | CM ---
CM following for discharge planning. Pt with soledad washington; Dr. Souza would like VN for patient/caregiver support at home.
CM spoke with pt's who chose [facility] for services. Referral sent via [facility].
Plan: Discharge to home with soledad washington. Abdon ROSE to provide additional patient/caregiver teaching for washington care.
IMM reviewed with pt's via telephone. Verbal consent provided. Form placed in medical record.
Abdon
[2025-03-02 16:54] LABS: Glucose - Point of Care 240 mg/dl (70-99)
[2025-03-02] MEDS: NOVOLOG FLEXPEN-LOW RESISTANCE 300 UNITS SC (17:33)
--- NOTE | 2025-03-02 17:38 | PTCARENOTE ---
Patient had some draining of urine coming out around his catheter insertion site with a small amount of purulent drainage. I irrigated the Moise and a few small clots came out with some hematuria. It is now draining yellow urine. The urine seeping
out around the insertion has also stopped. Patient with , encouraged to take a walk in hallway. Patient without pain, but states he has some discomfort with the irrigation.
[2025-03-02] MEDS: LIPITOR 80 MG PO (21:01)
[2025-03-02] MEDS: LOW STRENGTH ASPIRIN 81 MG PO (21:01)
[2025-03-02] MEDS: EFFEXOR XR 150 MG PO (21:01)
[2025-03-02] MEDS: FLOMAX 0.4 MG PO (21:01)
[2025-03-02 21:02] LABS: Glucose - Point of Care 153 mg/dl (70-99)
[2025-03-02 23:45] VITALS: BP 121/71
--- NOTE | 2025-03-03 07:14 | W.PN.UPDATE ---
Addendum entered and electronically signed by William Canela Jr., MD 03/03/25 07:19:
vn consult entered for home washington monitoring and prn irrigation
Original Note:
Update Note
Progress Note Update
urine has remained clear
irrigated once for ? obstruction- this was most likely bladder spasms
plan for discharge today with washington/leg bag and contact outpt urology team
[2025-03-03 07:44] VITALS: BP 105/68
[2025-03-03 07:53] LABS: Glucose - Point of Care 156 mg/dl (70-99)
--- NOTE | 2025-03-03 08:01 | W.PN.HOSP.TC ---
Addendum entered and electronically signed by Bel Souza MD 03/03/25 14:50:
I saw and evaluated the patient independently. I reviewed the resident�s note and agree with findings and plan as documented by Dr. Wright.
GENERAL: well developed, well nourished, male in no apparent distress
HEENT: NC/AT
HEART: regular rate and rhythm, +S1, +S2
LUNGS : clear to auscultation bilaterally
ABDOM: soft, nontender, nondistended, + bowel sounds
EXT: no cyanosis, clubbing, or edema
NEUROLOGIC: grossly intact
: washington
Presyncope/generalized weakness, could be due to sepsis present on admission, likely due to complicated cystitis--h/o Neurogenic bladder with recurrent UTIs and Chronic hematuria, but now with clot --apprec urology--CT with presumed blood and
thickened bladder, urine cultures negative --stop ceftriaxone--Would avoid AV SPECIALIST Farxiga and Gemtesa--apprec urology--will need to go home with washington
MONICA--Serum creatinine 1.4 to 1.0 from baseline 1.0--s/p NSS --resolved
Incidental finding of pancreatic head lesion--Follow-up MRI or CT in 2 years per radiologist suggestion
NIDDM--Cover with insulin sliding scale--Would avoid AV SPECIALIST Farxiga
JANA--not on CPAP AV SPECIALIST
h/o stroke without significant neurologic deficit
DVT proph-- ambulate
code status--Full Code
ok for d/c
Original Note:
Today's Communication/Plan
-
dispo home today
continue washington
Assessment / Plan
Assessment / Plan
Impression: This is a 69-year-old male with past medical history of NIDDM, JANA, stroke, neurogenic bladder with recurrent UTI, chronic hematuria who presents with presyncope
Plan:
# Presyncope/generalized weakness, could be due to sepsis present on admission, likely 2/2 complicated UTI/cystitis.
# h/o Neurogenic bladder with recurrent UTI
# Chronic hematuria, but now with clot
Would avoid AV SPECIALIST Farxiga and Gemtesa in setting of recurrent UTI
Urine cx and blood cx negative, Ceftriaxone stopped
Uro consulted, appreciated
Urine clear today
Continue washington until seen OP by primary urologist
VN for washington OP
Dispo to home today
# MONICA - resolved
Serum creatinine 1
s/p NSS
monitor creatinine
# Incidental finding of pancreatic head lesion
Follow-up MRI or CT in 2 years per radiologist suggestion
# NIDDM
insulin sliding scale
Would avoid AV SPECIALIST Farxiga in setting of recurrent UTI
Restart glipizide on Discharge
# JANA
not on CPAP AV SPECIALIST
# h/o stroke without significant neurologic deficit
DVT ppx: HSQ
Anticipated Discharge: Within 24 hours
Subjective/Interval History
-
Date of Service: March 03, 2025
Patient has no new symptoms overnight. Has clear urine.
Objective Data
-
Vital Signs:
Vital Signs
Temp Pulse Resp BP Pulse Ox
97.6 F 64 16 105/68 97
03/03/25 07:44 03/03/25 07:44 03/03/25 07:44 03/03/25 07:44 03/03/25 07:44
I&O
03/02/25 03/03/25 03/04/25
06:59 06:59 06:59
Intake Total 1100 / 1100 120 / 120 480 / 480
Output Total 3850 / 3850 2200 / 2200 1200 / 1200
Balance -2750 / -2750 -2080 / -2080 -720 / -720
Review of Systems
-
All other systems: Reviewed and negative
Physical Exam
-
General: Well Developed, Well Nourished and No Apparent Distress
HEENT: Normocephalic and Atraumatic
Respiratory: Clear to Auscultation; Negative Wheezes or Rhonchi
Cardiac: Regular Rhythm and S1/S2; Negative Murmur
GI: Soft, Nontender, Nondistended and Normal Bowel Sounds
Genito-urinary: [place] (urine clearing)
Musculoskeletal: No Clubbing, No Cyanosis and No Edema
Skin: Warm
Neuro: Awake, Alert and Oriented
[2025-03-03] MEDS: NOVOLOG FLEXPEN-LOW RESISTANCE 1 UNITS SC ×2 (10:02→13:11)
[2025-03-03] MEDS: INDERAL LA 80 MG PO (10:04)
[2025-03-03 12:08] LABS: Glucose - Point of Care 184 mg/dl (70-99)
--- NOTE | 2025-03-03 14:37 | W.DCSUMMARY ---
Addendum entered and electronically signed by Bel Souza MD 03/03/25 18:40:
Read, reviewed, and agree. See same day progress note for additional details. Time spent coordinating care, DC planning, review of DC plan of care with resident, transition of care, review of records in EMR, med rec, consults, notes, d/w
consultants, nursing, family, and CM = 32 minutes
Original Note:
Discharge Summary
Discharge Data
Date of Admission: 02/27/25
Date of Discharge: 03/03/25
-
Pending Results: No
Hospital Course
Discharging Physician : ,
Disposition : Home with VN
Primary care physician : Dr.Morris Almonte
Principal Discharge diagnosis : Cystitis
Chronic Discharge diagnosis : chronic hematuria, incomplete emptying, and recurrent UTIs, NIDDM, JANA,Cerebrovascular accident s/p tPA 11/22/22
Hospital Course : This was a 69-year-old male with past medical history of NIDDM, JANA, stroke, neurogenic bladder with recurrent UTI, chronic hematuria who presented with presyncope that occurred few hours prior to arrival to the hospital. In the
ED, patient was found to have hematuria and CT abdomen was done which showed findings suggestive of cystitis and blood products within the bladder. Urology consulted and advised to maintain [place] catheter. IV antibiotics were started with blood and
urine cultures sent. Farxiga and Gemtesa were held in the setting of history of recurrent UTIs. Blood and urine cultures came back negative and patient was therefore discontinued of antibiotics. Patient was also given IVF for acute kidney injury and
creatinine came back to baseline of 1. Patient's urine started to clear. Other chronic comorbidities were otherwise stable. As patient's condition improved, he was stable for discharge to home with VN with washington and recommendations to follow up with
primary urologist and PCP.
Important imaging findings :
CT Abd/Pel 02/27:
Heterogeneous increased density within the bladder lumen, which is likely blood products. Bladder wall appears thickened with stranding of the surrounding fat, suggesting cystitis.
No evidence for obstructing ureteral calculus. There is bilateral ureteral and pelvicalyceal dilation, left greater than right, with obstruction possibly on the basis of blood products.
There is urothelial thickening involving the left renal pelvis and calyces, and would be suggestive of ureteritis/infection. Moderate left perinephric edema increasing since previous CT examination, which could be on the basis of obstructive
uropathy and/or edema associated with infection.
2 mm nephrolith in the lower pole the left kidney.
Fatty infiltration the liver.
Small cystic lesion within the head of the pancreas, minimally larger comparing to CT examination from 2020. Consider a follow-up MRI or CT with attention to the pancreas in 2 years.
Discharge Plan
-
Patient Disposition: Home with Home Care
Discharge Diagnosis/Procedures: Presyncope with generalized weakness due to hematuria, acute kidney injury, incidental finding of pancreatic head lesion, [id number] diabetes mellitus, obstructive sleep apnea, history of previous stroke
Condition: Good
Diet: Low Cholesterol
Activity: As tolerated
Driving Restrictions: As prior to admission
Other Services: VN
Activity Restrictions/Additional Instructions:
You will go home with the Washington catheter.
Follow-up with your normal urologist as an outpatient.
Referrals:
Shaun Almonte DO [Family Provider] - in one week
Additional Discharge Medication Instructions: Please follow with outpatient urology team
Prescriptions:
Continued
atorvastatin 80 mg Tablet
80 mg PO HS
propranolol 80 mg Capsule,Extended Release 24 Hr
80 mg PO DAILY
venlafaxine 150 mg capsule,extended release 24hr
150 mg PO HS
tamsulosin [Flomax] 0.4 mg capsule
0.4 mg PO HS
glipizide 5 mg tablet
5 mg PO DAILY
clotrimazole-betamethasone 1-0.05 % cream
1 applic TOPICAL BID
omega 0-ldm-qns-fish oil [Fish Oil] 1,000 (120-180) mg Capsule
1 cap PO DAILY
Neuriva Original 100-100 mg Capsule
1 cap PO DAILY
Gemtesa 75 mg Tablet
75 mg PO QPM
metformin 500 MG tablet
500 mg PO BID
aspirin 81 mg Tablet,Chewable
81 mg PO HS
Discontinued
dapagliflozin propanediol [Farxiga] 10 mg Tablet
10 mg PO DAILY
Discharge Orders:
Discharge Patient (As Directed); Ordered 03/03/25
Ordered By: Hailey Wright
Discharge Date and Time
Discharge Date/Time: 03/03/25 15:21
Print Language: MALTESE
[2025-03-03 15:04] VITALS: BP 135/84
--- NOTE | 2025-03-03 17:26 | CM ---
Patient seen at bedside with physicians on . Patient present. Plan for home with Abdon following patient. Patient PCP Dr. Shaun Salazar, and patient requested medical records form, requested community relations advisor to provide. Patient for
discharge home today with . Patient completed IMM and form placed on chart. CM will continue to follow for discharge planning needs.
Plan; home with Abdon to follow
== END 2025-03-03 15:21 | disposition home health service (06) | DRG 872 ==
LOC: 3 WEST ACU 18:46
PROVIDERS: Physician Assistant; Student in an Organized Health Care Education/Training Program; ADMITTING PHYSICIAN Internal Medicine; ATTENDING PHYSICIAN Internal Medicine; CONSULT PHYSICIAN Surgery; EMERGENCY PHYSICIAN Emergency Medicine; FAMILY PHYSICIAN Family Medicine
DX: A41.9 Sepsis, unspecified organism (principal); N17.9 Acute kidney failure, unspecified; E11.36 Type 2 diabetes mellitus with diabetic cataract; G47.33 Obstructive sleep apnea (adult) (pediatric); Z87.440 Personal history of urinary (tract) infections
CPT/HCPCS: 51798; 74176; 80048; 80053; 81003; 81015; 82550; 82962; 83036; 83735; 84443; 84484; 85025; 85027; 87040; 87086; 93005; 96361; 96374; 97162; 99285

== ENCOUNTER → 2025-05-01 11:10 | Outpatient (REF) | payer BC, SELFPAY | LOC: RAD 11:10 | PROVIDERS: ATTENDING PHYSICIAN Ophthalmology; FAMILY PHYSICIAN Family Medicine | DX: H05.20 Unspecified exophthalmos (principal) | CPT/HCPCS: 70460; 70480; Q9967 ==

== ENCOUNTER 2025-06-30 22:55 | Emergency (ER) | payer BC, MEDICARE, SELFPAY ==
[2025-06-30 23:00] VITALS: BP 140/70
[2025-06-30 23:49] LABS: Hematocrit 36.8 % (39.0-52.0); Hemoglobin 11.9 g/dL (13.0-18.0); Mean Corp Hgb Conc. 32.3 g/dL (33.0-37.0); Mean Corpuscular Volume 90.4 fL (80.0-94.0); Nucleated Red Blood Cells % 0 % (-); Platelet Count 254 10^3/uL (130-400); Red Cell Dist. Width 14.7 % (11.5-14.5)
[2025-07-01 00:01] LABS: ALT (SGPT) 20 U/L (0-50); AST (SGOT) 19 U/L (17-59); Albumin 4.3 g/dl (3.5-5.0); Alkaline Phosphatase 64 U/L (38-126); Blood Urea Nitrogen 27 mg/dl (9-20); Calcium 9.5 mg/dl (8.4-10.2); Carbon Dioxide 27 mmol/L (22-30); Chloride 105 mmol/L (98-107); Glucose 168 mg/dl (70-99); Potassium 4.5 mmol/L (3.5-5.1); Sodium 140 mmol/L (135-145); Total Protein 6.8 g/dl (6.3-8.2); eGFR > 60.00
[2025-07-01 03:44] VITALS: BMI 24.7
--- NOTE | 2025-07-01 03:57 | ED.GENMED ---
History of Present Illness
General
Chief Complaint: Male Genito-Urinary Symptoms
Source: patient
Exam Limitations: none
Time Seen by Provider: 07/01/25 03:57
Nursing documentation reviewed up to this point in time: agreed with
History of Present Illness
History of Present Illness:
This is a 69 year-old male with a past medical history of prosthetic hypertrophy/ noncompliant platter with indwelling fully, diabetes , CVA , he presents the ER today with concerns of Right sided scrotal swelling for the past two days. Patient
reports that he does not have pain in this program currently but feels a sensation swelling and will sort of feel pain if he walks around. He has never had this before. He denies any cloud urine from his [place] catheter. He denies Fevers , abdominal
pain , nausea, vomiting, trauma to the scrotum . He denies any pelvic pain. He denies any flank pain. He follows with a neurologist associated with [facility].
Past History
Past History
ED Past Medical History: CVA (Right hemiparesis, ), Hypercholesterolemia, NIDDM, Psychiatric (Anxiety) and Other (Back pain, Essential tremors. Sleep apnea, Diverticulitis, Renal calculus, Nocturia, )
ED Past Surgical History: Cardiac (Carotid stent), Orthopedic (Back fusion X 2, Right and left rotator cuff, Left and right hip replacement, ), Urological (Lithotripsy, stent) and Other (Cataracts, Deviated septum, )
Social History
Tobacco: Non-smoker
Alcohol: Occasional
Drug: None
Personal:
Living: with family
Employment: Other
Family History
Family History: Other
Review of Systems
Review of Systems
All Other Systems: ROS reviewed and negative except as documented in HPI and ROS
Phy Exam
Physical Exam
Physical Exam:
General: Patient is well appearing and in no acute distress; non-toxic
Skin: Warm and dry, no rashes or lesions
Head: Normocephalic, atraumatic
Eyes: Sclera non-icteric. EOMs intact.
Cardiac: Regular rate and rhythm, no murmurs
Pulm: Normal respiratory effort, no wheezes, rales, rhonchi
Abdomen: No abdominal tenderness to palpation
Genitourinary: [place] catheter in place, no purulent drainage. Mild right sided posterior scrotal swelling noted, no tenderness upon palpation, no testicular masses
Musculoskeletal: No tenderness to palpation extremities bilaterally. Negative Homans. No palpable bony deformities.
Neuro: CN II-XII intact, no focal neurologic deficits.
Psychiatric: Appropriate mood and affect.
Sepsis
Sepsis Screening
Sepsis Assessment: Sepsis Ruled Out
Sepsis Screen
Sepsis Screen: Sepsis Ruled Out
Date: 07/01/25
Time: 13:29
Course
Orders/Labs/Results
Orders:
Orders
06/30/25 23:13
Comprehensive Metabolic Panel Urgent
06/30/25 23:14
Complete Blood Count/With Diff Urgent
07/01/25 00:00
US Scrotum Urgent
Reason For Exam: SWELLING
07/01/25 04:34
Urinalysis Reflex To Culture Urgent
Date Specimen was Collected: 07/01/25
Time Specimen was Collected: 04:31
Urine Microscopic Reflex Cult Urgent
Urine Culture Urgent
ISA Source: U
Specimen Description:
Date Specimen was Collected: 07/01/25
Time Specimen was Collected: 04:31
Abnormal Lab Results
06/30/25 06/30/25 07/01/25
23:13 23:14 04:34
RBC 4.07 L 10^6/uL
(4.70-6.10)
Hgb 11.9 L g/dL
(13.0-18.0)
Hct 36.8 L %
(39.0-52.0)
MCHC 32.3 L g/dL
(33.0-37.0)
RDW 14.7 H %
(11.5-14.5)
MPV 10.5 H fL
(7.4-10.4)
Absolute Monos (auto) 0.9 H 10^3/uL
(0.1-0.6)
Lymphocytes % 16.0 L %
(20.5-51.1)
Monocytes % 9.9 H %
(1.7-9.3)
BUN 27 H mg/dl
(9-20)
Glucose 168 H mg/dl
(70-99)
Ur Occult Blood Reflex 4+ A
(Negative)
Urine Nitrite (Reflex) Positive A
(Negative)
Leukocyte Esterase Rfl 3+ A
(Negative)
Urine RBC >100 A /HPF
(0-2)
Urine WBC (Reflex) >100 A /HPF
(0-5)
Urine Bacteria (Reflex) Many A
(Negative)
Urine Glucose 3+ A
(Negative)
Urine Albumin (Reflex) 2+ A
(Neg - Trace)
06/30/25 23:14
06/30/25 23:13
Vital Signs
Initial and Last Documented VS:
Initial Vital Signs
Temp Pulse Resp BP Pulse Ox
98 F 74 18 140/70 94
06/30/25 23:00 06/30/25 23:00 06/30/25 23:00 06/30/25 23:00 06/30/25 23:00
Last Documented Vital Signs
Temp Pulse Resp BP Pulse Ox
98 F 74 18 140/70 98
06/30/25 23:00 06/30/25 23:00 06/30/25 23:00 06/30/25 23:00 07/01/25 05:32
MDM/Problems Addressed
Differential Diagnosis Includes:
ddx include hydrocele, epididymitis, testicular torsion, inguinal hernia,
MDM/Problems Addressed:
CHART REVIEW
Reviewed discharge summary from , patient admitted for gross hematuria with clot retention
Review discharge summary from 03/03/25 patient seen for Syncope secondary to complicated cystitis
69 year-old male with past medical history of prostatic hypertrophy with indwelling [place] presents to the ER today with concerns of scrotal swelling on the right. He has associated pain and discomfort at times. No associated urinary symptoms. No
abdominal pain. No fever or chills. Exam, he has s some right scrotal swelling present but no erythema, no palpable masses. Labs reviewed, CBC unremarkable. CMP shows mildly elevated BUN, discussed oral hydration with patient. analysis reviewed,
patient has chronic hematuria. Scrotal ultrasound reveals possible vasitis Ites along with epididymal cyst. reviewed findings with patient. scussed conservative measures. Discussed scrotal support. Per Emra commendations, well initiate leave a
levofloxacin considering patient has history of BPH no risk factors for STDs STI's. Discussed strict follow up with patients urologist. Patient follows with [facility]. tient stable for discharge.
*Pulse Oximetry
SaO2: 98
Oxygen Mode of Delivery: Room air
Patient hypoxic: no
*Critical Care Note
Total Time (30-74mins, 75-104mins- exclusive of procedures): Not Applicable
ED Attending Note
-
Portions of this chart may have been created with voice recognition software.� Occasional wrong word or��sound alike� substitutions may have occurred due to the inherent limitations of voice recognition software.
Discharge Plan
Departure
Patient Disposition: Home (Routine Discharge)
Date of Disposition: 07/01/25
Time of Disposition: 04:53
Patient with high blood pressure during this ER visit?: Yes
Condition: Good
Discharge Problem:
Vasitis, Epididymal cyst
Instructions: Epididymitis and orchitis, BLOOD PRESSURE
Prescriptions:
New
levofloxacin 750 mg tablet
750 mg PO DAILY 10 Days Qty: 10 0RF
No Action
atorvastatin 80 mg Tablet
80 mg PO HS
propranolol 80 mg Capsule,Extended Release 24 Hr
80 mg PO DAILY
venlafaxine 150 mg capsule,extended release 24hr
150 mg PO HS
tamsulosin [Flomax] 0.4 mg capsule
0.4 mg PO HS
glipizide 5 mg tablet
5 mg PO DAILY
omega 9-srq-ipc-fish oil [Fish Oil] 1,000 (120-180) mg Capsule
1 cap PO DAILY
Neuriva Original 100-100 mg Capsule
1 cap PO DAILY
metformin 500 MG tablet
500 mg PO BID
bupropion HBr
150 mg PO DAILY
methenamine hippurate
1 g PO BID
aspirin 81 mg Tablet,Chewable
81 mg PO HS
Referrals:
Shaun Almonte DO [Family Provider, Family Practice]
Activity Restrictions/Additional Instructions:
Levofloxacin has been sent to your pharmacy. Please take one tablet once daily for 10 days.
Rest, ice, Tylenol, and scrotal support are important adjuncts for pain
Please call your urologist later today to schedule follow-up and please let them know that you were seen in the ER.
PLEASE RETURN TO THE ER SHOULD YOU DEVELOP FEVERS OR CHILLS, PURULENT DRAINAGE IN THE CATHETER, ABDOMINAL PAIN, INTRACTABLE NAUSEA OR VOMITING, CHEST PAIN, SHORTNESS OF BREATH, CLOUDY URINE, OR ANY OTHER SIGNS OR SYMPTOMS RECENTLY.
Interventions
Interventions:
*Risk Screen - Suicide Last Done: 06/30/25 23:00
*General Assessment Last Done: 07/01/25 03:46
*Neglect/Abuse Screening Last Done: 06/30/25 23:00
*ED- Fall Risk Assessment Last Done: 07/01/25 03:46
*ED COVID-19 Vaccine History Last Done: 07/01/25 03:46
*Nursing Disposition Last Done: 07/01/25 05:32
ED-Male Genitourinary Assessment Last Done: 07/01/25 03:46
Discharge Date and Time
Discharge Date/Time: 07/01/25 05:00
Print Language: BELIZEAN
[2025-07-01 04:57] LABS: Urine Character Cloudy (Clear)
[2025-07-01 05:13] LABS: Urine Red Blood Cell >100 /HPF (0-2); Urine Squamous Cell None seen /LPF (Few); Urine White Cell >100 /HPF (0-5)
== END 2025-07-01 05:00 | disposition home or self-care (01) ==
LOC: EMR 22:55
PROVIDERS: Physician Assistant; EMERGENCY PHYSICIAN Emergency Medicine; FAMILY PHYSICIAN Family Medicine
DX: N49.1 Inflammatory disorders of spermatic cord, tunica vaginalis and vas deferens (principal); N50.3 Cyst of epididymis; E11.9 Type 2 diabetes mellitus without complications; E78.00 Pure hypercholesterolemia, unspecified; I69.351 Hemiplegia and hemiparesis following cerebral infarction affecting right dominant side
CPT/HCPCS: 99284; 76870; 80053; 81003; 81015; 85025; 87077; 87086; 93976

== ENCOUNTER 2025-10-01 23:43 | Inpatient (IN) | payer BC, MEDICARE, SELFPAY ==
[2025-10-01 19:22] VITALS: BP 136/77
[2025-10-01 19:51] LABS: Hematocrit 41.7 % (39.0-52.0); Hemoglobin 13.8 g/dL (13.0-18.0); Mean Corp Hgb Conc. 33.1 g/dL (33.0-37.0); Mean Corpuscular Volume 88.2 fL (80.0-94.0); Nucleated Red Blood Cells % 0 % (-); Platelet Count 288 10^3/uL (130-400); Red Cell Dist. Width 13.4 % (11.5-14.5)
[2025-10-01 20:03] LABS: ALT (SGPT) 29 U/L (0-50); AST (SGOT) 24 U/L (17-59); Albumin 4.5 g/dl (3.5-5.0); Alkaline Phosphatase 82 U/L (38-126); Blood Urea Nitrogen 23 mg/dl (9-20); Calcium 9.3 mg/dl (8.4-10.2); Carbon Dioxide 22 mmol/L (22-30); Chloride 99 mmol/L (98-107); Glucose 168 mg/dl (70-99); Potassium 4.3 mmol/L (3.5-5.1); Sodium 132 mmol/L (135-145); Total Protein 7.1 g/dl (6.3-8.2); eGFR 58.37
[2025-10-01 20:43] VITALS: BMI 27.0
[2025-10-01 21:00] VITALS: BP 125/70
--- NOTE | 2025-10-01 21:16 | ED.GENMED ---
History of Present Illness
General
Chief Complaint: Change in Mental Status
Time Seen by Provider: 10/01/25 21:07
Nursing documentation reviewed up to this point in time: agreed with
History of Present Illness
History of Present Illness:
70-year-old male presents to the ER with his for evaluation of confusion which has been occurring intermittently throughout the day today. Patient also had an episode of witnessed chills while at work. Patient has been feeling unwell with
poor p.o. intake today. Patient has a Moise catheter which was recently exchanged by his urologist- present at bedside states that it was not just a simple cyst exchange, he had to have some instrumentation for reinsertion. The catheter has
been draining urine, although they have had to flush it a few times this week-he has had some bloody sediment along with some proteinaceous sediment since the catheter exchange. He has not taken anything for fever today. He reported some nausea
earlier, none at current. He denies headache. No change in vision. No syncope. No trauma. He does have a prior history of type II diabetes, previous stroke, hyperlipidemia
Past History
Past History
ED Past Medical History: CVA (Right hemiparesis, ), Hypercholesterolemia, NIDDM, Psychiatric (Anxiety) and Other (Back pain, Essential tremors. Sleep apnea, Diverticulitis, Renal calculus, Nocturia, )
ED Past Surgical History: Cardiac (Carotid stent), Orthopedic (Back fusion X 2, Right and left rotator cuff, Left and right hip replacement, ), Urological (Lithotripsy, stent) and Other (Cataracts, Deviated septum, )
Social History
Tobacco: Non-smoker
Alcohol: Occasional
Drug: None
Personal:
Living: with family
Employment: Other
Family History
Family History: Other
Review of Systems
Review of Systems
Allergies reviewed?: Yes
Phy Exam
Physical Exam
Physical Exam:
Patient is awake, alert, appears in no acute distress, head is NCAT, PERRL, EOMI mucous membranes moist, conjunctiva pink, heart regular rate and rhythm without murmurs or ectopy, lungs are clear to auscultation without wheezes rales or rhonchi, no
JVD, abdomen is soft and nontender on palpation, extremities without edema, no CVA tenderness, Moise catheter present draining pale yellow urine,GCS is 15, but patient has points in conversation where he will trail off and add some additional
unrelated information ( indicates that this is a change from his baseline clear mentation), moving all extremities symmetrically without focal deficit
Sepsis
Sepsis Screening
Sepsis Assessment: Sepsis
Sepsis Screen
Sepsis Screen: Sepsis
Date: 10/01/25
Time: 23:00
Course
Orders/Labs/Results
Orders:
Orders
10/01/25 19:26
Electrocardiogram (*1) Urgent
Reason for Study: Other
Other Reason for Exam: Possible Sepsis
EKG- Treatment ONCE
10/01/25 19:38
Complete Blood Count/With Diff Urgent
Comprehensive Metabolic Panel Urgent
Lactic Acid Q4H
Comment: ON ICE, CANCEL 2ND ORDER IF FIRST LACTIC ACID LEVEL <2
Blood Culture Q20M
ISA Source: Blood/Venous
Specimen Description:
Comment: Urgent from separate sites. If patient screens positive for possible sepsis
10/01/25 19:50
Blood Culture Q20M
ISA Source: Blood/Venous
Specimen Description:
Comment: Urgent from separate sites. If patient screens positive for possible sepsis
10/01/25 21:30
Urinalysis Reflex To Culture Urgent
Date Specimen was Collected: 10/01/25
Time Specimen was Collected: 19:26
Urine Microscopic Reflex Cult Urgent
Urine Culture Urgent
ISA Source: U
Specimen Description:
Date Specimen was Collected: 10/01/25
Time Specimen was Collected: 19:26
10/01/25 21:43
CT Abd/pelvis Wo Iv Cont Urgent
Comment:
Reason For Exam: fever, r/o pyelo/renal colic
CT Head W/o Iv Contrast Urgent
Comment:
Reason For Exam: altered mental status
10/01/25 21:45
Blood Culture Q30M
ISA Source: Blood/Venous
Specimen Description:
10/01/25 22:01
CefTRIAXone [Rocephin] 1,000 mg IV NOW STA
10/01/25 22:02
Acetaminophen [Tylenol] 1,000 mg PO NOW STA
10/01/25 22:15
Blood Culture Q30M
ISA Source: Blood/Venous
Specimen Description:
10/01/25 22:20
0.9% Sodium Chloride 1000 ml [Nss] 1,000 ml IV BOLUS
10/01/25 22:50
Lactate Level [Lactic Acid] Urgent
0.9% Sodium Chloride 1000 ml [Nss] 2,000 ml IV BOLUS
10/01/25 23:30
Lactic Acid Q4H
Comment: ON ICE, CANCEL 2ND ORDER IF FIRST LACTIC ACID LEVEL <2
Abnormal Lab Results
10/01/25 10/01/25 10/01/25
19:38 21:30 22:24
WBC 16.6 H 10^3/uL
(4.8-10.8)
Abs Immat Gran (auto) 0.1 H 10^3/uL
(0-0.05)
Absolute Neuts (auto) 14.5 H 10^3/uL
(1.4-6.5)
Absolute Lymphs (auto) 0.7 L 10^3/uL
(1.2-3.4)
Absolute Monos (auto) 1.2 H 10^3/uL
(0.1-0.6)
Neutrophils % 87.4 H %
(42.2-75.2)
Lymphocytes % 3.9 L %
(20.5-51.1)
Sodium 132 L mmol/L
(135-145)
BUN 23 H mg/dl
(9-20)
Glucose 168 H mg/dl
(70-99)
Ur Occult Blood Reflex 4+ A
(Negative)
Leukocyte Esterase Rfl 3+ A
(Negative)
Urine RBC >100 A /HPF
(0-2)
Urine WBC (Reflex) >100 A /HPF
(0-5)
Urine Bacteria (Reflex) Moderate A
(Negative)
Urine Yeast Many A
(Negative)
Urine Albumin (Reflex) 3+ A
(Neg - Trace)
POC Glucose 143 H mg/dl
(70-99)
10/01/25 19:38
10/01/25 19:38
White blood count elevated. Increased BUN with mild increase in creatinine compared to baseline labs, mild hyponatremia seen
Vital Signs
Initial and Last Documented VS:
Initial Vital Signs
Temp Pulse Resp BP Pulse Ox
99.2 F 92 18 136/77 96
10/01/25 19:22 10/01/25 19:22 10/01/25 19:22 10/01/25 19:22 10/01/25 19:22
Last Documented Vital Signs
Temp Pulse Resp BP Pulse Ox
100.6 F H 83 25 125/70 96
10/01/25 21:26 10/01/25 21:26 10/01/25 21:26 10/01/25 21:00 10/01/25 21:55
MDM/Problems Addressed
Differential Diagnosis Includes:
Differential diagnosis considered but not limited to pyelonephritis, bacteremia, UTI, along with other etiologies considered
Chronic conditions affecting care:
As per HPI
*Radiology
Radiology exam reviewed: radiology read reviewed (CTA/P: The urinary bladder is decompressed with a Moise catheter. There is mild prominence of the bilateral ureters without evidence of obstructing calculi. Additionally there is a small amount of
gas within the kidneys bilaterally. Findings may related to ascending emphysematous infection.)
*Pulse Oximetry
SaO2: 96
Oxygen Mode of Delivery: Room air
Patient hypoxic: no
*Critical Care Note
Total Time (30-74mins, 75-104mins- exclusive of procedures): Not Applicable
Data Reviewed
Review of Other/Old Records Reveals: Testing (I reviewed urine micro results from 07/01/2025-patient urine culture was positive for E. coli which was pansensitive)
Update Note
Update Note:
Given recent instrumentation along with concerning symptoms of bacteremia, blood cultures are added along with CT abdomen pelvis to rule out intra-abdominal complicating pathology for patient's urinary tract infection. Will also add CT head given
altered sensorium reported by family. IV Rocephin ordered.
I reviewed full pt presentation with the hospitalist, including CT results. He accepts pt for admission for further care.
ED Attending Note
-
Portions of this chart may have been created with voice recognition software.� Occasional wrong word or��sound alike� substitutions may have occurred due to the inherent limitations of voice recognition software.
Discharge Plan
Departure
Patient Disposition: Admit
Date of Disposition: 10/01/25
Time of Disposition: 22:51
Presentation/result/management discussed w/ accepting MD/DO: Hospitalist
Discharge Problem:
Acute UTI, Sepsis
Prescriptions:
No Action
atorvastatin 80 mg Tablet
80 mg PO HS
propranolol 80 mg Capsule,Extended Release 24 Hr
80 mg PO DAILY
venlafaxine 150 mg capsule,extended release 24hr
150 mg PO HS
tamsulosin [Flomax] 0.4 mg capsule
0.4 mg PO HS
glipizide 5 mg tablet
5 mg PO DAILY
omega 4-awb-axi-fish oil [Fish Oil] 1,000 (120-180) mg Capsule
1 cap PO DAILY
Neuriva Original 100-100 mg Capsule
1 cap PO DAILY
metformin 500 MG tablet
500 mg PO BID
bupropion HBr
150 mg PO DAILY
methenamine hippurate
1 g PO BID
levofloxacin 750 mg tablet
750 mg PO DAILY 10 Days Qty: 10 0RF
aspirin 81 mg Tablet,Chewable
81 mg PO HS
Referrals:
Shaun Almonte DO [Family Provider, Family Practice]
Interventions
Interventions:
*General Assessment Last Done: 10/01/25 19:22
*Neglect/Abuse Screening Last Done: 10/01/25 20:43
*ED COVID-19 Vaccine History Last Done: 10/01/25 20:43
*ED Influenza Vaccine History Last Done: 10/01/25 20:43
[facility] Fall Risk Assessment Tool Last Done: 10/01/25 22:29
*Risk Screen - Suicide (C-SSRS) Last Done: 10/01/25 19:22
ED- Cardiac Assessment Last Done: 10/01/25 21:30
ED-Male Genitourinary Assessment Last Done: 10/01/25 21:30
ED- Neurological Assessment Last Done: 10/01/25 21:30
ED- Pulmonary Assessment Last Done: 10/01/25 21:30
ED Swallowing Screen Last Done: 10/01/25 21:58
Discharge Date and Time
Print Language: TELUGU
[2025-10-01 21:41] LABS: Urine Character Cloudy (Clear)
[2025-10-01 21:51] LABS: Urine Red Blood Cell >100 /HPF (0-2); Urine White Cell >100 /HPF (0-5)
[2025-10-01 22:09] VITALS: BP 121/71
[2025-10-01] MEDS: TYLENOL 1000 MG PO (22:09)
[2025-10-01] MEDS: ROCEPHIN 1000 MG IV (22:10)
[2025-10-01 22:25] LABS: Glucose - Point of Care 143 mg/dl (70-99)
[2025-10-01 23:00] VITALS: BP 102/65
--- NOTE | 2025-10-01 23:02 | HPS.HSE ---
Family Physician
-
Family Physician: Shaun Almonte
Chief Complaint
-
intermittent confusion today
History of Present Illness
I could not get any information from the patient has AMS
Information gathered by chart review and speaking with and the ER staff.
HPI
70M HX NIDDM, JANA, stroke, neurogenic bladder with recurrent UTI, chronic hematuria;
- for evaluation of intermittent confusion occurring intermittently throughout the day today.
- an episode of witnessed chills while at work
- has been feeling unwell with poor p.o. intake today.
- HX Moise catheter which was recently exchanged by his urologist
- present at bedside states that it was not just a simple cyst exchange, he had to have some instrumentation for reinsertion.
- The catheter has been draining urine, although they have had to flush it a few times this week
- he has had some bloody sediment along with some proteinaceous sediment since the catheter exchange.
- reported some nausea earlier, none at current.
- denies headache.
- No change in vision.
Medical History
Past Medical History
Past Medical History: Reports Other
Additional Past Medical History:
Blood loss anemia due to hematuria
Cerebrovascular accident s/p tPA 11/22/22, L ICA stent placement 11/25/22
Type 2 diabetes mellitus
Essential hypertension
Hyperlipidemia
Diverticulosis
Osteoarthritis
Renal calculi
Anxiety
Obstructive sleep
Hemorrhoids
Fatty liver disease
Plantar fasciitis
Scoliosis
Restless legs
Insomnia
Chronic low back pain
Past Surgical History: Reports Urological (lithotripsy and ureteral stent placement on 04/23/2024 ) and Other
Additional Past Surgical History:
L ICA stent
L3-L4 laminectomy
ureteral stent
R [place]
R reverse shoulder arthroplasty
R knee arthroscopy
L shoulder arthroscopy
lower eyelid blepharoplasty
Social History
Tobacco: Non-smoker
Alcohol: None
Personal:
Living: With Family
Family History
Family History: Not pertinent
Allergies / Home Medications
Allergies reflects when Allergies were last updated in [facility].
Home Medications with original date entered in [facility]
Allergy/Medication List:
Allergies
Allergy/AdvReac Type Severity Reaction Status Date / Time
shellfish derived Allergy congestion Verified 11/27/24 07:35
Home Medications
aspirin 81 mg chewable tablet 81 mg PO HS Blood Clot Prevention/Tx 11/28/22
metformin 500 mg tablet 500 mg PO BID #60 tabs 12/07/22
atorvastatin 80 mg tablet 80 mg PO HS High Cholesterol 03/02/24
propranolol 80 mg capsule,24 hr,extended release 80 mg PO DAILY tremors 03/02/24
tamsulosin 0.4 mg capsule (Flomax) 0.4 mg PO HS Urinary Issue 04/17/24
venlafaxine 150 mg capsule,extended release 24 hr 150 mg PO HS anxiety 04/17/24
glipizide 5 mg tablet 5 mg PO DAILY Diabetes 09/22/24
clotrimazole-betamethasone 1 %-0.05 % topical cream 1 applic topical BID penis 02/27/25
coffee extract 100 mg-phosphatidyl serine 100 mg capsule (Neuriva Original) 1 cap PO DAILY 02/27/25
dapagliflozin propanediol 10 mg tablet (Farxiga) 10 mg PO DAILY 02/27/25
omega 5-jgd-gle-fish oil 1,000 mg (120 mg-180 mg) capsule (Fish Oil) 1 cap PO DAILY 02/27/25
vibegron 75 mg tablet (Gemtesa) 75 mg PO QPM 02/27/25
Review of Systems
-
Constitutional: Reports No Symptoms
EENT: Reports No Symptoms
Respiratory: Reports No Symptoms
Cardiac: Reports No Symptoms
Abdomen/GI: Reports No Symptoms
: Reports No Symptoms
Musculoskeletal: Reports No Symptoms
Skin: Reports No Symptoms
Neurological: Reports See HPI and Other (AMS )
Endocrine: Reports No Symptoms
Hematologic/Lymphatic: Reports No Symptoms
Psych: Reports No Symptoms
Physical Exam
Vital Signs
Vital Signs
Temp Pulse Resp BP Pulse Ox
100.6 F H 83 25 125/70 96
10/01/25 21:26 10/01/25 21:26 10/01/25 21:26 10/01/25 21:00 10/01/25 21:55
Physical Exam
General: Well Developed, Well Nourished and No Apparent Distress
HEENT: NormoCephalic, Moist mucous membranes and Atraumatic
Respiratory: Clear
Cardiac: S1/S2 and Regular Rhythm; No Murmur or Rub
GI: Soft, Non Tender, Non Distended and Normal Bowel Sounds; No Organomegaly
Rectal: Deferred by Provider
Musculoskeletal: No Clubbing, No Cyanosis and No Edema
Skin: No Rash
Neuro: Nonfocal/grossly intact
Laboratory Results
-
10/01/25 19:38
10/01/25 19:38
Laboratory Results
Lactic Acid 1.5 mmol/L (0.7-2.0) 10/01/25 19:38
Total Bilirubin 0.9 mg/dl (0.2-1.3) 10/01/25 19:38
AST 24 U/L (17-59) 10/01/25 19:38
ALT 29 U/L (0-50) 10/01/25 19:38
Alkaline Phosphatase 82 U/L (38-126) 10/01/25 19:38
Data Reviewed
-
CT Scan: Report Reviewed by me
Lab Data: Labs Reviewed by me
Old Records: Reviewed
Impression/Plan
-
Vital Signs
Temp Pulse Resp BP Pulse Ox
100.6 F H 83 25 125/70 96
10/01/25 21:26 10/01/25 21:26 10/01/25 21:26 10/01/25 21:00 10/01/25 21:55
06/30/25 10/01/25 10/01/25
23:13 19:38 22:50
WBC 16.6 H
Sodium 132 L
Potassium 4.3
BUN 23 H
Creatinine 1.2 1.3
eGFR > 60.00 58.37
Lactic Acid 1.5 Pending
UA 10/01/25
21:30
Urine Clarity Cloudy
Leukocyte Esterase Rfl 3+ A
Urine RBC >100 A
Urine WBC (Reflex) >100 A
Urine Bacteria (Reflex) Moderate A
CT Head W/o Iv Contrast
- No acute intracranial abnormality noted.
CT Abd/pelvis Wo Iv Cont
- The urinary bladder is decompressed with a Moise catheter.
- There is mild prominence of the bilateral ureters without evidence of obstructing calculi.
- Additionally there is a small amount of gas within the kidneys bilaterally.
- Findings may related to ascending emphysematous infection. Recommend correlation with urinalysis.
- Punctate nonobstructing stone in the lower pole left kidney, similar to prior.
ASSESSMENT & PLAN
Pending Rx reconciliation
AMS probably due to TME
TME due to UTI
Associated SIRs and presumed CA UTI
Likely sepsis with acute organ dysfunction ( TME, Equivocal MONICA )
- abn UA
- CT suggest mild prominence of the bilateral ureters without evidence of obstructing calculi and small amount of gas within the kidneys bilaterally.
- Empiric IV CFTX
- FU UCx, BCx
- Fall precaution
- Urology consulted
Equivocal MONICA
Serum creatinine 1.3 from baseline 1.0
- IVF
- ABx for UTI
- Trend Cr
HX Neurogenic bladder with recurrent UTI
HX Chronic hematuria
HX NIDDM
- ISS low
HX JANA
- not on CPAP [employer]
HX CVA without significant neurologic deficit
DVT Px: LMWH
Full code
IP TLM
[2025-10-01] MEDS: NSS 1000 IV (23:13)
[2025-10-02] VITALS (19 sets, daily range): BP systolic 103–145; BP diastolic 55–84; PULSE 66; BMI 26.0
[2025-10-02] MEDS: NSS 2000 IV (00:08)
[2025-10-02] MEDS: NSS 1000 IV ×2 (01:14→12:00)
[2025-10-02 04:46] LABS: ALT (SGPT) 23 U/L (0-50); AST (SGOT) 19 U/L (17-59); Albumin 3.5 g/dl (3.5-5.0); Alkaline Phosphatase 63 U/L (38-126); Blood Urea Nitrogen 21 mg/dl (9-20); Calcium 8.5 mg/dl (8.4-10.2); Carbon Dioxide 27 mmol/L (22-30); Chloride 105 mmol/L (98-107); Estimated Creatinine Clearance 61 ml/min; Glucose 134 mg/dl (70-99); Potassium 4.2 mmol/L (3.5-5.1); Sodium 136 mmol/L (135-145); Total Protein 5.9 g/dl (6.3-8.2); eGFR > 60.00
[2025-10-02 06:29] LABS: Hematocrit 37.1 % (39.0-52.0); Hemoglobin 11.8 g/dL (13.0-18.0); Mean Corp Hgb Conc. 31.8 g/dL (33.0-37.0); Mean Corpuscular Volume 90.9 fL (80.0-94.0); Nucleated Red Blood Cells % 0 % (-); Platelet Count 215 10^3/uL (130-400); Red Cell Dist. Width 13.5 % (11.5-14.5)
--- NOTE | 2025-10-02 07:11 | W.PN.HOSP.TC ---
Addendum entered and electronically signed by Bel Souza MD 10/02/25 14:09:
I saw and evaluated the patient independently. I reviewed and discussed the resident�s note and agree with findings and plan as documented by Dr. Bang.
GENERAL: well developed, well nourished, male in no apparent distress--seems confused
HEENT: NC/AT--no O2
HEART: regular rate and rhythm, +S1, +S2
LUNGS : clear to auscultation bilaterally
ABDOM: soft, nontender, nondistended, + bowel sounds
EXT: no cyanosis, clubbing, or edema
NEUROLOGIC: grossly intact
Catheter associated urinary tract infection with chronic recurrent hematuria presenting altered mental status--difficult [place] exchange 2 weeks ago--leukocytosis--CT scan with possible ascending emphysematous infection (gas in kidneys)--cont IVF, IV
ceftriaxone--apprec urology--await ID consult--await cultures
Acute Kidney Injury--Serum CR 1.2, baseline in chart 0.9--Continue fluid resuscitation--Keep metformin on hold for now
Urinary incontinence on [place]--for urinary incontinence secondary to a neurogenic bladder--cont flomax--apprec urology
Type 2 DM--Well controlled Metformin 500mg PO bid (holding with MONICA)--cont SSI
Hyperlipidemia--Continue Atorvastatin 80m and Aspirin for ASCVD protocol
Anxiety--Continue Wellbutrin, Effexor
Tremors--Continue Propranolol
Code status-- Full
DVT proph-- Levonox
Original Note:
Today's Communication/Plan
-
For Urology and Infectious disease input
Assessment / Plan
Assessment / Plan
Mr. Warner is a 70-year-old male with a past medical history of CVA (Right hemiparesis, ), Renal calculus, Nocturia, Hypercholesterolemia, NIDDM, Anxiety, Back pain, Essential tremors, Sleep apnea, Diverticulitis who was brought into the ED last
night on account of altered mental status that started yesterday. [place] unwell 2 days ago
1) Catheter associated urinary tract infection
Patient with indwelling catheter chronic recurrent hematuria presenting altered mental status
Urinalysis with plus leukocytes blood WBC bacteria yeast and albumin
Leukocytosis open 16.6, neutrophilia 87.4
Fluid resuscitation with normal saline at 80 mL/h
Has received IV ceftriaxone in the ED
Follow urine culture results
Urology consult
Infectious disease consult
2) Acute Kidney Injury
Serum CR 1.2, baseline in chart 0.9
Continue fluid resuscitation.
Keep metformin on hold for now
3) Urinary incontinence on [place]
On [place] for urinary incontinence secondary to a neurogenic bladder
Had catheter changed 2 days ago, difficult instrumentation per chart
Continue Tamsulosin
Urologist to see
4) NIDDM
Well controlled Metformin 500mg PO bid, HbA1C 6.0 (from patient )
Currently on hold for renal status
Basal bolus insulin - Low for now
Diabetic diet
6) Hyperlipidemia
Continue Atorvastatin 80m and Aspirin for ASCVD protocol
5)Anxiety
Continue Wellbutrin, Effexor
6) Tremors
Continue Propranolol
Code- Full
Dispo- Home
DVT- PPX- Levonox
Anticipated Discharge: Within 24 hours
Subjective/Interval History
-
Date of Service: October 02, 2025
Feels week
Denies current fever or abdominal pain
Objective Data
-
Labs:
Laboratory Results
10/01/25 10/02/25
19:38 04:10
WBC 16.6 H 12.7 H
Hgb 13.8 11.8 L
Hct 41.7 37.1 L
Plt Count 288 215 D
Sodium 132 L 136
Potassium 4.3 4.2
Chloride 99 105
Carbon Dioxide 22 27
BUN 23 H 21 H
Creatinine 1.3 1.2
Glucose 168 H 134 H
Calcium 9.3 8.5
Total Bilirubin 0.9 0.7
AST 24 19
ALT 29 23
Alkaline Phosphatase 82 63
Vital Signs:
Vital Signs
Temp Pulse Resp BP Pulse Ox
99.9 F 70 18 103/55 95
10/02/25 05:28 10/02/25 06:15 10/02/25 06:15 10/02/25 06:00 10/02/25 06:15
I&O
10/01/25 10/02/25 10/03/25
06:59 06:59 06:59
Output Total 1550 / 1550
Balance -1550 / -1550
Review of Systems
-
History Source: Patient
Respiratory: Reports No Symptoms
Cardiac: Reports No Symptoms
Abdomen/GI: Reports No Symptoms
Genitourinary: Reports Other (On chronic cath for incontinence)
Physical Exam
-
General: Well Developed, Well Nourished and No Apparent Distress
HEENT: Normocephalic, Atraumatic and Moist Mucous Membranes
Respiratory: Clear to Auscultation
Cardiac: Regular Rhythm and S1/S2
GI: Soft, Nontender, Nondistended, Normal Bowel Sounds and Other (No renal angle tenderness)
Genito-urinary: [place] (Draining ricky colored urine)
Musculoskeletal: No Edema
Skin: Warm and Dry
Neuro: Awake, Alert, Oriented, AO x 3, No Motor Deficits, Tremors, Nonfocal/Grossly Intact and Other (Conversationis smooth and clear)
Psych: Intact Judgement/Insight
[2025-10-02 07:47] LABS: Glucose - Point of Care 125 mg/dl (70-99)
[2025-10-02] MEDS: INDERAL LA 80 MG PO (08:12)
[2025-10-02] MEDS: WELLBUTRIN XL (24 hour extended release) 150 MG PO (08:13)
[2025-10-02] MEDS: NOVOLOG FLEXPEN-LOW RESISTANCE SC ×2 (08:17→17:25)
--- NOTE | 2025-10-02 08:48 | PHANOTE ---
med rec note - reached out to with no answer - NASREEN
[2025-10-02 09:18] LABS: Glycohemoglobin (HgbA1c) 6.9 % (4.0-5.9)
--- NOTE | 2025-10-02 09:38 | W.PN.URO.CBU ---
Today's Communication / Plan
-
Keep Moise
Await blood and urine cultures
No intervention indicated
Assessment / Plan
-
Probable catheter associated UTI
History of OAB (has failed Botox and Interstim)
Has had an indwelling catheter x 5 months: had a difficult exchange less than 2 weeks ago
Diagnosis
-
Date of Service: October 02, 2025
-
Patient Diagnosis:
Overactive bladder
Chronic hemorrhagic cystitis
History of nephrolithiasis
---
Probable catheter associated UTI/AMS
Subjective
-
Alert
Comfortable
No catheter bother
Objective
-
Vital Signs
Temp Pulse Resp BP Pulse Ox
99.9 F 72 22 109/56 96
10/02/25 05:28 10/02/25 08:15 10/02/25 08:15 10/02/25 08:12 10/02/25 08:15
Intake and Output
10/01/25 10/02/25 10/03/25
06:59 06:59 06:59
Output Total 1550 / 1550
Balance -1550 / -1550
Output:
Urine, Moise 1550 / 1550
Laboratory Results
10/02/25 04:10
10/02/25 04:10
CT scan 10/01/25: small volume gas in upper pole calyces, no stones or hydronephrosis. Moise in good position
Review of Systems
-
Constitutional: No Symptoms
Respiratory: No Symptoms
Cardiac: No Symptoms
Abdomen/GI: No Symptoms
Musculoskeletal: No Symptoms
Physical Exam
-
General - well developed, well nourished, no acute distress
Abdomen - soft, non-tender, no CVAT
Genitalia - normal with Moise draining ricky urine
Counseling
-
No intervention warranted
[2025-10-02 12:06] LABS: Glucose - Point of Care 175 mg/dl (70-99)
[2025-10-02] MEDS: NOVOLOG FLEXPEN-LOW RESISTANCE 1 UNITS SC (12:07)
[2025-10-02 13:33] LABS: Glucose - Point of Care 175 mg/dl (70-99)
--- NOTE | 2025-10-02 13:59 | CM ---
Patient seen in ED with physician. Patient states that he lives with his in a 2 story home. Patient uses the [facility] in [place] and he has no DME. Patient stated that he has had [facility] in the past but patient does not believe that they are
current. Patient stated Cr. Shaun Almonte. Patient stated that he had seen urologists. Patient with some questions about what to do next. CM will continue to follow for discharge planning needs.
Plan; home with VN vs home with no needs.
--- NOTE | 2025-10-02 15:30 | PTCARENOTE ---
Received pt from ED via stretcher. Pt ambulated to bed with standby assist. at bedside. sample grinder placed. AAOx3, forgetful. Bed alarm placed and plugged in. Assessed and oriented to room. Pt verbalized understanding of call wiseman. Call
wiseman within closer each. Will continue to monitor.
--- NOTE | 2025-10-02 15:46 | CON.ID ---
Consultation
-
Date/Time Consultation Requested: 10/02/25 11:37
Date/Time Consultation Performed: 10/02/25 15:47
Requesting Provider: Dr Bang
Performing Provider: Dr Del Rio
Reason for Consultation: CAUTI
Chief Complaint / Past History
Chief Complaint
intermittent confusion
History of Present Illness
Mr East is a 70 year old male with history of neurogenic bladder with washington in place for over 1 year with regular changes presented here for intermittent confusion, chills, malaise. Of note about 2 weeks ago the catheter was exchanged, patient
recalls needing a wire and scope to confirm placement. He's had bloody and proteinaceous sediment since the exchange. +nausea. No headache
Since arrival here tmax has been 100.6, bp stable, wbc initially 16 now 12.7, hgb 11.8, plt 215, L shift is noted and improving, cr initially 1.3 now 1.2, na 136, a1c 6.9, lfts wnl, 10/01 Ct a/p without iv contrast: small gas bilateral kidneys,
punctate nonobstructing stone, has received a dose of ceftriaxone. ID is consulted for assistance with management.
Past History
Additional Past Medical History:
CVA (Right hemiparesis, ), Hypercholesterolemia, NIDDM, Psychiatric (Anxiety) and Other (Back pain, Essential tremors. Sleep apnea, Diverticulitis, Renal calculus
Additional Past Surgical History:
Cardiac (Carotid stent), Orthopedic (Back fusion X 2, Right and left rotator cuff, Left and right hip replacement, ), Urological (Lithotripsy, stent) and Other (Cataracts, Deviated septum, )
Allergy History:
shellfish derived Allergy (Verified 06/30/25 23:02)
congestion
Medications Reviewed: Yes
Social History
Tobacco: Non-Smoker
Alcohol: Occasional
Drug: None
Family History
Family History: Not Pertinent
Review of Systems
Review of Systems
Constitutional: Reports No Symptoms
EENT: Reports No Symptoms
Respiratory: Reports No Symptoms
Cardiac: Reports No Symptoms
Abdomen/GI: Reports No Symptoms
: Reports No Symptoms
Musculoskeletal: Reports No Symptoms
Skin: Reports No Symptoms
Neurological: Reports See HPI and Other (AMS )
Endocrine: Reports No Symptoms
Hematologic/Lymphatic: Reports No Symptoms
Psych: Reports No Symptoms
Vital Signs
Temp Pulse Resp BP Pulse Ox
99.9 F 66 22 125/73 95
10/02/25 05:28 10/02/25 14:30 10/02/25 14:30 10/02/25 14:00 10/02/25 14:30
Physical Exam
Physical Exam
Constitutional: No Acute Distress
Cardiovascular: Regular Rate and S1/S2; Negative Murmur or Rub
Pulmonary: Clear and Symmetric; Negative Wheezes, Rales or Rhonchi
Gastrointestinal: Soft, Non Tender, Non Distended and Normal Bowel Sounds
Genito-Urinary: [place]; Negative Suprapubic Tenderness or CVA Tenderness
Skin: Warm and Dry; Negative Rash or Jaundice
Neurological: Awake and Alert
Lab / Diagnostic Study Results
10/02/25 04:10
10/02/25 04:10
Abs Immat Gran (auto) 0.1 10^3/uL (0-0.05) H 10/02/25 04:10
Absolute Neuts (auto) 10.4 10^3/uL (1.4-6.5) H 10/02/25 04:10
Absolute Lymphs (auto) 0.8 10^3/uL (1.2-3.4) L 10/02/25 04:10
Absolute Monos (auto) 1.3 10^3/uL (0.1-0.6) H 10/02/25 04:10
Absolute Basos (auto) 0.0 10^3/uL (0-0.2) 10/02/25 04:10
Immature Gran % 0.4 % (0-0.5) 10/02/25 04:10
Neutrophils % 82.2 % (42.2-75.2) H 10/02/25 04:10
Lymphocytes % 6.6 % (20.5-51.1) L 10/02/25 04:10
Monocytes % 9.9 % (1.7-9.3) H 10/02/25 04:10
Eosinophils % 0.6 % (0-6) 10/02/25 04:10
Basophils % 0.3 % (0-2) 10/02/25 04:10
Lactic Acid Cancelled 10/01/25 23:30
Ur Squamous Epith Cells 6-10 /LPF (Few) 10/01/25 21:30
Microbiology Results
Micro:
10/01/25 19:38 Blood Culture - Pending
Blood/Venous
10/02/25 00:41 Blood Culture - Pending
Blood/Venous
10/01/25 21:30 Urine Culture - Pending
Urine
Assessment / Plan
Probable CAUTI
Leukocytosis
CKD
Toxic metabolic encephalopathy
- blood cultures x2 in progress
- urine culture in progress
- no history of colonization with MDROs
- [place] recently exchanged, likely cause of gas within the collecting system
- agree with ceftriaxone 1 gm IV q24 hours pending cultures - leukocytosis is already improving
[2025-10-02 16:23] LABS: Glucose - Point of Care 147 mg/dl (70-99)
[2025-10-02] MEDS: TYLENOL 650 MG PO (21:15)
[2025-10-02] MEDS: FLOMAX 0.4 MG PO (21:16)
[2025-10-02] MEDS: DESENEX/MITRAZOL/ZEASORB 1 APPLIC TOPICAL (21:16)
[2025-10-02] MEDS: EFFEXOR XR 150 MG PO (21:17)
[2025-10-02] MEDS: ROCEPHIN 1000 MG IV (21:30)
[2025-10-02] MEDS: STERILE WATER FOR INJECTION 10 ML IV (21:31)
[2025-10-02 21:35] LABS: Glucose - Point of Care 203 mg/dl (70-99)
--- NOTE | 2025-10-03 02:18 | W.PN.UPDATE ---
Update Note
Progress Note Update
RN reports pt leaking urine around catheter. Per pt this was also happening at home and he would need to irrigate it. Orders placed for hand irrigation prn but this did not improve issue.
Pt has a chronic washington and was exchanged 2 weeks ago with much difficulty by his urologist. Thus i would be reluctant to replace.
For now will have to let urine leak around cath. Some blood noted at penis.
Will let urology know in am
[2025-10-03 03:03] VITALS: BP 119/71
--- NOTE | 2025-10-03 03:48 | PTCARENOTE ---
patient informed this RN that urine was leaking around Moise catheter . no orders in for irrigation or Moise. patient has chronic Moise catheter and was admitted with one in place. NERISSA Prabhakar notified. new orders placed for Moise and
irrigation. while irrigating catheter, unable to pull fluid instilled back out since it all leaked around catheter. patient in no pain. urine blood tinged. Per pt and MD notes, catheter was difficult to place. NERISSA notified. instructed to keep
Moise in place. bladder scanned patient for 0. POC ongoing.
[2025-10-03 06:56] LABS: Hematocrit 36.6 % (39.0-52.0); Hemoglobin 11.8 g/dL (13.0-18.0); Mean Corp Hgb Conc. 32.2 g/dL (33.0-37.0); Mean Corpuscular Volume 92.0 fL (80.0-94.0); Nucleated Red Blood Cells % 0 % (-); Platelet Count 205 10^3/uL (130-400); Red Cell Dist. Width 13.7 % (11.5-14.5)
[2025-10-03 07:26] VITALS: BP 148/82
[2025-10-03 07:33] LABS: ALT (SGPT) 22 U/L (0-50); AST (SGOT) 19 U/L (17-59); Albumin 3.5 g/dl (3.5-5.0); Alkaline Phosphatase 65 U/L (38-126); Blood Urea Nitrogen 15 mg/dl (9-20); Calcium 8.3 mg/dl (8.4-10.2); Carbon Dioxide 25 mmol/L (22-30); Chloride 104 mmol/L (98-107); Estimated Creatinine Clearance 67 ml/min; Glucose 137 mg/dl (70-99); Potassium 3.9 mmol/L (3.5-5.1); Sodium 137 mmol/L (135-145); Total Protein 5.9 g/dl (6.3-8.2); eGFR > 60.00
[2025-10-03 07:39] LABS: Glucose - Point of Care 159 mg/dl (70-99)
--- NOTE | 2025-10-03 08:10 | W.PN.HOSP.TC ---
Addendum entered and electronically signed by Bel Souza MD 10/03/25 19:43:
sepsis (POA) due to catheter associated UTI with MONICA as end organ damage
Addendum entered and electronically signed by Bel Souza MD 10/03/25 19:41:
I saw and evaluated the patient independently. I reviewed and discussed the resident�s note and agree with findings and plan as documented by Dr. Bang.
GENERAL: well developed, well nourished, male in no apparent distress--seems confused
HEENT: NC/AT--no O2
HEART: regular rate and rhythm, +S1, +S2
LUNGS : clear to auscultation bilaterally
ABDOM: soft, nontender, nondistended, + bowel sounds
EXT: no cyanosis, clubbing, or edema
NEUROLOGIC: grossly intact
Catheter associated urinary tract infection with chronic recurrent hematuria presenting altered mental status--difficult [place] exchange 2 weeks ago--leukocytosis--CT scan with possible ascending emphysematous infection (gas in kidneys)--cont IVF, IV
ceftriaxone--apprec urology/ID consult--urine culture with yeast--ID to send on fluconazole--pt understands that he may need to come back if fluconazole not appropriate antifungal
Acute Kidney Injury--Serum CR 1.1, baseline in chart 0.9--Continue fluid resuscitation--restart metformin
Urinary incontinence on [place]--for urinary incontinence secondary to a neurogenic bladder--cont flomax--apprec urology
Type 2 DM--Well controlled Metformin 500mg PO bid--cont SSI
Hyperlipidemia--Continue Atorvastatin 80m and Aspirin for ASCVD protocol
Anxiety--Continue Wellbutrin, Effexor
Tremors--Continue Propranolol
Code status-- Full
DVT proph-- Levonox
Original Note:
Today's Communication/Plan
-
Discharge home today on p.o. fluconazole
Assessment / Plan
Assessment / Plan
Mr. Warner is a 70-year-old male with a past medical history of CVA (Right hemiparesis, ), Renal calculus, Nocturia, Hypercholesterolemia, NIDDM, Anxiety, Back pain, Essential tremors, Sleep apnea, Diverticulitis who was brought into the ED last
night on account of altered mental status that started yesterday. [place] unwell 2 days ago.
1) Catheter associated urinary tract infection
Patient with indwelling catheter chronic recurrent hematuria presenting altered mental status
Investigation showed leukocytosis, neutrophilia, pyuria.
Concerning for sepsis and was started on IV ceftriaxone.
Urinary tract infection likely due to fungal infection.
IV ceftriaxone discontinued by ID.
Commenced on p.o. fluconazole daily x 2 weeks pending culture.
Patient can be discharged home on oral medications.
Follow-up with sensitivity results.
2) Acute Kidney Injury
On fluid resuscitation
Serum CR now 1.1 downtrending, baseline in chart 0.9
Can recommend metformin
3) Urinary incontinence on [place]
On [place] for urinary incontinence secondary to a neurogenic(overactive) bladder
Had catheter changed about 2 weeks ago, difficult instrumentation.
There was documented leaking around the catheter last night
However dry this morning.
Continue Tamsulosin
Urologist to see
4) NIDDM
Well controlled Metformin 500mg PO bid, HbA1C 6.0 (from patient )
Serum creatinine improving with IV fluids
Can resume metformin
Diabetic diet
6) Hyperlipidemia
Continue Atorvastatin 80m and Aspirin for ASCVD protocol
5)Anxiety
Continue Wellbutrin, Effexor
6) Tremors
Continue Propranolol
Code- Full
Dispo- Home
DVT- PPX- Levonox
Following review by the infectious disease specialist, IV antibiotics discontinued patient can be discharged home on p.o. fluconazole for yeast UTI.
Review of sensitivity results when ready.
Patient is in agreement of plan plan also discussed with over the phone.
Anticipated Discharge: Today
Subjective/Interval History
-
Date of Service: October 03, 2025
Patient seen no complaints this morning did
Slept well last night
Objective Data
-
Labs:
Laboratory Results
10/03/25
06:19
WBC 9.7
Hgb 11.8 L
Hct 36.6 L
Plt Count 205
Sodium 137
Potassium 3.9
Chloride 104
Carbon Dioxide 25
BUN 15
Creatinine 1.1
Glucose 137 H
Calcium 8.3 L
Total Bilirubin 0.3
AST 19
ALT 22
Alkaline Phosphatase 65
Vital Signs:
Vital Signs
Temp Pulse Resp BP Pulse Ox
98.2 F 60 16 148/82 94
10/03/25 07:26 10/03/25 07:26 10/03/25 07:26 10/03/25 07:26 10/03/25 07:26
I&O
10/02/25 10/03/25 10/04/25
06:59 06:59 06:59
Intake Total 1440 / 1440
Output Total 1550 / 1550 3150 / 3150
Balance -1550 / -1550 -1710 / -1710
Review of Systems
-
History Source: Patient
Respiratory: Reports No Symptoms
Cardiac: Reports No Symptoms
Abdomen/GI: Reports No Symptoms
Genitourinary: Reports Other (On chronic cath for incontinence)
Physical Exam
-
General: Well Developed, Well Nourished and No Apparent Distress
HEENT: Normocephalic, Atraumatic and Moist Mucous Membranes
Respiratory: Clear to Auscultation
Cardiac: Regular Rhythm and S1/S2
GI: Soft, Nontender, Nondistended and Normal Bowel Sounds
Genito-urinary: No Costovertebral Tender and [place] (Draining light ricky colored urine, no drainage seen around urethral meatus)
Musculoskeletal: No Edema
Skin: Warm and Dry
Neuro: Awake, Alert, Oriented, AO x 3, No Motor Deficits, Tremors, Nonfocal/Grossly Intact and Other (Conversation's smooth and clear)
Psych: Intact Judgement/Insight
Data Reviewed
-
Labs: Labs Reviewed by me, Discussed with Physician and Discussed with Patient
[2025-10-03] MEDS: DESENEX/MITRAZOL/ZEASORB 1 APPLIC TOPICAL (08:40)
[2025-10-03] MEDS: NOVOLOG FLEXPEN-LOW RESISTANCE 1 UNITS SC ×2 (08:45→13:09)
[2025-10-03] MEDS: WELLBUTRIN XL (24 hour extended release) 150 MG PO (08:49)
[2025-10-03] MEDS: INDERAL LA 80 MG PO (08:49)
--- NOTE | 2025-10-03 10:18 | PN.CDI ---
CDI
- -
CDI:
Physician Documentation Request
Admit Date: 10/01/25 23:43
Dear Doctor,
Please review the following and provide your response in the progress notes.
Clinical Indicators:
The diagnosis of sepsis was documented on 10/01 H&P but is not consistently noted in subsequent documentation.
- 10/01 H&P 'sepsis with acute organ dysfunction ( TME, Equivocal MONICA )'
- 'CA UTI'
- 10/02 PN 'Catheter associated urinary tract infection with chronic recurrent hematuria presenting altered mental status'
Please clarify the following:
____ - Sepsis was present on admission and is now resolved.
____ - Sepsis was present on admission and is still being monitored, evaluated or treated
____ - Sepsis was ruled out
____ - Sepsis is still a likely, suspected, probable diagnosis
____ - Other
Use of terms such as suspected, likely, concern for, or probable (associated with a specific diagnosis that is being evaluated, monitored, or treated as if it exists) are acceptable and can be coded in the inpatient setting, when documented at the
time of discharge.
Thank you,
Kalpesh Bello RN
CDI Specialist
Please use your independent medical judgment in providing your response.
--- NOTE | 2025-10-03 10:19 | W.PN.ID1 ---
Date of Service
Date of Service: October 03, 2025
Today's Communication
- start fluconazole 200 mg PO qday x 14 days, stop ceftriaxone
- I will follow up with cultures and if an azole resistant yeast is IDd patient would need to be readmitted, given that it will take several days to result patient is requesting discharge on fluconazole which is reasonable
- [place] recently exchanged, likely cause of gas within the collecting system
Assessment / Plan
Probable CAUTI
Leukocytosis
CKD
Toxic metabolic encephalopathy
- blood cultures x2 in progress
- urine culture yeast - lab will ID
- QTcB 457
- start fluconazole 200 mg PO qday x 14 days, stop ceftriaxone
- I will follow up with cultures and if an azole resistant yeast is IDd patient would need to be readmitted, given that it will take several days to result patient is requesting discharge on fluconazole which is reasonable
- [place] recently exchanged, likely cause of gas within the collecting system
Chief Complaint
-: UTI
Subjective / Review of Systems
no further fevers
bp stable
urine leaking around the [place] - bladder scan was 0
Vital Signs / Physical Exam
Vital Signs
Vital Signs
Temp Pulse Resp BP Pulse Ox
98.2 F 60 16 148/82 94
10/03/25 07:26 10/03/25 08:49 10/03/25 07:26 10/03/25 08:49 10/03/25 07:26
Physical Exam
Constitutional: No Acute Distress and Chronically Ill
Cardiovascular: Regular Rate and S1/S2; Negative Murmur or Rub
Pulmonary: Clear and Symmetric; Negative Wheezes or Rales
Gastrointestinal: Soft, Non Tender, Non Distended and Normal Bowel Sounds
Genito-Urinary: Clear Urine; Negative Suprapubic Tenderness
Skin: Warm and Dry; Negative Rash or Jaundice
Objective Data
Lab Data
Lab Results
10/03/25 06:19
10/03/25 06:19
Estimated Creat Clear 67 ml/min 10/03/25 06:19
Lactic Acid Cancelled 10/01/25 23:30
Total Bilirubin 0.3 mg/dl (0.2-1.3) 10/03/25 06:19
AST 19 U/L (17-59) 10/03/25 06:19
ALT 22 U/L (0-50) 10/03/25 06:19
Alkaline Phosphatase 65 U/L (38-126) 10/03/25 06:19
Most recent labs reviewed.
Micro Results:
10/02/25 00:41 Blood Culture - Preliminary
Blood/Venous No Growth in 24 hours- Final report to follow
10/01/25 19:38 Blood Culture - Preliminary
Blood/Venous No Growth in 24 hours- Final report to follow
10/01/25 21:30 Urine Culture - Pending
Urine
Care Review
Plan reviewed with: Physician (Dr Souza and Dr Beti ferrera)
[2025-10-03 10:48] VITALS: BP 129/75
[2025-10-03] MEDS: DETROL LA 4 MG PO (10:52)
[2025-10-03 11:15] VITALS: BP 121/73; PULSE 68
[2025-10-03 11:30] LABS: Glucose - Point of Care 190 mg/dl (70-99)
[2025-10-03] MEDS: DIFLUCAN 200 MG PO (13:27)
[2025-10-03 14:59] VITALS: BP 134/79
--- NOTE | 2025-10-03 15:33 | CM ---
Patient seen at bedside with patient on phone and physicians. patient for discharge home today with no VN. Patient states he does not have MC and declined to sign IMM. CM will continue to follow for discharge planning needs.
Plan; home with no needs.
[2025-10-03] MEDS: FLUZONE HIGH-DOSE 2025-26 0.5 ML IM (15:53)
--- NOTE | 2025-10-03 20:26 | W.DCSUMMARY ---
Addendum entered and electronically signed by Bel Souza MD 10/04/25 07:57:
Read, reviewed, and agree. See same day progress note for additional details. Time spent coordinating care, DC planning, review of DC plan of care with resident, transition of care, review of records in EMR, med rec, consults, notes, d/w
consultants, nursing, family, and CM = 32 minutes
Original Note:
Discharge Summary
Discharge Data
Date of Admission: 10/01/25
Date of Discharge: 10/03/25
-
Pending Results: Yes
Additional Pending Results:
Blood and urine cultures
Hospital Course
Discharging Physician : Ana Bang MD, Harley,Bel Castillo MD
Disposition : Home
Primary care physician : Shaun Almonte
Principal Discharge diagnosis :
Catheter associated urinary tract infection
Sepsis with catheter associated urinary infection with end organ failure
Toxic metabolic encephalopathy
Acute kidney injury
Urinary incontinence on Moise catheter
Over active bladder
Chronic hemorrhagic cystitis
Chronic Discharge diagnosis :
Non insulin dependent diabetes mellitus
Hyperlipidemia
Anxiety disorder
Tremors
Hospital Course :
Mr. Warner is a 70-year-old male with a past medical history of CVA (Right hemiparesis, ), Renal calculus, Nocturia, Hypercholesterolemia, NIDDM, Anxiety, Back pain, Essential tremors, Sleep apnea, Diverticulitis who was [facility] into [facility]
10/02/2025 on account of malaise altered mental status that started a few days duration.
History was positive of difficult instrumentation during his previous Moise catheter change
On presentation to the ED he was in no obvious distress intermittently confused and vital signs were stable, investigations revealed leukocytosis neutrophilia pyuria with yeast in the urine and elevated serum creatinine.
He was admitted and was seen in consultation with urology and infectious disease.
During his admission he received IV fluid IV antibiotics.
His metformin was temporarily held for MONICA but resumed with improvement of renal function.
His chronic conditions were also managed.
With clinical improvement he is eventually being discharged on fluconazole tablets for yeast urinary tract infection pending sensitivity results.
He is to follow-up with his primary care, urologist on outpatient.
Important imaging findings :
CT Abd/pelvis Wo Iv Cont
10/01/2025 -
The urinary bladder is decompressed with a Moise catheter. There is mild prominence of the bilateral ureters without evidence of obstructing calculi. Additionally there is a small amount of gas within the kidneys bilaterally. Findings may related to
ascending emphysematous infection. Recommend correlation with urinalysis.
Punctate nonobstructing stone in the lower pole left kidney, similar to prior.
CT Head W/o Iv Contrast
10/01/2025-
No acute intracranial abnormality noted.
Discharge Plan
-
Patient Disposition: Home (Routine Discharge)
Discharge Diagnosis/Procedures: Catheter associated urinary tract infection
Sepsis with catheter associated urinary infection with end organ failure
Toxic metabolic encephalopathy
Acute kidney injury
Urinary incontinence on Moise catheter
Over active bladder
Chronic hemorrhagic cystitis
Non insulin dependent diabetes mellitus
Hyperlipidemia
Anxiety disorder
Tremors
Condition: Fair
Diet: Diabetic, Carb Controlled
Activity: As tolerated
Driving Restrictions: As prior to admission
Bathing Restrictions: None
Referrals:
Shaun Almonte DO [Family Provider, Family Practice]
Referral Note: You are to follow-up with your primary doctor and your neurologist in less than 1 week following your discharge
Additional Discharge Medication Instructions: You are prescribed oral fluconazole 200 mg once daily for by the infectious disease doctor, you are to take this medications for 2 weeks (last dose 10/16/2025) pending culture results.
Your metformin tablets was temporarily held during this admission and you are to continue to take it as prescribed.
Ketocorolac was stopped in this admission, take caution when using NSAIDS as this might hurt your kidneys
You can continue all your other medications as you are taking as prior to admission.
You are to follow-up with your neurologist after discharge.
Prescriptions:
New
fluconazole 200 mg Tablet
200 mg PO DAILY Qty: 13 0RF
Continued
atorvastatin 80 mg Tablet
80 mg PO HS
propranolol 80 mg Capsule,Extended Release 24 Hr
80 mg PO DAILY
venlafaxine 150 mg capsule,extended release 24hr
150 mg PO HS
glipizide 5 mg tablet
5 mg PO DAILY
omega 8-gkx-dla-fish oil [Fish Oil] 1,000 (120-180) mg Capsule
1 cap PO DAILY
metformin 500 MG tablet
500 mg PO BID
bupropion HCl 150 mg Tablet Extended Release 24 Hr
150 mg PO DAILY
methenamine hippurate 1 gram Tablet
1 g PO BID
tamsulosin 0.4 mg Capsule
0.4 mg PO DAILY
aspirin 81 mg Tablet,Chewable
81 mg PO HS
Discontinued
ketorolac 10 mg Tablet
10 mg PO Q6H PRN (Reason: left renal stone)
Rx Instructions:
maximum total duration of 5 days from all oral, intranasal, or parenteral formulations
Discharge Orders:
Discharge Patient (As Directed); Ordered 10/03/25
Ordered By: Ana Bang
Discharge Date and Time
Discharge Date/Time: 10/03/25 16:21
Print Language: [id number]
== END 2025-10-03 16:21 | disposition home or self-care (01) | DRG 698 ==
LOC: 3 WEST ACU 23:43
PROVIDERS: Clinical Nurse Specialist Family Health; Emergency Medicine; ADMITTING PHYSICIAN Internal Medicine; ATTENDING PHYSICIAN Internal Medicine; EMERGENCY PHYSICIAN Student in an Organized Health Care Education/Training Program; FAMILY PHYSICIAN Family Medicine; OTHER PHYSICIAN Specialist; OTHER PHYSICIAN Student in an Organized Health Care Education/Training Program
DX: T83.518A Infection and inflammatory reaction due to other urinary catheter, initial encounter (principal); A41.9 Sepsis, unspecified organism; G92.8 Other toxic encephalopathy; R65.20 Severe sepsis without septic shock; N17.9 Acute kidney failure, unspecified; I69.351 Hemiplegia and hemiparesis following cerebral infarction affecting right dominant side; E87.1 Hypo-osmolality and hyponatremia; N30.21 Other chronic cystitis with hematuria; N32.81 Overactive bladder; F41.9 Anxiety disorder, unspecified; E11.9 Type 2 diabetes mellitus without complications; E78.00 Pure hypercholesterolemia, unspecified; G47.30 Sleep apnea, unspecified; Z87.442 Personal history of urinary calculi; G25.0 Essential tremor; I10 Essential (primary) hypertension; D50.0 Iron deficiency anemia secondary to blood loss (chronic); K76.0 Fatty (change of) liver, not elsewhere classified; M72.2 Plantar fascial fibromatosis; M41.9 Scoliosis, unspecified; G25.81 Restless legs syndrome; G47.00 Insomnia, unspecified; G89.29 Other chronic pain; Z96.611 Presence of right artificial shoulder joint; N31.9 Neuromuscular dysfunction of bladder, unspecified; Z79.84 Long term (current) use of oral hypoglycemic drugs; Y84.6 Urinary catheterization as the cause of abnormal reaction of the patient, or of later complication, without mention of misadventure at the time of the procedure; Z87.440 Personal history of urinary (tract) infections; Z98.1 Arthrodesis status; Z96.643 Presence of artificial hip joint, bilateral
CPT/HCPCS: 70450; 74176; 80053; 81003; 81015; 82962; 83036; 83605; 85025; 87040; 87086; 87106; 90662; 93005; 97162; 97530; G0008